=== PATIENT | male | born 1965 | race Caucasian/White ===

== ENCOUNTER 2019-07-02 11:06 | Day surgery (SDC) | payer MEDICAID ==
[~2019-07-02] VITALS: Ht 175.3 cm; Wt 83.8 kg
[2019-07-02 11:10] VITALS: BP 138/61
[2019-07-02] MEDS ORDERED: normal saline 1000ml 1,000 ML IV PRN (11:20)
[2019-07-02] MEDS ORDERED: cefazolin/dext.iso 2gm/100ml 100 ML IV ONE (11:20)
[2019-07-02] MEDS ORDERED: LIDOcaine 1% (10mg/ml) 2ml vial SQ ONE (11:45)
[2019-07-02] MEDS ORDERED: fentaNYL/PF 50MCG/1 ML 2ML syringe IV PRN (11:45)
[2019-07-02] MEDS ORDERED: LIDOcaine 1%/PF 5ML 10 MG/ML VIAL ONE (11:48)
[2019-07-02] MEDS ORDERED: fentaNYL/PF 50MCG/1 ML 2ML syringe ONE ×2 (11:48→12:15)
[2019-07-02] MEDS ORDERED: iohexol 300 MG/1 ML 50ml polymer ONE (11:55)
[2019-07-02] MEDS ORDERED: DUTA0.5C40 PO (11:58)
[2019-07-02] MEDS ORDERED: FLO0.4C PO (11:58)
[2019-07-02] MEDS ORDERED: INSU100V40 SQ (11:58)
[2019-07-02] MEDS ORDERED: INSU100I31 SQ (11:58)
[2019-07-02 12:03] LABS: BASOPHILS % (AUTO) 0.3 % (0-1); EOSINOPHILS # (AUTO) 0.2 X10'3 (0-0.9); EOSINOPHILS % (AUTO) 1.7 % (0-6); HEMATOCRIT 30.8 % (42.0-52.0); HEMOGLOBIN 10.1 g/dl (14.0-17.9); LYMPHOCYTES # (AUTO) 1.6 X10'3 (1.1-4.8); LYMPHOCYTES % (AUTO) 16.9 % (21-51); MEAN CORPUSCULAR HEMOGLOBIN 26.1 PG (27.0-31.0); MEAN CORPUSCULAR HGB CONC 32.6 g/dL (33.0-36.5); MEAN PLATELET VOLUME 7.8 FL (7.4-10.4); MONOCYTES # (AUTO) 0.9 X10'3 (0-0.9); MONOCYTES % (AUTO) 9.6 % (2-12); NEUTROPHILS # (AUTO) 6.7 X10'3 (1.8-7.7); NEUTROPHILS % (AUTO) 71.5 % (42-75); PLATELET COUNT 224 X10'3 (140-440); RED BLOOD COUNT 3.85 X10'6 (4.70-6.10); RED CELL DISTRIBUTION WIDTH 16.6 % (11.5-14.5); WHITE BLOOD COUNT 9.3 X10'3 (4.5-11.0)
[2019-07-02 12:13] LABS: ALBUMIN 2.8 G/DL (3.4-5.0); ANION GAP 14 (8-16); BLOOD UREA NITROGEN 62 MG/DL (7-18); BUN/CREATININE RATIO 12.7 (5.4-32.0); CALCIUM 8.9 MG/DL (8.5-10.1); CHLORIDE 100 MMOL/L (99-107); CREATININE 4.89 MG/DL (0.60-1.10); POTASSIUM 3.8 MMOL/L (3.5-5.1); SODIUM 130 MMOL/L (135-145); TOTAL CARBON DIOXIDE 16.4 MMOL/L (24-32); eGFR 13 ML/MIN
[2019-07-02 12:14] LABS: GLUCOSE 331 MG/DL (70-104)
[2019-07-02 12:30] VITALS: BP 124/73
[2019-07-02 12:45] VITALS: BP 107/62
[2019-07-02 13:00] VITALS: BP 98/63
[2019-07-02 13:15] VITALS: BP 120/77
[2019-07-02 13:30] VITALS: BP 118/81
== END 2019-07-02 14:00 | disposition home or self-care (01) ==
LOC: SSTAY O 11:06
PROVIDERS: ATTEND Radiology Diagnostic Radiology
DX: Z46.6 Encounter for fitting and adjustment of urinary device (principal); E11.9 Type 2 diabetes mellitus without complications; I10 Essential (primary) hypertension; Z85.038 Personal history of other malignant neoplasm of large intestine; Z90.49 Acquired absence of other specified parts of digestive tract; Z72.89 Other problems related to lifestyle; Z79.899 Other long term (current) drug therapy
CPT/HCPCS: 36415; 50435; 80048; 85025; C1729; C1769; J3010; J7030; Q9967

== ENCOUNTER 2019-08-24 16:51 | Emergency (ER) | payer MEDICAID ==
[~2019-08-24] VITALS: Ht 175.3 cm; Wt 85.3 kg
[~2019-08-24 16:51] MED LIST: DUTA0.5C40 PO; FLO0.4C PO; INSU100I31 SQ; INSU100V40 SQ
[2019-08-24 17:06] VITALS: BP 134/83
[2019-08-24] MEDS ORDERED: DOXY100C43 PO (17:46)
[2019-08-24] MEDS ORDERED: TETanus/Pertussis (Acell)/Diphther VAC/PF (Tdap-Adult) 0.5ml syringe IMVAC ONE (17:50)
== END 2019-08-24 18:33 | disposition home or self-care (01) ==
LOC: ER 16:52
DX: L02.212 Cutaneous abscess of back [any part, except buttock and flank] (principal); E11.9 Type 2 diabetes mellitus without complications; Z85.038 Personal history of other malignant neoplasm of large intestine; Z79.899 Other long term (current) drug therapy; Z79.4 Long term (current) use of insulin
CPT/HCPCS: 10160; 90471; 90715; 99284

== ENCOUNTER 2019-10-07 06:47 | Day surgery (SDC) | payer MEDICAID ==
[~2019-10-07] VITALS: Ht 175.3 cm; Wt 82.6 kg
--- NOTE | 2019-10-07 06:55 | NUR ---
Pt arrived on unit accompanied by family member. Pt ambulated independently & without difficulty to room. Pt oriented to room, including TV and call light use. Vital signs obtained, pt alert, oriented & in no acute distress.
[2019-10-07 07:09] VITALS: BP 95/67
[2019-10-07] MEDS ORDERED: normal saline 1000ml 1,000 ML IV PRN (07:10)
[2019-10-07] MEDS ORDERED: ceFAZolin inj. 2,000 MG in normal saline soln 50 ML IV ONE (07:10)
[2019-10-07] MEDS ORDERED: cefazolin/dext.iso 2gm/50ml 50 ML IV ONE (07:45)
[2019-10-07 07:47] LABS: ALBUMIN 2.5 G/DL (3.4-5.0); ANION GAP 11 (8-16); BASOPHILS % (AUTO) 0.3 % (0-1); BLOOD UREA NITROGEN 35 MG/DL (7-18); BUN/CREATININE RATIO 10.1 (5.4-32.0); CALCIUM 8.7 MG/DL (8.5-10.1); CHLORIDE 107 MMOL/L (99-107); CREATININE 3.48 MG/DL (0.60-1.10); EOSINOPHILS # (AUTO) 0.2 X10'3 (0-0.9); EOSINOPHILS % (AUTO) 2.1 % (0-6); GLUCOSE 159 MG/DL (70-104); HEMATOCRIT 28.7 % (42.0-52.0); HEMOGLOBIN 8.9 g/dl (14.0-17.9); LYMPHOCYTES # (AUTO) 1.7 X10'3 (1.1-4.8); LYMPHOCYTES % (AUTO) 15.2 % (21-51); MEAN CORPUSCULAR HEMOGLOBIN 23.6 PG (27.0-31.0); MEAN CORPUSCULAR HGB CONC 31.2 g/dL (33.0-36.5); MEAN CORPUSCULAR VOLUME 75.8 FL (78-98); MEAN PLATELET VOLUME 7.7 FL (7.4-10.4); MONOCYTES # (AUTO) 0.8 X10'3 (0-0.9); MONOCYTES % (AUTO) 7.1 % (2-12); NEUTROPHILS # (AUTO) 8.4 X10'3 (1.8-7.7); NEUTROPHILS % (AUTO) 75.3 % (42-75); PLATELET COUNT 304 X10'3 (140-440); POTASSIUM 3.9 MMOL/L (3.5-5.1); RED BLOOD COUNT 3.78 X10'6 (4.70-6.10); RED CELL DISTRIBUTION WIDTH 17.2 % (11.5-14.5); SODIUM 136 MMOL/L (135-145); TOTAL CARBON DIOXIDE 18.1 MMOL/L (24-32); WHITE BLOOD COUNT 11.2 X10'3 (4.5-11.0); eGFR 19 ML/MIN
[2019-10-07] MEDS ORDERED: LIDOcaine 1%/PF 5ML 10 MG/ML VIAL ONE (08:48)
[2019-10-07] MEDS ORDERED: fentaNYL/PF 50MCG/1 ML 2ML syringe ONE (08:48)
[2019-10-07] MEDS ORDERED: iohexol 300 MG/1 ML 50ml polymer ONE (08:48)
[2019-10-07] MEDS ORDERED: midazolam 2 mg/2 ml injection ONE (08:48)
--- NOTE | 2019-10-07 08:55 | NUR ---
Pt transported out of room via gurney for procedure; alert, oriented & in no acute distress.
[2019-10-07 09:30] VITALS: BP 95/67
--- NOTE | 2019-10-07 09:30 | NUR ---
Pt returned to room from angio suite via gurney. Pt awake, alert & in pleasant mood. Vital signs obtained, pt in no acute distress. Water and turkey sandwich provided per pt's request.
[2019-10-07 09:31] VITALS: BP 95/67
[2019-10-07 09:46] VITALS: BP 102/65
[2019-10-07 10:00] VITALS: BP 109/68
== END 2019-10-07 10:30 | disposition home or self-care (01) ==
LOC: SSTAY O 06:47
PROVIDERS: ATTEND Radiology Diagnostic Radiology
DX: R33.9 Retention of urine, unspecified (principal); N13.30 Unspecified hydronephrosis; Z93.6 Other artificial openings of urinary tract status
CPT/HCPCS: 36415; 50435; 80048; 82948; 85025; C1729; C1769; J2250; J3010; Q9967; 99152; 99153

== ENCOUNTER 2019-12-20 03:10 | Inpatient (IN) | payer MEDICAID ==
[~2019-12-20] VITALS: Ht 175.3 cm; Wt 81.8 kg
[2019-12-20] MEDS ORDERED: piperacillin/tazo 4.5gm/100ml 100 ML IV ONE (03:30)
--- NOTE | 2019-12-20 03:56 | NUR ---
Pt has obvious infection around nephrostomy tube on right side
[2019-12-20 04:08] LABS: PARTIAL THROMBOPLASTIN TIME 33 SECONDS (22-32)
[2019-12-20 04:09] LABS: CLARITY,URINE CLOUDY (Clear); COLOR,URINE YELLOW (Yellow); GLUCOSE, URINE 250 mg/dl (Neg); KETONES,URINE NEGATIVE (Neg); LEUKOCYTE ESTERASE ,URINE MODERATE (Neg); NITRITES, URINE NEGATIVE (Neg); OCCULT BLOOD,URINE MODERATE (Neg); PH,URINE 5.5 (4.8-8.0); PROTEIN,URINE 100 mg/dl (Neg); UROBILINOGEN,URINE 0.2 E.U/dL (0.2-1.0)
[2019-12-20 04:10] LABS: BASOPHILS % (AUTO) 0.2 % (0-1); EOSINOPHILS # (AUTO) 0.2 X10'3 (0-0.9); EOSINOPHILS % (AUTO) 1.4 % (0-6); HEMATOCRIT 31.4 % (42.0-52.0); HEMOGLOBIN 9.7 g/dl (14.0-17.9); LYMPHOCYTES # (AUTO) 1.8 X10'3 (1.1-4.8); LYMPHOCYTES % (AUTO) 11.1 % (21-51); MEAN CORPUSCULAR HEMOGLOBIN 23.5 PG (27.0-31.0); MONOCYTES # (AUTO) 0.9 X10'3 (0-0.9); MONOCYTES % (AUTO) 5.4 % (2-12); NEUTROPHILS # (AUTO) 13.3 X10'3 (1.8-7.7); NEUTROPHILS % (AUTO) 81.9 % (42-75); PLATELET COUNT 280 X10'3 (140-440); RED BLOOD COUNT 4.14 X10'6 (4.70-6.10); RED CELL DISTRIBUTION WIDTH 19.5 % (11.5-14.5); WHITE BLOOD COUNT 16.2 X10'3 (4.5-11.0)
[2019-12-20 04:12] LABS: ANION GAP 14 (8-16); BLOOD UREA NITROGEN 50 MG/DL (7-18); CHLORIDE 105 MMOL/L (99-107); CREATININE 3.86 MG/DL (0.60-1.10); GLUCOSE 103 MG/DL (70-104); POTASSIUM 3.9 MMOL/L (3.5-5.1); SODIUM 136 MMOL/L (135-145); TOTAL CARBON DIOXIDE 16.7 MMOL/L (24-32)
[2019-12-20 04:13] LABS: ALANINE AMINOTRANSFERASE 10 U/L (12-78); ALBUMIN 2.8 G/DL (3.4-5.0); ALBUMIN/GLOBULIN RATIO 0.5 (1.1-1.5); ALKALINE PHOSPHATASE 163 IU/L (46-116); ASPARTATE AMINO TRANSFERASE 8 U/L (10-37); BILIRUBIN,TOTAL 0.3 MG/DL (0.1-1.0); CALCIUM 9.2 MG/DL (8.5-10.1); eGFR 17 ML/MIN
[2019-12-20 04:35] LABS: UA COLLECTION TYPE FOLEY CATH
[2019-12-20] MEDS ORDERED: VANCOMYCIN 1,500MG inj. 1,500 MG in normal saline 500ml IV soln 500 ML IV ONE (04:40)
[2019-12-20 04:45] LABS: WBC,URINE TNTC /HPF (0-4)
[2019-12-20 04:46] LABS: BACTERIA,URINE 2+ /HPF (Neg); MUCUS STRANDS NONE SEEN /LPF (Neg); SQUAMOUS EPITHELIAL CELL,UR NONE SEEN /LPF (FEW); YEAST MODERATE /HPF (NEGATIVE)
[2019-12-20 04:47] LABS: WBC CLUMPS,URINE MODERATE /HPF (NEGATIVE)
[2019-12-20] MEDS ORDERED: morphine 4 MG/ML inj SYRINge IM ONE (04:55)
[2019-12-20] MEDS ORDERED: ondansetron/PF 4mg/2ml inj IM ONE (04:55)
[2019-12-20] MEDS ORDERED: morphine 2 MG/ML inj. syringe IV PRN (05:05)
[2019-12-20] MEDS ORDERED: acetaminophen 325mg tablet PO PRN ×2 (05:05)
[2019-12-20] MEDS ORDERED: HYDROcodone/acetaminophen 5mg/325mg tablet PO PRN (05:05)
[2019-12-20] MEDS ORDERED: potassium Cl 20 mEq SR tablet PO PRN ×2 (05:05)
[2019-12-20] MEDS ORDERED: ondansetron/PF 4mg/2ml inj IV PRN (05:05)
[2019-12-20] MEDS ORDERED: potassium CL 10mEq/100ml bag 100 ML IV PRN ×2 (05:05)
[2019-12-20] MEDS ORDERED: magnesium 2GM in 50ml NS 50 ML IV PRN (05:05)
[2019-12-20] MEDS ORDERED: magnesium 4gm in 100ml NS 100 ML IV PRN (05:05)
[2019-12-20] MEDS ORDERED: magnesium Cl slow-release 64mg tablet PO PRN (05:05)
[2019-12-20] MEDS: normal saline 1000ml 1,000 ML IV SCH ×3 (05:27→21:14)
--- NOTE | 2019-12-20 05:37 | NUR ---
Patient in room ED 9. I have received report from Cap,RN and had the opportunity to ask questions and assume patient care.
[2019-12-20] MEDS ORDERED: MESSAGE TO PHARMACY PO ONE (05:55)
[2019-12-20] MEDS ORDERED: dextrose 50%-water 50ml dispensing syringe IV PRN ×2 (05:55)
[2019-12-20] MEDS ORDERED: glucagon, human recombinant 1mg kit SUBCUT PRN (05:55)
[2019-12-20] MEDS ORDERED: dextrose ORAL solution 15 GM/59 ML bottle PO PRN ×2 (05:55)
--- NOTE | 2019-12-20 06:07 | NUR ---
Patient in room [facility]I 340. I have received report from Cady CAMILO and had the opportunity to ask questions and assume patient care.
--- NOTE | 2019-12-20 06:12 | NUR ---
Problems reprioritized. Patient report given, questions answered & plan of care reviewed with TON Pappas.
[2019-12-20 06:23] LABS: HEMOGLOBIN A1C 9.6 % (4.5-6.2)
[2019-12-20 06:35] LABS: PLATELET ESTIMATE NORMAL
[2019-12-20 06:46] LABS: ANISOCYTOSIS 2+; MICROCYTOSIS 1+; POLYCHROMASIA FEW
[2019-12-20 07:00] VITALS: BP 103/56
[2019-12-20] MEDS: heparin, porcine 5000 units/ml vial SQ SCH ×2 (07:25→19:46)
[2019-12-20] MEDS: docusate sod 100mg capsule PO SCH ×2 (07:25→20:00)
[2019-12-20] MEDS: HYDROcodone/acetaminophen 10/325mg tab PO PRN ×3 (07:34→19:47)
[2019-12-20] MEDS: K and/or MAG REPLACEMENT MC SCH ×2 (08:00→19:36)
[2019-12-20] MEDS ORDERED: LIDOcaine 1% W/epiNEPHrine 1:100,000 20ml vial ONE (08:00)
[2019-12-20] MEDS ORDERED: CefTRIAXone 2gm/D5W 50ml 50 ML IV SCH (08:00)
[2019-12-20] MEDS ORDERED: tamsulosin 0.4mg capsule PO SCH (11:30)
[2019-12-20] MEDS ORDERED: LIDOcaine 1% (10mg/ml) 2ml vial SQ ONE ×2 (15:20→15:40)
[2019-12-20] MEDS: morphine 2 MG/ML inj. syringe IV PRN ×2 (15:34→21:33)
--- NOTE | 2019-12-20 15:54 | NUR ---
DM Consult: A1C 9.6. Pt admit w/ R nephrostomy abscess hx bilateral nephrostomy tubes, meth abuse, colorectal CA, and colostomy w/ reversal at [facility] per . Pt fatigued at this time per EMR. Would benefit from DM ed once more appropriate prior to discharge. Addendum: 12/20/19 at [address] Amended: Links added.
[2019-12-20] MEDS: cefepime 1GM in D5W 50mL 50 ML IV SCH ×2 (16:02→23:37)
[2019-12-20] MEDS: clindamycin 600mg/D5W 50ml 50 ML IV SCH ×2 (17:17→21:21)
--- NOTE | 2019-12-20 17:35 | NUR ---
PATIENT SEEN BY dR MONTEIRO AND dr LIU. dR Liu PERFORMED I&D AT BEDSIDE. DRESSING ORDERS GIVEN. PATIENT MEDICATED WITH MORPHINE FOR PAIN AND NORCO.. WITH EFFECT. NEPHROSTOMY TUBES DRAINED 700MLS.WILL CONTINUE TO MONITOR. CULTURE TAKEN OF WOUND TO RIGHT FLANK
[2019-12-20 18:00] VITALS: BP 81/60
--- NOTE | 2019-12-20 18:30 | NUR ---
Patient in room [facility]I 340. I have received report from TON ARMSTRONG and had the opportunity to ask questions and assume patient care.
[2019-12-20] MEDS: insulin Lispro (HumaLOG) vial - multi-dose SQ SCH ×2 (18:48→20:49)
--- NOTE | 2019-12-20 18:49 | NUR ---
Problems reprioritized. Patient report given, questions answered & plan of care reviewed with MAXI CAMILO.
[2019-12-20] MEDS: lactobacillus rhamnosus 10,000 MMU CELLS/CAPSULE PO SCH (19:46)
[2019-12-20] MEDS: insulin glargine (Lantus) pen - multi-dose SQ SCH (20:48)
[2019-12-20] MEDS ORDERED: temazepam 15mg capsule PO PRN (21:00)
[2019-12-21] VITALS: BP 90/56
[2019-12-21] MEDS: clindamycin 600mg/D5W 50ml 50 ML IV SCH ×3 (02:36→14:20)
[2019-12-21] MEDS: VANCOmycin 1250MG/NS 250ml Bag 250 ML IV SCH (04:35)
[2019-12-21] MEDS: normal saline 1000ml 1,000 ML IV SCH (04:39)
[2019-12-21 05:00] LABS: BASOPHILS % (AUTO) 0.2 % (0-1); EOSINOPHILS # (AUTO) 0.2 X10'3 (0-0.9); EOSINOPHILS % (AUTO) 1.8 % (0-6); HEMATOCRIT 25.6 % (42.0-52.0); LYMPHOCYTES # (AUTO) 1.2 X10'3 (1.1-4.8); LYMPHOCYTES % (AUTO) 10.2 % (21-51); MEAN CORPUSCULAR HEMOGLOBIN 23.7 PG (27.0-31.0); MEAN CORPUSCULAR HGB CONC 31.2 g/dL (33.0-36.5); MEAN CORPUSCULAR VOLUME 75.9 FL (78-98); MONOCYTES # (AUTO) 0.8 X10'3 (0-0.9); MONOCYTES % (AUTO) 6.4 % (2-12); NEUTROPHILS # (AUTO) 9.7 X10'3 (1.8-7.7); NEUTROPHILS % (AUTO) 81.4 % (42-75); PLATELET COUNT 191 X10'3 (140-440); RED BLOOD COUNT 3.38 X10'6 (4.70-6.10); RED CELL DISTRIBUTION WIDTH 19.3 % (11.5-14.5); WHITE BLOOD COUNT 11.9 X10'3 (4.5-11.0)
[2019-12-21 05:11] LABS: ALANINE AMINOTRANSFERASE 10 U/L (12-78); ALBUMIN 2.1 G/DL (3.4-5.0); ALBUMIN/GLOBULIN RATIO 0.4 (1.1-1.5); ALKALINE PHOSPHATASE 135 IU/L (46-116); ANION GAP 14 (8-16); ASPARTATE AMINO TRANSFERASE 9 U/L (10-37); BILIRUBIN,TOTAL 0.2 MG/DL (0.1-1.0); BLOOD UREA NITROGEN 55 MG/DL (7-18); BUN/CREATININE RATIO 13.6 (5.4-32.0); CALCIUM 8.2 MG/DL (8.5-10.1); CHLORIDE 105 MMOL/L (99-107); CREATININE 4.05 MG/DL (0.60-1.10); GLUCOSE 140 MG/DL (70-104); MAGNESIUM 1.7 MG/DL (1.5-2.4); POTASSIUM 4.2 MMOL/L (3.5-5.1); SODIUM 133 MMOL/L (135-145); TOTAL PROTEIN 7.2 G/DL (6.4-8.2); eGFR 16 ML/MIN
--- NOTE | 2019-12-21 05:43 | NUR ---
MESSAGE: [id number] LEONID SOTO 52 HERE FOR INFECTED NEPHROSTOMY, PT HAS CRITICAL LAB OF CO2 14 THIS MORNIG. THANK YOU. #[id number] MAXI
--- NOTE | 2019-12-21 06:00 | NUR ---
Problems reprioritized. Patient report given, questions answered & plan of care reviewed with River Crowe.
[2019-12-21 06:10] LABS: ANISOCYTOSIS 2+; MICROCYTOSIS 1+; PLATELET ESTIMATE NORMAL
--- NOTE | 2019-12-21 06:50 | NUR ---
Problems reprioritized. Patient report given, questions answered & plan of care reviewed with TON GONZALEZ.
[2019-12-21 08:00] VITALS: BP 103/52
[2019-12-21] MEDS: K and/or MAG REPLACEMENT MC SCH ×2 (08:00→19:33)
[2019-12-21] MEDS: heparin, porcine 5000 units/ml vial SQ SCH ×2 (08:00→20:39)
[2019-12-21] MEDS: docusate sod 100mg capsule PO SCH ×2 (08:00→20:37)
[2019-12-21] MEDS: lactobacillus rhamnosus 10,000 MMU CELLS/CAPSULE PO SCH ×2 (08:17→20:37)
[2019-12-21] MEDS: morphine 2 MG/ML inj. syringe IV PRN (08:18)
[2019-12-21] MEDS: cefepime 1GM in D5W 50mL 50 ML IV SCH ×2 (09:27→15:27)
[2019-12-21] MEDS ORDERED: fentaNYL/PF 50MCG/1 ML 2ML syringe ONE ×2 (09:50→10:37)
[2019-12-21] MEDS ORDERED: iohexol 300 MG/1 ML 50ml polymer ONE (09:58)
[2019-12-21] MEDS ORDERED: LIDOcaine 1%/PF 5ML 10 MG/ML VIAL ONE (09:59)
[2019-12-21 11:11] VITALS: BP 102/59
[2019-12-21] MEDS: sodium bicarbonate (8.4%) inj. 100 MEQ in sodium chloride 0.45% 1,000 ML IV SCH (11:33)
[2019-12-21] MEDS: insulin Lispro (HumaLOG) vial - multi-dose SQ SCH (18:26)
--- NOTE | 2019-12-21 18:29 | NUR ---
Problems reprioritized. Patient report given, questions answered & plan of care reviewed with Amrita CAMILO.
--- NOTE | 2019-12-21 18:40 | NUR ---
Patient in room [facility]I 340. I have received report from rosario Sandoval and had the opportunity to ask questions and assume patient care.
[2019-12-21 20:00] VITALS: BP 121/68
[2019-12-21] MEDS: MEROPENEM 500MG/50ML-NS IVPB 50 ML IV SCH (20:36)
[2019-12-21] MEDS: tamsulosin 0.4mg capsule PO SCH (20:37)
[2019-12-21] MEDS: insulin glargine (Lantus) pen - multi-dose SQ SCH (20:46)
[2019-12-22] VITALS: BP 116/61
[2019-12-22] MEDS: sodium bicarbonate (8.4%) inj. 100 MEQ in sodium chloride 0.45% 1,000 ML IV SCH ×3 (00:31→15:18)
[2019-12-22] MEDS: VANCOmycin 1250MG/NS 250ml Bag 250 ML IV SCH (04:32)
[2019-12-22 05:04] LABS: BASOPHILS % (AUTO) 0.5 % (0-1); EOSINOPHILS # (AUTO) 0.2 X10'3 (0-0.9); EOSINOPHILS % (AUTO) 2.7 % (0-6); HEMOGLOBIN 8.3 g/dl (14.0-17.9); LYMPHOCYTES # (AUTO) 0.8 X10'3 (1.1-4.8); LYMPHOCYTES % (AUTO) 10.3 % (21-51); MEAN CORPUSCULAR HEMOGLOBIN 24.1 PG (27.0-31.0); MEAN CORPUSCULAR HGB CONC 31.8 g/dL (33.0-36.5); MEAN CORPUSCULAR VOLUME 75.8 FL (78-98); MEAN PLATELET VOLUME 8.1 FL (7.4-10.4); MONOCYTES # (AUTO) 0.4 X10'3 (0-0.9); MONOCYTES % (AUTO) 5.8 % (2-12); NEUTROPHILS # (AUTO) 6.1 X10'3 (1.8-7.7); NEUTROPHILS % (AUTO) 80.7 % (42-75); PLATELET COUNT 193 X10'3 (140-440); RED BLOOD COUNT 3.43 X10'6 (4.70-6.10); RED CELL DISTRIBUTION WIDTH 18.9 % (11.5-14.5); WHITE BLOOD COUNT 7.6 X10'3 (4.5-11.0)
[2019-12-22 05:20] LABS: ALANINE AMINOTRANSFERASE 7 U/L (12-78); ALBUMIN/GLOBULIN RATIO 0.4 (1.1-1.5); ALKALINE PHOSPHATASE 129 IU/L (46-116); ANION GAP 13 (8-16); ASPARTATE AMINO TRANSFERASE 11 U/L (10-37); BILIRUBIN,TOTAL 0.2 MG/DL (0.1-1.0); BLOOD UREA NITROGEN 55 MG/DL (7-18); BUN/CREATININE RATIO 12.9 (5.4-32.0); CHLORIDE 107 MMOL/L (99-107); CREATININE 4.26 MG/DL (0.60-1.10); GLUCOSE 141 MG/DL (70-104); MAGNESIUM 1.8 MG/DL (1.5-2.4); POTASSIUM 3.9 MMOL/L (3.5-5.1); SODIUM 137 MMOL/L (135-145); TOTAL CARBON DIOXIDE 16.8 MMOL/L (24-32); eGFR 15 ML/MIN
--- NOTE | 2019-12-22 06:00 | NUR ---
Patient in room [facility] 340. I have received report from TON Crowe and had the opportunity to ask questions and assume patient care.
--- NOTE | 2019-12-22 06:29 | NUR ---
Problems reprioritized. Patient report given, questions answered & plan of care reviewed with TON GONZALEZ.
[2019-12-22 07:26] LABS: ANISOCYTOSIS 2+; HYPOCHROMASIA 1+; MICROCYTOSIS 1+; PLATELET ESTIMATE NORMAL
[2019-12-22 07:30] VITALS: BP 96/54
[2019-12-22] MEDS: docusate sod 100mg capsule PO SCH ×2 (08:00→20:00)
[2019-12-22] MEDS: K and/or MAG REPLACEMENT MC SCH ×2 (08:00→20:00)
[2019-12-22] MEDS: tamsulosin 0.4mg capsule PO SCH ×2 (08:04→21:29)
[2019-12-22] MEDS: lactobacillus rhamnosus 10,000 MMU CELLS/CAPSULE PO SCH ×2 (08:04→21:29)
[2019-12-22] MEDS: MEROPENEM 500MG/50ML-NS IVPB 50 ML IV SCH ×2 (08:04→21:29)
[2019-12-22] MEDS: heparin, porcine 5000 units/ml vial SQ SCH ×2 (08:05→21:30)
[2019-12-22] MEDS: morphine 2 MG/ML inj. syringe IV PRN ×4 (08:06→21:46)
[2019-12-22] MEDS: insulin Lispro (HumaLOG) vial - multi-dose SQ SCH ×3 (09:13→18:35)
[2019-12-22 11:00] VITALS: BP 91/59
--- NOTE | 2019-12-22 14:52 | NUR ---
F/u for DM consult: Attempted visit with pt at bedside however pt sleeping and did not wake with verbal cues. Written DM education with referral to outpatient CDE course and RD contact information left at bedside. Will remain available. Addendum: 12/22/19 at [address] Amended: Links added.
--- NOTE | 2019-12-22 18:00 | NUR ---
Problems reprioritized. Patient report given, questions answered & plan of care reviewed with TON Robbins.
--- NOTE | 2019-12-22 18:45 | NUR ---
Patient in room [facility] 340. I have received report from Jaime CAMILO and had the opportunity to ask questions and assume patient care.
[2019-12-22 19:00] VITALS: BP 92/44
[2019-12-22] MEDS: insulin glargine (Lantus) pen - multi-dose SQ SCH (21:37)
[2019-12-23] VITALS: BP 114/63
[2019-12-23] MEDS: sodium bicarbonate (8.4%) inj. 100 MEQ in sodium chloride 0.45% 1,000 ML IV SCH ×3 (05:03→19:58)
[2019-12-23] MEDS: VANCOmycin 1250MG/NS 250ml Bag 250 ML IV SCH (05:05)
[2019-12-23 05:32] LABS: BASOPHILS % (AUTO) 0.3 % (0-1); EOSINOPHILS # (AUTO) 0.2 X10'3 (0-0.9); EOSINOPHILS % (AUTO) 2.3 % (0-6); HEMATOCRIT 25.5 % (42.0-52.0); HEMOGLOBIN 8.1 g/dl (14.0-17.9); LYMPHOCYTES # (AUTO) 0.8 X10'3 (1.1-4.8); LYMPHOCYTES % (AUTO) 11.1 % (21-51); MEAN CORPUSCULAR HEMOGLOBIN 23.9 PG (27.0-31.0); MEAN CORPUSCULAR HGB CONC 31.6 g/dL (33.0-36.5); MEAN CORPUSCULAR VOLUME 75.7 FL (78-98); MEAN PLATELET VOLUME 8.1 FL (7.4-10.4); MONOCYTES # (AUTO) 0.4 X10'3 (0-0.9); MONOCYTES % (AUTO) 6.1 % (2-12); NEUTROPHILS # (AUTO) 5.9 X10'3 (1.8-7.7); NEUTROPHILS % (AUTO) 80.2 % (42-75); PLATELET COUNT 196 X10'3 (140-440); RED BLOOD COUNT 3.37 X10'6 (4.70-6.10); RED CELL DISTRIBUTION WIDTH 18.7 % (11.5-14.5); WHITE BLOOD COUNT 7.4 X10'3 (4.5-11.0)
[2019-12-23 05:50] LABS: ALANINE AMINOTRANSFERASE 8 U/L (12-78); ALBUMIN 1.9 G/DL (3.4-5.0); ALBUMIN/GLOBULIN RATIO 0.4 (1.1-1.5); ALKALINE PHOSPHATASE 125 IU/L (46-116); ANION GAP 12 (8-16); ASPARTATE AMINO TRANSFERASE 10 U/L (10-37); BILIRUBIN,TOTAL 0.2 MG/DL (0.1-1.0); BLOOD UREA NITROGEN 51 MG/DL (7-18); CALCIUM 8.1 MG/DL (8.5-10.1); CHLORIDE 109 MMOL/L (99-107); CREATININE 3.65 MG/DL (0.60-1.10); GLUCOSE 130 MG/DL (70-104); MAGNESIUM 1.9 MG/DL (1.5-2.4); POTASSIUM 3.8 MMOL/L (3.5-5.1); SODIUM 140 MMOL/L (135-145); TOTAL PROTEIN 6.8 G/DL (6.4-8.2); eGFR 18 ML/MIN
--- NOTE | 2019-12-23 07:02 | NUR ---
Patient in room [facility]I 340. I have received report from Itzel Holman and had the opportunity to ask questions and assume patient care.
--- NOTE | 2019-12-23 07:06 | NUR ---
Problems reprioritized. Patient report given, questions answered & plan of care reviewed with Brandie CAMILO.
[2019-12-23 08:00] VITALS: BP 100/62
[2019-12-23] MEDS: K and/or MAG REPLACEMENT MC SCH ×2 (08:00→20:00)
[2019-12-23] MEDS: docusate sod 100mg capsule PO SCH ×2 (08:00→20:00)
[2019-12-23 08:04] LABS: ANISOCYTOSIS 2+; MICROCYTOSIS 1+; PLATELET ESTIMATE NORMAL
--- NOTE | 2019-12-23 08:10 | NUR ---
Pt w/ Positive MRSA swab from back wd, per lab. TON Diego, notified.
[2019-12-23] MEDS: MEROPENEM 500MG/50ML-NS IVPB 50 ML IV SCH ×2 (09:05→21:06)
[2019-12-23] MEDS: tamsulosin 0.4mg capsule PO SCH ×2 (09:05→21:05)
[2019-12-23] MEDS: lactobacillus rhamnosus 10,000 MMU CELLS/CAPSULE PO SCH ×2 (09:05→21:05)
[2019-12-23] MEDS: heparin, porcine 5000 units/ml vial SQ SCH ×2 (09:06→21:08)
[2019-12-23 11:00] VITALS: BP 83/47
[2019-12-23] MEDS: insulin Lispro (HumaLOG) vial - multi-dose SQ SCH ×2 (14:47→19:48)
[2019-12-23] MEDS: morphine 2 MG/ML inj. syringe IV PRN (16:13)
--- NOTE | 2019-12-23 18:48 | NUR ---
Problems reprioritized. Patient report given, questions answered & plan of care reviewed with pat RN.
[2019-12-23 19:00] VITALS: BP 109/60
--- NOTE | 2019-12-23 19:30 | NUR ---
right nephrostomy tube patent & draining light, cloudy pink urine with sediment to a bag; the left nephrostomy tube is patent & draining yellow urine to a bag Addendum: 12/23/19 at 4753 by Nisha Vega RN Amended: Links added.
[2019-12-23] MEDS: insulin glargine (Lantus) pen - multi-dose SQ SCH (20:59)
[2019-12-24] VITALS: BP 109/59
[2019-12-24] MEDS ORDERED: VANCOMYCIN LEVEL IV ONE (04:30)
[2019-12-24 05:02] LABS: BASOPHILS % (AUTO) 0.3 % (0-1); EOSINOPHILS # (AUTO) 0.1 X10'3 (0-0.9); EOSINOPHILS % (AUTO) 1.8 % (0-6); HEMATOCRIT 24.7 % (42.0-52.0); LYMPHOCYTES # (AUTO) 1.1 X10'3 (1.1-4.8); MEAN CORPUSCULAR HEMOGLOBIN 24.1 PG (27.0-31.0); MEAN CORPUSCULAR HGB CONC 32.2 g/dL (33.0-36.5); MEAN CORPUSCULAR VOLUME 74.6 FL (78-98); MEAN PLATELET VOLUME 7.8 FL (7.4-10.4); MONOCYTES # (AUTO) 0.5 X10'3 (0-0.9); MONOCYTES % (AUTO) 6.2 % (2-12); NEUTROPHILS # (AUTO) 6.3 X10'3 (1.8-7.7); NEUTROPHILS % (AUTO) 77.7 % (42-75); PLATELET COUNT 186 X10'3 (140-440); RED BLOOD COUNT 3.31 X10'6 (4.70-6.10); RED CELL DISTRIBUTION WIDTH 18.6 % (11.5-14.5); WHITE BLOOD COUNT 8.1 X10'3 (4.5-11.0)
[2019-12-24] MEDS: VANCOmycin 1250MG/NS 250ml Bag 250 ML IV SCH (05:09)
[2019-12-24 05:27] LABS: ALANINE AMINOTRANSFERASE 7 U/L (12-78); ALBUMIN 1.8 G/DL (3.4-5.0); ALBUMIN/GLOBULIN RATIO 0.4 (1.1-1.5); ALKALINE PHOSPHATASE 128 IU/L (46-116); ANION GAP 8 (8-16); ASPARTATE AMINO TRANSFERASE 15 U/L (10-37); BILIRUBIN,TOTAL 0.2 MG/DL (0.1-1.0); BLOOD UREA NITROGEN 40 MG/DL (7-18); BUN/CREATININE RATIO 12.9 (5.4-32.0); CALCIUM 8.2 MG/DL (8.5-10.1); CHLORIDE 107 MMOL/L (99-107); GLUCOSE 113 MG/DL (70-104); POTASSIUM 3.7 MMOL/L (3.5-5.1); SODIUM 140 MMOL/L (135-145); TOTAL CARBON DIOXIDE 25.2 MMOL/L (24-32); TOTAL PROTEIN 6.7 G/DL (6.4-8.2); eGFR 21 ML/MIN
[2019-12-24 05:28] LABS: MAGNESIUM 1.7 MG/DL (1.5-2.4)
[2019-12-24 05:29] LABS: VANCOMYCIN,TROUGH 33.8 UG/ML (6.0-14.0)
--- NOTE | 2019-12-24 06:30 | NUR ---
Patient in room [facility] 341. I have received report from Pat RN and had the opportunity to ask questions and assume patient care.
[2019-12-24 06:32] LABS: ANISOCYTOSIS 2+; MICROCYTOSIS 1+; PLATELET ESTIMATE NORMAL
[2019-12-24 06:33] LABS: HYPOCHROMASIA 1+
[2019-12-24] MEDS: docusate sod 100mg capsule PO SCH (07:52)
--- NOTE | 2019-12-24 07:54 | NUR ---
PICC line nurse came by to do the PICC line insertion
[2019-12-24 08:00] VITALS: BP 99/59
[2019-12-24] MEDS: K and/or MAG REPLACEMENT MC SCH (08:00)
--- NOTE | 2019-12-24 08:30 | NUR ---
PICC line nurse still in the patient's room doing the procedure
--- NOTE | 2019-12-24 09:05 | NUR ---
[facility] LINE INFORMATION: REF: [id number] LOT: [id number] EXP: 08/11/2020
[2019-12-24] MEDS: MEROPENEM 500MG/50ML-NS IVPB 50 ML IV SCH (09:18)
[2019-12-24] MEDS: tamsulosin 0.4mg capsule PO SCH (09:19)
[2019-12-24] MEDS: lactobacillus rhamnosus 10,000 MMU CELLS/CAPSULE PO SCH (09:19)
[2019-12-24] MEDS: heparin, porcine 5000 units/ml vial SQ SCH (09:20)
--- NOTE | 2019-12-24 09:57 | NUR ---
Patient refused insulin dose this am, preferred to skip it since his blood sugar this am was 125mg/dl
[2019-12-24 10:12] VITALS: BP 121/72
[2019-12-24] MEDS: morphine 2 MG/ML inj. syringe IV PRN (10:22)
--- NOTE | 2019-12-24 10:30 | NUR ---
Wound care nurse came to do the dressing change. Patient was medicated with pain medicine prior to dressing change.
[2019-12-24] MEDS: sodium bicarbonate (8.4%) inj. 100 MEQ in sodium chloride 0.45% 1,000 ML IV SCH (12:23)
--- NOTE | 2019-12-24 12:31 | NUR ---
Initial: Pt with bilateral nephrostomy tube admit with right nephrostomy site abscess. Pt s/p I&D of abscess. Nephrology has been consulted for acute on chronic kidney disease stage 4 per MD notes. Electrolytes currently WNL. Pt on heart healthy CHO controlled diet documented with slightly fluctuating PO intake, overall averaging 75-100% PO intake meeting nutrient needs. LBM 12/23. Pt with routine bowel care however not given at times d/t pt refusing or it not being needed. No nutrition intervention warranted at this time. Will continue to follow. Recommendations: 1) Continue heart healthy CHO controlled diet 2) Monitor electrolytes and need for the addition of renal diet 3) Routine bowel care 4) Wt per rx Addendum: 12/24/19 at [address] Amended: Links added.
[2019-12-24] MEDS: insulin Lispro (HumaLOG) vial - multi-dose SQ SCH (13:44)
--- NOTE | 2019-12-24 14:29 | NUR ---
Discharge instructions given to patient, patient verbalized understanding of all instructions made. Teaching materials regarding PICC line care, nephrostomy tube care, and A1C result as well as diabetes survival skills information given to patient. Right upper PICC line slushed with 10ml NS both ports, positive blood return noted, no resistance. Peripheral IV catheters were removed, tip intact. IV antibiotic prescriptions c/o [facility] infusion services. Home health nurse arranged c/o Cigarette Inspector Vivien
--- NOTE | 2019-12-24 14:43 | NUR ---
Patient discharged, refused to be wheelchair out to the lobby. Patient has steady gait. Charge nurse Roberto notified [facility] pharmacy that patient is about to leave. Roberto CAMILO told patient to go directly to [facility] pharmacy before heading home. Patient stated he has all his belongings with him.
[2019-12-25] MEDS ORDERED: VANCOMYCIN 750MG IV in NS 250 ML IV SCH (08:00)
[2019-12-28] MEDS ORDERED: VANCOMYCIN LEVEL IV ONE (07:30)
== END 2019-12-24 14:43 | disposition home or self-care (01) | DRG 466 ==
LOC: ER 03:11 → ED HOLD 05:04 → SUR 3N 05:50
PROVIDERS: ADMIT Internal Medicine; ATTEND Family Medicine
PROC: 0H97XZZ Drainage of Abdomen Skin, External Approach (ICD-10-PCS; 2019-12-20)
PROC: 0H97XZZ Drainage of Abdomen Skin, External Approach (ICD-10-PCS; 2019-12-20)
PROC: BT131ZZ Fluoroscopy of Bilateral Kidneys using Low Osmolar Contrast (ICD-10-PCS; principal; 2019-12-21)
PROC: 0T25X0Z Change Drainage Device in Kidney, External Approach (ICD-10-PCS; 2019-12-21)
PROC: 02HV33Z Insertion of Infusion Device into Superior Vena Cava, Percutaneous Approach (ICD-10-PCS; 2019-12-24)
PROC: B548ZZA Ultrasonography of Superior Vena Cava, Guidance (ICD-10-PCS; 2019-12-24)
DX: N99.521 Infection of incontinent external stoma of urinary tract (principal); E11.22 Type 2 diabetes mellitus with diabetic chronic kidney disease; E87.2 Acidosis; E11.69 Type 2 diabetes mellitus with other specified complication; E11.65 Type 2 diabetes mellitus with hyperglycemia; M86.8X8 Other osteomyelitis, other site; N13.6 Pyonephrosis; N18.4 Chronic kidney disease, stage 4 (severe); L02.211 Cutaneous abscess of abdominal wall; L03.311 Cellulitis of abdominal wall; L03.312 Cellulitis of back [any part except buttock and flank]; B95.2 Enterococcus as the cause of diseases classified elsewhere; Z16.12 Extended spectrum beta lactamase (ESBL) resistance; B95.62 Methicillin resistant Staphylococcus aureus infection as the cause of diseases classified elsewhere; B96.20 Unspecified Escherichia coli [E. coli] as the cause of diseases classified elsewhere; N32.0 Bladder-neck obstruction; Z85.048 Personal history of other malignant neoplasm of rectum, rectosigmoid junction, and anus; Z87.440 Personal history of urinary (tract) infections; Z92.21 Personal history of antineoplastic chemotherapy; Z92.3 Personal history of irradiation; Z79.899 Other long term (current) drug therapy; Z79.4 Long term (current) use of insulin
CPT/HCPCS: 36415; 36573; 50435; 74176; 76937; 80053; 80202; 81001; 82948; 83036; 83605; 83735; 84145; 85025; 85610; 85730; 87040; 87070; 87075; 87077; 87081; 87088; 87102; 87186; 97110; 97161; 97530; 99285; C1729; C1769; G0378; J0692; J0696; J1644; J1815; J2001; J2185; J2270; J2405; J2543; J3010; J3370; J3490; J7030; J7040; Q9967

== ENCOUNTER 2020-01-04 17:03 | Inpatient (IN) | payer MEDICAID ==
[~2020-01-04] VITALS: Ht 175.3 cm; Wt 90.0 kg
[~2020-01-04 17:03] MED LIST changes: -DUTA0.5C40 PO
[2020-01-04] MEDS ORDERED: normal saline 1000ML IV soln IV ONE (17:10)
[2020-01-04 17:34] LABS: BASOPHILS # (AUTO) 0.1 X10'3 (0-0.2); BASOPHILS % (AUTO) 0.6 % (0-1); EOSINOPHILS # (AUTO) 0.1 X10'3 (0-0.9); EOSINOPHILS % (AUTO) 0.4 % (0-6); HEMATOCRIT 32.5 % (42.0-52.0); LYMPHOCYTES # (AUTO) 1.6 X10'3 (1.1-4.8); LYMPHOCYTES % (AUTO) 8.2 % (21-51); MEAN CORPUSCULAR HEMOGLOBIN 24.2 PG (27.0-31.0); MEAN CORPUSCULAR HGB CONC 30.8 g/dL (33.0-36.5); MEAN CORPUSCULAR VOLUME 78.4 FL (78-98); MEAN PLATELET VOLUME 8.4 FL (7.4-10.4); MONOCYTES # (AUTO) 0.9 X10'3 (0-0.9); NEUTROPHILS # (AUTO) 16.4 X10'3 (1.8-7.7); NEUTROPHILS % (AUTO) 85.8 % (42-75); PLATELET COUNT 357 X10'3 (140-440); RED BLOOD COUNT 4.14 X10'6 (4.70-6.10); RED CELL DISTRIBUTION WIDTH 18.7 % (11.5-14.5); WHITE BLOOD COUNT 19.1 X10'3 (4.5-11.0)
[2020-01-04] MEDS ORDERED: tPA-cathflo 2 MG/2 ml IV flush IVF ONE (17:40)
[2020-01-04 17:50] LABS: ALANINE AMINOTRANSFERASE 8 U/L (12-78); ALBUMIN 2.7 G/DL (3.4-5.0); ALBUMIN/GLOBULIN RATIO 0.5 (1.1-1.5); ALKALINE PHOSPHATASE 115 IU/L (46-116); ANION GAP 13 (8-16); ASPARTATE AMINO TRANSFERASE 9 U/L (10-37); BILIRUBIN,TOTAL 0.4 MG/DL (0.1-1.0); BLOOD UREA NITROGEN 29 MG/DL (7-18); CALCIUM 8.6 MG/DL (8.5-10.1); CHLORIDE 105 MMOL/L (99-107); CREATININE 3.22 MG/DL (0.60-1.10); GLUCOSE 220 MG/DL (70-104); POTASSIUM 4.1 MMOL/L (3.5-5.1); SODIUM 137 MMOL/L (135-145); TOTAL CARBON DIOXIDE 19.2 MMOL/L (24-32); TOTAL PROTEIN 8.3 G/DL (6.4-8.2); eGFR 20 ML/MIN
[2020-01-04] MEDS ORDERED: fentaNYL/PF 50MCG/1 ML 2ML syringe IV ONE (17:50)
[2020-01-04 18:06] LABS: CLARITY,URINE SLIGHTLY CLOUDY (Clear); COLOR,URINE YELLOW (Yellow); GLUCOSE, URINE NEGATIVE (Neg); KETONES,URINE NEGATIVE (Neg); LEUKOCYTE ESTERASE ,URINE SMALL (Neg); NITRITES, URINE NEGATIVE (Neg); OCCULT BLOOD,URINE MODERATE (Neg); PROTEIN,URINE >=300 mg/dl (Neg); UROBILINOGEN,URINE 0.2 E.U/dL (0.2-1.0)
[2020-01-04 18:14] LABS: UA COLLECTION TYPE OTHER
[2020-01-04 18:17] LABS: RBC,URINE NONE SEEN /HPF (0-2); WBC,URINE 20-30 /HPF (0-4)
[2020-01-04 18:19] LABS: BACTERIA,URINE 2+ /HPF (Neg); SQUAMOUS EPITHELIAL CELL,UR FEW /LPF (FEW)
[2020-01-04 18:20] LABS: WBC CLUMPS,URINE FEW /HPF (NEGATIVE); YEAST MANY /HPF (NEGATIVE)
[2020-01-04 18:44] LABS: TOTAL CELLS COUNTED 100
[2020-01-04 18:45] LABS: ANISOCYTOSIS 2+; HYPOCHROMASIA 1+; MICROCYTOSIS 1+; PLATELET ESTIMATE NORMAL
[2020-01-04] MEDS: vancomycin 125mg/5ml ORAL solution 5ml UD bottle PO SCH ×2 (18:55→20:12)
[2020-01-04] MEDS ORDERED: ondansetron/PF 4mg/2ml inj IM ONE (20:20)
[2020-01-04] MEDS ORDERED: ondansetron/PF 4mg/2ml inj IV ONE (20:30)
[2020-01-04] MEDS: normal saline 1000ml 1,000 ML IV SCH (20:43)
[2020-01-04] MEDS ORDERED: magnesium 4gm in 100ml NS 100 ML IV PRN (20:45)
[2020-01-04] MEDS ORDERED: potassium CL 10mEq/100ml bag 100 ML IV PRN ×2 (20:45)
[2020-01-04] MEDS ORDERED: magnesium 2GM in 50ml NS 50 ML IV PRN (20:45)
[2020-01-04] MEDS ORDERED: acetaminophen 325mg tablet PO PRN (20:45)
[2020-01-04] MEDS ORDERED: potassium Cl 20 mEq SR tablet PO PRN ×2 (20:45)
[2020-01-04] MEDS ORDERED: LORazepam 2 mg/ml vial IV ONE (20:55)
[2020-01-04 23:00] VITALS: BP 105/67
--- NOTE | 2020-01-04 23:32 | NUR ---
PAGER ID: [phone] MESSAGE: [phone] Gustavo Whitman: Has NG ordered. multiple attempts in ER and multiple in PCU without success. try again? or OG tube? uzma ponce [phone]
--- NOTE | 2020-01-04 23:34 | NUR ---
Attempts at NG tube made in right and left nare. Both attempts met with significant resistance resulting in bleeding. Both tubes removed kinked/damaged. Pt states hx of using illicit drugs via nasal route
[2020-01-05] MEDS: vancomycin 125mg/5ml ORAL solution 5ml UD bottle PO SCH ×4 (01:26→20:01)
[2020-01-05] MEDS ORDERED: MEROPENEM 1GM/NS 50ML IVPB 50 ML IV SCH (02:00)
[2020-01-05 02:30] VITALS: BP 120/50
[2020-01-05] MEDS ORDERED: VANCOmycin 1250MG/NS 250ml Bag 250 ML IV SCH (03:00)
[2020-01-05] MEDS: normal saline 1000ml 1,000 ML IV SCH ×3 (04:08→18:35)
--- NOTE | 2020-01-05 04:25 | NUR ---
NG/OG Multiple attempts made to insert NG and OG into patient with no success, and now patient is refusing to try again. Patient has a gag reflex now to ice chips as well. MD Marcos aware of complications, will pass on to day shift.
--- NOTE | 2020-01-05 04:44 | NUR ---
promotional table spacer PAGER ID: [phone] MESSAGE: [phone] edna tamekakaylee: needs hyperglycemia protocol and accuchecks for every 6 hrs for npo. shall I order them? uzma ponce [phone]
[2020-01-05] MEDS ORDERED: dextrose ORAL solution 15 GM/59 ML bottle PO PRN ×2 (04:45)
[2020-01-05] MEDS ORDERED: glucagon, human recombinant 1mg kit SUBCUT PRN (04:45)
[2020-01-05] MEDS ORDERED: MESSAGE TO PHARMACY PO ONE (04:45)
[2020-01-05] MEDS ORDERED: dextrose 50%-water 50ml dispensing syringe IV PRN ×2 (04:45)
[2020-01-05 06:00] VITALS: BP 91/57
--- NOTE | 2020-01-05 06:11 | NUR ---
PAGER ID: [phone] MESSAGE: [phone] edna morenita: patient in severe abdominal pain, no pain medication ordered. what can I order? uzma ponce [phone]
[2020-01-05] MEDS ORDERED: HYDROmorphone 1 mg/ml syringe IV ONE (06:15)
--- NOTE | 2020-01-05 06:30 | NUR ---
Problems reprioritized. Patient report given, questions answered & plan of care reviewed with Ayla CAMILO.
--- NOTE | 2020-01-05 06:52 | NUR ---
Patient in room PCU 3009. I have received report from Quin CAMILO and had the opportunity to ask questions and assume patient care.
--- NOTE | 2020-01-05 06:54 | NUR ---
Patient in room PCU 3009. I have received report from Kenna and had the opportunity to ask questions and assume patient care.
[2020-01-05 07:13] LABS: ALBUMIN 2.4 G/DL (3.4-5.0); ANION GAP 10 (8-16); BLOOD UREA NITROGEN 39 MG/DL (7-18); BUN/CREATININE RATIO 10.9 (5.4-32.0); CALCIUM 8.5 MG/DL (8.5-10.1); CHLORIDE 108 MMOL/L (99-107); CREATININE 3.58 MG/DL (0.60-1.10); GLUCOSE 210 MG/DL (70-104); MAGNESIUM 1.6 MG/DL (1.5-2.4); POTASSIUM 4.5 MMOL/L (3.5-5.1); SODIUM 139 MMOL/L (135-145); eGFR 18 ML/MIN
[2020-01-05 07:17] LABS: BASOPHILS % (AUTO) 0.2 % (0-1); EOSINOPHILS % (AUTO) 0.2 % (0-6); HEMATOCRIT 29.1 % (42.0-52.0); LYMPHOCYTES # (AUTO) 0.9 X10'3 (1.1-4.8); LYMPHOCYTES % (AUTO) 7.2 % (21-51); MEAN CORPUSCULAR HGB CONC 30.9 g/dL (33.0-36.5); MEAN CORPUSCULAR VOLUME 77.6 FL (78-98); MEAN PLATELET VOLUME 8.6 FL (7.4-10.4); MONOCYTES # (AUTO) 0.8 X10'3 (0-0.9); MONOCYTES % (AUTO) 6.5 % (2-12); NEUTROPHILS # (AUTO) 11.2 X10'3 (1.8-7.7); NEUTROPHILS % (AUTO) 85.9 % (42-75); PLATELET COUNT 243 X10'3 (140-440); RED BLOOD COUNT 3.75 X10'6 (4.70-6.10); RED CELL DISTRIBUTION WIDTH 18.5 % (11.5-14.5); WHITE BLOOD COUNT 13.1 X10'3 (4.5-11.0)
[2020-01-05] MEDS: ondansetron/PF 4mg/2ml inj IV PRN (07:51)
[2020-01-05] MEDS: K and/or MAG REPLACEMENT MC SCH ×2 (08:00→20:00)
[2020-01-05] MEDS: tamsulosin 0.4mg capsule PO SCH (08:00)
--- NOTE | 2020-01-05 08:30 | NUR ---
PAGER ID: [phone] MESSAGE: [phone] Gustavo Whitman. Has order to place NG tube r/t SBO. NOC nurses unsuccessful. Attempted this AM, Pt. refusing r/t multiple nurses failing/painful. Ania RN [phone]
[2020-01-05 08:58] VITALS: BP 94/63
--- NOTE | 2020-01-05 09:42 | NUR ---
Patient seen by Dr. Javid MD stated to hold Vanco (Oral and IV until c-diff results come back.) MD aware of holding flomax this AM. stated it is okay to not insert NG/OG tube and the patient may have clear liquids if he tolerates it. MD made aware of soft blood pressures this AM but MAP greater than 60. Pt. does report feeling a little better at this time. Will continue to monitor.
[2020-01-05 11:00] VITALS: BP 107/69
--- NOTE | 2020-01-05 11:52 | NUR ---
PAGER ID: [phone] MESSAGE: [phone] Gustavo Whitman. Pt had large loose stool, got into nephrostomy tubes. Want a renal consult to change tubing/bag? Germaine CAMILO ext [phone]
--- NOTE | 2020-01-05 13:01 | NUR ---
Initial: Pt admit w/ severe abdominal pain, sepsis, DX colonic obstruction r/t distal sigmoid and rectal pathology as well as high grade SBO per CT/MD notes. Also pending c.diff results for persistent large volume liquid stools per MD; CLAUDIA d/w RN regarding if SBO given diarrhea continuing today. Hx bilateral nephrostomy tubes and prior ileostomy w/ reversal at [facility] r/t hx colon CA. -230ml nephrostomy output so far this admit. Recent prior admit for intra-abdominal abscess requiring surgical intervention and pt had PICC at home for antibiotics per EMR. Pt advanced to clear liquids today though RN reports pt does not want any PO at this time r/t GI symptoms. Per latest RN note large volume liquid stool entered nephrostomy and pending MD singh to see if replacements required. Will monitor for diet advancement, PO diet tolerance, additional protein needs given DX, and additional GI information this admit. Rec: 1. advance diet as medically indicated to heart healthy 2. monitor for additional protein needs as PO diet advances pending PO hx 3. monitor for ONS needs 4. bowel care per MD pending DX 5. scaled wts Addendum: 01/05/20 at [address] Amended: Links added.
[2020-01-05] MEDS: insulin Lispro (HumaLOG) vial - multi-dose SQ SCH (13:14)
[2020-01-05 13:57] LABS: C DIFF ANTIGEN POSITIVE (NEGATIVE); C DIFF SPECIMEN=DIARRHEA? ACCEPTABLE; C DIFFICILE TOXINS A&B POSITIVE (Neg)
--- NOTE | 2020-01-05 14:07 | NUR ---
PAGER ID: [phone] MESSAGE: [phone] Gustavo Whitman - pt. was positive for C-diff. Germaine CAMILO [phone]
--- NOTE | 2020-01-05 14:46 | NUR ---
PAGER ID: [phone] MESSAGE: [phone] Gustavo Whitman - pt. was positive for C-diff. Do you want to restart Vanco? Germaine CAMILO [phone]
[2020-01-05 15:00] VITALS: BP 111/79
--- NOTE | 2020-01-05 17:50 | NUR ---
Agree with orientees documentation.
[2020-01-05 18:00] VITALS: BP_SYST 119; BP_SYST 142; BP_DIAS 78; BP_DIAS 88
--- NOTE | 2020-01-05 18:00 | NUR ---
Patient in room PCU 3009. I have received report from Chhaya CAMILO and had the opportunity to ask questions and assume patient care.
--- NOTE | 2020-01-05 18:19 | NUR ---
Problems reprioritized. Patient report given, questions answered & plan of care reviewed with Quin CAMILO.
--- NOTE | 2020-01-05 21:29 | NUR ---
promotional table spacer PAGER ID: [phone] MESSAGE: [phone] Gustavo Whitman: Moderate abdominal pain from obstruction. no pain meds ordered. What can I order? Kenna CAMILO [phone]
[2020-01-05] MEDS: insulin glargine (Lantus) pen - multi-dose SQ SCH (21:43)
[2020-01-05] MEDS: HYDROmorphone inj. 0.5 MG/0.5 ML DISP.SYRIN IV PRN (22:04)
[2020-01-06] VITALS (7 sets, daily range): BP systolic 104–128; BP diastolic 68–73
[2020-01-06] MEDS: vancomycin 125mg/5ml ORAL solution 5ml UD bottle PO SCH ×4 (01:51→21:14)
[2020-01-06] MEDS ORDERED: VANCOmycin 1250MG/NS 250ml Bag 250 ML IV SCH ×2 (03:00→12:00)
[2020-01-06] MEDS: normal saline 1000ml 1,000 ML IV SCH ×3 (04:35→23:11)
[2020-01-06] MEDS: HYDROmorphone inj. 0.5 MG/0.5 ML DISP.SYRIN IV PRN ×5 (04:54→21:14)
--- NOTE | 2020-01-06 06:30 | NUR ---
Patient in room PCU 3009. I have received report from Kenna CAMILO and had the opportunity to ask questions and assume patient care.
--- NOTE | 2020-01-06 06:38 | NUR ---
Patient in room PCU 3009. I have received report from Tory CAMILO and had the opportunity to ask questions and assume patient care.
--- NOTE | 2020-01-06 06:48 | NUR ---
Problems reprioritized. Patient report given, questions answered & plan of care reviewed with Aidee CAMILO.
[2020-01-06 07:56] LABS: BASOPHILS % (AUTO) 0.4 % (0-1); EOSINOPHILS # (AUTO) 0.1 X10'3 (0-0.9); EOSINOPHILS % (AUTO) 2.2 % (0-6); HEMATOCRIT 26.1 % (42.0-52.0); HEMOGLOBIN 8.2 g/dl (14.0-17.9); LYMPHOCYTES % (AUTO) 16.5 % (21-51); MEAN CORPUSCULAR HEMOGLOBIN 24.4 PG (27.0-31.0); MEAN CORPUSCULAR HGB CONC 31.4 g/dL (33.0-36.5); MEAN CORPUSCULAR VOLUME 77.9 FL (78-98); MEAN PLATELET VOLUME 8.7 FL (7.4-10.4); MONOCYTES # (AUTO) 0.7 X10'3 (0-0.9); MONOCYTES % (AUTO) 11.2 % (2-12); NEUTROPHILS # (AUTO) 4.4 X10'3 (1.8-7.7); NEUTROPHILS % (AUTO) 69.7 % (42-75); PLATELET COUNT 206 X10'3 (140-440); RED BLOOD COUNT 3.35 X10'6 (4.70-6.10); RED CELL DISTRIBUTION WIDTH 18.1 % (11.5-14.5); WHITE BLOOD COUNT 6.3 X10'3 (4.5-11.0)
[2020-01-06] MEDS: K and/or MAG REPLACEMENT MC SCH ×2 (08:00→20:00)
[2020-01-06 08:01] LABS: ALBUMIN 2.1 G/DL (3.4-5.0); ANION GAP 6 (8-16); BLOOD UREA NITROGEN 41 MG/DL (7-18); CALCIUM 8.3 MG/DL (8.5-10.1); CHLORIDE 116 MMOL/L (99-107); CREATININE 3.16 MG/DL (0.60-1.10); GLUCOSE 120 MG/DL (70-104); MAGNESIUM 1.7 MG/DL (1.5-2.4); POTASSIUM 4.9 MMOL/L (3.5-5.1); SODIUM 138 MMOL/L (135-145); TOTAL CARBON DIOXIDE 16.5 MMOL/L (24-32); VANCOMYCIN,RANDOM 31.7 UG/ML; eGFR 21 ML/MIN
[2020-01-06] MEDS: tamsulosin 0.4mg capsule PO SCH (09:27)
[2020-01-06] MEDS: insulin Lispro (HumaLOG) vial - multi-dose SQ SCH ×2 (09:48→19:40)
--- NOTE | 2020-01-06 14:00 | NUR ---
Pt refused any coverage for carbs at lunch due to his BG of 84 he was worried he would get too low.
--- NOTE | 2020-01-06 18:00 | NUR ---
Patient in room PCU 3009. I have received report from Aidee and had the opportunity to ask questions and assume patient care.
--- NOTE | 2020-01-06 18:18 | NUR ---
Patient in room PCU 3009. I have received report from TON Hoskins and had the opportunity to ask questions and assume patient care.
--- NOTE | 2020-01-06 18:44 | NUR ---
Problems reprioritized. Patient report given, questions answered & plan of care reviewed with Nyla CAMILO.
[2020-01-06] MEDS: insulin glargine (Lantus) pen - multi-dose SQ SCH (21:13)
[2020-01-06] MEDS: ondansetron/PF 4mg/2ml inj IV PRN (21:34)
[2020-01-07] MEDS: vancomycin 125mg/5ml ORAL solution 5ml UD bottle PO SCH ×4 (02:32→20:22)
[2020-01-07 02:47] VITALS: BP 120/78
[2020-01-07 05:26] LABS: BASOPHILS % (AUTO) 0.4 % (0-1); EOSINOPHILS # (AUTO) 0.1 X10'3 (0-0.9); EOSINOPHILS % (AUTO) 3.2 % (0-6); HEMATOCRIT 22.4 % (42.0-52.0); HEMOGLOBIN 7.1 g/dl (14.0-17.9); LYMPHOCYTES # (AUTO) 0.9 X10'3 (1.1-4.8); LYMPHOCYTES % (AUTO) 18.8 % (21-51); MEAN CORPUSCULAR HEMOGLOBIN 24.6 PG (27.0-31.0); MEAN CORPUSCULAR HGB CONC 31.5 g/dL (33.0-36.5); MEAN CORPUSCULAR VOLUME 78.3 FL (78-98); MEAN PLATELET VOLUME 8.3 FL (7.4-10.4); MONOCYTES # (AUTO) 0.6 X10'3 (0-0.9); MONOCYTES % (AUTO) 12.7 % (2-12); NEUTROPHILS % (AUTO) 64.9 % (42-75); PLATELET COUNT 175 X10'3 (140-440); RED BLOOD COUNT 2.87 X10'6 (4.70-6.10); RED CELL DISTRIBUTION WIDTH 18.8 % (11.5-14.5); WHITE BLOOD COUNT 4.6 X10'3 (4.5-11.0)
[2020-01-07 05:32] LABS: ALBUMIN 1.7 G/DL (3.4-5.0); ANION GAP 11 (8-16); BLOOD UREA NITROGEN 27 MG/DL (7-18); BUN/CREATININE RATIO 12.2 (5.4-32.0); CALCIUM 6.7 MG/DL (8.5-10.1); CHLORIDE 113 MMOL/L (99-107); CREATININE 2.22 MG/DL (0.60-1.10); GLUCOSE 88 MG/DL (70-104); MAGNESIUM 1.3 MG/DL (1.5-2.4); POTASSIUM 3.5 MMOL/L (3.5-5.1); SODIUM 140 MMOL/L (135-145); TOTAL CARBON DIOXIDE 15.9 MMOL/L (24-32); eGFR 31 ML/MIN
--- NOTE | 2020-01-07 05:42 | NUR ---
orientee documentation: I have reviewed and agree with all interventions, assessments performed and documented by Kenya Rosen RN. orientee Medication Administration: For this medication-pass during the shift, all medication were reviewed, dispensed, administered and documented per hospital policy by Kenya Rosen RN.
[2020-01-07 06:00] VITALS: BP 121/72
--- NOTE | 2020-01-07 06:00 | NUR ---
Problems reprioritized. Patient report given, questions answered & plan of care reviewed with Eris[].
--- NOTE | 2020-01-07 06:24 | NUR ---
Problems reprioritized. Patient report given, questions answered & plan of care reviewed with Shmuel CAMILO, and Cheri CAMILO.
[2020-01-07 06:30] LABS: ANISOCYTOSIS 2+; MICROCYTOSIS 1+; PLATELET ESTIMATE NORMAL
--- NOTE | 2020-01-07 06:59 | NUR ---
Patient in room PCU 3009. I have received report from Majo CAMILO, and had the opportunity to ask questions and assume patient care.
[2020-01-07] MEDS: tamsulosin 0.4mg capsule PO SCH (07:47)
[2020-01-07] MEDS: magnesium Cl slow-release 64mg tablet PO PRN ×2 (07:47→20:21)
[2020-01-07] MEDS: K and/or MAG REPLACEMENT MC SCH ×2 (08:00→20:00)
[2020-01-07] MEDS: normal saline 1000ml 1,000 ML IV SCH ×2 (10:16→17:39)
[2020-01-07 11:00] VITALS: BP 134/82
[2020-01-07] MEDS: insulin Lispro (HumaLOG) vial - multi-dose SQ SCH (13:46)
[2020-01-07 15:00] VITALS: BP 125/84
--- NOTE | 2020-01-07 16:13 | NUR ---
received report from Cheri CAMILO on tele. Pt expected to room 4017 soon.
--- NOTE | 2020-01-07 17:00 | NUR ---
Patient transferred from [facility] 3009 to [facility] 4017. I gave report to Yuko CAMILO. and had the opportunity for questions to be asked and answered. Patent transferred via wheelchair, [facility] patient's belongings, medications, no new skin issues at time of transfer. Accompaned by PEDRO PABLO Newton via bed.
--- NOTE | 2020-01-07 17:00 | NUR ---
Orientee documentation: I have reviewed and agree with all interventions, assessments performed and documented by Cheri Masters.
[2020-01-07 17:30] VITALS: BP 131/78
--- NOTE | 2020-01-07 18:24 | NUR ---
Patient in room ORTHO 4017. I have received report from Yuko CAMILO and had the opportunity to ask questions and assume patient care.
--- NOTE | 2020-01-07 19:00 | NUR ---
Held Lantus per MD order, pt is level 2 with low BS, clear liquid diet
[2020-01-07] MEDS ORDERED: VANCOmycin 1250MG/NS 250ml Bag 250 ML IV SCH (20:00)
[2020-01-07] MEDS: HYDROmorphone inj. 0.5 MG/0.5 ML DISP.SYRIN IV PRN (20:22)
[2020-01-07] MEDS: insulin glargine (Lantus) pen - multi-dose SQ SCH (21:00)
[2020-01-07 23:00] VITALS: BP 100/80
[2020-01-08] MEDS ORDERED: VANCOMYCIN LEVEL IV ONE (02:30)
[2020-01-08] MEDS: vancomycin 125mg/5ml ORAL solution 5ml UD bottle PO SCH ×2 (02:37→07:57)
[2020-01-08] MEDS: normal saline 1000ml 1,000 ML IV SCH ×2 (02:39→10:16)
[2020-01-08 06:00] VITALS: BP 100/66
[2020-01-08 06:13] LABS: BASOPHILS % (AUTO) 0.4 % (0-1); EOSINOPHILS # (AUTO) 0.2 X10'3 (0-0.9); EOSINOPHILS % (AUTO) 4.6 % (0-6); HEMATOCRIT 25.4 % (42.0-52.0); LYMPHOCYTES # (AUTO) 0.9 X10'3 (1.1-4.8); LYMPHOCYTES % (AUTO) 26.9 % (21-51); MEAN CORPUSCULAR HEMOGLOBIN 24.3 PG (27.0-31.0); MEAN CORPUSCULAR HGB CONC 31.6 g/dL (33.0-36.5); MEAN CORPUSCULAR VOLUME 77.1 FL (78-98); MEAN PLATELET VOLUME 8.3 FL (7.4-10.4); MONOCYTES # (AUTO) 0.5 X10'3 (0-0.9); MONOCYTES % (AUTO) 14.5 % (2-12); NEUTROPHILS # (AUTO) 1.8 X10'3 (1.8-7.7); NEUTROPHILS % (AUTO) 53.6 % (42-75); PLATELET COUNT 200 X10'3 (140-440); RED BLOOD COUNT 3.29 X10'6 (4.70-6.10); RED CELL DISTRIBUTION WIDTH 18.2 % (11.5-14.5); WHITE BLOOD COUNT 3.4 X10'3 (4.5-11.0)
[2020-01-08 06:25] LABS: ALBUMIN 2.1 G/DL (3.4-5.0); ANION GAP 8 (8-16); BLOOD UREA NITROGEN 27 MG/DL (7-18); BUN/CREATININE RATIO 10.3 (5.4-32.0); CALCIUM 7.9 MG/DL (8.5-10.1); CHLORIDE 110 MMOL/L (99-107); CREATININE 2.62 MG/DL (0.60-1.10); GLUCOSE 93 MG/DL (70-104); MAGNESIUM 1.6 MG/DL (1.5-2.4); SODIUM 139 MMOL/L (135-145); TOTAL CARBON DIOXIDE 20.7 MMOL/L (24-32); eGFR 26 ML/MIN
[2020-01-08] MEDS: tamsulosin 0.4mg capsule PO SCH (07:57)
[2020-01-08] MEDS: K and/or MAG REPLACEMENT MC SCH (08:00)
[2020-01-08 10:00] VITALS: BP 124/74
[2020-01-08] MEDS ORDERED: VANC5VIA PO (10:26)
--- NOTE | 2020-01-08 12:31 | NUR ---
wound dressing was changed earlier today with the nephrostomy tube dressing change Addendum: 01/08/20 at 1232 by Alley Mercado RN Amended: Links added.
--- NOTE | 2020-01-08 16:43 | NUR ---
received call from [facility] stating that they need resumption orders for iv vanco. vanco doses at pt's home are and they cannot refill for him until resumption orders are received. I spoke to Thu in cm and she states she will call [facility]. Based on Myranda Maddox last note he is to resume iv vanco, continue PO vanco at home, and hold meripenem for now and follow with him on .
[2020-01-09] MEDS ORDERED: VANCOMYCIN LEVEL IV ONE ×2 (11:30→19:30)
== END 2020-01-08 13:22 | disposition home health service (06) | DRG 720 ==
LOC: ER 17:03 → ED HOLD 20:43 → PCU 3S 22:53 → ORTHO 4S 01-07 17:25
PROVIDERS: ADMIT Internal Medicine; ATTEND Internal Medicine
DX: A41.9 Sepsis, unspecified organism (principal); R65.21 Severe sepsis with septic shock; A04.72 Enterocolitis due to Clostridium difficile, not specified as recurrent; K56.609 Unspecified intestinal obstruction, unspecified as to partial versus complete obstruction; E11.22 Type 2 diabetes mellitus with diabetic chronic kidney disease; N18.4 Chronic kidney disease, stage 4 (severe); E11.65 Type 2 diabetes mellitus with hyperglycemia; B95.2 Enterococcus as the cause of diseases classified elsewhere; Z16.12 Extended spectrum beta lactamase (ESBL) resistance; B95.62 Methicillin resistant Staphylococcus aureus infection as the cause of diseases classified elsewhere; D64.9 Anemia, unspecified; L02.211 Cutaneous abscess of abdominal wall; N12 Tubulo-interstitial nephritis, not specified as acute or chronic; N40.0 Benign prostatic hyperplasia without lower urinary tract symptoms; Z79.4 Long term (current) use of insulin; Z85.048 Personal history of other malignant neoplasm of rectum, rectosigmoid junction, and anus; Z87.440 Personal history of urinary (tract) infections; Z79.899 Other long term (current) drug therapy; Z93.6 Other artificial openings of urinary tract status
CPT/HCPCS: 36415; 71045; 74176; 80048; 80053; 80202; 81001; 82948; 83605; 83735; 84145; 85025; 85610; 87040; 87081; 87088; 87324; 87449; 93005; 96374; 96375; 97161; 97530; 99291; G0378; J1170; J1815; J2060; J2185; J2405; J2997; J3010; J3370; J7030

== ENCOUNTER 2020-02-18 14:42 | Emergency (ER) | payer MEDICAID ==
[~2020-02-18] VITALS: Ht 175.3 cm; Wt 80.0 kg
[~2020-02-18 14:42] MED LIST changes: +VANC5VIA PO
[2020-02-18 14:49] VITALS: BP 150/87
[2020-02-18 15:29] LABS: BASOPHILS # (AUTO) 0.1 X10'3 (0-0.2); BASOPHILS % (AUTO) 0.8 % (0-1); EOSINOPHILS # (AUTO) 0.2 X10'3 (0-0.9); EOSINOPHILS % (AUTO) 2.7 % (0-6); HEMATOCRIT 25.4 % (42.0-52.0); LYMPHOCYTES # (AUTO) 1.2 X10'3 (1.1-4.8); LYMPHOCYTES % (AUTO) 14.5 % (21-51); MEAN CORPUSCULAR HEMOGLOBIN 24.1 PG (27.0-31.0); MEAN CORPUSCULAR HGB CONC 31.7 g/dL (33.0-36.5); MEAN CORPUSCULAR VOLUME 76.1 FL (78-98); MEAN PLATELET VOLUME 7.8 FL (7.4-10.4); MONOCYTES # (AUTO) 0.4 X10'3 (0-0.9); MONOCYTES % (AUTO) 4.7 % (2-12); NEUTROPHILS # (AUTO) 6.2 X10'3 (1.8-7.7); NEUTROPHILS % (AUTO) 77.3 % (42-75); PLATELET COUNT 176 X10'3 (140-440); RED BLOOD COUNT 3.34 X10'6 (4.70-6.10); RED CELL DISTRIBUTION WIDTH 18.8 % (11.5-14.5); WHITE BLOOD COUNT 8.1 X10'3 (4.5-11.0)
[2020-02-18 15:44] LABS: ALANINE AMINOTRANSFERASE 9 U/L (12-78); ALBUMIN 3.1 G/DL (3.4-5.0); ALBUMIN/GLOBULIN RATIO 0.6 (1.1-1.5); ALKALINE PHOSPHATASE 105 IU/L (46-116); ANION GAP 14 (8-16); ASPARTATE AMINO TRANSFERASE 5 U/L (10-37); BILIRUBIN,TOTAL 0.1 MG/DL (0.1-1.0); BLOOD UREA NITROGEN 33 MG/DL (7-18); BUN/CREATININE RATIO 8.8 (5.4-32.0); CALCIUM 8.5 MG/DL (8.5-10.1); CHLORIDE 106 MMOL/L (99-107); CREATININE 3.77 MG/DL (0.60-1.10); GLUCOSE 305 MG/DL (70-104); POTASSIUM 4.3 MMOL/L (3.5-5.1); SODIUM 135 MMOL/L (135-145); TOTAL CARBON DIOXIDE 15.4 MMOL/L (24-32); TOTAL PROTEIN 8.5 G/DL (6.4-8.2); eGFR 17 ML/MIN
[2020-02-18 16:03] LABS: ANISOCYTOSIS 2+; MICROCYTOSIS 1+; PLATELET ESTIMATE NORMAL
== END 2020-02-18 16:30 | disposition home or self-care (01) ==
LOC: ER 14:42
DX: D64.9 Anemia, unspecified (principal); N18.9 Chronic kidney disease, unspecified; E11.22 Type 2 diabetes mellitus with diabetic chronic kidney disease; Z85.038 Personal history of other malignant neoplasm of large intestine; Z98.890 Other specified postprocedural states; Z79.4 Long term (current) use of insulin; Z79.2 Long term (current) use of antibiotics; Z79.899 Other long term (current) drug therapy
CPT/HCPCS: 36415; 80053; 85025; 86885; 86900; 86901; 99283

== ENCOUNTER 2020-02-22 06:27 | Day surgery (SDC) | payer MEDICAID ==
[2020-02-22] VITALS (8 sets, daily range): BP systolic 90–124; BP diastolic 40–80
[~2020-02-22] VITALS: Ht 175.3 cm; Wt 82.6 kg
[2020-02-22] MEDS ORDERED: normal saline 1000ml 1,000 ML IV PRN (06:50)
[2020-02-22] MEDS ORDERED: CefTRIAXone inj 2,000 MG in normal saline 100ml IV soln 100 ML IV ONE (07:00)
[2020-02-22] MEDS ORDERED: VANC125C5 PO (07:13)
[2020-02-22] MEDS ORDERED: midazolam 2 mg/2 ml injection ONE (08:46)
[2020-02-22] MEDS ORDERED: fentaNYL/PF 50MCG/1 ML 2ML syringe ONE (08:46)
[2020-02-22] MEDS ORDERED: iohexol 300 MG/1 ML 50ml polymer ONE (09:05)
[2020-02-22] MEDS ORDERED: LIDOcaine 1%/PF 5ML 10 MG/ML VIAL ONE (09:05)
[2020-02-22] MEDS ORDERED: ERTA1VIA4 IV (18:23)
== END 2020-02-22 11:45 | disposition home or self-care (01) ==
LOC: SSTAY O 06:27
PROVIDERS: ATTEND Radiology Diagnostic Radiology
DX: Z43.6 Encounter for attention to other artificial openings of urinary tract (principal); N13.5 Crossing vessel and stricture of ureter without hydronephrosis; R33.9 Retention of urine, unspecified; Z83.3 Family history of diabetes mellitus; Z79.899 Other long term (current) drug therapy; E13.22 Other specified diabetes mellitus with diabetic chronic kidney disease; I12.9 Hypertensive chronic kidney disease with stage 1 through stage 4 chronic kidney disease, or unspecified chronic kidney disease; N18.9 Chronic kidney disease, unspecified
CPT/HCPCS: 50435; C1729; C1769; J2250; J3010; Q9967; 99152; 99153

== ENCOUNTER 2020-02-22 14:41 | Emergency (ER) | payer MEDICAID ==
[~2020-02-22] VITALS: Ht 160 cm; Wt 81.8 kg
[~2020-02-22 14:41] MED LIST changes: +VANC125C5 PO
[2020-02-22 15:31] LABS: BASOPHILS % (AUTO) 0.3 % (0-1); EOSINOPHILS # (AUTO) 0.1 X10'3 (0-0.9); EOSINOPHILS % (AUTO) 0.6 % (0-6); HEMATOCRIT 24.5 % (42.0-52.0); HEMOGLOBIN 7.6 g/dl (14.0-17.9); LYMPHOCYTES # (AUTO) 0.8 X10'3 (1.1-4.8); LYMPHOCYTES % (AUTO) 6.2 % (21-51); MEAN CORPUSCULAR HEMOGLOBIN 23.8 PG (27.0-31.0); MEAN CORPUSCULAR HGB CONC 31.2 g/dL (33.0-36.5); MEAN CORPUSCULAR VOLUME 76.4 FL (78-98); MEAN PLATELET VOLUME 8.3 FL (7.4-10.4); MONOCYTES # (AUTO) 0.5 X10'3 (0-0.9); MONOCYTES % (AUTO) 3.9 % (2-12); NEUTROPHILS # (AUTO) 11.5 X10'3 (1.8-7.7); PLATELET COUNT 203 X10'3 (140-440); RED BLOOD COUNT 3.21 X10'6 (4.70-6.10); RED CELL DISTRIBUTION WIDTH 18.8 % (11.5-14.5); WHITE BLOOD COUNT 12.9 X10'3 (4.5-11.0)
[2020-02-22 15:41] LABS: ALANINE AMINOTRANSFERASE 9 U/L (12-78); ALBUMIN 2.9 G/DL (3.4-5.0); ALBUMIN/GLOBULIN RATIO 0.5 (1.1-1.5); ALKALINE PHOSPHATASE 106 IU/L (46-116); ANION GAP 13 (8-16); ASPARTATE AMINO TRANSFERASE 7 U/L (10-37); BILIRUBIN,TOTAL 0.1 MG/DL (0.1-1.0); BLOOD UREA NITROGEN 40 MG/DL (7-18); BUN/CREATININE RATIO 9.4 (5.4-32.0); CALCIUM 8.2 MG/DL (8.5-10.1); CHLORIDE 105 MMOL/L (99-107); CREATININE 4.27 MG/DL (0.60-1.10); GLUCOSE 427 MG/DL (70-104); LIPASE 191 U/L (73-393); POTASSIUM 4.7 MMOL/L (3.5-5.1); SODIUM 134 MMOL/L (135-145); TOTAL CARBON DIOXIDE 15.6 MMOL/L (24-32); TOTAL PROTEIN 8.3 G/DL (6.4-8.2); eGFR 15 ML/MIN
[2020-02-22] MEDS ORDERED: morphine 4 MG/ML inj SYRINge IV ONE (16:25)
[2020-02-22 18:20] LABS: CLARITY,URINE CLOUDY (Clear); COLOR,URINE STRAW (Yellow); GLUCOSE, URINE >=1000 mg/dl (Neg); KETONES,URINE NEGATIVE (Neg); LEUKOCYTE ESTERASE ,URINE MODERATE (Neg); NITRITES, URINE NEGATIVE (Neg); OCCULT BLOOD,URINE LARGE (Neg); PROTEIN,URINE 100 mg/dl (Neg); UROBILINOGEN,URINE 0.2 E.U/dL (0.2-1.0)
[2020-02-22] MEDS ORDERED: ERTA1VIA4 IV (18:23)
[2020-02-22 18:26] LABS: UA COLLECTION TYPE OTHER
[2020-02-22 18:27] LABS: RBC,URINE TNTC /HPF (0-2); WBC,URINE TNTC /HPF (0-4)
[2020-02-22 18:31] VITALS: BP 128/81
[2020-02-22 18:33] LABS: AMORPHOUS URATES 2+; BACTERIA,URINE FEW /HPF (Neg); MUCUS STRANDS NONE SEEN /LPF (Neg); SQUAMOUS EPITHELIAL CELL,UR NONE SEEN /LPF (FEW); YEAST FEW /HPF (NEGATIVE)
== END 2020-02-22 19:11 | disposition home or self-care (01) ==
LOC: ER 14:42
DX: G89.18 Other acute postprocedural pain (principal); E11.22 Type 2 diabetes mellitus with diabetic chronic kidney disease; N18.9 Chronic kidney disease, unspecified; G89.29 Other chronic pain; Z86.2 Personal history of diseases of the blood and blood-forming organs and certain disorders involving the immune mechanism; Z98.890 Other specified postprocedural states; Z79.4 Long term (current) use of insulin; Z79.899 Other long term (current) drug therapy
CPT/HCPCS: 36415; 80053; 81001; 82948; 83690; 85025; 87088; 96374; 99285; J2270

== ENCOUNTER 2020-03-10 17:10 | Emergency (ER) | payer MEDICAID ==
[~2020-03-10] VITALS: Ht 175.3 cm; Wt 81.0 kg
[~2020-03-10 17:10] MED LIST changes: +ERTA1VIA4 IV; -VANC5VIA PO
[2020-03-10 17:59] LABS: BASOPHILS % (AUTO) 0.3 % (0-1); EOSINOPHILS # (AUTO) 0.1 X10'3 (0-0.9); EOSINOPHILS % (AUTO) 1.6 % (0-6); LYMPHOCYTES # (AUTO) 0.9 X10'3 (1.1-4.8); MEAN CORPUSCULAR HEMOGLOBIN 23.8 PG (27.0-31.0); MEAN CORPUSCULAR HGB CONC 32.2 g/dL (33.0-36.5); MEAN CORPUSCULAR VOLUME 73.8 FL (78-98); MEAN PLATELET VOLUME 8.2 FL (7.4-10.4); MONOCYTES # (AUTO) 0.4 X10'3 (0-0.9); MONOCYTES % (AUTO) 4.6 % (2-12); NEUTROPHILS % (AUTO) 84.5 % (42-75); PLATELET COUNT 279 X10'3 (140-440); RED BLOOD COUNT 2.81 X10'6 (4.70-6.10); RED CELL DISTRIBUTION WIDTH 17.9 % (11.5-14.5); WHITE BLOOD COUNT 9.4 X10'3 (4.5-11.0)
[2020-03-10 18:03] LABS: HEMATOCRIT 20.7 % (42.0-52.0); HEMOGLOBIN 6.7 g/dl (14.0-17.9)
[2020-03-10 18:12] LABS: ALANINE AMINOTRANSFERASE 7 U/L (12-78); ALBUMIN 2.5 G/DL (3.4-5.0); ALBUMIN/GLOBULIN RATIO 0.4 (1.1-1.5); ALKALINE PHOSPHATASE 109 IU/L (46-116); ANION GAP 16 (8-16); ASPARTATE AMINO TRANSFERASE 3 U/L (10-37); BILIRUBIN,TOTAL 0.2 MG/DL (0.1-1.0); BLOOD UREA NITROGEN 49 MG/DL (7-18); BUN/CREATININE RATIO 12.9 (5.4-32.0); CALCIUM 8.5 MG/DL (8.5-10.1); CHLORIDE 97 MMOL/L (99-107); CREATININE 3.81 MG/DL (0.60-1.10); POTASSIUM 3.6 MMOL/L (3.5-5.1); SODIUM 128 MMOL/L (135-145); TOTAL CARBON DIOXIDE 15.4 MMOL/L (24-32); TOTAL PROTEIN 8.8 G/DL (6.4-8.2); eGFR 17 ML/MIN
[2020-03-10 18:33] LABS: GLUCOSE 518 MG/DL (70-104)
[2020-03-10] MEDS ORDERED: MERO500P IV (19:00)
[2020-03-10 19:45] VITALS: BP 117/75
[2020-03-10 19:55] VITALS: BP 125/86
[2020-03-10 20:16] LABS: ABG HCO3 10.3 mmol/L (22.0-26.0); ABG OXYGEN SATURATION 98.4 % (94-97); ABG PCO2 (T) 16.6 mmHg (35.0-48.0); ABG PO2 (T) 124.4 mmHg (75.0-100.0); ALLEN'S TEST POSITIVE; FCOHb 0.4 % (0.0-3.9); FMetHb 0.3 % (0.0-1.5); FO2Hb 97.7 % (94-97); PATIENT TEMPERATURE 36.7
[2020-03-10 20:20] VITALS: BP 130/83
[2020-03-10] MEDS ORDERED: insulin Lispro (HumaLOG) vial - multi-dose SQ ONE (20:25)
[2020-03-10 22:01] VITALS: BP 136/87
[2020-03-10 22:24] VITALS: BP 136/87
== END 2020-03-10 22:25 | disposition home or self-care (01) ==
LOC: ER 17:11
DX: D64.9 Anemia, unspecified (principal); E11.65 Type 2 diabetes mellitus with hyperglycemia; R06.02 Shortness of breath; Z86.2 Personal history of diseases of the blood and blood-forming organs and certain disorders involving the immune mechanism; Z85.038 Personal history of other malignant neoplasm of large intestine; Z98.890 Other specified postprocedural states; Z79.4 Long term (current) use of insulin; Z79.2 Long term (current) use of antibiotics; Z79.899 Other long term (current) drug therapy
CPT/HCPCS: 36415; 36430; 36600; 71045; 80053; 82009; 82803; 82948; 85018; 85025; 86885; 86900; 86901; 86920; 96372; 99285; J1815; P9016

== ENCOUNTER 2020-04-22 13:16 | Inpatient (IN) | payer MEDICAID ==
[~2020-04-22] VITALS: Ht 172.7 cm; Wt 75.0 kg
[~2020-04-22 13:16] MED LIST changes: -ERTA1VIA4 IV; +MERO500P IV
[2020-04-22 14:38] LABS: BASOPHILS % (AUTO) 0.2 % (0-1); EOSINOPHILS # (AUTO) 0.1 X10'3 (0-0.9); EOSINOPHILS % (AUTO) 0.7 % (0-6); HEMATOCRIT 26.3 % (42.0-52.0); HEMOGLOBIN 8.2 g/dl (14.0-17.9); LYMPHOCYTES # (AUTO) 1.2 X10'3 (1.1-4.8); LYMPHOCYTES % (AUTO) 8.8 % (21-51); MEAN CORPUSCULAR HEMOGLOBIN 23.1 PG (27.0-31.0); MEAN CORPUSCULAR HGB CONC 31.2 g/dL (33.0-36.5); MEAN PLATELET VOLUME 7.6 FL (7.4-10.4); MONOCYTES # (AUTO) 0.9 X10'3 (0-0.9); MONOCYTES % (AUTO) 6.3 % (2-12); NEUTROPHILS # (AUTO) 11.5 X10'3 (1.8-7.7); PLATELET COUNT 451 X10'3 (140-440); RED BLOOD COUNT 3.55 X10'6 (4.70-6.10); RED CELL DISTRIBUTION WIDTH 20.4 % (11.5-14.5); WHITE BLOOD COUNT 13.7 X10'3 (4.5-11.0)
[2020-04-22] MEDS ORDERED: normal saline 1000ML IV soln IVB ONE (14:40)
[2020-04-22 14:50] LABS: ALBUMIN 2.6 G/DL (3.4-5.0); ALBUMIN/GLOBULIN RATIO 0.3 (1.1-1.5); ALKALINE PHOSPHATASE 141 IU/L (46-116); ANION GAP 15 (8-16); ASPARTATE AMINO TRANSFERASE 11 U/L (10-37); BILIRUBIN,TOTAL 0.2 MG/DL (0.1-1.0); BLOOD UREA NITROGEN 95 MG/DL (7-18); BUN/CREATININE RATIO 14.7 (5.4-32.0); CALCIUM 9.4 MG/DL (8.5-10.1); CHLORIDE 95 MMOL/L (99-107); CREATININE 6.46 MG/DL (0.60-1.10); POTASSIUM 4.1 MMOL/L (3.5-5.1); SODIUM 126 MMOL/L (135-145); TOTAL PROTEIN 10.2 G/DL (6.4-8.2); eGFR 9 ML/MIN
[2020-04-22 14:53] LABS: CLARITY,URINE TURBID (Clear); COLOR,URINE YELLOW (Yellow); GLUCOSE, URINE NEGATIVE (Neg); KETONES,URINE TRACE mg/dl (Neg); LEUKOCYTE ESTERASE ,URINE MODERATE (Neg); NITRITES, URINE NEGATIVE (Neg); OCCULT BLOOD,URINE LARGE (Neg); PH,URINE 5.5 (4.8-8.0); PROTEIN,URINE >=300 mg/dl (Neg); UROBILINOGEN,URINE 0.2 E.U/dL (0.2-1.0)
[2020-04-22 14:55] LABS: UA COLLECTION TYPE NON-SPECIFIED
[2020-04-22 14:55] LABS: GLUCOSE 254 MG/DL (70-104)
[2020-04-22 14:58] LABS: NUCLEATED RED BLOOD CELLS 1 /100WBC (0-0); PLATELET ESTIMATE INCREASED; TOTAL CELLS COUNTED 100
[2020-04-22 14:59] LABS: ANISOCYTOSIS 3+; HYPOCHROMASIA 1+; MICROCYTOSIS 1+; POLYCHROMASIA 1+
[2020-04-22 15:00] LABS: ROULEAUX 1+; TOXIC GRANULATION 1+
[2020-04-22 15:02] LABS: WBC,URINE TNTC /HPF (0-4)
[2020-04-22 15:03] LABS: BACTERIA,URINE 4+ /HPF (Neg); MUCUS STRANDS NONE SEEN /LPF (Neg); SQUAMOUS EPITHELIAL CELL,UR NONE SEEN /LPF (FEW); WBC CLUMPS,URINE MANY /HPF (NEGATIVE); YEAST FEW /HPF (NEGATIVE)
[2020-04-22 15:08] LABS: ALANINE AMINOTRANSFERASE < 6 U/L (12-78)
[2020-04-22] MEDS ORDERED: doxycycline inj 100 MG in normal saline 100ml IV soln 100 ML IV STA (15:13)
[2020-04-22] MEDS ORDERED: normal saline 1000ML IV soln IV ONE (15:15)
--- NOTE | 2020-04-22 15:41 | NUR ---
Phoning lab to verify if the antibiotic dose is ready to be picked up, estimated time for it to be ready is 20 minutes.
[2020-04-22] MEDS ORDERED: magnesium 4gm in 100ml NS 100 ML IV PRN (16:15)
[2020-04-22] MEDS ORDERED: potassium Cl 20 mEq SR tablet PO PRN (16:15)
[2020-04-22] MEDS ORDERED: magnesium 2GM in 50ml NS 50 ML IV PRN (16:15)
[2020-04-22] MEDS ORDERED: acetaminophen 325mg tablet PO PRN (16:15)
[2020-04-22] MEDS ORDERED: magnesium Cl slow-release 64mg tablet PO PRN (16:15)
[2020-04-22] MEDS ORDERED: potassium CL 10mEq/100ml bag 100 ML IV PRN ×2 (16:15)
[2020-04-22] MEDS ORDERED: iohexol 300 MG/1 ML 50ml polymer ONE (17:14)
[2020-04-22] MEDS ORDERED: LIDOcaine 1%/PF 5ML 10 MG/ML VIAL ONE (17:14)
[2020-04-22] MEDS ORDERED: fentaNYL/PF 50MCG/1 ML 2ML syringe ONE (17:22)
[2020-04-22] MEDS ORDERED: midazolam 2 mg/2 ml injection ONE (17:22)
--- NOTE | 2020-04-22 17:38 | NUR ---
Patient in room ED 2. I have received report from TON Chaney and had the opportunity to ask questions and assume patient care.
[2020-04-22] MEDS ORDERED: glucagon, human recombinant 1mg kit SUBCUT PRN (17:55)
[2020-04-22] MEDS ORDERED: dextrose ORAL solution 15 GM/59 ML bottle PO PRN (17:55)
[2020-04-22] MEDS ORDERED: dextrose 50%-water 50ml dispensing syringe IV PRN ×2 (17:55)
[2020-04-22] MEDS ORDERED: MESSAGE TO PHARMACY PO ONE (17:55)
--- NOTE | 2020-04-22 18:09 | NUR ---
Pt will be sent up to unit from angio
[2020-04-22 18:17] VITALS: BP 95/58
--- NOTE | 2020-04-22 18:26 | NUR ---
Problems reprioritized. Patient report given, questions answered & plan of care reviewed with TON Butler.
[2020-04-22 18:30] VITALS: BP 95/58
[2020-04-22 18:47] VITALS: BP 92/61
[2020-04-22 19:17] VITALS: BP 116/82
[2020-04-22] MEDS: K and/or MAG REPLACEMENT MC SCH (20:00)
[2020-04-22] MEDS: normal saline 1000ml 1,000 ML IV SCH (20:09)
[2020-04-22] MEDS: insulin glargine (Lantus) pen - multi-dose SQ SCH (21:00)
[2020-04-22] MEDS: HYDROcodone/acetaminophen 5mg/325mg tablet PO PRN (21:56)
[2020-04-22 22:00] VITALS: BP 95/50
[2020-04-23] VITALS (14 sets, daily range): BP systolic 92–105; BP diastolic 51–61
--- NOTE | 2020-04-23 06:09 | NUR ---
Problems reprioritized. Patient report given, questions answered & plan of care reviewed with TON Berger.
--- NOTE | 2020-04-23 06:36 | NUR ---
Patient in room PCU 3011. I have received report from TON Major and had the opportunity to ask questions and assume patient care. Patient asleep in bed and in no acute distress.
--- NOTE | 2020-04-23 06:37 | NUR ---
Patient in room PCU 3011. I have received report from TON Major and had the opportunity to ask questions and assume patient care.
[2020-04-23 06:51] LABS: ALBUMIN 1.8 G/DL (3.4-5.0); ANION GAP 13 (8-16); BLOOD UREA NITROGEN 82 MG/DL (7-18); BUN/CREATININE RATIO 15.6 (5.4-32.0); CALCIUM 7.9 MG/DL (8.5-10.1); CHLORIDE 102 MMOL/L (99-107); CREATININE 5.26 MG/DL (0.60-1.10); GLUCOSE 430 MG/DL (70-104); MAGNESIUM 1.9 MG/DL (1.5-2.4); POTASSIUM 4.2 MMOL/L (3.5-5.1); SODIUM 129 MMOL/L (135-145); eGFR 12 ML/MIN
[2020-04-23 06:57] LABS: TOTAL CARBON DIOXIDE 13.6 MMOL/L (24-32)
--- NOTE | 2020-04-23 07:03 | NUR ---
Paged Dr. Marcos regarding critical CO2 result of 13.6 PAGER ID: [phone] MESSAGE: [phone]. Gustavo Whitman. Critical results of CO2 13.6. Thank you. Celine CAMILO x [phone]
[2020-04-23] MEDS: tamsulosin 0.4mg capsule PO SCH (07:37)
[2020-04-23] MEDS: CefTRIAXone/D5W-Rocephin 1gm 50 ML IV SCH (07:37)
[2020-04-23] MEDS: insulin Lispro (HumaLOG) vial - multi-dose SQ SCH ×4 (07:50→21:22)
[2020-04-23] MEDS: K and/or MAG REPLACEMENT MC SCH ×2 (08:00→19:20)
[2020-04-23 08:05] LABS: BASOPHILS % (AUTO) 0.3 % (0-1); EOSINOPHILS # (AUTO) 0.1 X10'3 (0-0.9); EOSINOPHILS % (AUTO) 0.9 % (0-6); LYMPHOCYTES # (AUTO) 0.8 X10'3 (1.1-4.8); LYMPHOCYTES % (AUTO) 8.9 % (21-51); MEAN CORPUSCULAR HEMOGLOBIN 23.5 PG (27.0-31.0); MEAN CORPUSCULAR HGB CONC 31.2 g/dL (33.0-36.5); MEAN CORPUSCULAR VOLUME 75.2 FL (78-98); MEAN PLATELET VOLUME 7.9 FL (7.4-10.4); MONOCYTES # (AUTO) 0.7 X10'3 (0-0.9); MONOCYTES % (AUTO) 6.9 % (2-12); NEUTROPHILS # (AUTO) 7.9 X10'3 (1.8-7.7); PLATELET COUNT 265 X10'3 (140-440); RED BLOOD COUNT 2.67 X10'6 (4.70-6.10); WHITE BLOOD COUNT 9.5 X10'3 (4.5-11.0)
[2020-04-23 08:14] LABS: HEMOGLOBIN 6.3 g/dl (14.0-17.9)
[2020-04-23 08:15] LABS: HEMATOCRIT 20.1 % (42.0-52.0)
--- NOTE | 2020-04-23 08:21 | NUR ---
Paged Dr. Marcos regarding critical Hgb 6.3 and Hct 20.1. PAGER ID: [phone] MESSAGE: [phone]. Gustavo Whitman. Critical results of Hgb 6.3 Hct 20.1. Thank you. Celine CAMILO x [phone] Addendum: 04/23/20 at 0825 by Celine Martins RN Dr. Marcos called back and she stated that he needs a transfusion and that when she comes by that she will put in the order.
[2020-04-23 08:49] LABS: TOTAL CELLS COUNTED 100
[2020-04-23 08:50] LABS: ANISOCYTOSIS 2+; HYPOCHROMASIA 1+; MICROCYTOSIS 1+; PLATELET ESTIMATE NORMAL; POIKILOCYTOSIS FEW
[2020-04-23] MEDS: normal saline 1000ml 1,000 ML IV SCH ×3 (09:29→21:24)
--- NOTE | 2020-04-23 11:14 | NUR ---
SPOKE WITH DR. Bryce KHAN (ID) - HE STATED IF PATIENT NOT HAVING DIARRHEA, OK TO REMOVE FROM CDIFF ISOLATION
--- NOTE | 2020-04-23 11:20 | NUR ---
Orders for iron studies, type and screen, 2 units of blood ordered per Dr. Marcos.
[2020-04-23] MEDS: sodium bicarbonate (8.4%) inj. 100 MEQ in dextrose 5%-water 1,000 ML IV SCH (11:39)
--- NOTE | 2020-04-23 12:30 | NUR ---
Paged Dr. Marcos regarding patient's POC blood glucose being 438. PAGER ID: [phone] MESSAGE: [phone]. Gustavo Whitman. POC blood glucose 438. Patient on hyper/hypoglycemia protocol. Thank you. Celine CAMILO x [phone]
[2020-04-23 12:55] LABS: % IRON SATURATION 24 % (11-46); IRON 18 UG/DL (53-167); TOTAL IRON BINDING CAPACITY 75 UG/DL (259-388)
[2020-04-23 13:12] LABS: CLARITY,URINE SLIGHTLY CLOUDY (Clear); COLOR,URINE STRAW (Yellow); GLUCOSE, URINE 500 mg/dl (Neg); KETONES,URINE NEGATIVE (Neg); LEUKOCYTE ESTERASE ,URINE SMALL (Neg); NITRITES, URINE POSITIVE (Neg); OCCULT BLOOD,URINE LARGE (Neg); PROTEIN,URINE 30 mg/dl (Neg); UROBILINOGEN,URINE 0.2 E.U/dL (0.2-1.0)
[2020-04-23 13:13] LABS: UA COLLECTION TYPE OTHER
[2020-04-23 13:24] LABS: BACTERIA,URINE FEW /HPF (Neg); MUCUS STRANDS FEW /LPF (Neg); SQUAMOUS EPITHELIAL CELL,UR NONE SEEN /LPF (FEW); YEAST MODERATE /HPF (NEGATIVE)
--- NOTE | 2020-04-23 14:32 | NUR ---
DM consult: Pt with T1DM, current A1c is 11.8% which is up from 9.6% in December of this year per records. Pt seen at bedside for written and verbal DM education. Pt believes increase in A1c may be r/t recent infection, stating he was on abx tx for about six weeks. Pt reports no issues with taking insulin per rx and denies questions about DM management at this time stating he has a lot of material at home and has attended diabetes education courses since 2010. Pt reports he hasn't seen his MD for DM management in about a year d/t f/u up with other physicians, though states he is planning on making an appointment on discharge. Malnutrition consult: Pt reports UBW 175 lbs with 10 lb wt loss in 1.5 weeks secondary to decreased appetite/PO intake d/t his brother not being available to care for him during that time. Pt currently documented as 70" though ht hx is 69". Pt confirms true height is 69" resulting in appropriate BMI of 24.4 and pt is 103% IBW. Pt currently endorsing a good appetite and reports low PO intake secondary to getting interrupted during meal times. Lunch tray visible during RD visit noted to be roughly 50% consumed and pt reports he is hoping to consume more of it. Pt with no documented significant decrease in muscle strength or edema. No visible fat or muscle wasting. Pt currently lacks a minimum of two criteria for malnutrition. Pt admit with UTI, urosepsis, CKD, and hyponatremia. Pt denies food allergies or difficulty chewing/swallowing. LBM 04/23. Will continue to follow closely and monitor need for nutrition intervention. Recommendations: 1) Continue CHO controlled diet 2) Monitor need for ONS 3) Scaled weights per rx Addendum: 04/23/20 at [address] Amended: Links added.
--- NOTE | 2020-04-23 14:54 | NUR ---
CRITICAL RESULTS - DR. PAYNE PAGED: PAGER ID: [phone] MESSAGE: [phone]: PULCINI - FYI + BLOOD CULTURES 04/22 gram + cocci, pt on abx already. ty
--- NOTE | 2020-04-23 17:04 | NUR ---
Paged Dr. Marcos regarding 24hr telemetry order. PAGER ID: [phone] MESSAGE: [phone]. Gustavo Whitman. Patient has a 24hr tele order. Would you like for them to be on telemetry continuously? Thank you. Celine CAMILO x [phone] Addendum: 04/23/20 at 1717 by Celine Martins RN Dr. Marcos called back and said to keep the patient on continuous telemetry monitoring.
--- NOTE | 2020-04-23 17:19 | NUR ---
Orders to keep the patient on telemetry monitoring put in per Dr. Marcos.
--- NOTE | 2020-04-23 17:54 | NUR ---
Student documentation: I have reviewed and agree with all interventions, assessments performed and documented by Shaun student nurse.
--- NOTE | 2020-04-23 17:54 | NUR ---
Student Medication Administration: For this medication-pass time frame, all medication were reviewed, dispensed, administered and documented per hospital policy by clay Dunn nurse.
--- NOTE | 2020-04-23 18:42 | NUR ---
Problems reprioritized. Patient report given, questions answered & plan of care reviewed with TON Kasper. Patient stable at transfer of care.
[2020-04-23] MEDS: lactobacillus rhamnosus 10,000 MMU CELLS/CAPSULE PO SCH (19:17)
[2020-04-23] MEDS: insulin glargine (Lantus) pen - multi-dose SQ SCH (21:24)
[2020-04-23] MEDS: HYDROcodone/acetaminophen 5mg/325mg tablet PO PRN (23:18)
[2020-04-24] VITALS (7 sets, daily range): BP systolic 86–115; BP diastolic 53–72
[2020-04-24 00:52] LABS: HEMATOCRIT 25.5 % (42.0-52.0); HEMOGLOBIN 8.4 g/dl (14.0-17.9); MEAN CORPUSCULAR HEMOGLOBIN 25.9 PG (27.0-31.0); MEAN CORPUSCULAR HGB CONC 32.8 g/dL (33.0-36.5); MEAN CORPUSCULAR VOLUME 78.9 FL (78-98); MEAN PLATELET VOLUME 7.9 FL (7.4-10.4); PLATELET COUNT 247 X10'3 (140-440); RED BLOOD COUNT 3.24 X10'6 (4.70-6.10); RED CELL DISTRIBUTION WIDTH 20.8 % (11.5-14.5); WHITE BLOOD COUNT 11.3 X10'3 (4.5-11.0)
[2020-04-24] MEDS: HYDROcodone/acetaminophen 5mg/325mg tablet PO PRN (05:11)
[2020-04-24 06:08] LABS: BASOPHILS # (AUTO) 0.1 X10'3 (0-0.2); BASOPHILS % (AUTO) 0.4 % (0-1); EOSINOPHILS # (AUTO) 0.1 X10'3 (0-0.9); EOSINOPHILS % (AUTO) 1.1 % (0-6); HEMATOCRIT 27.7 % (42.0-52.0); HEMOGLOBIN 8.8 g/dl (14.0-17.9); LYMPHOCYTES # (AUTO) 1.4 X10'3 (1.1-4.8); LYMPHOCYTES % (AUTO) 11.4 % (21-51); MEAN CORPUSCULAR HEMOGLOBIN 25.2 PG (27.0-31.0); MEAN CORPUSCULAR HGB CONC 31.8 g/dL (33.0-36.5); MEAN CORPUSCULAR VOLUME 79.3 FL (78-98); MEAN PLATELET VOLUME 7.7 FL (7.4-10.4); MONOCYTES # (AUTO) 0.9 X10'3 (0-0.9); MONOCYTES % (AUTO) 7.5 % (2-12); NEUTROPHILS # (AUTO) 9.6 X10'3 (1.8-7.7); NEUTROPHILS % (AUTO) 79.6 % (42-75); PLATELET COUNT 229 X10'3 (140-440); RED BLOOD COUNT 3.49 X10'6 (4.70-6.10); RED CELL DISTRIBUTION WIDTH 20.5 % (11.5-14.5); WHITE BLOOD COUNT 12.1 X10'3 (4.5-11.0)
[2020-04-24 06:16] LABS: ALBUMIN 1.6 G/DL (3.4-5.0); ANION GAP 14 (8-16); BLOOD UREA NITROGEN 60 MG/DL (7-18); CALCIUM 8.2 MG/DL (8.5-10.1); CHLORIDE 103 MMOL/L (99-107); CREATININE 3.99 MG/DL (0.60-1.10); GLUCOSE 283 MG/DL (70-104); MAGNESIUM 1.5 MG/DL (1.5-2.4); SODIUM 129 MMOL/L (135-145); eGFR 16 ML/MIN
[2020-04-24 06:20] LABS: TOTAL CARBON DIOXIDE 12.2 MMOL/L (24-32)
--- NOTE | 2020-04-24 06:34 | NUR ---
Problems reprioritized. Patient report given, questions answered & plan of care reviewed with TON Mancera.
--- NOTE | 2020-04-24 06:35 | NUR ---
Patient in room PCU 3011. I have received report from Sarah CAMILO and had the opportunity to ask questions and assume patient care.
[2020-04-24 07:00] LABS: ANISOCYTOSIS 3+; PLATELET ESTIMATE NORMAL; TOTAL CELLS COUNTED 100
[2020-04-24 07:01] LABS: HYPOCHROMASIA 1+; MICROCYTOSIS 1+; POIKILOCYTOSIS 1+; ROULEAUX 1+; TOXIC GRANULATION 2+
[2020-04-24] MEDS: K and/or MAG REPLACEMENT MC SCH ×2 (08:00→20:00)
[2020-04-24] MEDS: lactobacillus rhamnosus 10,000 MMU CELLS/CAPSULE PO SCH ×2 (08:40→19:47)
[2020-04-24] MEDS: sodium bicarbonate (8.4%) inj. 100 MEQ in dextrose 5%-water 1,000 ML IV SCH (08:40)
[2020-04-24] MEDS: tamsulosin 0.4mg capsule PO SCH (08:40)
[2020-04-24] MEDS: normal saline 1000ml 1,000 ML IV SCH (08:40)
[2020-04-24] MEDS: CefTRIAXone/D5W-Rocephin 1gm 50 ML IV SCH (08:40)
[2020-04-24] MEDS: insulin Lispro (HumaLOG) vial - multi-dose SQ SCH ×3 (08:59→19:47)
[2020-04-24] MEDS ORDERED: levoFLOXACIN-Levaquin 500mg/D5 100 ML IV ONE (10:40)
[2020-04-24 12:15] LABS: CLARITY,URINE TURBID (Clear); COLOR,URINE YELLOW (Yellow); GLUCOSE, URINE 500 mg/dl (Neg); KETONES,URINE NEGATIVE (Neg); LEUKOCYTE ESTERASE ,URINE MODERATE (Neg); NITRITES, URINE NEGATIVE (Neg); OCCULT BLOOD,URINE LARGE (Neg); PROTEIN,URINE 100 mg/dl (Neg); UROBILINOGEN,URINE 0.2 E.U/dL (0.2-1.0)
[2020-04-24 12:23] LABS: UA COLLECTION TYPE CLN CATCH MIDSTREAM
[2020-04-24 12:27] LABS: WBC,URINE TNTC /HPF (0-4); YEAST MANY /HPF (NEGATIVE)
[2020-04-24 12:29] LABS: SQUAMOUS EPITHELIAL CELL,UR FEW /LPF (FEW)
[2020-04-24 12:30] LABS: BACTERIA,URINE 1+ /HPF (Neg)
[2020-04-24] MEDS: sodium bicarbonate (8.4%) inj. 150 MEQ in dextrose 5%-water 1,000 ML IV SCH (13:20)
--- NOTE | 2020-04-24 13:59 | NUR ---
Stool sample sent to lab this am, was rejected. Will attempt again. Patient was incontinent of stool so it has been challenging to get a good stool sample.
--- NOTE | 2020-04-24 16:51 | NUR ---
Paged Dr. Marcos PAGER ID: [phone] MESSAGE: RITA Benz RN ext [phone]. RE: Gustavo Whitman. Oral temp this afternoon 100.7F, BP is wnl. Nasal swab (+) MRSA. Blood culture (+) Klebisella and gram + cocci. Levaquin started today
--- NOTE | 2020-04-24 18:14 | NUR ---
Problems reprioritized. Patient report given, questions answered & plan of care reviewed with Meaghan CAMILO.
--- NOTE | 2020-04-24 18:30 | NUR ---
Patient in room PCU 3011. I have received report from Alina CAMILO and had the opportunity to ask questions and assume patient care.
[2020-04-24] MEDS: insulin glargine (Lantus) pen - multi-dose SQ SCH (22:03)
[2020-04-25] VITALS (7 sets, daily range): BP systolic 90–127; BP diastolic 55–76
[2020-04-25] MEDS: normal saline 1000ml 1,000 ML IV SCH ×2 (01:00→15:23)
[2020-04-25] MEDS: sodium bicarbonate (8.4%) inj. 150 MEQ in dextrose 5%-water 1,000 ML IV SCH ×2 (01:10→11:34)
[2020-04-25 05:06] LABS: BASOPHILS % (AUTO) 0.2 % (0-1); EOSINOPHILS # (AUTO) 0.1 X10'3 (0-0.9); EOSINOPHILS % (AUTO) 1.2 % (0-6); HEMATOCRIT 25.1 % (42.0-52.0); HEMOGLOBIN 8.2 g/dl (14.0-17.9); LYMPHOCYTES # (AUTO) 1.1 X10'3 (1.1-4.8); LYMPHOCYTES % (AUTO) 11.8 % (21-51); MEAN CORPUSCULAR HEMOGLOBIN 25.5 PG (27.0-31.0); MEAN CORPUSCULAR HGB CONC 32.8 g/dL (33.0-36.5); MEAN CORPUSCULAR VOLUME 77.6 FL (78-98); MEAN PLATELET VOLUME 7.7 FL (7.4-10.4); MONOCYTES # (AUTO) 0.8 X10'3 (0-0.9); MONOCYTES % (AUTO) 7.9 % (2-12); NEUTROPHILS # (AUTO) 7.5 X10'3 (1.8-7.7); NEUTROPHILS % (AUTO) 78.9 % (42-75); PLATELET COUNT 224 X10'3 (140-440); RED BLOOD COUNT 3.24 X10'6 (4.70-6.10); RED CELL DISTRIBUTION WIDTH 20.8 % (11.5-14.5); WHITE BLOOD COUNT 9.5 X10'3 (4.5-11.0)
[2020-04-25 05:23] LABS: ALBUMIN 1.5 G/DL (3.4-5.0); ANION GAP 7 (8-16); BLOOD UREA NITROGEN 44 MG/DL (7-18); BUN/CREATININE RATIO 13.3 (5.4-32.0); CALCIUM 7.6 MG/DL (8.5-10.1); CHLORIDE 102 MMOL/L (99-107); CREATININE 3.32 MG/DL (0.60-1.10); GLUCOSE 253 MG/DL (70-104); MAGNESIUM 1.2 MG/DL (1.5-2.4); POTASSIUM 3.2 MMOL/L (3.5-5.1); SODIUM 133 MMOL/L (135-145); TOTAL CARBON DIOXIDE 23.8 MMOL/L (24-32); eGFR 20 ML/MIN
--- NOTE | 2020-04-25 06:00 | NUR ---
Patient in room PCU 3011. I have received report from Meaghan CAMILO and had the opportunity to ask questions and assume patient care.
--- NOTE | 2020-04-25 06:30 | NUR ---
Problems reprioritized. Patient report given, questions answered & plan of care reviewed with Yris CAMILO.
[2020-04-25 07:14] LABS: ANISOCYTOSIS 3+; HYPOCHROMASIA 1+; MICROCYTOSIS 1+; PLATELET ESTIMATE NORMAL; TOTAL CELLS COUNTED 100; TOXIC GRANULATION 2+
[2020-04-25] MEDS: K and/or MAG REPLACEMENT MC SCH ×2 (08:00→19:58)
[2020-04-25] MEDS: tamsulosin 0.4mg capsule PO SCH (09:13)
[2020-04-25] MEDS: lactobacillus rhamnosus 10,000 MMU CELLS/CAPSULE PO SCH ×2 (09:13→19:59)
[2020-04-25] MEDS: potassium Cl 20 mEq SR tablet PO PRN ×2 (09:13→15:23)
[2020-04-25] MEDS: insulin Lispro (HumaLOG) vial - multi-dose SQ SCH ×3 (09:19→22:29)
[2020-04-25] MEDS ORDERED: levoFLOXACIN 250mg tablet PO SCH (11:00)
[2020-04-25 12:40] LABS: OCCULT BLOOD STOOL NEGATIVE (Neg)
--- NOTE | 2020-04-25 14:05 | NUR ---
Page Sent promotional table spacer PAGER ID: [phone] MESSAGE: [phone] Antonette. Pt has abscess on left buttock that needs evaluated. I didn't see a plan for it in your note. Kenya [phone]
[2020-04-25] MEDS ORDERED: epoetin 20,000 units/ml inj SQ ONE (14:55)
[2020-04-25] MEDS: piperacillin/tazo 3.375gm/50ml 50 ML IV SCH (16:32)
[2020-04-25 17:08] LABS: FERRITIN 421 NG/ML (26-388)
[2020-04-25 17:20] LABS: % IRON SATURATION 18 % (11-46); IRON 14 UG/DL (53-167); TOTAL IRON BINDING CAPACITY 78 UG/DL (259-388)
--- NOTE | 2020-04-25 17:24 | NUR ---
Dr. Marcos examined patient's buttock with abscess. She gave me a verbal order for a CT of his pelvis.
--- NOTE | 2020-04-25 18:00 | NUR ---
Problems reprioritized. Patient report given, questions answered & plan of care reviewed with PAt RN.
--- NOTE | 2020-04-25 19:00 | NUR ---
pt had incont of urine & stool; kyaw care given Addendum: 04/26/20 at 0200 by Nisha Vega RN Amended: Links added.
[2020-04-25] MEDS: vancomycin/NS 1 GM ADD-VANTAGE 250 ML IV SCH (19:57)
--- NOTE | 2020-04-25 20:30 | NUR ---
pt just finished dinner after having CT scan Addendum: 04/26/20 at 0200 by Nisha Vega RN Amended: Links added.
[2020-04-25] MEDS: insulin glargine (Lantus) pen - multi-dose SQ SCH (22:31)
[2020-04-25] MEDS ORDERED: potassium CL 10mEq/100ml bag 100 ML IV PRN (23:15)
[2020-04-25] MEDS ORDERED: magnesium 4gm in 100ml NS 100 ML IV PRN (23:15)
[2020-04-25] MEDS ORDERED: potassium Cl 20 mEq SR tablet PO PRN ×2 (23:15)
[2020-04-26] VITALS (22 sets, daily range): BP systolic 86–124; BP diastolic 47–74
[2020-04-26] MEDS ORDERED: piperacillin/tazo 3.375gm/50ml 50 ML IV SCH
[2020-04-26] MEDS: magnesium Cl slow-release 64mg tablet PO PRN ×2 (00:28→09:14)
[2020-04-26] MEDS: piperacillin/tazo 3.375gm/50ml 50 ML IV SCH ×3 (00:29→17:10)
[2020-04-26] MEDS: normal saline 1000ml 1,000 ML IV SCH ×6 (01:00→22:02)
[2020-04-26 04:55] LABS: ALBUMIN 1.4 G/DL (3.4-5.0); ANION GAP 11 (8-16); BLOOD UREA NITROGEN 34 MG/DL (7-18); BUN/CREATININE RATIO 10.2 (5.4-32.0); CALCIUM 7.2 MG/DL (8.5-10.1); CHLORIDE 103 MMOL/L (99-107); CREATININE 3.32 MG/DL (0.60-1.10); GLUCOSE 236 MG/DL (70-104); MAGNESIUM 1.3 MG/DL (1.5-2.4); POTASSIUM 3.9 MMOL/L (3.5-5.1); SODIUM 136 MMOL/L (135-145); TOTAL CARBON DIOXIDE 22.4 MMOL/L (24-32); eGFR 20 ML/MIN
[2020-04-26 05:00] LABS: BASOPHILS % (AUTO) 0.3 % (0-1); EOSINOPHILS # (AUTO) 0.1 X10'3 (0-0.9); HEMATOCRIT 24.7 % (42.0-52.0); HEMOGLOBIN 8.1 g/dl (14.0-17.9); LYMPHOCYTES # (AUTO) 1.4 X10'3 (1.1-4.8); LYMPHOCYTES % (AUTO) 13.6 % (21-51); MEAN CORPUSCULAR HEMOGLOBIN 25.8 PG (27.0-31.0); MEAN CORPUSCULAR HGB CONC 32.9 g/dL (33.0-36.5); MEAN CORPUSCULAR VOLUME 78.4 FL (78-98); MEAN PLATELET VOLUME 7.7 FL (7.4-10.4); MONOCYTES # (AUTO) 0.7 X10'3 (0-0.9); MONOCYTES % (AUTO) 6.6 % (2-12); NEUTROPHILS % (AUTO) 78.5 % (42-75); PLATELET COUNT 203 X10'3 (140-440); RED BLOOD COUNT 3.15 X10'6 (4.70-6.10); RED CELL DISTRIBUTION WIDTH 20.7 % (11.5-14.5); WHITE BLOOD COUNT 10.2 X10'3 (4.5-11.0)
--- NOTE | 2020-04-26 06:12 | NUR ---
Patient in room PCU 3011. I have received report from Linda RN and had the opportunity to ask questions and assume patient care.
[2020-04-26 08:46] LABS: PLATELET ESTIMATE NORMAL; TOTAL CELLS COUNTED 100
[2020-04-26 08:47] LABS: ANISOCYTOSIS 3+; HYPOCHROMASIA 1+; MICROCYTOSIS 1+; POLYCHROMASIA FEW; TOXIC GRANULATION 2+
[2020-04-26 08:49] LABS: SMUDGE CELLS FEW
[2020-04-26] MEDS: insulin Lispro (HumaLOG) vial - multi-dose SQ SCH ×2 (09:10→19:49)
[2020-04-26] MEDS: tamsulosin 0.4mg capsule PO SCH (09:14)
[2020-04-26] MEDS: lactobacillus rhamnosus 10,000 MMU CELLS/CAPSULE PO SCH ×2 (09:15→22:00)
[2020-04-26] MEDS ORDERED: famotidine/PF 10 mg/ml inj IV ONE (10:20)
[2020-04-26 11:46] LABS: ALBUMIN 1.5 G/DL (3.4-5.0); ALBUMIN/GLOBULIN RATIO 0.3 (1.1-1.5); ALKALINE PHOSPHATASE 93 IU/L (46-116); ANION GAP 9 (8-16); ASPARTATE AMINO TRANSFERASE 15 U/L (10-37); BILIRUBIN,TOTAL 0.2 MG/DL (0.1-1.0); BLOOD UREA NITROGEN 33 MG/DL (7-18); BUN/CREATININE RATIO 9.9 (5.4-32.0); CALCIUM 7.5 MG/DL (8.5-10.1); CHLORIDE 104 MMOL/L (99-107); CREATININE 3.35 MG/DL (0.60-1.10); GLUCOSE 205 MG/DL (70-104); POTASSIUM 3.8 MMOL/L (3.5-5.1); SODIUM 136 MMOL/L (135-145); TOTAL CARBON DIOXIDE 23.4 MMOL/L (24-32); TOTAL PROTEIN 6.7 G/DL (6.4-8.2); eGFR 19 ML/MIN
[2020-04-26 12:14] LABS: ALANINE AMINOTRANSFERASE 14 U/L (12-78)
[2020-04-26] MEDS ORDERED: midazolam 2 mg/2 ml injection ONE ×2 (13:55→14:18)
[2020-04-26] MEDS ORDERED: fentaNYL/PF 50MCG/1 ML 2ML syringe ONE ×2 (13:56→14:53)
[2020-04-26] MEDS: morphine 2 MG/ML inj. syringe IV PRN (17:11)
--- NOTE | 2020-04-26 18:00 | NUR ---
Problems reprioritized. Patient report given, questions answered & plan of care reviewed with Nydia CAMILO.
--- NOTE | 2020-04-26 18:30 | NUR ---
Patient in room PCU 3011. I have received report from CELESTE CAMILO and had the opportunity to ask questions and assume patient care.
[2020-04-26] MEDS: K and/or MAG REPLACEMENT MC SCH ×2 (20:00)
[2020-04-26] MEDS: insulin glargine (Lantus) pen - multi-dose SQ SCH (22:19)
[2020-04-27] MEDS: vancomycin 125mg/5ml ORAL solution 5ml UD bottle PO SCH ×4 (02:59→20:13)
[2020-04-27 03:00] VITALS: BP 109/65
[2020-04-27 05:22] LABS: BASOPHILS % (AUTO) 0.3 % (0-1); EOSINOPHILS # (AUTO) 0.2 X10'3 (0-0.9); EOSINOPHILS % (AUTO) 1.9 % (0-6); HEMATOCRIT 24.3 % (42.0-52.0); HEMOGLOBIN 7.8 g/dl (14.0-17.9); LYMPHOCYTES # (AUTO) 1.1 X10'3 (1.1-4.8); LYMPHOCYTES % (AUTO) 11.9 % (21-51); MEAN CORPUSCULAR HEMOGLOBIN 25.8 PG (27.0-31.0); MEAN CORPUSCULAR HGB CONC 32.1 g/dL (33.0-36.5); MEAN CORPUSCULAR VOLUME 80.4 FL (78-98); MEAN PLATELET VOLUME 7.8 FL (7.4-10.4); MONOCYTES # (AUTO) 0.5 X10'3 (0-0.9); MONOCYTES % (AUTO) 5.4 % (2-12); NEUTROPHILS # (AUTO) 7.6 X10'3 (1.8-7.7); NEUTROPHILS % (AUTO) 80.5 % (42-75); PLATELET COUNT 206 X10'3 (140-440); RED BLOOD COUNT 3.03 X10'6 (4.70-6.10); RED CELL DISTRIBUTION WIDTH 20.5 % (11.5-14.5); WHITE BLOOD COUNT 9.5 X10'3 (4.5-11.0)
[2020-04-27 05:25] LABS: ALBUMIN 1.4 G/DL (3.4-5.0); ANION GAP 9 (8-16); BLOOD UREA NITROGEN 32 MG/DL (7-18); BUN/CREATININE RATIO 10.3 (5.4-32.0); C-REACTIVE PROTEIN 14.01 MG/DL (0.0-0.5); CALCIUM 7.7 MG/DL (8.5-10.1); CHLORIDE 104 MMOL/L (99-107); GLUCOSE 183 MG/DL (70-104); MAGNESIUM 2.6 MG/DL (1.5-2.4); POTASSIUM 4.2 MMOL/L (3.5-5.1); SODIUM 135 MMOL/L (135-145); eGFR 21 ML/MIN
[2020-04-27] MEDS: normal saline 1000ml 1,000 ML IV SCH ×3 (05:52→22:30)
--- NOTE | 2020-04-27 06:11 | NUR ---
Problems reprioritized. Patient report given, questions answered & plan of care reviewed with PATTI CAMILO.
--- NOTE | 2020-04-27 06:12 | NUR ---
Patient in room PCU 3011. I have received report from yNdia CAMILO and had the opportunity to ask questions and assume patient care.
[2020-04-27 07:00] VITALS: BP 94/60
[2020-04-27 07:29] LABS: TOTAL CELLS COUNTED 100
[2020-04-27 07:30] LABS: ANISOCYTOSIS 3+; HYPOCHROMASIA 1+
[2020-04-27 07:31] LABS: POLYCHROMASIA FEW; TOXIC GRANULATION 1+
[2020-04-27 07:32] LABS: MICROCYTOSIS FEW
[2020-04-27 07:34] LABS: PLATELET ESTIMATE NORMAL; POIKILOCYTOSIS FEW
[2020-04-27] MEDS: morphine 2 MG/ML inj. syringe IV PRN ×2 (07:38→13:42)
[2020-04-27] MEDS: meropenem inj 500 MG in normal saline 100ml IV soln 100 ML IV SCH ×2 (07:41→20:12)
[2020-04-27] MEDS: tamsulosin 0.4mg capsule PO SCH (07:49)
[2020-04-27] MEDS: lactobacillus rhamnosus 10,000 MMU CELLS/CAPSULE PO SCH ×2 (07:49→20:11)
[2020-04-27] MEDS: K and/or MAG REPLACEMENT MC SCH ×4 (08:00→20:00)
[2020-04-27] MEDS: insulin Lispro (HumaLOG) vial - multi-dose SQ SCH (09:26)
[2020-04-27] MEDS ORDERED: diatr meglu/diatrizoate 30ml oral sol.-(3 dose) bottle ONE (10:16)
[2020-04-27 11:00] VITALS: BP 94/59
[2020-04-27 12:36] LABS: HIV ANTIBODY 1&2 RAPID NON-REACTIVE (Neg)
[2020-04-27 15:00] VITALS: BP 109/58
--- NOTE | 2020-04-27 16:32 | NUR ---
Reassessment: Patient eating well, about 75-100% PO intake carb controlled diet. Moderate BM 04/25, small BM 04/27, receiving pain meds, no prn bowel care current; monitor need for bowel care in view of receiving morphine. Recommendations: 1) Continue CHO controlled diet 2) Monitor need for ONS 3) Scaled weights per rx 4) Monitor need for prn bowel care Addendum: 04/27/20 at [address] Amended: Links added.
[2020-04-27 18:00] VITALS: BP 108/65
--- NOTE | 2020-04-27 18:00 | NUR ---
Patient in room PCU 3011. I have received report from Elyse CAMILO and had the opportunity to ask questions and assume patient care.
[2020-04-27] MEDS: vancomycin/NS 1 GM ADD-VANTAGE 250 ML IV SCH (18:29)
--- NOTE | 2020-04-27 18:37 | NUR ---
pleasant patient, bilat nephrostomy drains draining clear yellow drainage. Bilat BRYAN drains draining seropurrulent drainage. MARYLU Montgomery aware. patient went for CT see report. . tolerating CC diet. Incontinent of stool x1. Talked with Tashi from ID . patient is no longer in isolation since stool sample was too formed. will continue to practise standard precautions.Patient continues on PO vanco, All cares given. Medicated for pain x2 with effect report given to Basilia CAMILO
[2020-04-27] MEDS: HYDROcodone/acetaminophen 5mg/325mg tablet PO PRN (20:12)
[2020-04-27] MEDS: insulin glargine (Lantus) pen - multi-dose SQ SCH (21:37)
[2020-04-27 22:00] VITALS: BP 95/64
[2020-04-28 02:00] VITALS: BP 94/59
[2020-04-28] MEDS: vancomycin 125mg/5ml ORAL solution 5ml UD bottle PO SCH ×4 (02:00→20:55)
[2020-04-28 05:00] LABS: MAGNESIUM 2.1 MG/DL (1.5-2.4); POTASSIUM 3.9 MMOL/L (3.5-5.1)
[2020-04-28] MEDS: normal saline 1000ml 1,000 ML IV SCH ×4 (05:38→22:04)
--- NOTE | 2020-04-28 05:41 | NUR ---
[facility]
--- NOTE | 2020-04-28 06:41 | NUR ---
Problems reprioritized. Patient report given, questions answered & plan of care reviewed with Melodie CAMILO.
--- NOTE | 2020-04-28 06:42 | NUR ---
Patient in room PCU 3011. I have received report from TON Cui and had the opportunity to ask questions and assume patient care.
[2020-04-28 07:05] VITALS: BP 102/66
[2020-04-28] MEDS: tamsulosin 0.4mg capsule PO SCH (07:16)
[2020-04-28] MEDS: lactobacillus rhamnosus 10,000 MMU CELLS/CAPSULE PO SCH ×2 (07:17→20:29)
[2020-04-28] MEDS: meropenem inj 500 MG in normal saline 100ml IV soln 100 ML IV SCH ×2 (07:19→20:55)
[2020-04-28] MEDS: HYDROcodone/acetaminophen 5mg/325mg tablet PO PRN (07:34)
[2020-04-28] MEDS: K and/or MAG REPLACEMENT MC SCH ×4 (08:00→20:05)
[2020-04-28] MEDS: insulin Lispro (HumaLOG) vial - multi-dose SQ SCH ×3 (09:05→18:44)
[2020-04-28 11:00] VITALS: BP 97/62
[2020-04-28] MEDS: dextrose ORAL solution 15 GM/59 ML bottle PO PRN (12:16)
[2020-04-28] MEDS ORDERED: VANC5VIA PO (13:57)
[2020-04-28] MEDS ORDERED: MERO500V24 IV (13:58)
[2020-04-28 15:00] VITALS: BP 112/58
[2020-04-28 18:00] VITALS: BP 98/65
--- NOTE | 2020-04-28 18:12 | NUR ---
Problems reprioritized. Patient report given, questions answered & plan of care reviewed with TON Jones.
--- NOTE | 2020-04-28 18:15 | NUR ---
Received report from primary care nurse Suzanne CAMILO. Assumed patient care. Patient is awake and alert on room air. In no apparent distress. Noted patient to look saddened and is withdrawn. Speaking very quietly making very little eye contact. PIV is noted to have infiltrated. RFA is edematous. Will further assess and reinsert. Call light and items of frequent use within reach. Will continue to monitor for changes.
--- NOTE | 2020-04-28 18:45 | NUR ---
Call received from transfer center saying the patient was denied by [facility] and that the patient meets [facility] criteria.
[2020-04-28] MEDS: insulin glargine (Lantus) pen - multi-dose SQ SCH (21:06)
[2020-04-28 22:00] VITALS: BP 111/56
[2020-04-29 02:02] VITALS: BP 135/74
[2020-04-29] MEDS: vancomycin 125mg/5ml ORAL solution 5ml UD bottle PO SCH ×4 (02:16→20:33)
[2020-04-29] MEDS: normal saline 1000ml 1,000 ML IV SCH ×3 (05:27→17:38)
[2020-04-29 06:01] LABS: MAGNESIUM 1.7 MG/DL (1.5-2.4); POTASSIUM 4.3 MMOL/L (3.5-5.1)
[2020-04-29 06:30] VITALS: BP 110/64
--- NOTE | 2020-04-29 06:30 | NUR ---
Patient in room PCU 3011. I have received report from TON Jones and had the opportunity to ask questions and assume patient care.
--- NOTE | 2020-04-29 06:45 | NUR ---
Reported off to Deja RN. Patient is resting with relaxed and unlabored respirations on room air. Call light and items of frequent use within reach.
[2020-04-29] MEDS: K and/or MAG REPLACEMENT MC SCH ×2 (07:15→20:00)
[2020-04-29 08:18] LABS: BASOPHILS % (AUTO) 0.3 % (0-1); EOSINOPHILS # (AUTO) 0.1 X10'3 (0-0.9); EOSINOPHILS % (AUTO) 1.8 % (0-6); HEMATOCRIT 24.2 % (42.0-52.0); HEMOGLOBIN 7.8 g/dl (14.0-17.9); LYMPHOCYTES # (AUTO) 0.9 X10'3 (1.1-4.8); LYMPHOCYTES % (AUTO) 13.9 % (21-51); MEAN CORPUSCULAR HEMOGLOBIN 25.9 PG (27.0-31.0); MEAN CORPUSCULAR HGB CONC 32.3 g/dL (33.0-36.5); MEAN CORPUSCULAR VOLUME 80.2 FL (78-98); MEAN PLATELET VOLUME 7.5 FL (7.4-10.4); MONOCYTES # (AUTO) 0.5 X10'3 (0-0.9); MONOCYTES % (AUTO) 7.5 % (2-12); NEUTROPHILS # (AUTO) 5.1 X10'3 (1.8-7.7); NEUTROPHILS % (AUTO) 76.5 % (42-75); PLATELET COUNT 204 X10'3 (140-440); RED BLOOD COUNT 3.02 X10'6 (4.70-6.10); RED CELL DISTRIBUTION WIDTH 20.6 % (11.5-14.5); WHITE BLOOD COUNT 6.7 X10'3 (4.5-11.0)
[2020-04-29 08:20] LABS: ALANINE AMINOTRANSFERASE 21 U/L (12-78); ALBUMIN 1.5 G/DL (3.4-5.0); ALBUMIN/GLOBULIN RATIO 0.3 (1.1-1.5); ALKALINE PHOSPHATASE 81 IU/L (46-116); ANION GAP 9 (8-16); ASPARTATE AMINO TRANSFERASE 22 U/L (10-37); BILIRUBIN,TOTAL 0.2 MG/DL (0.1-1.0); BLOOD UREA NITROGEN 23 MG/DL (7-18); BUN/CREATININE RATIO 8.2 (5.4-32.0); CALCIUM 7.6 MG/DL (8.5-10.1); CHLORIDE 108 MMOL/L (99-107); CREATININE 2.82 MG/DL (0.60-1.10); GLUCOSE 162 MG/DL (70-104); POTASSIUM 4.2 MMOL/L (3.5-5.1); SODIUM 137 MMOL/L (135-145); TOTAL CARBON DIOXIDE 20.5 MMOL/L (24-32); TOTAL PROTEIN 6.6 G/DL (6.4-8.2); eGFR 24 ML/MIN
[2020-04-29] MEDS: lactobacillus rhamnosus 10,000 MMU CELLS/CAPSULE PO SCH ×2 (09:03→20:33)
[2020-04-29] MEDS: tamsulosin 0.4mg capsule PO SCH (09:03)
[2020-04-29] MEDS: meropenem inj 500 MG in normal saline 100ml IV soln 100 ML IV SCH ×2 (09:03→20:33)
[2020-04-29] MEDS: insulin Lispro (HumaLOG) vial - multi-dose SQ SCH (09:10)
[2020-04-29 10:15] LABS: ANISOCYTOSIS 3+; MICROCYTOSIS 1+; PLATELET ESTIMATE NORMAL
[2020-04-29 11:00] VITALS: BP 101/68
[2020-04-29] MEDS: HYDROcodone/acetaminophen 5mg/325mg tablet PO PRN ×3 (12:02→20:57)
[2020-04-29] MEDS: ESCITALOPRAM OXALATE 5 MG TABLET PO SCH (12:50)
[2020-04-29] MEDS: morphine 2 MG/ML inj. syringe IV PRN ×2 (12:51→17:38)
[2020-04-29 15:00] VITALS: BP 114/67
[2020-04-29] MEDS: vancomycin/NS 1 GM ADD-VANTAGE 250 ML IV SCH (17:37)
[2020-04-29 18:00] VITALS: BP 101/63
--- NOTE | 2020-04-29 18:15 | NUR ---
Problems reprioritized. Patient report given, questions answered & plan of care reviewed with TON Alonzo.
--- NOTE | 2020-04-29 18:23 | NUR ---
Patient in room PCU 3011. I have received report from Deja CAMILO and had the opportunity to ask questions and assume patient care.
--- NOTE | 2020-04-29 20:30 | NUR ---
transport center called. they could not find any beds within a 300 mile radius. they were inquiring whether he is willing to go further or if they should recheck the beds in the morning. asked pt and he doesn't know at this time and wants to think about it. transport center said they will recheck bed tomorrow morning and check to see if the pt is willing to expand the search radius. will continue to monitor
[2020-04-29] MEDS: insulin glargine (Lantus) pen - multi-dose SQ SCH (21:03)
[2020-04-29 22:30] VITALS: BP 115/64
[2020-04-30] MEDS: vancomycin 125mg/5ml ORAL solution 5ml UD bottle PO SCH ×4 (01:53→19:49)
[2020-04-30] MEDS: normal saline 1000ml 1,000 ML IV SCH ×4 (01:53→20:15)
[2020-04-30] MEDS: HYDROcodone/acetaminophen 5mg/325mg tablet PO PRN ×3 (01:55→17:30)
[2020-04-30 02:00] VITALS: BP 111/63
--- NOTE | 2020-04-30 06:20 | NUR ---
Patient in room PCU 3011. I have received report from TON Alonzo and had the opportunity to ask questions and assume patient care. Pt resting comfortably at change of shift, no signs of distress.
--- NOTE | 2020-04-30 06:24 | NUR ---
Problems reprioritized. Patient report given, questions answered & plan of care reviewed with Josephine Ruffin RN.
[2020-04-30 06:34] LABS: BASOPHILS % (AUTO) 0.3 % (0-1); EOSINOPHILS # (AUTO) 0.1 X10'3 (0-0.9); HEMATOCRIT 23.2 % (42.0-52.0); HEMOGLOBIN 7.4 g/dl (14.0-17.9); LYMPHOCYTES % (AUTO) 16.7 % (21-51); MEAN CORPUSCULAR HEMOGLOBIN 25.9 PG (27.0-31.0); MEAN CORPUSCULAR HGB CONC 31.8 g/dL (33.0-36.5); MEAN CORPUSCULAR VOLUME 81.2 FL (78-98); MEAN PLATELET VOLUME 7.6 FL (7.4-10.4); MONOCYTES # (AUTO) 0.5 X10'3 (0-0.9); NEUTROPHILS # (AUTO) 4.4 X10'3 (1.8-7.7); PLATELET COUNT 213 X10'3 (140-440); RED BLOOD COUNT 2.85 X10'6 (4.70-6.10); RED CELL DISTRIBUTION WIDTH 20.2 % (11.5-14.5)
[2020-04-30 06:56] LABS: ALANINE AMINOTRANSFERASE 18 U/L (12-78); ALBUMIN 1.3 G/DL (3.4-5.0); ALBUMIN/GLOBULIN RATIO 0.3 (1.1-1.5); ALKALINE PHOSPHATASE 77 IU/L (46-116); ANION GAP 8 (8-16); ASPARTATE AMINO TRANSFERASE 25 U/L (10-37); BILIRUBIN,TOTAL 0.3 MG/DL (0.1-1.0); BLOOD UREA NITROGEN 22 MG/DL (7-18); BUN/CREATININE RATIO 7.8 (5.4-32.0); CALCIUM 7.6 MG/DL (8.5-10.1); CHLORIDE 108 MMOL/L (99-107); CREATININE 2.82 MG/DL (0.60-1.10); GLUCOSE 159 MG/DL (70-104); POTASSIUM 4.4 MMOL/L (3.5-5.1); SODIUM 137 MMOL/L (135-145); TOTAL CARBON DIOXIDE 21.2 MMOL/L (24-32); TOTAL PROTEIN 6.1 G/DL (6.4-8.2); eGFR 24 ML/MIN
[2020-04-30 07:00] VITALS: BP 103/57
[2020-04-30 07:15] LABS: ANISOCYTOSIS 3+; HYPOCHROMASIA 1+; MICROCYTOSIS 1+; PLATELET ESTIMATE NORMAL; POLYCHROMASIA FEW; TOTAL CELLS COUNTED 100
[2020-04-30] MEDS: ESCITALOPRAM OXALATE 5 MG TABLET PO SCH (07:26)
[2020-04-30] MEDS: tamsulosin 0.4mg capsule PO SCH (07:26)
[2020-04-30] MEDS: lactobacillus rhamnosus 10,000 MMU CELLS/CAPSULE PO SCH ×2 (07:26→19:49)
[2020-04-30] MEDS: meropenem inj 500 MG in normal saline 100ml IV soln 100 ML IV SCH ×2 (07:27→19:49)
[2020-04-30] MEDS: K and/or MAG REPLACEMENT MC SCH ×2 (08:00→20:00)
[2020-04-30] MEDS: insulin Lispro (HumaLOG) vial - multi-dose SQ SCH ×2 (08:18→19:48)
[2020-04-30 11:35] VITALS: BP 97/51
[2020-04-30 17:00] VITALS: BP 112/65
--- NOTE | 2020-04-30 18:48 | NUR ---
Problems reprioritized. Patient report given, questions answered & plan of care reviewed with TON Dodd. Pt watching tv comfortably at change of shift.
[2020-04-30 19:00] VITALS: BP 105/55
[2020-04-30] MEDS: insulin glargine (Lantus) pen - multi-dose SQ SCH (21:00)
[2020-05-01] MEDS: vancomycin 125mg/5ml ORAL solution 5ml UD bottle PO SCH ×4 (02:32→21:12)
[2020-05-01] MEDS: normal saline 1000ml 1,000 ML IV SCH ×2 (02:55→09:35)
[2020-05-01 03:00] VITALS: BP 88/62
[2020-05-01 05:22] LABS: BASOPHILS % (AUTO) 0.4 % (0-1); EOSINOPHILS # (AUTO) 0.1 X10'3 (0-0.9); HEMATOCRIT 25.4 % (42.0-52.0); HEMOGLOBIN 8.3 g/dl (14.0-17.9); LYMPHOCYTES % (AUTO) 13.2 % (21-51); MEAN CORPUSCULAR HEMOGLOBIN 26.3 PG (27.0-31.0); MEAN CORPUSCULAR HGB CONC 32.6 g/dL (33.0-36.5); MEAN CORPUSCULAR VOLUME 80.7 FL (78-98); MEAN PLATELET VOLUME 7.2 FL (7.4-10.4); MONOCYTES # (AUTO) 0.4 X10'3 (0-0.9); MONOCYTES % (AUTO) 5.2 % (2-12); NEUTROPHILS # (AUTO) 5.8 X10'3 (1.8-7.7); NEUTROPHILS % (AUTO) 80.2 % (42-75); PLATELET COUNT 255 X10'3 (140-440); RED BLOOD COUNT 3.15 X10'6 (4.70-6.10); RED CELL DISTRIBUTION WIDTH 20.1 % (11.5-14.5); WHITE BLOOD COUNT 7.3 X10'3 (4.5-11.0)
[2020-05-01 05:54] LABS: ALANINE AMINOTRANSFERASE 27 U/L (12-78); ALBUMIN 1.5 G/DL (3.4-5.0); ALBUMIN/GLOBULIN RATIO 0.3 (1.1-1.5); ALKALINE PHOSPHATASE 121 IU/L (46-116); ANION GAP 10 (8-16); ASPARTATE AMINO TRANSFERASE 40 U/L (10-37); BILIRUBIN,TOTAL 0.3 MG/DL (0.1-1.0); BLOOD UREA NITROGEN 24 MG/DL (7-18); BUN/CREATININE RATIO 8.8 (5.4-32.0); CALCIUM 7.9 MG/DL (8.5-10.1); CHLORIDE 107 MMOL/L (99-107); CREATININE 2.73 MG/DL (0.60-1.10); GLUCOSE 95 MG/DL (70-104); POTASSIUM 4.3 MMOL/L (3.5-5.1); SODIUM 135 MMOL/L (135-145); TOTAL CARBON DIOXIDE 18.5 MMOL/L (24-32); TOTAL PROTEIN 7.1 G/DL (6.4-8.2); eGFR 25 ML/MIN
[2020-05-01 06:11] LABS: ANISOCYTOSIS 3+; ELLIPTOCYTES FEW; HYPOCHROMASIA 1+; MICROCYTOSIS 1+; PLATELET ESTIMATE NORMAL; POLYCHROMASIA FEW
--- NOTE | 2020-05-01 06:26 | NUR ---
Patient in room PCU 3011. I have received report from Ju CAMILO and had the opportunity to ask questions and assume patient care.
[2020-05-01 06:30] VITALS: BP 94/61
[2020-05-01] MEDS: meropenem inj 500 MG in normal saline 100ml IV soln 100 ML IV SCH ×2 (07:23→21:11)
[2020-05-01] MEDS: tamsulosin 0.4mg capsule PO SCH (07:24)
[2020-05-01] MEDS: lactobacillus rhamnosus 10,000 MMU CELLS/CAPSULE PO SCH ×2 (07:24→21:11)
[2020-05-01] MEDS: ESCITALOPRAM OXALATE 5 MG TABLET PO SCH (07:24)
[2020-05-01] MEDS: K and/or MAG REPLACEMENT MC SCH ×2 (07:28→19:47)
[2020-05-01] MEDS: HYDROcodone/acetaminophen 5mg/325mg tablet PO PRN ×3 (10:13→21:12)
[2020-05-01 11:00] VITALS: BP 102/62
[2020-05-01] MEDS: sodium bicarbonate (8.4%) inj. 100 MEQ in dextrose 5%-water 1,000 ML IV SCH ×2 (11:44→21:12)
--- NOTE | 2020-05-01 16:27 | NUR ---
Problems reprioritized. Patient report given, questions answered & plan of care reviewed with Kenya CAMILO.
[2020-05-01] MEDS ORDERED: VANCOMYCIN LEVEL IV ONE (17:30)
[2020-05-01 18:00] VITALS: BP 115/65
--- NOTE | 2020-05-01 18:00 | NUR ---
Problems reprioritized. Patient report given, questions answered & plan of care reviewed with Nova CAMILO.
--- NOTE | 2020-05-01 18:45 | NUR ---
Patient in room PCU 3011. I have received report from Lu CAMILO and had the opportunity to ask questions and assume patient care.
[2020-05-01] MEDS: insulin Lispro (HumaLOG) vial - multi-dose SQ SCH (19:22)
[2020-05-01] MEDS: vancomycin/NS 1 GM ADD-VANTAGE 250 ML IV SCH (19:26)
[2020-05-01] MEDS: insulin glargine (Lantus) pen - multi-dose SQ SCH (21:30)
[2020-05-01 22:00] VITALS: BP 96/54
[2020-05-02 02:00] VITALS: BP 93/57
[2020-05-02] MEDS: vancomycin 125mg/5ml ORAL solution 5ml UD bottle PO SCH ×4 (02:54→21:51)
[2020-05-02 06:11] LABS: BASOPHILS % (AUTO) 0.5 % (0-1); EOSINOPHILS # (AUTO) 0.1 X10'3 (0-0.9); EOSINOPHILS % (AUTO) 2.2 % (0-6); HEMATOCRIT 23.4 % (42.0-52.0); HEMOGLOBIN 7.7 g/dl (14.0-17.9); LYMPHOCYTES # (AUTO) 1.1 X10'3 (1.1-4.8); LYMPHOCYTES % (AUTO) 20.6 % (21-51); MEAN CORPUSCULAR HEMOGLOBIN 26.7 PG (27.0-31.0); MEAN CORPUSCULAR HGB CONC 32.9 g/dL (33.0-36.5); MEAN PLATELET VOLUME 7.2 FL (7.4-10.4); MONOCYTES # (AUTO) 0.3 X10'3 (0-0.9); MONOCYTES % (AUTO) 6.1 % (2-12); NEUTROPHILS # (AUTO) 3.9 X10'3 (1.8-7.7); NEUTROPHILS % (AUTO) 70.6 % (42-75); PLATELET COUNT 220 X10'3 (140-440); RED BLOOD COUNT 2.88 X10'6 (4.70-6.10); RED CELL DISTRIBUTION WIDTH 20.1 % (11.5-14.5); WHITE BLOOD COUNT 5.5 X10'3 (4.5-11.0)
--- NOTE | 2020-05-02 06:20 | NUR ---
Problems reprioritized. Patient report given, questions answered & plan of care reviewed with Cheri CAMILO.
[2020-05-02 06:30] VITALS: BP 98/59
--- NOTE | 2020-05-02 06:31 | NUR ---
Patient in room PCU 3011. I have received report from Nova CAMILO and had the opportunity to ask questions and assume patient care.
[2020-05-02 06:43] LABS: ALANINE AMINOTRANSFERASE 19 U/L (12-78); ALBUMIN 1.4 G/DL (3.4-5.0); ALBUMIN/GLOBULIN RATIO 0.3 (1.1-1.5); ALKALINE PHOSPHATASE 99 IU/L (46-116); ANION GAP 9 (8-16); ASPARTATE AMINO TRANSFERASE 22 U/L (10-37); BILIRUBIN,TOTAL 0.3 MG/DL (0.1-1.0); BLOOD UREA NITROGEN 25 MG/DL (7-18); BUN/CREATININE RATIO 9.7 (5.4-32.0); CALCIUM 7.2 MG/DL (8.5-10.1); CHLORIDE 105 MMOL/L (99-107); CREATININE 2.59 MG/DL (0.60-1.10); GLUCOSE 158 MG/DL (70-104); POTASSIUM 4.5 MMOL/L (3.5-5.1); SODIUM 136 MMOL/L (135-145); TOTAL CARBON DIOXIDE 21.7 MMOL/L (24-32); TOTAL PROTEIN 6.6 G/DL (6.4-8.2); eGFR 26 ML/MIN
[2020-05-02 07:05] LABS: ANISOCYTOSIS 3+; PLATELET ESTIMATE NORMAL
[2020-05-02] MEDS: meropenem inj 500 MG in normal saline 100ml IV soln 100 ML IV SCH ×2 (07:32→22:03)
[2020-05-02] MEDS: lactobacillus rhamnosus 10,000 MMU CELLS/CAPSULE PO SCH ×2 (07:33→21:50)
[2020-05-02] MEDS: tamsulosin 0.4mg capsule PO SCH (07:33)
[2020-05-02] MEDS: ESCITALOPRAM OXALATE 5 MG TABLET PO SCH (07:33)
[2020-05-02] MEDS: K and/or MAG REPLACEMENT MC SCH ×2 (08:00→20:00)
[2020-05-02] MEDS: insulin Lispro (HumaLOG) vial - multi-dose SQ SCH (08:15)
[2020-05-02] MEDS: sodium bicarbonate (8.4%) inj. 100 MEQ in dextrose 5%-water 1,000 ML IV SCH ×2 (08:15→13:10)
--- NOTE | 2020-05-02 09:46 | NUR ---
Paged Dr Yo PAGER ID: [phone] MESSAGE: Cheri chapman 1396.Brittany Azul [phone]. Pt is experiencing increasing anxiety r/t health situation and is requesting Ativan. Can I place an order? Thank you!
--- NOTE | 2020-05-02 11:40 | NUR ---
Patient in room PCU 3011. I have received report from Cheri CAMILO and had the opportunity to ask questions and assume patient care.
--- NOTE | 2020-05-02 11:40 | NUR ---
Problems reprioritized. Patient report given, questions answered & plan of care reviewed with Brandie CAMILO. Addendum: 05/02/20 at 1522 by Brandie Latham RN I have reviewed and agree with all interventions, assessments performed and documented by Cheri CAMILO.
--- NOTE | 2020-05-02 12:05 | NUR ---
PAGER ID: [phone] MESSAGE: Gustavo Whitman#[phone] - Pt feeling anxious would like to have Ativan please. Thank you. Brandie Ruffin :)
[2020-05-02] MEDS: LORazepam 0.5 MG tablet PO PRN ×2 (13:10→21:50)
--- NOTE | 2020-05-02 13:33 | NUR ---
Pt on level 5 for his glucose correctional program. Pt's noon glucose was 126 = 0 insulin for correctional. Pt ate small bites of food, consuming less than 7 grams of carbs. Discussed with charge nurse about holding glucose coverage and charge agreed. Will check glucose again at 1700 and proceed coverage per protocol.
[2020-05-02] MEDS ORDERED: iohexol 300 MG/1 ML 50ml polymer ONE (15:05)
[2020-05-02] MEDS ORDERED: LIDOcaine 1%/PF 5ML 10 MG/ML VIAL ONE (15:05)
--- NOTE | 2020-05-02 15:07 | NUR ---
PT GOING TO IR TO HAVE NEPHRON DRAINING TUBE (LEFT) REPLACED.
[2020-05-02] MEDS ORDERED: fentaNYL/PF 50MCG/1 ML 2ML syringe ONE (15:23)
--- NOTE | 2020-05-02 16:35 | NUR ---
PT BACK FROM [facility] CHARGE NURSE TOOK REPORT WHILE I WAS RECEIVING A NEW PATIENT THAT HAD A UNIT OF BLOOD RUNNING HE GETTING DROPPED OFF.
--- NOTE | 2020-05-02 16:38 | NUR ---
Reassessment: Patient was eating well, about 75-100% PO intake carb controlled diet however in past two days have decreased PO Intake, attempted bedside visit to speak with patient re: appetite however patient not in room at time of visit. Will attempt again. Recommendations: 1) Continue CHO controlled diet 2) Monitor need for ONS 3) Scaled weights per rx 4) Monitor need for prn bowel care Addendum: 05/02/20 at [address] Amended: Links added.
[2020-05-02] MEDS: NORMAL SALINE IV SCH (17:28)
[2020-05-02] MEDS: VANCOMYCIN IV SCH (17:28)
[2020-05-02] MEDS: HYDROcodone/acetaminophen 5mg/325mg tablet PO PRN ×2 (17:28→21:51)
[2020-05-02 18:00] VITALS: BP 149/67
--- NOTE | 2020-05-02 18:32 | NUR ---
Patient in room PCU 3011. I have received report from ARLENE CAMILO and had the opportunity to ask questions and assume patient care. Addendum: 05/02/20 at 1832 by Aylin Mejia RN Amended: Links added.
--- NOTE | 2020-05-02 18:55 | NUR ---
Problems reprioritized. Patient report given, questions answered & plan of care reviewed with vladislav CAMILO.
[2020-05-02 18:59] VITALS: BP 130/78
[2020-05-02 22:00] VITALS: BP 91/61
[2020-05-02] MEDS: insulin glargine (Lantus) pen - multi-dose SQ SCH (22:10)
[2020-05-03] VITALS (7 sets, daily range): BP systolic 97–121; BP diastolic 60–76
[2020-05-03] MEDS: sodium bicarbonate (8.4%) inj. 100 MEQ in dextrose 5%-water 1,000 ML IV SCH ×2 (01:02→14:34)
[2020-05-03] MEDS: vancomycin 125mg/5ml ORAL solution 5ml UD bottle PO SCH ×4 (02:23→19:34)
--- NOTE | 2020-05-03 02:24 | NUR ---
awoke briefly for po abx and vitals tolerated well.
--- NOTE | 2020-05-03 05:50 | NUR ---
awoke drains emptied teaching done regarding his care. pt very pleasant.
[2020-05-03 06:21] LABS: BASOPHILS % (AUTO) 0.5 % (0-1); EOSINOPHILS # (AUTO) 0.1 X10'3 (0-0.9); EOSINOPHILS % (AUTO) 1.5 % (0-6); HEMATOCRIT 23.4 % (42.0-52.0); HEMOGLOBIN 7.5 g/dl (14.0-17.9); LYMPHOCYTES # (AUTO) 1.5 X10'3 (1.1-4.8); LYMPHOCYTES % (AUTO) 30.8 % (21-51); MEAN CORPUSCULAR HGB CONC 32.2 g/dL (33.0-36.5); MEAN CORPUSCULAR VOLUME 80.6 FL (78-98); MEAN PLATELET VOLUME 7.1 FL (7.4-10.4); MONOCYTES # (AUTO) 0.3 X10'3 (0-0.9); MONOCYTES % (AUTO) 7.2 % (2-12); NEUTROPHILS # (AUTO) 2.9 X10'3 (1.8-7.7); PLATELET COUNT 211 X10'3 (140-440); RED CELL DISTRIBUTION WIDTH 19.8 % (11.5-14.5); WHITE BLOOD COUNT 4.8 X10'3 (4.5-11.0)
[2020-05-03 06:40] LABS: ALANINE AMINOTRANSFERASE 43 U/L (12-78); ALBUMIN 1.5 G/DL (3.4-5.0); ALBUMIN/GLOBULIN RATIO 0.3 (1.1-1.5); ALKALINE PHOSPHATASE 176 IU/L (46-116); ANION GAP 6 (8-16); ASPARTATE AMINO TRANSFERASE 74 U/L (10-37); BILIRUBIN,TOTAL 0.3 MG/DL (0.1-1.0); BLOOD UREA NITROGEN 24 MG/DL (7-18); BUN/CREATININE RATIO 8.7 (5.4-32.0); CALCIUM 7.3 MG/DL (8.5-10.1); CHLORIDE 104 MMOL/L (99-107); CREATININE 2.75 MG/DL (0.60-1.10); GLUCOSE 108 MG/DL (70-104); POTASSIUM 4.5 MMOL/L (3.5-5.1); SODIUM 137 MMOL/L (135-145); TOTAL CARBON DIOXIDE 26.9 MMOL/L (24-32); TOTAL PROTEIN 6.7 G/DL (6.4-8.2); eGFR 24 ML/MIN
--- NOTE | 2020-05-03 07:40 | NUR ---
Patient in room PCU 3011. I have received report from Bernadette CAMILO and had the opportunity to ask questions and assume patient care.
[2020-05-03] MEDS: K and/or MAG REPLACEMENT MC SCH ×2 (08:00→20:00)
[2020-05-03] MEDS: meropenem inj 500 MG in normal saline 100ml IV soln 100 ML IV SCH ×2 (08:36→19:34)
[2020-05-03] MEDS: tamsulosin 0.4mg capsule PO SCH (08:37)
[2020-05-03] MEDS: ESCITALOPRAM OXALATE 5 MG TABLET PO SCH (08:37)
[2020-05-03] MEDS: lactobacillus rhamnosus 10,000 MMU CELLS/CAPSULE PO SCH ×2 (08:37→19:34)
[2020-05-03] MEDS: insulin Lispro (HumaLOG) vial - multi-dose SQ SCH ×3 (08:40→19:32)
[2020-05-03] MEDS ORDERED: epoetin 20,000 units/ml inj SQ ONE (14:20)
[2020-05-03] MEDS: sodium ferric gluc complex inj 125 MG in normal saline 100ml IV soln 90 ML IV SCH ×2 (15:30→17:41)
--- NOTE | 2020-05-03 15:47 | NUR ---
Reassessment: Patient was eating well, about 75-100% PO intake carb controlled diet however in past two days have decreased PO Intake appears to be r/t nephrostomy tube exchange, PO intake this morning returning back to his usual appetite 75% PO intake of breakfast. 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 Having routine bowel movements currently. Will continue to follow. Recommendations: 1) Continue CHO controlled diet 2) Monitor need for ONS 3) Scaled weights per rx 4) Monitor need for prn bowel care Addendum: 05/03/20 at [address] Amended: Links added.
[2020-05-03] MEDS: LORazepam 0.5 MG tablet PO PRN (16:40)
[2020-05-03] MEDS: VANCOMYCIN IV SCH (17:12)
[2020-05-03] MEDS: NORMAL SALINE IV SCH (17:12)
--- NOTE | 2020-05-03 18:30 | NUR ---
Patient in room PCU 3011. I have received report from Karissa CAMILO and had the opportunity to ask questions and assume patient care.
--- NOTE | 2020-05-03 18:35 | NUR ---
Problems reprioritized. Patient report given, questions answered & plan of care reviewed with Meaghan CAMILO.
[2020-05-03] MEDS: insulin glargine (Lantus) pen - multi-dose SQ SCH (21:35)
[2020-05-04] MEDS: vancomycin 125mg/5ml ORAL solution 5ml UD bottle PO SCH ×4 (01:07→19:28)
[2020-05-04 02:00] VITALS: BP 123/73
[2020-05-04] MEDS: sodium bicarbonate (8.4%) inj. 100 MEQ in dextrose 5%-water 1,000 ML IV SCH ×2 (05:12→16:34)
[2020-05-04] MEDS: ondansetron/PF 4mg/2ml inj IV PRN (05:13)
[2020-05-04 06:09] LABS: BASOPHILS % (AUTO) 0.6 % (0-1); EOSINOPHILS # (AUTO) 0.1 X10'3 (0-0.9); EOSINOPHILS % (AUTO) 1.5 % (0-6); HEMATOCRIT 22.9 % (42.0-52.0); HEMOGLOBIN 7.4 g/dl (14.0-17.9); LYMPHOCYTES # (AUTO) 1.4 X10'3 (1.1-4.8); LYMPHOCYTES % (AUTO) 27.4 % (21-51); MEAN CORPUSCULAR HEMOGLOBIN 26.2 PG (27.0-31.0); MEAN CORPUSCULAR HGB CONC 32.5 g/dL (33.0-36.5); MEAN CORPUSCULAR VOLUME 80.4 FL (78-98); MEAN PLATELET VOLUME 7.4 FL (7.4-10.4); MONOCYTES # (AUTO) 0.3 X10'3 (0-0.9); MONOCYTES % (AUTO) 5.3 % (2-12); NEUTROPHILS # (AUTO) 3.3 X10'3 (1.8-7.7); NEUTROPHILS % (AUTO) 65.2 % (42-75); PLATELET COUNT 205 X10'3 (140-440); RED BLOOD COUNT 2.85 X10'6 (4.70-6.10); RED CELL DISTRIBUTION WIDTH 19.8 % (11.5-14.5)
--- NOTE | 2020-05-04 06:17 | NUR ---
Problems reprioritized. Patient report given, questions answered & plan of care reviewed with Sheeba CAMILO.
[2020-05-04 06:27] LABS: ALANINE AMINOTRANSFERASE 27 U/L (12-78); ALBUMIN 1.6 G/DL (3.4-5.0); ALBUMIN/GLOBULIN RATIO 0.3 (1.1-1.5); ALKALINE PHOSPHATASE 152 IU/L (46-116); ANION GAP 8 (8-16); ASPARTATE AMINO TRANSFERASE 38 U/L (10-37); BILIRUBIN,TOTAL 0.3 MG/DL (0.1-1.0); BLOOD UREA NITROGEN 25 MG/DL (7-18); BUN/CREATININE RATIO 9.2 (5.4-32.0); CALCIUM 7.4 MG/DL (8.5-10.1); CHLORIDE 101 MMOL/L (99-107); CREATININE 2.72 MG/DL (0.60-1.10); GLUCOSE 155 MG/DL (70-104); POTASSIUM 4.5 MMOL/L (3.5-5.1); SODIUM 134 MMOL/L (135-145); TOTAL CARBON DIOXIDE 24.9 MMOL/L (24-32); TOTAL PROTEIN 7.2 G/DL (6.4-8.2); eGFR 25 ML/MIN
--- NOTE | 2020-05-04 06:28 | NUR ---
Patient in room PCU 3011. I have received report from TON Harding and had the opportunity to ask questions and assume patient care.
[2020-05-04 07:00] VITALS: BP 123/73
[2020-05-04] MEDS: ESCITALOPRAM OXALATE 5 MG TABLET PO SCH (07:12)
[2020-05-04] MEDS: tamsulosin 0.4mg capsule PO SCH (07:12)
[2020-05-04] MEDS: lactobacillus rhamnosus 10,000 MMU CELLS/CAPSULE PO SCH ×2 (07:12→19:28)
[2020-05-04] MEDS: meropenem inj 500 MG in normal saline 100ml IV soln 100 ML IV SCH ×2 (07:13→19:29)
[2020-05-04] MEDS: HYDROcodone/acetaminophen 5mg/325mg tablet PO PRN (07:17)
[2020-05-04] MEDS: K and/or MAG REPLACEMENT MC SCH ×2 (08:00→20:00)
[2020-05-04 08:26] LABS: ANISOCYTOSIS 2+; PLATELET ESTIMATE NORMAL
[2020-05-04 08:30] LABS: HYPOCHROMASIA 1+
[2020-05-04] MEDS: insulin Lispro (HumaLOG) vial - multi-dose SQ SCH ×3 (08:43→19:42)
[2020-05-04] MEDS: morphine 2 MG/ML inj. syringe IV PRN ×3 (08:48→17:29)
[2020-05-04] MEDS: sodium ferric gluc complex inj 125 MG in normal saline 100ml IV soln 90 ML IV SCH (09:01)
[2020-05-04 11:00] VITALS: BP 94/61
--- NOTE | 2020-05-04 12:43 | NUR ---
NEPTALI CAR LOADER, PEÑA in with patient.
[2020-05-04 15:00] VITALS: BP 90/63
[2020-05-04] MEDS ORDERED: epoetin 20,000 units/ml inj SQ ONE (16:00)
[2020-05-04] MEDS: vancomycin inj. 750 MG in normal saline 250ml IV soln 250 ML IV SCH (16:33)
--- NOTE | 2020-05-04 18:45 | NUR ---
Problems reprioritized. Patient report given, questions answered & plan of care reviewed with TON Claudio.
--- NOTE | 2020-05-04 18:59 | NUR ---
Patient in room PCU 3011. I have received report from TON Aly and had the opportunity to ask questions and assume patient care.
[2020-05-04] MEDS: insulin glargine (Lantus) pen - multi-dose SQ SCH (21:56)
[2020-05-04 22:00] VITALS: BP 96/70
--- NOTE | 2020-05-04 22:00 | NUR ---
Received a call from LAb stating the COVID test that I had done in hopes to transfer patient to [facility], was Positive. Nursing hydro generation supervisor, and hospitalist where made aware of the result. I informed the patient as well. The plan is to move him upstairs to a negative pressure room.
--- NOTE | 2020-05-04 23:19 | NUR ---
AT THE REQUEST OF DR PAYNE I NOTIFIED DR LAUREL KHAN THAT THE PATIENT HAD A POSITIVE COVID RESULT.
[2020-05-05] MEDS: sodium bicarbonate (8.4%) inj. 100 MEQ in dextrose 5%-water 1,000 ML IV SCH ×2 (02:15→05:31)
[2020-05-05] MEDS: vancomycin 125mg/5ml ORAL solution 5ml UD bottle PO SCH ×4 (02:25→19:35)
[2020-05-05] MEDS: morphine 2 MG/ML inj. syringe IV PRN ×3 (02:41→22:04)
[2020-05-05] MEDS: LORazepam 0.5 MG tablet PO PRN ×2 (03:21→08:29)
[2020-05-05] MEDS: ondansetron/PF 4mg/2ml inj IV PRN (03:22)
[2020-05-05 04:06] VITALS: BP 112/66
[2020-05-05 04:18] LABS: BASOPHILS % (AUTO) 0.6 % (0-1); EOSINOPHILS # (AUTO) 0.1 X10'3 (0-0.9); EOSINOPHILS % (AUTO) 1.4 % (0-6); HEMOGLOBIN 7.6 g/dl (14.0-17.9); LYMPHOCYTES # (AUTO) 1.1 X10'3 (1.1-4.8); LYMPHOCYTES % (AUTO) 23.2 % (21-51); MEAN CORPUSCULAR HEMOGLOBIN 25.8 PG (27.0-31.0); MEAN CORPUSCULAR HGB CONC 31.7 g/dL (33.0-36.5); MEAN CORPUSCULAR VOLUME 81.3 FL (78-98); MEAN PLATELET VOLUME 7.4 FL (7.4-10.4); MONOCYTES # (AUTO) 0.2 X10'3 (0-0.9); MONOCYTES % (AUTO) 5.1 % (2-12); NEUTROPHILS # (AUTO) 3.3 X10'3 (1.8-7.7); NEUTROPHILS % (AUTO) 69.7 % (42-75); PLATELET COUNT 194 X10'3 (140-440); RED BLOOD COUNT 2.95 X10'6 (4.70-6.10); RED CELL DISTRIBUTION WIDTH 19.4 % (11.5-14.5); WHITE BLOOD COUNT 4.8 X10'3 (4.5-11.0)
[2020-05-05 04:36] LABS: ALANINE AMINOTRANSFERASE 27 U/L (12-78); ALBUMIN 1.6 G/DL (3.4-5.0); ALBUMIN/GLOBULIN RATIO 0.3 (1.1-1.5); ANION GAP 4 (8-16); ASPARTATE AMINO TRANSFERASE 32 U/L (10-37); BILIRUBIN,TOTAL 0.2 MG/DL (0.1-1.0); BLOOD UREA NITROGEN 27 MG/DL (7-18); BUN/CREATININE RATIO 9.5 (5.4-32.0); CALCIUM 7.6 MG/DL (8.5-10.1); CHLORIDE 100 MMOL/L (99-107); CREATININE 2.84 MG/DL (0.60-1.10); GLUCOSE 142 MG/DL (70-104); POTASSIUM 5.2 MMOL/L (3.5-5.1); SODIUM 134 MMOL/L (135-145); TOTAL CARBON DIOXIDE 29.7 MMOL/L (24-32); TOTAL PROTEIN 7.1 G/DL (6.4-8.2); eGFR 24 ML/MIN
[2020-05-05 04:37] LABS: ALKALINE PHOSPHATASE 124 IU/L (46-116)
[2020-05-05 05:09] LABS: PLATELET ESTIMATE NORMAL
[2020-05-05 05:11] LABS: ANISOCYTOSIS 2+; LARGE PLATELETS FEW
[2020-05-05 05:13] LABS: HYPOCHROMASIA 1+
[2020-05-05 05:14] LABS: SPHEROCYTES FEW
[2020-05-05 06:00] VITALS: BP 120/80
--- NOTE | 2020-05-05 06:30 | NUR ---
Problems reprioritized. Patient report given, questions answered & plan of care reviewed with TON Meyers.
--- NOTE | 2020-05-05 06:48 | NUR ---
Patient in room ORTHO 4006. I have received report from NICHOLAS and had the opportunity to ask questions and assume patient care. Addendum: 05/05/20 at 0651 by Luigi Patel RN WRONG REPORT. Patient in room ORTHO 4006. I have received report from DAE and had the opportunity to ask questions and assume patient care.
[2020-05-05] MEDS: K and/or MAG REPLACEMENT MC SCH ×2 (08:00→20:00)
[2020-05-05] MEDS: sodium ferric gluc complex inj 125 MG in normal saline 100ml IV soln 90 ML IV SCH ×2 (08:00→11:49)
[2020-05-05] MEDS: HYDROcodone/acetaminophen 5mg/325mg tablet PO PRN (08:20)
[2020-05-05] MEDS: lactobacillus rhamnosus 10,000 MMU CELLS/CAPSULE PO SCH ×2 (08:20→19:35)
[2020-05-05] MEDS: tamsulosin 0.4mg capsule PO SCH (08:20)
[2020-05-05] MEDS: ESCITALOPRAM OXALATE 5 MG TABLET PO SCH (08:20)
[2020-05-05] MEDS: meropenem inj 500 MG in normal saline 100ml IV soln 100 ML IV SCH ×2 (08:20→19:36)
[2020-05-05 10:00] VITALS: BP 118/65
[2020-05-05] MEDS: insulin Lispro (HumaLOG) vial - multi-dose SQ SCH ×2 (13:54→20:10)
[2020-05-05] MEDS ORDERED: VANCOMYCIN LEVEL IV ONE (15:30)
--- NOTE | 2020-05-05 15:53 | NUR ---
F/u (05/05): Pt PO continues to fluctuate 0-25% avg meals past two days seems to cycle 2 days 50-75% meals up to 100% at times w/ two days 0-25% PO partially meeting needs. Pending transfer to [facility] for colostomy surgery given pelvic abscess r/t fistula and hx radiation therapy per EMR but pt has tested positive for COVID-19 now on isolation. Fistula in addition to COVID-19 likely to impact PO. LBM 05/04. RD attempted TC w/ pt today though no response. -1500 and 1590ml output from bilateral nephrostomy drains per EMR. Would benefit from Glucerna BIDLD for additional protein needs at this time; notified. Will continue to monitor. Recommendations: 1) Continue CHO controlled diet 2) Glucerna TIDWM 3) Scaled weights per rx 4) Monitor need for prn bowel care Addendum: 05/05/20 at [address] Amended: Links added. Addendum: 05/05/20 at [address] Recommendations: 1) Continue CHO controlled diet 2) Glucerna BIDLD 3) Scaled weights per rx 4) Monitor need for prn bowel care
[2020-05-05] MEDS: vancomycin inj. 750 MG in normal saline 250ml IV soln 250 ML IV SCH (16:07)
[2020-05-05] MEDS: NUT.TX.GLUC.INTOLER,LAC-FR,SOY (GLUCERNA) 237 ML PO SCH (17:30)
[2020-05-05 18:00] VITALS: BP 108/63
--- NOTE | 2020-05-05 18:30 | NUR ---
Patient in room ORTHO 4006. I have received report from Luigi CAMILO and had the opportunity to ask questions and assume patient care.
--- NOTE | 2020-05-05 18:32 | NUR ---
Problems reprioritized. Patient report given, questions answered & plan of care reviewed with
--- NOTE | 2020-05-05 20:32 | NUR ---
CODE WORD "WINE" for family supply person Alex Osborne (Nephew) who is point person for all information. Have family call Alex for update on patient condition. Siva requested all calls at this time go to Alex. Addendum: 05/06/20 at 0646 by John Robert RN [phone] Alex Osborne
--- NOTE | 2020-05-05 20:33 | NUR ---
Alex requests Dr. Nagel to contact him regarding emergency of this surgery vs. waiting for covid to be negative and then transferring pt to [facility] for surgery. will pass to day RN. Alex states patient is not best at asking questions and making good choices especially with his emotional state at this time. note left on door to room as well for Dr. Nagel.
[2020-05-05 22:00] VITALS: BP 104/61
[2020-05-05] MEDS: insulin glargine (Lantus) pen - multi-dose SQ SCH (22:17)
[2020-05-06] VITALS (8 sets, daily range): BP systolic 96–121; BP diastolic 57–71
[2020-05-06] MEDS: sodium bicarbonate (8.4%) inj. 100 MEQ in dextrose 5%-water 1,000 ML IV SCH ×3 (00:50→23:54)
[2020-05-06] MEDS: vancomycin 125mg/5ml ORAL solution 5ml UD bottle PO SCH ×4 (02:25→20:49)
[2020-05-06] MEDS: morphine 2 MG/ML inj. syringe IV PRN ×2 (04:09→12:04)
[2020-05-06 05:33] LABS: BASOPHILS % (AUTO) 0.2 % (0-1); EOSINOPHILS % (AUTO) 0.9 % (0-6); LYMPHOCYTES # (AUTO) 1.6 X10'3 (1.1-4.8); LYMPHOCYTES % (AUTO) 31.3 % (21-51); MEAN CORPUSCULAR HEMOGLOBIN 26.4 PG (27.0-31.0); MEAN CORPUSCULAR HGB CONC 32.3 g/dL (33.0-36.5); MEAN CORPUSCULAR VOLUME 81.8 FL (78-98); MEAN PLATELET VOLUME 7.7 FL (7.4-10.4); MONOCYTES # (AUTO) 0.3 X10'3 (0-0.9); MONOCYTES % (AUTO) 5.4 % (2-12); NEUTROPHILS # (AUTO) 3.1 X10'3 (1.8-7.7); NEUTROPHILS % (AUTO) 62.2 % (42-75); PLATELET COUNT 174 X10'3 (140-440); RED BLOOD COUNT 2.66 X10'6 (4.70-6.10); RED CELL DISTRIBUTION WIDTH 19.4 % (11.5-14.5)
[2020-05-06 05:59] LABS: ALANINE AMINOTRANSFERASE 28 U/L (12-78); ALBUMIN 1.5 G/DL (3.4-5.0); ALBUMIN/GLOBULIN RATIO 0.3 (1.1-1.5); ALKALINE PHOSPHATASE 130 IU/L (46-116); ANION GAP 5 (8-16); ASPARTATE AMINO TRANSFERASE 40 U/L (10-37); BILIRUBIN,TOTAL 0.4 MG/DL (0.1-1.0); BLOOD UREA NITROGEN 28 MG/DL (7-18); BUN/CREATININE RATIO 8.8 (5.4-32.0); CALCIUM 7.9 MG/DL (8.5-10.1); CHLORIDE 100 MMOL/L (99-107); CREATININE 3.17 MG/DL (0.60-1.10); GLUCOSE 110 MG/DL (70-104); SODIUM 134 MMOL/L (135-145); TOTAL CARBON DIOXIDE 29.5 MMOL/L (24-32); eGFR 21 ML/MIN
[2020-05-06 06:25] LABS: HEMATOCRIT 21.8 % (42.0-52.0)
--- NOTE | 2020-05-06 06:25 | NUR ---
Patient in room ORTHO 4006. I have received report from Basilia and had the opportunity to ask questions and assume patient care.
--- NOTE | 2020-05-06 06:34 | NUR ---
Problems reprioritized. Patient report given, questions answered & plan of care reviewed with Luigi CAMILO.
--- NOTE | 2020-05-06 06:34 | NUR ---
PAGER ID: [phone] MESSAGE: Basilia [phone] Gustavo Whitman [phone] Critical Value of H/H 7.0 and 21.8.
[2020-05-06] MEDS: K and/or MAG REPLACEMENT MC SCH ×2 (06:36→20:00)
--- NOTE | 2020-05-06 06:47 | NUR ---
notified Alex that Dr. harmon' note states to wait for covid to clear before doing surgery. Alex relieved and still wishes for patient to be transferred with covid is cleared to [facility]
[2020-05-06] MEDS: lactobacillus rhamnosus 10,000 MMU CELLS/CAPSULE PO SCH ×2 (07:18→20:49)
[2020-05-06] MEDS: tamsulosin 0.4mg capsule PO SCH (07:18)
[2020-05-06] MEDS: ESCITALOPRAM OXALATE 5 MG TABLET PO SCH (07:18)
[2020-05-06] MEDS: meropenem inj 500 MG in normal saline 100ml IV soln 100 ML IV SCH ×2 (07:18→20:50)
[2020-05-06] MEDS: sodium ferric gluc complex inj 125 MG in normal saline 100ml IV soln 90 ML IV SCH (08:37)
[2020-05-06 08:39] LABS: ANISOCYTOSIS 2+; HYPOCHROMASIA 1+
[2020-05-06 08:40] LABS: TEAR DROP CELLS 1+
[2020-05-06 08:41] LABS: LARGE PLATELETS FEW; PLATELET ESTIMATE NORMAL
[2020-05-06] MEDS: NUT.TX.GLUC.INTOLER,LAC-FR,SOY (GLUCERNA) 237 ML PO SCH ×2 (12:30→18:57)
[2020-05-06] MEDS: insulin Lispro (HumaLOG) vial - multi-dose SQ SCH ×2 (14:30→20:51)
[2020-05-06] MEDS ORDERED: [UNRECOGNIZED DRUG - REMARK] IV SCH (15:30)
[2020-05-06] MEDS ORDERED: VANCOMYCIN LEVEL IV ONE (15:30)
[2020-05-06] MEDS: heparin, porcine 5000 units/ml vial SQ SCH ×2 (15:32→23:54)
[2020-05-06] MEDS: vancomycin inj. 750 MG in normal saline 250ml IV soln 250 ML IV SCH (15:32)
[2020-05-06] MEDS: dextrose ORAL solution 15 GM/59 ML bottle PO PRN (17:14)
--- NOTE | 2020-05-06 18:05 | NUR ---
Problems reprioritized. Patient report given, questions answered & plan of care reviewed with
--- NOTE | 2020-05-06 18:24 | NUR ---
Patient in room ORTHO 4006. I have received report from Luigi CAMILO and had the opportunity to ask questions and assume patient care.
[2020-05-06] MEDS ORDERED: furosemide 20 MG/2 ML vial IV ONE (19:40)
--- NOTE | 2020-05-06 20:27 | NUR ---
I called Dr. Deal regarding orders that popped up around 1940 this evening for a blood transfusion and Lasix order. The patient had already received 1 unit of blood today but no hemoglobin to recheck it; She said to not give the unit of blood that she ordered for tonight but to give the Lasix iv due to her hearing fluid in the left lung. She said to not recheck his hemoglobin tonight but to check it in the am.
[2020-05-06] MEDS: HYDROcodone/acetaminophen 10/325mg tab PO PRN (20:49)
[2020-05-06] MEDS: insulin glargine (Lantus) pen - multi-dose SQ SCH (21:37)
[2020-05-07] MEDS: vancomycin 125mg/5ml ORAL solution 5ml UD bottle PO SCH ×4 (01:54→20:54)
[2020-05-07] MEDS: morphine 2 MG/ML inj. syringe IV PRN (01:55)
[2020-05-07 05:57] LABS: D-DIMER 6.08 MG/L FEU (0-0.50)
[2020-05-07 06:00] VITALS: BP 106/68
[2020-05-07 06:08] LABS: BASOPHILS % (AUTO) 0.3 % (0-1); EOSINOPHILS # (AUTO) 0.1 X10'3 (0-0.9); EOSINOPHILS % (AUTO) 2.2 % (0-6); HEMATOCRIT 23.7 % (42.0-52.0); HEMOGLOBIN 7.8 g/dl (14.0-17.9); LYMPHOCYTES # (AUTO) 1.3 X10'3 (1.1-4.8); LYMPHOCYTES % (AUTO) 30.4 % (21-51); MEAN CORPUSCULAR HEMOGLOBIN 27.3 PG (27.0-31.0); MEAN CORPUSCULAR HGB CONC 32.8 g/dL (33.0-36.5); MEAN CORPUSCULAR VOLUME 83.4 FL (78-98); MEAN PLATELET VOLUME 8.1 FL (7.4-10.4); MONOCYTES # (AUTO) 0.3 X10'3 (0-0.9); MONOCYTES % (AUTO) 6.1 % (2-12); NEUTROPHILS # (AUTO) 2.7 X10'3 (1.8-7.7); PLATELET COUNT 167 X10'3 (140-440); RED BLOOD COUNT 2.85 X10'6 (4.70-6.10); RED CELL DISTRIBUTION WIDTH 19.4 % (11.5-14.5); WHITE BLOOD COUNT 4.4 X10'3 (4.5-11.0)
--- NOTE | 2020-05-07 06:10 | NUR ---
Patient in room ORTHO 4006. I have received report from Basilia and had the opportunity to ask questions and assume patient care.
[2020-05-07 06:15] LABS: CHLORIDE 99 MMOL/L (99-107); SODIUM 135 MMOL/L (135-145)
--- NOTE | 2020-05-07 06:26 | NUR ---
Problems reprioritized. Patient report given, questions answered & plan of care reviewed with Sri CAMILO.
[2020-05-07 06:56] LABS: ALANINE AMINOTRANSFERASE 63 U/L (12-78); ALBUMIN 1.5 G/DL (3.4-5.0); ALBUMIN/GLOBULIN RATIO 0.3 (1.1-1.5); ALKALINE PHOSPHATASE 221 IU/L (46-116); ANION GAP 8 (8-16); ASPARTATE AMINO TRANSFERASE 104 U/L (10-37); BILIRUBIN,TOTAL 0.5 MG/DL (0.1-1.0); BLOOD UREA NITROGEN 30 MG/DL (7-18); BUN/CREATININE RATIO 9.2 (5.4-32.0); CALCIUM 7.7 MG/DL (8.5-10.1); CREATININE 3.27 MG/DL (0.60-1.10); GLUCOSE 130 MG/DL (70-104); LACTATE DEHYDROGENASE 195 U/L (85-227); TOTAL PROTEIN 6.9 G/DL (6.4-8.2); eGFR 20 ML/MIN
[2020-05-07] MEDS: K and/or MAG REPLACEMENT MC SCH ×2 (08:00→20:00)
[2020-05-07] MEDS: meropenem inj 500 MG in normal saline 100ml IV soln 100 ML IV SCH ×2 (08:14→20:54)
[2020-05-07] MEDS: tamsulosin 0.4mg capsule PO SCH (08:15)
[2020-05-07] MEDS: lactobacillus rhamnosus 10,000 MMU CELLS/CAPSULE PO SCH ×2 (08:15→20:54)
[2020-05-07] MEDS: ESCITALOPRAM OXALATE 5 MG TABLET PO SCH (08:15)
[2020-05-07] MEDS: heparin, porcine 5000 units/ml vial SQ SCH ×2 (08:16→16:07)
[2020-05-07 09:31] LABS: PLATELET ESTIMATE NORMAL
[2020-05-07 09:33] LABS: ANISOCYTOSIS 2+; ELLIPTOCYTES 1+; HYPOCHROMASIA 1+
[2020-05-07] MEDS: insulin Lispro (HumaLOG) vial - multi-dose SQ SCH ×2 (10:17→14:07)
[2020-05-07] MEDS: sodium ferric gluc complex inj 125 MG in normal saline 100ml IV soln 90 ML IV SCH (10:22)
[2020-05-07] MEDS: NUT.TX.GLUC.INTOLER,LAC-FR,SOY (GLUCERNA) 237 ML PO SCH ×3 (12:30→20:54)
[2020-05-07] MEDS: sodium bicarbonate (8.4%) inj. 100 MEQ in dextrose 5%-water 1,000 ML IV SCH (13:58)
[2020-05-07 14:00] VITALS: BP 111/62
[2020-05-07] MEDS ORDERED: furosemide 20 MG/2 ML vial IV ONE (14:35)
[2020-05-07] MEDS: vancomycin inj 500 MG in normal saline 100ml IV soln 100 ML IV SCH (15:54)
[2020-05-07] MEDS: normal saline 1000ml 1,000 ML IV SCH (15:54)
--- NOTE | 2020-05-07 18:13 | NUR ---
Problems reprioritized. Patient report given, questions answered & plan of care reviewed with
--- NOTE | 2020-05-07 18:54 | NUR ---
Patient in room ORTHO 4006. I have received report from Sri CAMILO and had the opportunity to ask questions and assume patient care.
[2020-05-07 22:00] VITALS: BP 105/60
[2020-05-07] MEDS: insulin glargine (Lantus) pen - multi-dose SQ SCH (22:12)
[2020-05-07] MEDS: LORazepam 0.5 MG tablet PO PRN (22:13)
[2020-05-08] MEDS: normal saline 1000ml 1,000 ML IV SCH ×3 (00:21→23:30)
[2020-05-08] MEDS: heparin, porcine 5000 units/ml vial SQ SCH ×3 (00:22→17:55)
[2020-05-08] MEDS: vancomycin 125mg/5ml ORAL solution 5ml UD bottle PO SCH ×4 (02:02→20:45)
[2020-05-08 05:54] LABS: BASOPHILS % (AUTO) 0.3 % (0-1); EOSINOPHILS # (AUTO) 0.1 X10'3 (0-0.9); EOSINOPHILS % (AUTO) 2.2 % (0-6); HEMATOCRIT 25.5 % (42.0-52.0); HEMOGLOBIN 8.2 g/dl (14.0-17.9); LYMPHOCYTES # (AUTO) 1.5 X10'3 (1.1-4.8); LYMPHOCYTES % (AUTO) 34.1 % (21-51); MEAN CORPUSCULAR HEMOGLOBIN 26.9 PG (27.0-31.0); MEAN CORPUSCULAR VOLUME 83.9 FL (78-98); MEAN PLATELET VOLUME 8.1 FL (7.4-10.4); MONOCYTES # (AUTO) 0.4 X10'3 (0-0.9); MONOCYTES % (AUTO) 8.1 % (2-12); NEUTROPHILS # (AUTO) 2.5 X10'3 (1.8-7.7); NEUTROPHILS % (AUTO) 55.3 % (42-75); PLATELET COUNT 174 X10'3 (140-440); RED BLOOD COUNT 3.04 X10'6 (4.70-6.10); RED CELL DISTRIBUTION WIDTH 19.4 % (11.5-14.5); WHITE BLOOD COUNT 4.5 X10'3 (4.5-11.0)
[2020-05-08 06:00] VITALS: BP 125/69
[2020-05-08 06:36] LABS: ALANINE AMINOTRANSFERASE 45 U/L (12-78); ALBUMIN 1.5 G/DL (3.4-5.0); ALBUMIN/GLOBULIN RATIO 0.3 (1.1-1.5); ALKALINE PHOSPHATASE 217 IU/L (46-116); ANION GAP 8 (8-16); ASPARTATE AMINO TRANSFERASE 49 U/L (10-37); BILIRUBIN,TOTAL 0.5 MG/DL (0.1-1.0); BLOOD UREA NITROGEN 26 MG/DL (7-18); BUN/CREATININE RATIO 8.7 (5.4-32.0); CALCIUM 8.1 MG/DL (8.5-10.1); CHLORIDE 103 MMOL/L (99-107); CREATININE 2.99 MG/DL (0.60-1.10); GLUCOSE 93 MG/DL (70-104); POTASSIUM 4.9 MMOL/L (3.5-5.1); SODIUM 137 MMOL/L (135-145); TOTAL CARBON DIOXIDE 25.7 MMOL/L (24-32); TOTAL PROTEIN 7.3 G/DL (6.4-8.2); eGFR 22 ML/MIN
--- NOTE | 2020-05-08 06:44 | NUR ---
Problems reprioritized. Patient report given, questions answered & plan of care reviewed with Joy CAMILO.
--- NOTE | 2020-05-08 06:55 | NUR ---
Patient in room ORTHO 4006. I have received report from TON Cui and had the opportunity to ask questions and assume patient care.
[2020-05-08] MEDS: K and/or MAG REPLACEMENT MC SCH ×2 (07:02→20:00)
[2020-05-08] MEDS: meropenem inj 500 MG in normal saline 100ml IV soln 100 ML IV SCH ×2 (08:16→19:10)
[2020-05-08] MEDS: lactobacillus rhamnosus 10,000 MMU CELLS/CAPSULE PO SCH ×2 (08:20→20:58)
[2020-05-08] MEDS: tamsulosin 0.4mg capsule PO SCH (08:21)
[2020-05-08] MEDS: ESCITALOPRAM OXALATE 5 MG TABLET PO SCH (08:21)
[2020-05-08] MEDS: vancomycin inj 500 MG in normal saline 100ml IV soln 100 ML IV SCH (17:47)
[2020-05-08 18:00] VITALS: BP 116/70
[2020-05-08] MEDS: NUT.TX.GLUC.INTOLER,LAC-FR,SOY (GLUCERNA) 237 ML PO SCH (18:20)
--- NOTE | 2020-05-08 18:23 | NUR ---
Problems reprioritized. Patient report given, questions answered & plan of care reviewed with TON Crowe.
[2020-05-08] MEDS: LORazepam 0.5 MG tablet PO PRN (20:45)
[2020-05-08] MEDS: insulin glargine (Lantus) pen - multi-dose SQ SCH (20:45)
[2020-05-08 22:00] VITALS: BP 118/71
[2020-05-09] MEDS: heparin, porcine 5000 units/ml vial SQ SCH ×3 (00:50→18:12)
[2020-05-09] MEDS: vancomycin 125mg/5ml ORAL solution 5ml UD bottle PO SCH ×4 (01:02→20:53)
[2020-05-09 06:00] VITALS: BP 109/62
--- NOTE | 2020-05-09 06:49 | NUR ---
Patient in room ORTHO 4006. I have received report from TON GERMAN and had the opportunity to ask questions and assume patient care.
[2020-05-09] MEDS: morphine 2 MG/ML inj. syringe IV PRN (06:58)
[2020-05-09] MEDS: normal saline 1000ml 1,000 ML IV SCH (07:10)
[2020-05-09] MEDS: K and/or MAG REPLACEMENT MC SCH ×2 (08:00→20:00)
[2020-05-09 08:07] LABS: ALANINE AMINOTRANSFERASE 39 U/L (12-78); ALBUMIN 1.5 G/DL (3.4-5.0); ALBUMIN/GLOBULIN RATIO 0.3 (1.1-1.5); ALKALINE PHOSPHATASE 269 IU/L (46-116); ASPARTATE AMINO TRANSFERASE 50 U/L (10-37); BILIRUBIN,TOTAL 0.5 MG/DL (0.1-1.0); BLOOD UREA NITROGEN 27 MG/DL (7-18); BUN/CREATININE RATIO 10.2 (5.4-32.0); CALCIUM 7.8 MG/DL (8.5-10.1); CREATININE 2.64 MG/DL (0.60-1.10); GLUCOSE 82 MG/DL (70-104); TOTAL PROTEIN 7.2 G/DL (6.4-8.2); eGFR 26 ML/MIN
[2020-05-09 08:24] LABS: ANION GAP 8 (8-16); CHLORIDE 107 MMOL/L (99-107); POTASSIUM 5.3 MMOL/L (3.5-5.1); SODIUM 136 MMOL/L (135-145)
[2020-05-09] MEDS: ESCITALOPRAM OXALATE 5 MG TABLET PO SCH (08:51)
[2020-05-09] MEDS: lactobacillus rhamnosus 10,000 MMU CELLS/CAPSULE PO SCH ×2 (08:51→20:40)
[2020-05-09] MEDS: tamsulosin 0.4mg capsule PO SCH (08:51)
[2020-05-09] MEDS: meropenem inj 500 MG in normal saline 100ml IV soln 100 ML IV SCH ×2 (08:56→20:42)
[2020-05-09] MEDS: NUT.TX.GLUC.INTOLER,LAC-FR,SOY (GLUCERNA) 237 ML PO SCH ×2 (12:30→17:30)
--- NOTE | 2020-05-09 14:15 | NUR ---
Page Sent PAGER ID: [phone] MESSAGE: TRACI 5199-RE: LEONID SOTO [phone], PT GROIN IS RED AND ITCHY, CAN I GET AN ORDER FOR NYSTATIN POWDER
--- NOTE | 2020-05-09 14:29 | NUR ---
F/u 05/09: Pt PO overall remains low 75-100% breakfast this AM though 0-25% avg meals past 5 days partially meeting needs. 0% past 3 Glucernas though 75-100% first three ONS. LBM 05/09. Pt needs bowel diversion surgery once off covid isolation given pelvic abscess secondary to fistulization of bowel s/p radiation therapy per MD note. DX in addition to pelvic abscess and GI symptoms likely to impact PO. Will continue to monitor for ONS/PO acceptance and additional protein needs. Recommendations: 1) Continue CHO controlled diet 2) Glucerna BIDLD 3) Scaled weights per rx 4) Monitor need for prn bowel care Addendum: 05/09/20 at [address] Amended: Links added.
[2020-05-09] MEDS: HYDROcodone/acetaminophen 10/325mg tab PO PRN ×2 (15:45→21:57)
[2020-05-09] MEDS: vancomycin inj 500 MG in normal saline 100ml IV soln 100 ML IV SCH (18:07)
--- NOTE | 2020-05-09 18:48 | NUR ---
Problems reprioritized. Patient report given, questions answered & plan of care reviewed with TON GERMAN.
[2020-05-09] MEDS: insulin glargine (Lantus) pen - multi-dose SQ SCH (21:07)
[2020-05-09 22:00] VITALS: BP 118/63
[2020-05-10] MEDS: heparin, porcine 5000 units/ml vial SQ SCH ×3 (00:57→17:50)
[2020-05-10] MEDS: vancomycin 125mg/5ml ORAL solution 5ml UD bottle PO SCH ×4 (01:04→20:34)
[2020-05-10] MEDS: HYDROcodone/acetaminophen 10/325mg tab PO PRN ×2 (05:11→20:41)
[2020-05-10] MEDS ORDERED: VANCOMYCIN LEVEL IV ONE ×2 (05:30→15:30)
[2020-05-10 05:43] VITALS: BP 109/77
[2020-05-10] MEDS: K and/or MAG REPLACEMENT MC SCH ×2 (08:00→20:00)
[2020-05-10] MEDS: lactobacillus rhamnosus 10,000 MMU CELLS/CAPSULE PO SCH ×2 (09:43→20:40)
[2020-05-10] MEDS: tamsulosin 0.4mg capsule PO SCH (09:43)
[2020-05-10] MEDS: ESCITALOPRAM OXALATE 5 MG TABLET PO SCH (09:43)
[2020-05-10 10:05] LABS: BASOPHILS % (AUTO) 0.4 % (0-1); EOSINOPHILS # (AUTO) 0.1 X10'3 (0-0.9); EOSINOPHILS % (AUTO) 3.1 % (0-6); HEMATOCRIT 29.5 % (42.0-52.0); HEMOGLOBIN 9.3 g/dl (14.0-17.9); LYMPHOCYTES # (AUTO) 1.3 X10'3 (1.1-4.8); LYMPHOCYTES % (AUTO) 32.6 % (21-51); MEAN CORPUSCULAR HEMOGLOBIN 26.9 PG (27.0-31.0); MEAN CORPUSCULAR HGB CONC 31.5 g/dL (33.0-36.5); MEAN CORPUSCULAR VOLUME 85.5 FL (78-98); MEAN PLATELET VOLUME 7.7 FL (7.4-10.4); MONOCYTES # (AUTO) 0.3 X10'3 (0-0.9); MONOCYTES % (AUTO) 8.4 % (2-12); NEUTROPHILS # (AUTO) 2.2 X10'3 (1.8-7.7); NEUTROPHILS % (AUTO) 55.5 % (42-75); PLATELET COUNT 207 X10'3 (140-440); RED BLOOD COUNT 3.45 X10'6 (4.70-6.10); RED CELL DISTRIBUTION WIDTH 18.7 % (11.5-14.5); WHITE BLOOD COUNT 3.9 X10'3 (4.5-11.0)
[2020-05-10 10:28] LABS: ANISOCYTOSIS 2+; MICROCYTOSIS 1+; PLATELET ESTIMATE NORMAL
[2020-05-10 10:29] LABS: HYPOCHROMASIA 1+
[2020-05-10] MEDS: meropenem inj 500 MG in normal saline 100ml IV soln 100 ML IV SCH ×2 (11:25→20:00)
[2020-05-10 11:39] VITALS: BP 120/71
[2020-05-10] MEDS: NUT.TX.GLUC.INTOLER,LAC-FR,SOY (GLUCERNA) 237 ML PO SCH ×2 (12:58→18:20)
[2020-05-10] MEDS: vancomycin inj 500 MG in normal saline 100ml IV soln 100 ML IV SCH (16:00)
--- NOTE | 2020-05-10 16:36 | NUR ---
Page Sent PAGER ID: [phone] MESSAGE: TRACI 5199-RE: LEONID SOTO [phone]...COULD NOT DRAW VANCO TROUGH, AND IV OCCLUDED. PAGED PICC RN FOR EXTENDED IV. PHARMACY NOTIFIED. HOLDING IV VANCO UNTIL LABS CAN BE DRAWN PER PHARMACY.
[2020-05-10 18:00] VITALS: BP 134/70
--- NOTE | 2020-05-10 18:33 | NUR ---
Problems reprioritized. Patient report given, questions answered & plan of care reviewed with TON Crowe.
[2020-05-10] MEDS: insulin Lispro (HumaLOG) vial - multi-dose SQ SCH (19:18)
[2020-05-10] MEDS: insulin glargine (Lantus) pen - multi-dose SQ SCH (20:51)
--- NOTE | 2020-05-10 22:06 | NUR ---
pt doesn't have iv access now. day nurse tried multiple times and i tried as well but not successful. picc nurse was contacted but no response. pt has to miss chino today.
[2020-05-11] VITALS: BP 123/52
[2020-05-11] MEDS: heparin, porcine 5000 units/ml vial SQ SCH ×4 (00:52→23:16)
[2020-05-11] MEDS: vancomycin 125mg/5ml ORAL solution 5ml UD bottle PO SCH ×4 (00:54→19:26)
[2020-05-11] MEDS: HYDROcodone/acetaminophen 10/325mg tab PO PRN (05:23)
[2020-05-11 05:46] VITALS: BP 124/68
--- NOTE | 2020-05-11 06:15 | NUR ---
Patient in room ORTHO 4006. I have received report from Amrita and had the opportunity to ask questions and assume patient care.
--- NOTE | 2020-05-11 06:23 | NUR ---
Problems reprioritized. Patient report given, questions answered & plan of care reviewed with TON ENAMORADO.
--- NOTE | 2020-05-11 07:05 | NUR ---
Spoke with PICC nurse, she will come up an place an IV as soon as she is available
[2020-05-11] MEDS: meropenem inj 500 MG in normal saline 100ml IV soln 100 ML IV SCH ×2 (08:00→19:25)
[2020-05-11] MEDS: K and/or MAG REPLACEMENT MC SCH ×2 (08:00→19:26)
[2020-05-11] MEDS: insulin Lispro (HumaLOG) vial - multi-dose SQ SCH ×3 (09:54→21:41)
[2020-05-11] MEDS: tamsulosin 0.4mg capsule PO SCH (10:21)
[2020-05-11] MEDS: lactobacillus rhamnosus 10,000 MMU CELLS/CAPSULE PO SCH ×2 (10:21→19:26)
[2020-05-11] MEDS: ESCITALOPRAM OXALATE 5 MG TABLET PO SCH (10:21)
--- NOTE | 2020-05-11 13:00 | NUR ---
SPOKE WITH DR KHAN REGARDING PT STATUS, PER DR KHAN, PLACE PICC LINE IN PATIENT. Jak SIMEON PICC RN
[2020-05-11] MEDS: NUT.TX.GLUC.INTOLER,LAC-FR,SOY (GLUCERNA) 237 ML PO SCH ×3 (13:21→19:25)
--- NOTE | 2020-05-11 15:00 | NUR ---
[facility] LINE INFORMATION: REF: [id number] LOT: [id number] EXP: 12/09/2020
[2020-05-11] MEDS: vancomycin inj 500 MG in normal saline 100ml IV soln 100 ML IV SCH (16:04)
[2020-05-11 18:00] VITALS: BP 102/66
--- NOTE | 2020-05-11 18:20 | NUR ---
Problems reprioritized. Patient report given, questions answered & plan of care reviewed with
--- NOTE | 2020-05-11 18:38 | NUR ---
Patient in room ORTHO 4006. I have received report from Sri CAMILO and had the opportunity to ask questions and assume patient care.
[2020-05-11 22:00] VITALS: BP 107/67
[2020-05-11] MEDS: insulin glargine (Lantus) pen - multi-dose SQ SCH (23:08)
[2020-05-12] MEDS: vancomycin 125mg/5ml ORAL solution 5ml UD bottle PO SCH ×4 (02:05→20:11)
[2020-05-12 06:00] VITALS: BP 100/66
--- NOTE | 2020-05-12 06:15 | NUR ---
Patient in room ORTHO 4006. I have received report from Basilia and had the opportunity to ask questions and assume patient care.
--- NOTE | 2020-05-12 06:26 | NUR ---
Problems reprioritized. Patient report given, questions answered & plan of care reviewed with Sri CAMILO.
[2020-05-12 06:38] LABS: BASOPHILS % (AUTO) 0.2 % (0-1); EOSINOPHILS # (AUTO) 0.2 X10'3 (0-0.9); EOSINOPHILS % (AUTO) 3.6 % (0-6); HEMATOCRIT 27.1 % (42.0-52.0); HEMOGLOBIN 8.6 g/dl (14.0-17.9); LYMPHOCYTES # (AUTO) 1.7 X10'3 (1.1-4.8); LYMPHOCYTES % (AUTO) 26.5 % (21-51); MEAN CORPUSCULAR HEMOGLOBIN 27.1 PG (27.0-31.0); MEAN CORPUSCULAR HGB CONC 31.9 g/dL (33.0-36.5); MEAN CORPUSCULAR VOLUME 85.1 FL (78-98); MEAN PLATELET VOLUME 7.8 FL (7.4-10.4); MONOCYTES # (AUTO) 0.4 X10'3 (0-0.9); MONOCYTES % (AUTO) 6.8 % (2-12); NEUTROPHILS # (AUTO) 4.1 X10'3 (1.8-7.7); NEUTROPHILS % (AUTO) 62.9 % (42-75); PLATELET COUNT 264 X10'3 (140-440); RED BLOOD COUNT 3.18 X10'6 (4.70-6.10); RED CELL DISTRIBUTION WIDTH 19.1 % (11.5-14.5); WHITE BLOOD COUNT 6.6 X10'3 (4.5-11.0)
[2020-05-12 07:02] LABS: ALANINE AMINOTRANSFERASE 50 U/L (12-78); ALBUMIN 1.8 G/DL (3.4-5.0); ALBUMIN/GLOBULIN RATIO 0.3 (1.1-1.5); ALKALINE PHOSPHATASE 279 IU/L (46-116); ANION GAP 11 (8-16); ASPARTATE AMINO TRANSFERASE 35 U/L (10-37); BILIRUBIN,TOTAL 0.3 MG/DL (0.1-1.0); BLOOD UREA NITROGEN 34 MG/DL (7-18); BUN/CREATININE RATIO 12.6 (5.4-32.0); CALCIUM 8.3 MG/DL (8.5-10.1); CHLORIDE 107 MMOL/L (99-107); GLUCOSE 115 MG/DL (70-104); POTASSIUM 5.6 MMOL/L (3.5-5.1); SODIUM 138 MMOL/L (135-145); TOTAL CARBON DIOXIDE 20.4 MMOL/L (24-32); TOTAL PROTEIN 7.8 G/DL (6.4-8.2); eGFR 25 ML/MIN
[2020-05-12 07:06] LABS: VANCOMYCIN,TROUGH 22.7 UG/ML (6.0-14.0)
[2020-05-12] MEDS: K and/or MAG REPLACEMENT MC SCH ×2 (08:00→20:00)
[2020-05-12] MEDS: meropenem inj 500 MG in normal saline 100ml IV soln 100 ML IV SCH ×2 (08:11→20:11)
[2020-05-12] MEDS: ESCITALOPRAM OXALATE 5 MG TABLET PO SCH (08:11)
[2020-05-12] MEDS: lactobacillus rhamnosus 10,000 MMU CELLS/CAPSULE PO SCH ×2 (08:11→20:11)
[2020-05-12] MEDS: tamsulosin 0.4mg capsule PO SCH (08:11)
[2020-05-12] MEDS: heparin, porcine 5000 units/ml vial SQ SCH ×2 (08:12→17:19)
[2020-05-12 09:31] LABS: ANISOCYTOSIS 2+
[2020-05-12 09:33] LABS: HYPOCHROMASIA 1+; TEAR DROP CELLS FEW
[2020-05-12 09:34] LABS: MICROCYTOSIS FEW; PLATELET ESTIMATE NORMAL
[2020-05-12 09:35] LABS: ELLIPTOCYTES FEW
[2020-05-12] MEDS: insulin Lispro (HumaLOG) vial - multi-dose SQ SCH ×2 (09:53→14:16)
[2020-05-12 12:00] VITALS: BP 98/65
--- NOTE | 2020-05-12 14:11 | NUR ---
F/u 05/12: Pt PO fluctuating 50-75% avg carb controlled meals 0% almost all ONS. CLAUDIA d/w RN regarding cancelling ONS if MD agreeable given not accepting. Large BM 05/11 first significant since 05/02 likely impacting PO as well. Will continue to monitor. Recommendations: 1) Continue CHO controlled diet; encourage PO 2) Scaled weights per rx 3) Monitor need for additional bowel care Addendum: 05/12/20 at [address] Amended: Links added.
[2020-05-12] MEDS ORDERED: sodium polystyrene sulfonate 15gm/60ml oral suspension PO ONE (16:05)
[2020-05-12] MEDS: vancomycin inj 500 MG in normal saline 100ml IV soln 100 ML IV SCH (17:19)
[2020-05-12] MEDS: HYDROcodone/acetaminophen 10/325mg tab PO PRN (17:20)
[2020-05-12] MEDS: NUT.TX.GLUC.INTOLER,LAC-FR,SOY (GLUCERNA) 237 ML PO SCH (17:39)
[2020-05-12 17:44] VITALS: BP 125/77
--- NOTE | 2020-05-12 18:11 | NUR ---
Problems reprioritized. Patient report given, questions answered & plan of care reviewed with
--- NOTE | 2020-05-12 18:22 | NUR ---
Patient in room ORTHO 4006. I have received report from Sri CAMILO and had the opportunity to ask questions and assume patient care.
[2020-05-12] MEDS: insulin glargine (Lantus) pen - multi-dose SQ SCH (22:22)
[2020-05-12 22:34] VITALS: BP 112/71
[2020-05-13] MEDS: heparin, porcine 5000 units/ml vial SQ SCH ×3 (00:44→17:11)
[2020-05-13] MEDS: vancomycin 125mg/5ml ORAL solution 5ml UD bottle PO SCH ×4 (02:38→20:09)
[2020-05-13] MEDS: HYDROcodone/acetaminophen 10/325mg tab PO PRN ×3 (02:38→20:10)
[2020-05-13 06:00] VITALS: BP 103/60
--- NOTE | 2020-05-13 06:10 | NUR ---
Patient in room ORTHO 4006. I have received report from Basilia and had the opportunity to ask questions and assume patient care.
--- NOTE | 2020-05-13 06:21 | NUR ---
Problems reprioritized. Patient report given, questions answered & plan of care reviewed with Sri CAMILO.
[2020-05-13] MEDS: K and/or MAG REPLACEMENT MC SCH ×2 (08:00→18:43)
[2020-05-13] MEDS: meropenem inj 500 MG in normal saline 100ml IV soln 100 ML IV SCH ×2 (08:05→20:09)
[2020-05-13] MEDS: ESCITALOPRAM OXALATE 5 MG TABLET PO SCH (08:05)
[2020-05-13] MEDS: lactobacillus rhamnosus 10,000 MMU CELLS/CAPSULE PO SCH ×2 (08:05→20:09)
[2020-05-13] MEDS: tamsulosin 0.4mg capsule PO SCH (08:05)
[2020-05-13] MEDS: insulin Lispro (HumaLOG) vial - multi-dose SQ SCH ×3 (09:46→19:05)
[2020-05-13 09:51] LABS: BASOPHILS # (AUTO) 0.1 X10'3 (0-0.2); BASOPHILS % (AUTO) 1.1 % (0-1); EOSINOPHILS # (AUTO) 0.3 X10'3 (0-0.9); EOSINOPHILS % (AUTO) 4.7 % (0-6); HEMATOCRIT 26.6 % (42.0-52.0); HEMOGLOBIN 8.4 g/dl (14.0-17.9); LYMPHOCYTES # (AUTO) 1.6 X10'3 (1.1-4.8); LYMPHOCYTES % (AUTO) 28.8 % (21-51); MEAN CORPUSCULAR HEMOGLOBIN 26.7 PG (27.0-31.0); MEAN CORPUSCULAR HGB CONC 31.6 g/dL (33.0-36.5); MEAN CORPUSCULAR VOLUME 84.4 FL (78-98); MEAN PLATELET VOLUME 7.8 FL (7.4-10.4); MONOCYTES # (AUTO) 0.4 X10'3 (0-0.9); MONOCYTES % (AUTO) 7.6 % (2-12); NEUTROPHILS # (AUTO) 3.2 X10'3 (1.8-7.7); NEUTROPHILS % (AUTO) 57.8 % (42-75); PLATELET COUNT 215 X10'3 (140-440); RED BLOOD COUNT 3.16 X10'6 (4.70-6.10); RED CELL DISTRIBUTION WIDTH 19.3 % (11.5-14.5); WHITE BLOOD COUNT 5.5 X10'3 (4.5-11.0)
[2020-05-13 10:00] VITALS: BP 107/60
[2020-05-13 10:04] LABS: ALBUMIN 1.9 G/DL (3.4-5.0); ANION GAP 9 (8-16); BLOOD UREA NITROGEN 36 MG/DL (7-18); BUN/CREATININE RATIO 13.4 (5.4-32.0); CALCIUM 8.8 MG/DL (8.5-10.1); CHLORIDE 106 MMOL/L (99-107); CREATININE 2.68 MG/DL (0.60-1.10); GLUCOSE 206 MG/DL (70-104); POTASSIUM 5.1 MMOL/L (3.5-5.1); SODIUM 136 MMOL/L (135-145); TOTAL CARBON DIOXIDE 20.9 MMOL/L (24-32); eGFR 25 ML/MIN
[2020-05-13] MEDS: NUT.TX.GLUC.INTOLER,LAC-FR,SOY (GLUCERNA) 237 ML PO SCH ×2 (12:50→17:43)
[2020-05-13] MEDS: vancomycin inj 500 MG in normal saline 100ml IV soln 100 ML IV SCH (17:10)
[2020-05-13 17:43] VITALS: BP 122/70
--- NOTE | 2020-05-13 18:37 | NUR ---
Problems reprioritized. Patient report given, questions answered & plan of care reviewed with Tory Voss
[2020-05-13] MEDS: insulin glargine (Lantus) pen - multi-dose SQ SCH (21:04)
[2020-05-13] MEDS: dextrose ORAL solution 15 GM/59 ML bottle PO PRN (21:06)
[2020-05-13 22:00] VITALS: BP 95/59
[2020-05-14] MEDS: vancomycin 125mg/5ml ORAL solution 5ml UD bottle PO SCH ×4 (00:59→19:53)
[2020-05-14] MEDS: heparin, porcine 5000 units/ml vial SQ SCH ×3 (01:00→16:00)
[2020-05-14 05:30] VITALS: BP 110/64
--- NOTE | 2020-05-14 06:27 | NUR ---
Problems reprioritized. Patient report given, questions answered & plan of care reviewed with TON Huntley.
[2020-05-14] MEDS: K and/or MAG REPLACEMENT MC SCH ×2 (08:00→19:53)
[2020-05-14] MEDS: meropenem inj 500 MG in normal saline 100ml IV soln 100 ML IV SCH ×2 (08:21→19:53)
[2020-05-14] MEDS: ESCITALOPRAM OXALATE 5 MG TABLET PO SCH (08:21)
[2020-05-14] MEDS: lactobacillus rhamnosus 10,000 MMU CELLS/CAPSULE PO SCH ×2 (08:21→19:53)
[2020-05-14] MEDS: tamsulosin 0.4mg capsule PO SCH (08:21)
[2020-05-14] MEDS: insulin Lispro (HumaLOG) vial - multi-dose SQ SCH ×2 (10:43→14:30)
[2020-05-14] MEDS: NUT.TX.GLUC.INTOLER,LAC-FR,SOY (GLUCERNA) 237 ML PO SCH ×3 (13:22→18:30)
--- NOTE | 2020-05-14 14:07 | NUR ---
pt states that the glucerna shakes make him feel nauseated so he is not drinking them
[2020-05-14] MEDS ORDERED: VANCOMYCIN LEVEL IV ONE (15:30)
[2020-05-14] MEDS: vancomycin inj 500 MG in normal saline 100ml IV soln 100 ML IV SCH (15:58)
[2020-05-14 17:11] LABS: BASOPHILS % (AUTO) 0.4 % (0-1); EOSINOPHILS # (AUTO) 0.3 X10'3 (0-0.9); EOSINOPHILS % (AUTO) 4.4 % (0-6); HEMATOCRIT 27.5 % (42.0-52.0); HEMOGLOBIN 8.7 g/dl (14.0-17.9); LYMPHOCYTES # (AUTO) 1.7 X10'3 (1.1-4.8); LYMPHOCYTES % (AUTO) 26.8 % (21-51); MEAN CORPUSCULAR HEMOGLOBIN 26.9 PG (27.0-31.0); MEAN CORPUSCULAR HGB CONC 31.7 g/dL (33.0-36.5); MEAN CORPUSCULAR VOLUME 84.7 FL (78-98); MONOCYTES # (AUTO) 0.5 X10'3 (0-0.9); MONOCYTES % (AUTO) 7.8 % (2-12); NEUTROPHILS # (AUTO) 3.9 X10'3 (1.8-7.7); NEUTROPHILS % (AUTO) 60.6 % (42-75); PLATELET COUNT 278 X10'3 (140-440); RED BLOOD COUNT 3.25 X10'6 (4.70-6.10); RED CELL DISTRIBUTION WIDTH 18.6 % (11.5-14.5); WHITE BLOOD COUNT 6.4 X10'3 (4.5-11.0)
[2020-05-14 17:27] LABS: ALANINE AMINOTRANSFERASE 42 U/L (12-78); ALBUMIN 1.9 G/DL (3.4-5.0); ALBUMIN/GLOBULIN RATIO 0.3 (1.1-1.5); ALKALINE PHOSPHATASE 214 IU/L (46-116); ANION GAP 9 (8-16); ASPARTATE AMINO TRANSFERASE 30 U/L (10-37); BILIRUBIN,TOTAL 0.2 MG/DL (0.1-1.0); BLOOD UREA NITROGEN 45 MG/DL (7-18); BUN/CREATININE RATIO 17.4 (5.4-32.0); CALCIUM 8.1 MG/DL (8.5-10.1); CHLORIDE 104 MMOL/L (99-107); CREATININE 2.58 MG/DL (0.60-1.10); GLUCOSE 105 MG/DL (70-104); POTASSIUM 5.5 MMOL/L (3.5-5.1); SODIUM 135 MMOL/L (135-145); TOTAL CARBON DIOXIDE 22.3 MMOL/L (24-32); TOTAL PROTEIN 7.7 G/DL (6.4-8.2); eGFR 26 ML/MIN
--- NOTE | 2020-05-14 18:21 | NUR ---
Patient in room ORTHO 4006. I have received report from Yuko CAMILO and had the opportunity to ask questions and assume patient care.
[2020-05-14 20:45] VITALS: BP 114/65
[2020-05-14] MEDS: HYDROcodone/acetaminophen 10/325mg tab PO PRN (20:55)
[2020-05-14] MEDS: insulin glargine (Lantus) pen - multi-dose SQ SCH (20:55)
[2020-05-15] MEDS: vancomycin 125mg/5ml ORAL solution 5ml UD bottle PO SCH ×4 (01:34→20:48)
[2020-05-15] MEDS: heparin, porcine 5000 units/ml vial SQ SCH ×3 (01:34→17:36)
[2020-05-15 05:00] LABS: BASOPHILS % (AUTO) 0.4 % (0-1); EOSINOPHILS # (AUTO) 0.3 X10'3 (0-0.9); EOSINOPHILS % (AUTO) 4.2 % (0-6); HEMATOCRIT 27.1 % (42.0-52.0); HEMOGLOBIN 8.5 g/dl (14.0-17.9); LYMPHOCYTES # (AUTO) 1.8 X10'3 (1.1-4.8); LYMPHOCYTES % (AUTO) 27.5 % (21-51); MEAN CORPUSCULAR HEMOGLOBIN 26.7 PG (27.0-31.0); MEAN CORPUSCULAR HGB CONC 31.3 g/dL (33.0-36.5); MEAN CORPUSCULAR VOLUME 85.1 FL (78-98); MEAN PLATELET VOLUME 7.9 FL (7.4-10.4); MONOCYTES # (AUTO) 0.5 X10'3 (0-0.9); MONOCYTES % (AUTO) 7.5 % (2-12); NEUTROPHILS # (AUTO) 4.1 X10'3 (1.8-7.7); NEUTROPHILS % (AUTO) 60.4 % (42-75); PLATELET COUNT 249 X10'3 (140-440); RED BLOOD COUNT 3.19 X10'6 (4.70-6.10); RED CELL DISTRIBUTION WIDTH 19.1 % (11.5-14.5); WHITE BLOOD COUNT 6.7 X10'3 (4.5-11.0)
[2020-05-15 05:07] LABS: ALANINE AMINOTRANSFERASE 41 U/L (12-78); ALBUMIN/GLOBULIN RATIO 0.3 (1.1-1.5); ALKALINE PHOSPHATASE 206 IU/L (46-116); ANION GAP 9 (8-16); ASPARTATE AMINO TRANSFERASE 23 U/L (10-37); BILIRUBIN,TOTAL 0.3 MG/DL (0.1-1.0); BLOOD UREA NITROGEN 47 MG/DL (7-18); BUN/CREATININE RATIO 18.2 (5.4-32.0); CALCIUM 8.2 MG/DL (8.5-10.1); CHLORIDE 105 MMOL/L (99-107); CREATININE 2.58 MG/DL (0.60-1.10); POTASSIUM 5.7 MMOL/L (3.5-5.1); SODIUM 134 MMOL/L (135-145); TOTAL CARBON DIOXIDE 20.4 MMOL/L (24-32); TOTAL PROTEIN 7.8 G/DL (6.4-8.2); eGFR 26 ML/MIN
[2020-05-15 05:08] LABS: GLUCOSE 152 MG/DL (70-104)
[2020-05-15 06:00] VITALS: BP 92/57
[2020-05-15 06:53] LABS: ANISOCYTOSIS 2+; PLATELET ESTIMATE NORMAL
[2020-05-15 06:54] LABS: MICROCYTOSIS 1+; POIKILOCYTOSIS FEW; POLYCHROMASIA 1+
--- NOTE | 2020-05-15 07:06 | NUR ---
Problems reprioritized. Patient report given, questions answered & plan of care reviewed with Nikki CAMILO.
[2020-05-15] MEDS: lactobacillus rhamnosus 10,000 MMU CELLS/CAPSULE PO SCH ×2 (08:00→20:48)
[2020-05-15] MEDS: meropenem inj 500 MG in normal saline 100ml IV soln 100 ML IV SCH ×2 (08:00→20:48)
[2020-05-15] MEDS: tamsulosin 0.4mg capsule PO SCH (08:00)
[2020-05-15] MEDS: ESCITALOPRAM OXALATE 5 MG TABLET PO SCH (08:00)
[2020-05-15] MEDS: K and/or MAG REPLACEMENT MC SCH ×2 (08:00→20:00)
[2020-05-15] MEDS ORDERED: insulin regular, human 10 units/0.1 ml syringe IV ONE (09:05)
[2020-05-15] MEDS ORDERED: albuterol 2.5 MG/3 ML nebule NEB ONE (09:05)
[2020-05-15] MEDS ORDERED: sodium polystyrene sulfonate 15gm/60ml oral suspension PO ONE (09:05)
[2020-05-15] MEDS ORDERED: CALCIUM GLUC 1gm/50ml NACL,iso 100 ML IV ONE (09:10)
--- NOTE | 2020-05-15 10:16 | NUR ---
PAGER ID: [phone] MESSAGE: [phone] Siva Whitman Would you like me to page Bryce Maddox/Catherine to take off Airborne precautions? Nikki [phone]
--- NOTE | 2020-05-15 11:48 | NUR ---
Paged regarding patient 5.7 potassium
--- NOTE | 2020-05-15 11:51 | NUR ---
PAGER ID: [phone] MESSAGE: [phone] Gustavo Whitman What do you want to do for his 5.7 potassium Nikki [phone]
--- NOTE | 2020-05-15 12:58 | NUR ---
F/u 05/15: Pt PO continues to fluctuate ~50-75% meals and 100% past 2 Glucernas improving. ONS not cancelled and since drinking will recommend to continue. LBM 05/14 w/ pelvic abscess. Will continue to monitor for PO acceptance and additional protein needs. Recommendations: 1) Continue CHO controlled diet; encourage PO 2) Continue Glucerna BIDLD since drinking 3) Scaled weights per rx 4) bowel care per rx Addendum: 05/15/20 at [address] Amended: Links added.
[2020-05-15] MEDS: insulin Lispro (HumaLOG) vial - multi-dose SQ SCH (14:38)
[2020-05-15] MEDS: vancomycin inj 500 MG in normal saline 100ml IV soln 100 ML IV SCH (17:35)
[2020-05-15] MEDS: NUT.TX.GLUC.INTOLER,LAC-FR,SOY (GLUCERNA) 237 ML PO SCH ×2 (17:36→21:10)
[2020-05-15] MEDS: HYDROcodone/acetaminophen 10/325mg tab PO PRN (18:00)
[2020-05-15 18:03] VITALS: BP 86/64
--- NOTE | 2020-05-15 18:15 | NUR ---
Patient in room ORTHO 4006. I have received report from Nikki CAMILO and had the opportunity to ask questions and assume patient care.
--- NOTE | 2020-05-15 18:31 | NUR ---
Problems reprioritized. Patient report given, questions answered & plan of care reviewed with Sana CAMILO.
[2020-05-15] MEDS: insulin glargine (Lantus) pen - multi-dose SQ SCH (21:39)
[2020-05-15 22:00] VITALS: BP 96/60
[2020-05-16] MEDS: HYDROcodone/acetaminophen 10/325mg tab PO PRN ×3 (00:17→20:15)
[2020-05-16] MEDS: heparin, porcine 5000 units/ml vial SQ SCH ×3 (00:19→15:49)
[2020-05-16] MEDS: vancomycin 125mg/5ml ORAL solution 5ml UD bottle PO SCH ×4 (02:20→20:03)
[2020-05-16 06:00] VITALS: BP 96/64
[2020-05-16 06:15] LABS: BASOPHILS % (AUTO) 0.5 % (0-1); EOSINOPHILS # (AUTO) 0.3 X10'3 (0-0.9); EOSINOPHILS % (AUTO) 2.8 % (0-6); HEMATOCRIT 27.2 % (42.0-52.0); HEMOGLOBIN 8.6 g/dl (14.0-17.9); LYMPHOCYTES # (AUTO) 1.8 X10'3 (1.1-4.8); MEAN CORPUSCULAR HEMOGLOBIN 26.8 PG (27.0-31.0); MEAN CORPUSCULAR HGB CONC 31.7 g/dL (33.0-36.5); MEAN CORPUSCULAR VOLUME 84.7 FL (78-98); MEAN PLATELET VOLUME 7.6 FL (7.4-10.4); MONOCYTES # (AUTO) 0.6 X10'3 (0-0.9); MONOCYTES % (AUTO) 6.8 % (2-12); NEUTROPHILS # (AUTO) 6.3 X10'3 (1.8-7.7); NEUTROPHILS % (AUTO) 69.9 % (42-75); PLATELET COUNT 267 X10'3 (140-440); RED BLOOD COUNT 3.21 X10'6 (4.70-6.10); RED CELL DISTRIBUTION WIDTH 19.1 % (11.5-14.5)
--- NOTE | 2020-05-16 06:39 | NUR ---
Problems reprioritized. Patient report given, questions answered & plan of care reviewed with Nikki CAMILO.
[2020-05-16 06:49] LABS: ALANINE AMINOTRANSFERASE 36 U/L (12-78); ALBUMIN 2.1 G/DL (3.4-5.0); ALBUMIN/GLOBULIN RATIO 0.4 (1.1-1.5); ALKALINE PHOSPHATASE 183 IU/L (46-116); ANION GAP 11 (8-16); ASPARTATE AMINO TRANSFERASE 20 U/L (10-37); BILIRUBIN,TOTAL 0.3 MG/DL (0.1-1.0); BLOOD UREA NITROGEN 44 MG/DL (7-18); BUN/CREATININE RATIO 16.9 (5.4-32.0); CALCIUM 8.2 MG/DL (8.5-10.1); CHLORIDE 104 MMOL/L (99-107); CREATININE 2.61 MG/DL (0.60-1.10); GLUCOSE 136 MG/DL (70-104); POTASSIUM 5.2 MMOL/L (3.5-5.1); SODIUM 135 MMOL/L (135-145); TOTAL CARBON DIOXIDE 19.7 MMOL/L (24-32); TOTAL PROTEIN 7.9 G/DL (6.4-8.2); eGFR 26 ML/MIN
[2020-05-16] MEDS: K and/or MAG REPLACEMENT MC SCH ×2 (07:00→20:00)
[2020-05-16 07:25] LABS: ANISOCYTOSIS 2+; MICROCYTOSIS 1+; PLATELET ESTIMATE NORMAL
[2020-05-16 07:26] LABS: TEAR DROP CELLS FEW
[2020-05-16] MEDS: ESCITALOPRAM OXALATE 5 MG TABLET PO SCH (08:13)
[2020-05-16] MEDS: meropenem inj 500 MG in normal saline 100ml IV soln 100 ML IV SCH ×2 (08:13→20:03)
[2020-05-16] MEDS: lactobacillus rhamnosus 10,000 MMU CELLS/CAPSULE PO SCH ×2 (08:13→20:03)
[2020-05-16] MEDS: tamsulosin 0.4mg capsule PO SCH (08:14)
[2020-05-16] MEDS: insulin Lispro (HumaLOG) vial - multi-dose SQ SCH (09:06)
--- NOTE | 2020-05-16 11:32 | NUR ---
Dr. Maddox in to see patient early this am, and discontinued the Airborne precautions. Addendum: 05/16/20 at 1134 by Nikki Avila RN Amended: Links added.
--- NOTE | 2020-05-16 11:49 | NUR ---
Patient report to Domingo CAMILO
--- NOTE | 2020-05-16 11:51 | NUR ---
Received report from TON Jordan. Awaiting patient arrival to room 353.
--- NOTE | 2020-05-16 11:54 | NUR ---
PAGER ID: [phone] MESSAGE: [phone] Gustavo Whitman what do you want to do about his 5.5 potassium Nikki [phone]
--- NOTE | 2020-05-16 12:27 | NUR ---
Received patient to room 353 via bed. Patient able to ambulate independently to bed. Patient oriented to room and call light. Call light within reach. Bed is low and locked.
[2020-05-16 12:48] VITALS: BP 105/68
--- NOTE | 2020-05-16 13:41 | NUR ---
Spoke to Dr. Marcos regarding an order from Humulin R and Calcium gluconate that was ordered 05/15/[address] Dr. Marcos ok to not administer and to salma.
[2020-05-16] MEDS ORDERED: iohexol 300 MG/1 ML 50ml polymer ONE (13:45)
--- NOTE | 2020-05-16 15:03 | NUR ---
Patient down to IR
[2020-05-16] MEDS ORDERED: LIDOcaine 1%/PF 5ML 10 MG/ML VIAL ONE (15:16)
--- NOTE | 2020-05-16 15:40 | NUR ---
Patient returned back from IR after right nephrostomy tube placement with no complaints. Dressing CDI. Per IR RN patient only received lidocaine.
[2020-05-16] MEDS: vancomycin inj 500 MG in normal saline 100ml IV soln 100 ML IV SCH (17:00)
[2020-05-16] MEDS: NUT.TX.GLUC.INTOLER,LAC-FR,SOY (GLUCERNA) 237 ML PO SCH (18:01)
--- NOTE | 2020-05-16 18:22 | NUR ---
Problems reprioritized. Patient report given, questions answered & plan of care reviewed with TON Robbins.
[2020-05-16 18:30] VITALS: BP 104/71
--- NOTE | 2020-05-16 18:48 | NUR ---
Patient in room FRANKI 353. I have received report from Sheeba CAMILO and had the opportunity to ask questions and assume patient care.
[2020-05-16] MEDS: insulin glargine (Lantus) pen - multi-dose SQ SCH (21:43)
[2020-05-17] VITALS: BP 97/63
[2020-05-17] MEDS: heparin, porcine 5000 units/ml vial SQ SCH ×4 (00:08→23:41)
[2020-05-17] MEDS: vancomycin 125mg/5ml ORAL solution 5ml UD bottle PO SCH ×4 (02:15→21:07)
[2020-05-17 05:51] LABS: BASOPHILS % (AUTO) 0.4 % (0-1); EOSINOPHILS # (AUTO) 0.3 X10'3 (0-0.9); HEMATOCRIT 23.3 % (42.0-52.0); HEMOGLOBIN 7.5 g/dl (14.0-17.9); LYMPHOCYTES # (AUTO) 1.8 X10'3 (1.1-4.8); LYMPHOCYTES % (AUTO) 28.5 % (21-51); MEAN CORPUSCULAR HEMOGLOBIN 27.4 PG (27.0-31.0); MEAN CORPUSCULAR HGB CONC 32.2 g/dL (33.0-36.5); MEAN CORPUSCULAR VOLUME 85.1 FL (78-98); MEAN PLATELET VOLUME 7.9 FL (7.4-10.4); MONOCYTES # (AUTO) 0.5 X10'3 (0-0.9); MONOCYTES % (AUTO) 8.7 % (2-12); NEUTROPHILS # (AUTO) 3.6 X10'3 (1.8-7.7); NEUTROPHILS % (AUTO) 57.4 % (42-75); PLATELET COUNT 208 X10'3 (140-440); RED BLOOD COUNT 2.73 X10'6 (4.70-6.10); RED CELL DISTRIBUTION WIDTH 18.6 % (11.5-14.5); WHITE BLOOD COUNT 6.2 X10'3 (4.5-11.0)
[2020-05-17 06:10] LABS: ALANINE AMINOTRANSFERASE 25 U/L (12-78); ALBUMIN 1.8 G/DL (3.4-5.0); ALBUMIN/GLOBULIN RATIO 0.4 (1.1-1.5); ALKALINE PHOSPHATASE 141 IU/L (46-116); ANION GAP 11 (8-16); ASPARTATE AMINO TRANSFERASE 12 U/L (10-37); BILIRUBIN,TOTAL 0.3 MG/DL (0.1-1.0); BLOOD UREA NITROGEN 45 MG/DL (7-18); BUN/CREATININE RATIO 17.2 (5.4-32.0); CALCIUM 7.5 MG/DL (8.5-10.1); CHLORIDE 107 MMOL/L (99-107); CREATININE 2.61 MG/DL (0.60-1.10); GLUCOSE 144 MG/DL (70-104); POTASSIUM 4.8 MMOL/L (3.5-5.1); SODIUM 137 MMOL/L (135-145); TOTAL CARBON DIOXIDE 18.9 MMOL/L (24-32); TOTAL PROTEIN 6.9 G/DL (6.4-8.2); eGFR 26 ML/MIN
--- NOTE | 2020-05-17 06:30 | NUR ---
Problems reprioritized. Patient report given, questions answered & plan of care reviewed with Kat RN.
[2020-05-17 06:51] LABS: ANISOCYTOSIS 2+; HYPOCHROMASIA 1+; PLATELET ESTIMATE NORMAL
[2020-05-17 06:52] LABS: MICROCYTOSIS 1+
[2020-05-17 08:00] VITALS: BP 102/59
[2020-05-17] MEDS: K and/or MAG REPLACEMENT MC SCH ×2 (08:00→20:00)
[2020-05-17] MEDS: lactobacillus rhamnosus 10,000 MMU CELLS/CAPSULE PO SCH ×2 (08:53→21:07)
[2020-05-17] MEDS: ESCITALOPRAM OXALATE 5 MG TABLET PO SCH (08:54)
[2020-05-17] MEDS: meropenem inj 500 MG in normal saline 100ml IV soln 100 ML IV SCH ×2 (08:54→21:08)
[2020-05-17] MEDS: tamsulosin 0.4mg capsule PO SCH (08:54)
[2020-05-17] MEDS: HYDROcodone/acetaminophen 10/325mg tab PO PRN ×3 (08:58→22:42)
[2020-05-17 11:53] VITALS: BP 94/58
[2020-05-17] MEDS: NUT.TX.GLUC.INTOLER,LAC-FR,SOY (GLUCERNA) 237 ML PO SCH ×2 (12:30→18:27)
[2020-05-17] MEDS: insulin Lispro (HumaLOG) vial - multi-dose SQ SCH (13:52)
[2020-05-17] MEDS ORDERED: sevoflurane 250ml liquid IH ONE (14:20)
[2020-05-17] MEDS: vancomycin inj 500 MG in normal saline 100ml IV soln 100 ML IV SCH (16:31)
[2020-05-17] MEDS: dextrose ORAL solution 15 GM/59 ML bottle PO PRN (16:41)
--- NOTE | 2020-05-17 18:42 | NUR ---
Problems reprioritized. Patient report given, questions answered & plan of care reviewed with TON Griffin.
[2020-05-17 19:30] VITALS: BP 103/58
[2020-05-17] MEDS: insulin glargine (Lantus) pen - multi-dose SQ SCH (21:00)
[2020-05-17] MEDS: mineral oil/petrolatum, white cream 113gm jar TP SCH (21:07)
[2020-05-18] VITALS (22 sets, daily range): BP systolic 85–114; BP diastolic 47–68
[2020-05-18] MEDS ORDERED: LORazepam 2 mg/ml vial IV ONE ×2 (01:35→12:55)
[2020-05-18] MEDS: vancomycin 125mg/5ml ORAL solution 5ml UD bottle PO SCH ×4 (02:00→20:00)
[2020-05-18 05:21] LABS: BASOPHILS % (AUTO) 0.4 % (0-1); EOSINOPHILS # (AUTO) 0.2 X10'3 (0-0.9); EOSINOPHILS % (AUTO) 2.6 % (0-6); HEMATOCRIT 25.1 % (42.0-52.0); HEMOGLOBIN 7.9 g/dl (14.0-17.9); LYMPHOCYTES # (AUTO) 1.9 X10'3 (1.1-4.8); LYMPHOCYTES % (AUTO) 27.2 % (21-51); MEAN CORPUSCULAR HGB CONC 31.7 g/dL (33.0-36.5); MEAN CORPUSCULAR VOLUME 85.3 FL (78-98); MEAN PLATELET VOLUME 8.2 FL (7.4-10.4); MONOCYTES # (AUTO) 0.5 X10'3 (0-0.9); MONOCYTES % (AUTO) 7.4 % (2-12); NEUTROPHILS # (AUTO) 4.3 X10'3 (1.8-7.7); NEUTROPHILS % (AUTO) 62.4 % (42-75); PLATELET COUNT 204 X10'3 (140-440); RED BLOOD COUNT 2.94 X10'6 (4.70-6.10); RED CELL DISTRIBUTION WIDTH 18.9 % (11.5-14.5); WHITE BLOOD COUNT 6.9 X10'3 (4.5-11.0)
[2020-05-18 05:50] LABS: ALANINE AMINOTRANSFERASE 24 U/L (12-78); ALBUMIN/GLOBULIN RATIO 0.4 (1.1-1.5); ALKALINE PHOSPHATASE 141 IU/L (46-116); ANION GAP 11 (8-16); ASPARTATE AMINO TRANSFERASE 11 U/L (10-37); BILIRUBIN,TOTAL 0.3 MG/DL (0.1-1.0); BLOOD UREA NITROGEN 55 MG/DL (7-18); BUN/CREATININE RATIO 19.9 (5.4-32.0); CALCIUM 8.4 MG/DL (8.5-10.1); CHLORIDE 105 MMOL/L (99-107); CREATININE 2.76 MG/DL (0.60-1.10); GLUCOSE 159 MG/DL (70-104); POTASSIUM 5.4 MMOL/L (3.5-5.1); SODIUM 135 MMOL/L (135-145); TOTAL CARBON DIOXIDE 19.5 MMOL/L (24-32); TOTAL PROTEIN 7.6 G/DL (6.4-8.2); eGFR 24 ML/MIN
--- NOTE | 2020-05-18 06:17 | NUR ---
Problems reprioritized. Patient report given, questions answered & plan of care reviewed with Kaleigh CAMILO.
[2020-05-18 06:30] LABS: PARTIAL THROMBOPLASTIN TIME 30 SECONDS (22-32)
--- NOTE | 2020-05-18 06:53 | NUR ---
Patient in room FRANKI 353. I have received report from TON Hager and had the opportunity to ask questions and assume patient care.
[2020-05-18] MEDS: mineral oil/petrolatum, white cream 113gm jar TP SCH ×2 (08:00→20:00)
[2020-05-18] MEDS: K and/or MAG REPLACEMENT MC SCH ×2 (08:00→20:00)
[2020-05-18] MEDS: ESCITALOPRAM OXALATE 5 MG TABLET PO SCH (08:24)
[2020-05-18] MEDS: lactobacillus rhamnosus 10,000 MMU CELLS/CAPSULE PO SCH ×2 (08:24→20:00)
[2020-05-18] MEDS: meropenem inj 500 MG in normal saline 100ml IV soln 100 ML IV SCH ×2 (08:24→21:51)
[2020-05-18] MEDS: tamsulosin 0.4mg capsule PO SCH (08:24)
[2020-05-18] MEDS: heparin, porcine 5000 units/ml vial SQ SCH ×2 (08:31→16:00)
[2020-05-18 10:07] LABS: ANISOCYTOSIS 2+; HYPOCHROMASIA 1+; MICROCYTOSIS 1+; PLATELET ESTIMATE NORMAL; SCHISTOCYTES FEW; TEAR DROP CELLS FEW
[2020-05-18] MEDS: NUT.TX.GLUC.INTOLER,LAC-FR,SOY (GLUCERNA) 237 ML PO SCH ×2 (12:16→17:30)
[2020-05-18] MEDS ORDERED: proCHLORperazine 10 MG/2 ml inj IV PRN ×2 (12:20→14:00)
[2020-05-18] MEDS ORDERED: HYDROmorphone inj. 0.5 MG/0.5 ML DISP.SYRIN IV PRN ×3 (12:20→14:00)
[2020-05-18] MEDS ORDERED: morphine 2 MG/ML inj. syringe IV PRN ×2 (12:20→14:00)
[2020-05-18] MEDS ORDERED: ondansetron/PF 4mg/2ml inj IV PRN ×2 (12:20→14:00)
[2020-05-18] MEDS ORDERED: ringers solution, lacted 1,000 ML IV SCH ×2 (12:20→14:00)
[2020-05-18] MEDS ORDERED: acetaminophen 1,000mg/100ml IV 100 ML IV PRN ×2 (12:20→14:00)
[2020-05-18] MEDS ORDERED: meperidine/PF 25mg/ml syringe IV PRN (14:00)
[2020-05-18] MEDS ORDERED: hydrALAZINE 20mg/ml inj. IV PRN (14:00)
[2020-05-18] MEDS ORDERED: labetalol 20mg/4ml (5mg/ml) syringe IV PRN (14:00)
[2020-05-18] MEDS ORDERED: morphine 4 MG/ML inj SYRINge IV PRN (14:00)
[2020-05-18] MEDS ORDERED: midazolam 2 mg/2 ml injection ONE (14:32)
[2020-05-18] MEDS ORDERED: fentaNYL /PF 50mcg/ml 5ml ampule ONE (14:34)
[2020-05-18] MEDS ORDERED: ceFOXitin 1000 MG inj ONE ×2 (14:54)
[2020-05-18] MEDS ORDERED: ePHEDrine 50MG/ML INJ. ONE (14:54)
[2020-05-18] MEDS ORDERED: 0.9 % SODIUM CHLORIDE 10 ML VIAL ONE ×3 (14:54→16:18)
[2020-05-18] MEDS ORDERED: rocuronium 10mg/ml inj IV ONE ×2 (14:54→15:41)
[2020-05-18] MEDS ORDERED: ondansetron/PF 4mg/2ml inj ONE (14:54)
[2020-05-18] MEDS ORDERED: dexamethasone sod phosphate 4mg/ml inj. ONE (14:54)
[2020-05-18] MEDS ORDERED: phenylephrine 10mg/ml inj. ONE (14:54)
[2020-05-18] MEDS ORDERED: propofol inj 20 ML IV ONE (14:54)
[2020-05-18] MEDS ORDERED: LIDOcaine 2% (20mg/ml) 5ml vial ONE (14:55)
[2020-05-18] MEDS ORDERED: BUPIVAcaine/PF 2.5 mg/ml (0.25%) 30ml vial ONE (16:12)
[2020-05-18] MEDS ORDERED: morphine 10mg/ml inj. ONE ×2 (16:32→17:01)
[2020-05-18] MEDS ORDERED: glycopyrrolate 0.2mg/ml inj ONE (16:44)
[2020-05-18] MEDS ORDERED: neostigmine methylsulfate 1 MG/ML 10ml vial ONE (16:44)
--- NOTE | 2020-05-18 17:06 | NUR ---
Received from OR via SURGICAL BED, accompanied by Anesthesiologist DR. FLORES and report given by Anesthesiolgist. PT WITH PICC LINE WITH LR RUNNING AT 100, 2 DRAINS FROM KIDNEYS PRESENT WITH CLOUDY DRAINAGE PRESENT. ANTERIOR ABD DRESSING CDI, COLOSTOMY TO LEFT LOWER ABD, STOMA PINK, NO LEAKS PRESENT, SCD DONNED BILATERALLY, MEDICATED FOR PAIN UPON ARRIVAL, 10L MASK WITH 100 PERCENT SATURATION. Addendum: 05/18/20 at 1729 by Dimitrios Birmingham RN, RN Amended: Links added.
[2020-05-18] MEDS ORDERED: albumin (Human) 5% 250ml 250 ML IV ONE (18:05)
--- NOTE | 2020-05-18 18:25 | NUR ---
Patient in room FRANKI 353. I have received report from TON Farris and had the opportunity to ask questions and assume patient care.
--- NOTE | 2020-05-18 18:46 | NUR ---
ALL CRITERIA FOR TRANSFER TO THE FLOOR HAS BEEN ACHIEVED AT THIS TIME. CONFERRED WITH MD FLORES THAT PATIENT VS HAVE BEEN IN 90-95 SBP/50-60S DBP. MD AWARE OF CURRENT VS AND AGREES THAT HE HAS MET CRITERIA TO TRANSFER TO THE FLOOR. PATIENT PAIN 7/10 PRIOR TO LEAVING PACU AND WAS ELEVATED TO AN 8 UPON ARRIVAL TO HIS ROOM. SET UP VS MACHINE, BED LOWERED, 3 RAILS UP, TON VALENCIA PRESENT TO ASSESS SURGICAL SITE WITH THIS RN. NO DRAINAGE AND STOMA SITE IS CDI WITH NO DRAINAGE TO OSTOMY BAG. BRYAN DRAINS WITHOUT MORE THAN 5 CC AND UROSTOMY DRAIN BAGS STILL CLOUDY AND WITH APPROXIMATELY 80CC PER SIDE. ANTERIOR ABDOMINAL DRESSING IS CDI AT THIS TIME. BED LOWERED AND CALL LIGHT PRESENT. CARE TURNED OVER TO TON Calderón Addendum: 05/18/20 at 1907 by Dimitrios Park - TON CAMILO Amended: Links added.
--- NOTE | 2020-05-18 18:51 | NUR ---
Problems reprioritized. Patient report given, questions answered & plan of care reviewed with TON Lazar.
[2020-05-18] MEDS: insulin glargine (Lantus) pen - multi-dose SQ SCH (21:51)
[2020-05-18] MEDS: vancomycin inj 500 MG in normal saline 100ml IV soln 100 ML IV SCH (23:23)
[2020-05-19] VITALS (7 sets, daily range): BP systolic 94–108; BP diastolic 51–65
[2020-05-19] MEDS: HYDROcodone/acetaminophen 10/325mg tab PO PRN (01:13)
[2020-05-19] MEDS: heparin, porcine 5000 units/ml vial SQ SCH ×4 (01:52→23:22)
[2020-05-19] MEDS: vancomycin 125mg/5ml ORAL solution 5ml UD bottle PO SCH ×4 (02:00→19:45)
[2020-05-19 06:20] LABS: BASOPHILS % (AUTO) 0 % (0-1); EOSINOPHILS % (AUTO) 0 % (0-6); HEMATOCRIT 23.3 % (42.0-52.0); HEMOGLOBIN 7.3 g/dl (14.0-17.9); LYMPHOCYTES # (AUTO) 0.9 X10'3 (1.1-4.8); LYMPHOCYTES % (AUTO) 6.3 % (21-51); MEAN CORPUSCULAR HEMOGLOBIN 27.1 PG (27.0-31.0); MEAN CORPUSCULAR HGB CONC 31.4 g/dL (33.0-36.5); MEAN CORPUSCULAR VOLUME 86.5 FL (78-98); MEAN PLATELET VOLUME 8.4 FL (7.4-10.4); MONOCYTES # (AUTO) 0.6 X10'3 (0-0.9); MONOCYTES % (AUTO) 4.6 % (2-12); NEUTROPHILS # (AUTO) 12.2 X10'3 (1.8-7.7); NEUTROPHILS % (AUTO) 89.1 % (42-75); PLATELET COUNT 185 X10'3 (140-440); RED BLOOD COUNT 2.69 X10'6 (4.70-6.10); RED CELL DISTRIBUTION WIDTH 18.9 % (11.5-14.5); WHITE BLOOD COUNT 13.7 X10'3 (4.5-11.0)
[2020-05-19 06:28] LABS: ALANINE AMINOTRANSFERASE 21 U/L (12-78); ALBUMIN 2.2 G/DL (3.4-5.0); ALBUMIN/GLOBULIN RATIO 0.4 (1.1-1.5); ALKALINE PHOSPHATASE 115 IU/L (46-116); ANION GAP 12 (8-16); ASPARTATE AMINO TRANSFERASE 17 U/L (10-37); BILIRUBIN,TOTAL 0.3 MG/DL (0.1-1.0); BLOOD UREA NITROGEN 58 MG/DL (7-18); BUN/CREATININE RATIO 17.5 (5.4-32.0); CALCIUM 8.1 MG/DL (8.5-10.1); CHLORIDE 105 MMOL/L (99-107); CREATININE 3.32 MG/DL (0.60-1.10); GLUCOSE 280 MG/DL (70-104); SODIUM 133 MMOL/L (135-145); TOTAL CARBON DIOXIDE 16.3 MMOL/L (24-32); TOTAL PROTEIN 7.5 G/DL (6.4-8.2); eGFR 20 ML/MIN
[2020-05-19 06:35] LABS: POTASSIUM 6.5 MMOL/L (3.5-5.1)
--- NOTE | 2020-05-19 06:40 | NUR ---
Paged Dr. Marcos regarding critical potassium, awaiting orders PAGER ID: [phone] MESSAGE: TON Mcgill [phone] Whitman Critical K of 6.5 Thank you
[2020-05-19] MEDS ORDERED: CALCIUM GLUC 1gm/50ml NACL,iso 100 ML IV ONE (06:50)
[2020-05-19] MEDS ORDERED: dextrose 50%-water 50ml dispensing syringe IV ONE (06:50)
[2020-05-19] MEDS ORDERED: sodium polystyrene sulfonate 15gm/60ml oral suspension PO ONE (06:50)
[2020-05-19] MEDS ORDERED: insulin regular, human 10 units/0.1 ml syringe SQ ONE (07:10)
[2020-05-19] MEDS ORDERED: insulin regular, human 10 units/0.1 ml syringe IV ONE (07:20)
[2020-05-19] MEDS: K and/or MAG REPLACEMENT MC SCH ×2 (08:00→19:58)
[2020-05-19] MEDS: meropenem inj 500 MG in normal saline 100ml IV soln 100 ML IV SCH ×2 (08:55→19:45)
[2020-05-19] MEDS: mineral oil/petrolatum, white cream 113gm jar TP SCH ×2 (08:57→19:56)
[2020-05-19] MEDS ORDERED: HYDROcodone/acetaminophen 10/325mg tab PO PRN (09:20)
[2020-05-19] MEDS: ESCITALOPRAM OXALATE 5 MG TABLET PO SCH (09:26)
[2020-05-19] MEDS: lactobacillus rhamnosus 10,000 MMU CELLS/CAPSULE PO SCH ×2 (09:26→19:45)
[2020-05-19] MEDS: tamsulosin 0.4mg capsule PO SCH (09:26)
[2020-05-19] MEDS: NUT.TX.GLUC.INTOLER,LAC-FR,SOY (GLUCERNA) 237 ML PO SCH (12:30)
--- NOTE | 2020-05-19 14:03 | NUR ---
Wound care at bedside to see pt. Pt gave verbal consent to be seen. Ostomy could not be visualized through top of bag r/t clots. The bag was removed with the wafer left in place to help visualize. The clots were carefully wiped off and the stoma was visualized. It is very small in diameter, appears to be about the size of a nickel. The color is dark reddish. The drainage is serosanguinous. The stoma will likely need convex bags in the future as it only protrudes a small amount. Replaced the bag and left bed in lowest position. Light touching in and around the stomal area was quite painful to the patient. Will continue to monitor. Addendum: 05/19/20 at 1405 by Jaquelin Floyd RN Amended: Links added.
[2020-05-19] MEDS ORDERED: naloxone 0.4 mg/ml inj IV PRN (14:05)
[2020-05-19] MEDS ORDERED: CADD PCA waste documentation MC PRN (14:05)
[2020-05-19] MEDS: normal saline 1000ml 1,000 ML IV SCH ×2 (14:18→23:14)
--- NOTE | 2020-05-19 14:38 | NUR ---
Reassessment: Pt currently NPO s/p colostomy and lysis of adhesions 05/18. Written colostomy nutrition therapy education with a list of fiber content in foods and RD contact information placed in patient's chart. Pt previously with average 75-100% PO intake of meals on CHO controlled diet and 100% PO intake of Glucerna BIDLD meeting estimated nutrient needs. Recommend diet advancement to low fiber/CHO controlled as medically indicated. LBM 05/19, on contact precautions for C.diff. No documentation of total stool output in I&O. Will continue to follow and monitor need for further nutrition intervention. Recommendations: 1) Advance to low fiber CHO controlled diet as medically indicated 2) Resume Glucerna BIDLD with PO diet advancement 3) Scaled weights per rx 4) bowel care per rx Addendum: 05/19/20 at [address] Amended: Links added.
[2020-05-19] MEDS: HYDROmorphone/NS 1 mg/ml CADD 50 ML IV SCH ×5 (14:46→23:00)
[2020-05-19 15:06] LABS: POTASSIUM 5.2 MMOL/L (3.5-5.1)
[2020-05-19 15:15] LABS: VANCOMYCIN,TROUGH 24.4 UG/ML (6.0-14.0)
--- NOTE | 2020-05-19 15:17 | NUR ---
Vanco trough 24.4 per lab. Margo, Pharmacist, stated to hold next dose of Vancomycin.
[2020-05-19] MEDS ORDERED: VANCOMYCIN LEVEL IV ONE (15:30)
[2020-05-19] MEDS ORDERED: vancomycin/NS 1 GM ADD-VANTAGE 250 ML IV PRN (16:00)
--- NOTE | 2020-05-19 18:05 | NUR ---
Patient in room [facility]. I have received report from TON Mcgill and had the opportunity to ask questions and assume patient care.
--- NOTE | 2020-05-19 18:12 | NUR ---
Problems reprioritized. Patient report given, questions answered & plan of care reviewed with TON Lazar.
[2020-05-19] MEDS: docusate sod 100mg capsule PO SCH (19:45)
--- NOTE | 2020-05-19 20:20 | NUR ---
Spoke to brother in law fernando. UPdated SBAR. Pt would like updates before significant events such as surgery, DC, change in condition. Pt gave consent.
[2020-05-19] MEDS: insulin glargine (Lantus) pen - multi-dose SQ SCH (21:00)
[2020-05-20] VITALS (13 sets, daily range): BP systolic 91–116; BP diastolic 57–72
[2020-05-20] MEDS: HYDROmorphone/NS 1 mg/ml CADD 50 ML IV SCH ×12 (01:00→23:00)
[2020-05-20] MEDS: vancomycin 125mg/5ml ORAL solution 5ml UD bottle PO SCH ×4 (01:18→20:51)
[2020-05-20] MEDS: VANCOMYCIN LEVEL IV SCH (01:19)
[2020-05-20 04:01] LABS: BASOPHILS % (AUTO) 0.2 % (0-1); EOSINOPHILS % (AUTO) 0.2 % (0-6); LYMPHOCYTES # (AUTO) 1.2 X10'3 (1.1-4.8); LYMPHOCYTES % (AUTO) 11.2 % (21-51); MEAN CORPUSCULAR HEMOGLOBIN 27.1 PG (27.0-31.0); MEAN CORPUSCULAR HGB CONC 31.4 g/dL (33.0-36.5); MEAN CORPUSCULAR VOLUME 86.5 FL (78-98); MEAN PLATELET VOLUME 8.6 FL (7.4-10.4); MONOCYTES # (AUTO) 0.7 X10'3 (0-0.9); MONOCYTES % (AUTO) 6.4 % (2-12); NEUTROPHILS # (AUTO) 8.5 X10'3 (1.8-7.7); PLATELET COUNT 157 X10'3 (140-440); RED BLOOD COUNT 2.51 X10'6 (4.70-6.10); RED CELL DISTRIBUTION WIDTH 19.3 % (11.5-14.5); WHITE BLOOD COUNT 10.3 X10'3 (4.5-11.0)
[2020-05-20 04:05] LABS: HEMOGLOBIN 6.8 g/dl (14.0-17.9)
[2020-05-20 04:06] LABS: HEMATOCRIT 21.7 % (42.0-52.0)
[2020-05-20 04:18] LABS: ALANINE AMINOTRANSFERASE 19 U/L (12-78); ALBUMIN 2.1 G/DL (3.4-5.0); ALBUMIN/GLOBULIN RATIO 0.4 (1.1-1.5); ALKALINE PHOSPHATASE 105 IU/L (46-116); ANION GAP 8 (8-16); ASPARTATE AMINO TRANSFERASE 17 U/L (10-37); BILIRUBIN,TOTAL 0.3 MG/DL (0.1-1.0); BLOOD UREA NITROGEN 58 MG/DL (7-18); CALCIUM 8.4 MG/DL (8.5-10.1); CHLORIDE 111 MMOL/L (99-107); CREATININE 3.06 MG/DL (0.60-1.10); GLUCOSE 137 MG/DL (70-104); POTASSIUM 5.5 MMOL/L (3.5-5.1); SODIUM 138 MMOL/L (135-145); TOTAL CARBON DIOXIDE 18.7 MMOL/L (24-32); TOTAL PROTEIN 7.1 G/DL (6.4-8.2); VANCOMYCIN,RANDOM 21.2 UG/ML; eGFR 22 ML/MIN
--- NOTE | 2020-05-20 04:28 | NUR ---
PAGER ID: [phone] MESSAGE: [phone] dewayne Whitman DX: Sepsis, BOB, CKD. H/H 6.8/21.7, down from 7.3/23.7. TON Lazarcommercial parts professional [phone]
--- NOTE | 2020-05-20 04:40 | NUR ---
[address] Marcos
--- NOTE | 2020-05-20 05:50 | NUR ---
Received call from lab; blood is coming from [facility] and will not be in until around 0900.
--- NOTE | 2020-05-20 06:55 | NUR ---
Problems reprioritized. Patient report given, questions answered & plan of care reviewed with TON Pappas.
--- NOTE | 2020-05-20 07:01 | NUR ---
Patient in room [facility]. I have received report from pieter CAMILO and had the opportunity to ask questions and assume patient care.
[2020-05-20] MEDS: mineral oil/petrolatum, white cream 113gm jar TP SCH ×2 (08:00→20:40)
[2020-05-20] MEDS: K and/or MAG REPLACEMENT MC SCH ×2 (08:00→20:00)
[2020-05-20] MEDS: tamsulosin 0.4mg capsule PO SCH (08:51)
[2020-05-20] MEDS: docusate sod 100mg capsule PO SCH ×2 (08:51→20:39)
[2020-05-20] MEDS: lactobacillus rhamnosus 10,000 MMU CELLS/CAPSULE PO SCH ×2 (08:51→20:38)
[2020-05-20] MEDS: meropenem inj 500 MG in normal saline 100ml IV soln 100 ML IV SCH ×2 (08:51→20:38)
[2020-05-20] MEDS: ESCITALOPRAM OXALATE 5 MG TABLET PO SCH (08:51)
[2020-05-20] MEDS: heparin, porcine 5000 units/ml vial SQ SCH ×2 (08:52→15:21)
[2020-05-20] MEDS: ondansetron/PF 4mg/2ml inj IV PRN (10:45)
[2020-05-20] MEDS: normal saline 1000ml 1,000 ML IV SCH ×2 (10:45→19:54)
--- NOTE | 2020-05-20 14:14 | NUR ---
Stoma bag appears as if it may have a problem when drainage picks up. Hasn't been changed since surgery, the placed bag is not flush with the skin and will easily allow flow to other dressings if it is not remedied. Pt is experiencing a large amount of pain associated with his surgery and abdomen at this time, therefore primary RN, Elyse, was advised to change the bag soon, when a pain medication is available. The stoma is still putting out a small amount of bloody drainage. Addendum: 05/20/20 at 1416 by Jaquelin Floyd RN Amended: Links added.
--- NOTE | 2020-05-20 19:06 | NUR ---
patients H&H 6.8 and 21.7 given two units of blood which he tolerated. colostomy putting out small amount of sang drainage. does not appear to be leaking. Dressing changed to midline. nephrostomy tubes draining cloudy yellow urine. BRYAN drains x2 draining peña colored drainage. Patient continues with CADD pump which is controlling his pain. Seen by DR Gusman , increased to clear liquid diet which patient is barely tolerating patient cautioned to go slow. Passing gas into colostomy. Report given to Prudence RN
--- NOTE | 2020-05-20 19:15 | NUR ---
Patient in room [facility]. I have received report from PATTI CAMILO and had the opportunity to ask questions and assume patient care.
[2020-05-20 20:26] LABS: HEMATOCRIT 28.1 % (42.0-52.0); HEMOGLOBIN 9.2 g/dl (14.0-17.9); MEAN CORPUSCULAR HEMOGLOBIN 28.8 PG (27.0-31.0); MEAN CORPUSCULAR HGB CONC 32.7 g/dL (33.0-36.5); MEAN CORPUSCULAR VOLUME 88.2 FL (78-98); MEAN PLATELET VOLUME 8.2 FL (7.4-10.4); PLATELET COUNT 149 X10'3 (140-440); RED BLOOD COUNT 3.18 X10'6 (4.70-6.10); RED CELL DISTRIBUTION WIDTH 17.1 % (11.5-14.5); WHITE BLOOD COUNT 9.9 X10'3 (4.5-11.0)
[2020-05-20] MEDS: insulin glargine (Lantus) pen - multi-dose SQ SCH (21:00)
[2020-05-21] VITALS: BP 97/72
[2020-05-21] MEDS: HYDROmorphone/NS 1 mg/ml CADD 50 ML IV SCH ×12 (01:00→22:50)
[2020-05-21] MEDS: heparin, porcine 5000 units/ml vial SQ SCH ×4 (01:16→22:55)
[2020-05-21] MEDS: vancomycin 125mg/5ml ORAL solution 5ml UD bottle PO SCH ×4 (02:28→22:16)
[2020-05-21] MEDS: normal saline 1000ml 1,000 ML IV SCH ×2 (02:29→14:34)
[2020-05-21] MEDS: VANCOMYCIN LEVEL IV SCH (03:00)
[2020-05-21] MEDS: K and/or MAG REPLACEMENT MC SCH ×2 (08:00→20:00)
[2020-05-21] MEDS: mineral oil/petrolatum, white cream 113gm jar TP SCH ×2 (08:26→20:00)
[2020-05-21] MEDS: docusate sod 100mg capsule PO SCH ×2 (08:27→20:00)
[2020-05-21] MEDS: lactobacillus rhamnosus 10,000 MMU CELLS/CAPSULE PO SCH ×2 (08:27→22:16)
[2020-05-21] MEDS: tamsulosin 0.4mg capsule PO SCH (08:27)
[2020-05-21] MEDS: meropenem inj 500 MG in normal saline 100ml IV soln 100 ML IV SCH ×2 (08:29→22:18)
[2020-05-21] MEDS: ESCITALOPRAM OXALATE 5 MG TABLET PO SCH (08:30)
[2020-05-21 09:24] VITALS: BP 112/67
[2020-05-21 10:14] LABS: BASOPHILS % (AUTO) 0.5 % (0-1); EOSINOPHILS # (AUTO) 0.1 X10'3 (0-0.9); EOSINOPHILS % (AUTO) 1.7 % (0-6); HEMATOCRIT 26.4 % (42.0-52.0); HEMOGLOBIN 8.4 g/dl (14.0-17.9); LYMPHOCYTES # (AUTO) 1.1 X10'3 (1.1-4.8); LYMPHOCYTES % (AUTO) 14.1 % (21-51); MEAN CORPUSCULAR HGB CONC 31.8 g/dL (33.0-36.5); MEAN CORPUSCULAR VOLUME 87.9 FL (78-98); MEAN PLATELET VOLUME 8.7 FL (7.4-10.4); MONOCYTES # (AUTO) 0.5 X10'3 (0-0.9); MONOCYTES % (AUTO) 6.1 % (2-12); NEUTROPHILS # (AUTO) 6.1 X10'3 (1.8-7.7); NEUTROPHILS % (AUTO) 77.6 % (42-75); PLATELET COUNT 133 X10'3 (140-440); RED CELL DISTRIBUTION WIDTH 17.4 % (11.5-14.5); WHITE BLOOD COUNT 7.9 X10'3 (4.5-11.0)
[2020-05-21 10:30] LABS: ALANINE AMINOTRANSFERASE 16 U/L (12-78); ALBUMIN 1.9 G/DL (3.4-5.0); ALBUMIN/GLOBULIN RATIO 0.4 (1.1-1.5); ALKALINE PHOSPHATASE 102 IU/L (46-116); ANION GAP 8 (8-16); ASPARTATE AMINO TRANSFERASE 14 U/L (10-37); BILIRUBIN,TOTAL 0.5 MG/DL (0.1-1.0); BLOOD UREA NITROGEN 49 MG/DL (7-18); BUN/CREATININE RATIO 17.8 (5.4-32.0); CHLORIDE 111 MMOL/L (99-107); CREATININE 2.75 MG/DL (0.60-1.10); GLUCOSE 111 MG/DL (70-104); POTASSIUM 4.9 MMOL/L (3.5-5.1); SODIUM 138 MMOL/L (135-145); TOTAL CARBON DIOXIDE 19.4 MMOL/L (24-32); TOTAL PROTEIN 6.9 G/DL (6.4-8.2); VANCOMYCIN,RANDOM 15.8 UG/ML; eGFR 24 ML/MIN
[2020-05-21] MEDS ORDERED: magnesium hydroxide 30ml (MOM) UD suspension PO ONE (11:10)
[2020-05-21 11:23] VITALS: BP 103/58
--- NOTE | 2020-05-21 18:15 | NUR ---
Patient in room [facility]. I have received report from Kellie Holman and had the opportunity to ask questions and assume patient care.
[2020-05-21 18:30] VITALS: BP 97/64
--- NOTE | 2020-05-21 18:32 | NUR ---
Student Medication Administration: For this medication-pass time frame, all medication were reviewed, dispensed, administered and documented per hospital policy by SN Ladarius.
--- NOTE | 2020-05-21 18:34 | NUR ---
Problems reprioritized. Patient report given, questions answered & plan of care reviewed with TON HAMLIN.
--- NOTE | 2020-05-21 19:00 | NUR ---
sitting up in chair no complaints at this time.
[2020-05-21] MEDS: insulin glargine (Lantus) pen - multi-dose SQ SCH (21:00)
--- NOTE | 2020-05-21 21:40 | NUR ---
a/o pleasant back to bed eariler no s&s of distress. taking po's well using diladid cadd with gd results. drains emptied bilat. noted pus like drainage in right and left opal's and urine in bilat nephrotomy bags clear yellow. drains emptied. see output sheet.
[2020-05-22] VITALS: BP 126/76
--- NOTE | 2020-05-22 00:15 | NUR ---
PT COLOSTOMY LEAKED AND PT NEEDS NEW DRESSING AND COLOSTOMY BAG.
[2020-05-22] MEDS: HYDROmorphone/NS 1 mg/ml CADD 50 ML IV SCH ×12 (01:00→23:00)
--- NOTE | 2020-05-22 01:00 | NUR ---
abd wounds irrigated with ns and redressed after colostomy care done paste applied at indentation area by charge lpn and new appliance applied. pt tolerated well.
[2020-05-22] MEDS: vancomycin 125mg/5ml ORAL solution 5ml UD bottle PO SCH ×4 (02:11→19:24)
[2020-05-22] MEDS: VANCOMYCIN LEVEL IV SCH (03:00)
[2020-05-22 05:18] LABS: BASOPHILS % (AUTO) 0.4 % (0-1); EOSINOPHILS # (AUTO) 0.2 X10'3 (0-0.9); EOSINOPHILS % (AUTO) 2.7 % (0-6); HEMATOCRIT 26.1 % (42.0-52.0); HEMOGLOBIN 8.5 g/dl (14.0-17.9); LYMPHOCYTES # (AUTO) 1.1 X10'3 (1.1-4.8); LYMPHOCYTES % (AUTO) 17.7 % (21-51); MEAN CORPUSCULAR HEMOGLOBIN 28.6 PG (27.0-31.0); MEAN CORPUSCULAR HGB CONC 32.6 g/dL (33.0-36.5); MEAN CORPUSCULAR VOLUME 87.7 FL (78-98); MEAN PLATELET VOLUME 8.6 FL (7.4-10.4); MONOCYTES # (AUTO) 0.5 X10'3 (0-0.9); MONOCYTES % (AUTO) 7.4 % (2-12); NEUTROPHILS # (AUTO) 4.6 X10'3 (1.8-7.7); NEUTROPHILS % (AUTO) 71.8 % (42-75); PLATELET COUNT 130 X10'3 (140-440); RED BLOOD COUNT 2.98 X10'6 (4.70-6.10); RED CELL DISTRIBUTION WIDTH 16.8 % (11.5-14.5); WHITE BLOOD COUNT 6.3 X10'3 (4.5-11.0)
[2020-05-22 05:46] LABS: ALANINE AMINOTRANSFERASE 14 U/L (12-78); ALBUMIN 1.8 G/DL (3.4-5.0); ALBUMIN/GLOBULIN RATIO 0.4 (1.1-1.5); ALKALINE PHOSPHATASE 109 IU/L (46-116); ANION GAP 12 (8-16); ASPARTATE AMINO TRANSFERASE 14 U/L (10-37); BILIRUBIN,TOTAL 0.5 MG/DL (0.1-1.0); BLOOD UREA NITROGEN 47 MG/DL (7-18); BUN/CREATININE RATIO 18.1 (5.4-32.0); CALCIUM 8.3 MG/DL (8.5-10.1); CHLORIDE 109 MMOL/L (99-107); CREATININE 2.59 MG/DL (0.60-1.10); GLUCOSE 127 MG/DL (70-104); POTASSIUM 4.7 MMOL/L (3.5-5.1); SODIUM 140 MMOL/L (135-145); TOTAL CARBON DIOXIDE 19.3 MMOL/L (24-32); TOTAL PROTEIN 6.9 G/DL (6.4-8.2); eGFR 26 ML/MIN
--- NOTE | 2020-05-22 06:36 | NUR ---
Problems reprioritized. Patient report given, questions answered & plan of care reviewed with Ynui CAMILO. Addendum: 05/22/20 at 0636 by Aylin Mejia RN Amended: Links added.
[2020-05-22 07:33] VITALS: BP 119/64
[2020-05-22] MEDS: K and/or MAG REPLACEMENT MC SCH ×2 (08:00→20:00)
[2020-05-22] MEDS ORDERED: vancomycin/NS 1 GM ADD-VANTAGE 250 ML IV ONE ×2 (08:25→10:00)
[2020-05-22] MEDS: ESCITALOPRAM OXALATE 5 MG TABLET PO SCH (08:55)
[2020-05-22] MEDS: tamsulosin 0.4mg capsule PO SCH (08:56)
[2020-05-22] MEDS: lactobacillus rhamnosus 10,000 MMU CELLS/CAPSULE PO SCH ×2 (08:57→19:24)
[2020-05-22] MEDS: docusate sod 100mg capsule PO SCH ×2 (08:57→19:35)
[2020-05-22] MEDS: mineral oil/petrolatum, white cream 113gm jar TP SCH ×2 (09:00→12:06)
[2020-05-22] MEDS: heparin, porcine 5000 units/ml vial SQ SCH ×2 (09:00→16:06)
[2020-05-22] MEDS: meropenem inj 500 MG in normal saline 100ml IV soln 100 ML IV SCH ×2 (09:01→19:25)
[2020-05-22 11:50] VITALS: BP 107/70
[2020-05-22] MEDS ORDERED: magnesium hydroxide 30ml (MOM) UD suspension PO ONE (11:50)
--- NOTE | 2020-05-22 12:54 | NUR ---
Spoke to regarding low CO2 labs. Acknowledged but no new orders at this time.
[2020-05-22] MEDS: NUT.TX.GLUC.INTOLER,LAC-FR,SOY (GLUCERNA) 237 ML PO SCH ×3 (13:42→18:00)
--- NOTE | 2020-05-22 16:56 | NUR ---
F/u: Pt PO continues to fluctuate similar pattern prior to OR as well w/ refusing vs 75-100% meals advanced to carb controlled diet post-op. Glucerna TIDWM added today per RN as pt requesting PO 50% first at lunch today. Colostomy 225ml output thus far. Will continue to monitor for PO/ONS acceptance and tolerance post-op. Recommendations: 1) continue carb controlled diet; consider low fiber diet as well s/p new colostomy 2) Glucerna TIDWM 3) Scaled weights per rx 4) bowel care per rx Addendum: 05/22/20 at [address] Amended: Links added.
[2020-05-22 18:00] VITALS: BP 112/68
--- NOTE | 2020-05-22 18:15 | NUR ---
Patient in room [facility]. I have received report from Bonny CAMILO and had the opportunity to ask questions and assume patient care.
--- NOTE | 2020-05-22 18:45 | NUR ---
Gave report to Basilia CAMILO.
[2020-05-22] MEDS: insulin glargine (Lantus) pen - multi-dose SQ SCH (21:00)
[2020-05-23] VITALS: BP 130/66
[2020-05-23] MEDS: heparin, porcine 5000 units/ml vial SQ SCH ×3 (00:15→16:40)
[2020-05-23] MEDS: HYDROmorphone/NS 1 mg/ml CADD 50 ML IV SCH ×8 (01:00→15:00)
[2020-05-23] MEDS: vancomycin 125mg/5ml ORAL solution 5ml UD bottle PO SCH ×4 (02:08→19:15)
[2020-05-23] MEDS: VANCOMYCIN LEVEL IV SCH (03:00)
[2020-05-23 04:59] LABS: BASOPHILS % (AUTO) 0.2 % (0-1); EOSINOPHILS # (AUTO) 0.2 X10'3 (0-0.9); HEMATOCRIT 24.6 % (42.0-52.0); HEMOGLOBIN 8.1 g/dl (14.0-17.9); LYMPHOCYTES # (AUTO) 1.4 X10'3 (1.1-4.8); LYMPHOCYTES % (AUTO) 24.4 % (21-51); MEAN CORPUSCULAR HEMOGLOBIN 28.4 PG (27.0-31.0); MEAN CORPUSCULAR HGB CONC 32.7 g/dL (33.0-36.5); MEAN CORPUSCULAR VOLUME 86.6 FL (78-98); MEAN PLATELET VOLUME 8.9 FL (7.4-10.4); MONOCYTES # (AUTO) 0.5 X10'3 (0-0.9); MONOCYTES % (AUTO) 8.5 % (2-12); NEUTROPHILS # (AUTO) 3.7 X10'3 (1.8-7.7); NEUTROPHILS % (AUTO) 63.9 % (42-75); PLATELET COUNT 130 X10'3 (140-440); RED BLOOD COUNT 2.84 X10'6 (4.70-6.10); RED CELL DISTRIBUTION WIDTH 16.8 % (11.5-14.5); WHITE BLOOD COUNT 5.8 X10'3 (4.5-11.0)
[2020-05-23 05:29] LABS: ALANINE AMINOTRANSFERASE 13 U/L (12-78); ALBUMIN 1.8 G/DL (3.4-5.0); ALBUMIN/GLOBULIN RATIO 0.4 (1.1-1.5); ALKALINE PHOSPHATASE 103 IU/L (46-116); ANION GAP 8 (8-16); ASPARTATE AMINO TRANSFERASE 13 U/L (10-37); BILIRUBIN,TOTAL 0.3 MG/DL (0.1-1.0); BLOOD UREA NITROGEN 42 MG/DL (7-18); BUN/CREATININE RATIO 17.6 (5.4-32.0); CALCIUM 8.1 MG/DL (8.5-10.1); CHLORIDE 109 MMOL/L (99-107); CREATININE 2.38 MG/DL (0.60-1.10); GLUCOSE 135 MG/DL (70-104); POTASSIUM 4.6 MMOL/L (3.5-5.1); SODIUM 139 MMOL/L (135-145); TOTAL CARBON DIOXIDE 21.9 MMOL/L (24-32); TOTAL PROTEIN 6.8 G/DL (6.4-8.2); VANCOMYCIN,RANDOM 20.2 UG/ML; eGFR 29 ML/MIN
[2020-05-23 06:00] VITALS: BP 114/64
--- NOTE | 2020-05-23 06:24 | NUR ---
Problems reprioritized. Patient report given, questions answered & plan of care reviewed with Elyse CAMILO.
--- NOTE | 2020-05-23 06:33 | NUR ---
Patient in room [facility]. I have received report from gerson CAMILO and had the opportunity to ask questions and assume patient care.
[2020-05-23] MEDS: K and/or MAG REPLACEMENT MC SCH ×2 (08:00→20:00)
[2020-05-23] MEDS: NUT.TX.GLUC.INTOLER,LAC-FR,SOY (GLUCERNA) 237 ML PO SCH ×6 (08:00→18:30)
[2020-05-23] MEDS: tamsulosin 0.4mg capsule PO SCH (08:11)
[2020-05-23] MEDS: docusate sod 100mg capsule PO SCH ×2 (08:11→19:15)
[2020-05-23] MEDS: meropenem inj 500 MG in normal saline 100ml IV soln 100 ML IV SCH ×2 (08:11→19:15)
[2020-05-23] MEDS: lactobacillus rhamnosus 10,000 MMU CELLS/CAPSULE PO SCH ×2 (08:11→19:15)
[2020-05-23] MEDS: ESCITALOPRAM OXALATE 5 MG TABLET PO SCH (08:15)
[2020-05-23] MEDS: mineral oil/petrolatum, white cream 113gm jar TP SCH ×2 (08:18→19:22)
[2020-05-23 11:00] VITALS: BP 127/67
[2020-05-23] MEDS: normal saline 1000ml 1,000 ML IV SCH (15:54)
[2020-05-23] MEDS: HYDROcodone/acetaminophen 10/325mg tab PO PRN ×2 (16:38→21:15)
--- NOTE | 2020-05-23 17:39 | NUR ---
patient seen by Dr Javid watson [place]. patient commenced on [place] for pain with dilaudid for breakthrough. Nephrosotomy tubes bilat draining good amount of urine, still cloudy 1050 in right and 1150 in left. Bilat BRYAN drains flushed with 5 mls of NS per Dr Silverman. colostomy drained 100mls of brown drainage. Will continue to monitor.
--- NOTE | 2020-05-23 18:15 | NUR ---
Patient in room [facility]. I have received report from Elyse CAMILO and had the opportunity to ask questions and assume patient care.
--- NOTE | 2020-05-23 18:30 | NUR ---
Problems reprioritized. Patient report given, questions answered & plan of care reviewed with xavier CAMILO.
[2020-05-23 20:00] VITALS: BP 142/67
[2020-05-23] MEDS: insulin glargine (Lantus) pen - multi-dose SQ SCH (21:00)
[2020-05-23] MEDS: diatr meglu/diatrizoate 30ml oral sol.-(3 dose) bottle PO SCH (21:03)
--- NOTE | 2020-05-23 21:41 | NUR ---
gave patient 2 [place]co 10. I chose single [place] x2 by accident
--- NOTE | 2020-05-23 23:15 | NUR ---
Patients colostomy bag became compromised due to a huge amt of stool emptying into drainage bag. Nursing have been checking bag frequently and up to this event colostomy was producing minimum amt. Patient was cleaned up and surgical sight was cleansed and irrigated with normal saline. Patient received dillauded for break through pain and new colostomy bag and wafer applied, pt tolerated procedure well and was educated with regard to checking his bag
[2020-05-23] MEDS: HYDROmorphone inj. 0.5 MG/0.5 ML DISP.SYRIN IV PRN (23:40)
--- NOTE | 2020-05-23 23:46 | NUR ---
Patient colostomy bag blew out. Patietn was given IV dilaudid for breakthru pain while cleaning up.
[2020-05-24] VITALS: BP 135/74
[2020-05-24] MEDS: heparin, porcine 5000 units/ml vial SQ SCH ×4 (00:47→23:43)
[2020-05-24] MEDS: vancomycin 125mg/5ml ORAL solution 5ml UD bottle PO SCH ×4 (02:09→19:47)
[2020-05-24] MEDS: VANCOMYCIN LEVEL IV SCH (03:00)
[2020-05-24 04:09] LABS: BASOPHILS % (AUTO) 0.6 % (0-1); EOSINOPHILS # (AUTO) 0.2 X10'3 (0-0.9); HEMATOCRIT 25.7 % (42.0-52.0); HEMOGLOBIN 8.3 g/dl (14.0-17.9); LYMPHOCYTES # (AUTO) 1.6 X10'3 (1.1-4.8); MEAN CORPUSCULAR HGB CONC 32.4 g/dL (33.0-36.5); MEAN CORPUSCULAR VOLUME 86.4 FL (78-98); MEAN PLATELET VOLUME 8.9 FL (7.4-10.4); MONOCYTES # (AUTO) 0.5 X10'3 (0-0.9); MONOCYTES % (AUTO) 7.3 % (2-12); NEUTROPHILS # (AUTO) 4.1 X10'3 (1.8-7.7); NEUTROPHILS % (AUTO) 64.1 % (42-75); PLATELET COUNT 113 X10'3 (140-440); RED BLOOD COUNT 2.98 X10'6 (4.70-6.10); RED CELL DISTRIBUTION WIDTH 16.6 % (11.5-14.5); WHITE BLOOD COUNT 6.5 X10'3 (4.5-11.0)
[2020-05-24 04:11] LABS: ALANINE AMINOTRANSFERASE 14 U/L (12-78); ALBUMIN 1.8 G/DL (3.4-5.0); ALBUMIN/GLOBULIN RATIO 0.4 (1.1-1.5); ALKALINE PHOSPHATASE 103 IU/L (46-116); ANION GAP 8 (8-16); ASPARTATE AMINO TRANSFERASE 10 U/L (10-37); BILIRUBIN,TOTAL 0.3 MG/DL (0.1-1.0); BLOOD UREA NITROGEN 39 MG/DL (7-18); BUN/CREATININE RATIO 16.6 (5.4-32.0); CALCIUM 8.2 MG/DL (8.5-10.1); CHLORIDE 108 MMOL/L (99-107); CREATININE 2.35 MG/DL (0.60-1.10); GLUCOSE 140 MG/DL (70-104); POTASSIUM 5.1 MMOL/L (3.5-5.1); SODIUM 139 MMOL/L (135-145); TOTAL CARBON DIOXIDE 23.4 MMOL/L (24-32); TOTAL PROTEIN 6.7 G/DL (6.4-8.2); VANCOMYCIN,RANDOM 15.5 UG/ML; eGFR 29 ML/MIN
--- NOTE | 2020-05-24 06:24 | NUR ---
Patient in room [facility]. I have received report from ELIO CAMILO and had the opportunity to ask questions and assume patient care.
--- NOTE | 2020-05-24 06:24 | NUR ---
Problems reprioritized. Patient report given, questions answered & plan of care reviewed with Elyse CAMILO.
--- NOTE | 2020-05-24 06:30 | NUR ---
Patient in room [facility]. I have received report from Elyse CAMILO and had the opportunity to ask questions and assume patient care.
[2020-05-24 07:00] VITALS: BP 114/77
[2020-05-24] MEDS: diatr meglu/diatrizoate 30ml oral sol.-(3 dose) bottle PO SCH ×2 (07:23→11:34)
[2020-05-24] MEDS: tamsulosin 0.4mg capsule PO SCH (07:24)
[2020-05-24] MEDS: docusate sod 100mg capsule PO SCH ×2 (07:24→19:47)
[2020-05-24] MEDS: lactobacillus rhamnosus 10,000 MMU CELLS/CAPSULE PO SCH ×2 (07:24→19:47)
[2020-05-24] MEDS: ESCITALOPRAM OXALATE 5 MG TABLET PO SCH (07:25)
[2020-05-24] MEDS: NUT.TX.GLUC.INTOLER,LAC-FR,SOY (GLUCERNA) 237 ML PO SCH ×6 (07:26→18:58)
[2020-05-24] MEDS: K and/or MAG REPLACEMENT MC SCH ×2 (07:27→20:00)
[2020-05-24] MEDS: meropenem inj 500 MG in normal saline 100ml IV soln 100 ML IV SCH ×2 (07:32→19:47)
[2020-05-24] MEDS: mineral oil/petrolatum, white cream 113gm jar TP SCH ×2 (08:00→20:00)
--- NOTE | 2020-05-24 09:04 | NUR ---
Student Medication Administration: For this medication-pass time frame, all medication were reviewed, dispensed, administered and documented per hospital policy by emily Banks.
--- NOTE | 2020-05-24 09:04 | NUR ---
Student documentation: I have reviewed and agree with all interventions, assessments performed and documented by Jocelyn, nursing agency manager.
[2020-05-24 11:00] VITALS: BP 127/76
--- NOTE | 2020-05-24 12:03 | NUR ---
Problems reprioritized. Patient report given, questions answered & plan of care reviewed with Elyse CAMILO.
[2020-05-24] MEDS: HYDROcodone/acetaminophen 10/325mg tab PO PRN ×2 (13:01→19:46)
--- NOTE | 2020-05-24 13:05 | NUR ---
patient states he is tired today did not sleep very well. seen by Dr Hua . no new orders. went for CT of abdomen and pelvis results pending.
--- NOTE | 2020-05-24 14:27 | NUR ---
Wound care at bedside to see pt. Pt gave verbal consent to be seen. From the start, pt seemed quite tearful and anxious about anything to do with the ostomy. The bag was removed and area cleansed. The stoma is noted to be quite retracted, most of it flush with the skin. Sutures appear intact. The ostomy is oval shaped and very small, brick red. When bringing in a mirror for him to watch, he was only able to glance briefly at the stoma. Educated on removal of bag, cleansing, skin barrier products, Teofilo ring use, and convex bag application and how to drain. He was relatively attentive, but was crying throughout and would not watch the whole procedure. He was given a packet of ostomy information and what to expect. Will attempt to educate more at later time. Addendum: 05/24/20 at 1431 by Jaquelin Floyd RN Amended: Links added.
[2020-05-24] MEDS: HYDROmorphone inj. 0.5 MG/0.5 ML DISP.SYRIN IV PRN (17:13)
--- NOTE | 2020-05-24 18:46 | NUR ---
Patient in room [facility]. I have received report from Elyse CAMILO and had the opportunity to ask questions and assume patient care.
--- NOTE | 2020-05-24 18:56 | NUR ---
patient appeared tired today. stated he didnt sleep well. Prepped for CT of abdomen and pelvis. Assisted in emptying colostomy bag. patient stated that he is still very nervous about it all, but will learn. went for CT see report. . Appeared more rested at time of report. report given to Basilia CAMILO
[2020-05-24 20:00] VITALS: BP 123/78
[2020-05-24] MEDS: insulin glargine (Lantus) pen - multi-dose SQ SCH (21:00)
[2020-05-25] VITALS: BP 134/89
--- NOTE | 2020-05-25 00:11 | NUR ---
patients colostomy bag was leaking out of left side, patient stated he would like me to try to mend the wafer instead of replacing the whole thing. I around the left side of wafer and then put adaptive paste around the leaking part and will continue to monitor it
--- NOTE | 2020-05-25 01:30 | NUR ---
checked patients ostomy bag and it started to leak out the right side. Told the patient it needed to be completely changed , gave patient pain meds then took the ostomy bag off and applied a new one, will continue to monitor
[2020-05-25] MEDS: vancomycin 125mg/5ml ORAL solution 5ml UD bottle PO SCH ×4 (01:34→19:56)
[2020-05-25] MEDS: HYDROcodone/acetaminophen 10/325mg tab PO PRN ×4 (01:49→20:56)
[2020-05-25] MEDS: VANCOMYCIN LEVEL IV SCH (03:00)
--- NOTE | 2020-05-25 06:19 | NUR ---
Problems reprioritized. Patient report given, questions answered & plan of care reviewed with Sheeba CAMILO.
[2020-05-25 07:00] VITALS: BP 107/67
[2020-05-25] MEDS: tamsulosin 0.4mg capsule PO SCH (07:18)
[2020-05-25] MEDS: docusate sod 100mg capsule PO SCH ×2 (07:19→19:56)
[2020-05-25] MEDS: ESCITALOPRAM OXALATE 5 MG TABLET PO SCH (07:19)
[2020-05-25] MEDS: lactobacillus rhamnosus 10,000 MMU CELLS/CAPSULE PO SCH ×2 (07:19→19:56)
[2020-05-25] MEDS: meropenem inj 500 MG in normal saline 100ml IV soln 100 ML IV SCH ×2 (07:20→19:56)
[2020-05-25] MEDS: HYDROmorphone inj. 0.5 MG/0.5 ML DISP.SYRIN IV PRN ×2 (07:26→11:54)
[2020-05-25] MEDS: K and/or MAG REPLACEMENT MC SCH ×2 (08:00→20:00)
[2020-05-25] MEDS: mineral oil/petrolatum, white cream 113gm jar TP SCH ×2 (08:00→20:00)
[2020-05-25] MEDS: NUT.TX.GLUC.INTOLER,LAC-FR,SOY (GLUCERNA) 237 ML PO SCH ×6 (08:45→18:31)
[2020-05-25] MEDS: heparin, porcine 5000 units/ml vial SQ SCH ×2 (08:46→17:00)
[2020-05-25] MEDS ORDERED: vancomycin/NS 1 GM ADD-VANTAGE 250 ML IV ONE (09:00)
[2020-05-25] MEDS ORDERED: HYDR-4353 PO (10:06)
[2020-05-25] MEDS ORDERED: DOCU100C40 PO (10:06)
--- NOTE | 2020-05-25 11:37 | NUR ---
Called in to patient's room for patient's "bag popped." Found patient to have loose soft brown stool from colostomy leaked into patient's abd border gauze dressings and around to patient's back. Nephrostomy tubes and BRYAN tubes had stool. Cleaned stool from patient, surgical wounds, nephrostomy tubes, and BRYAN tubes with soapy wash cloth, rinsed with normal saline, patted dry with gauze. Redressed surgical wounds with haydee with border gauze. Wound care in to reapply colostomy bag and educated patient ostomy care. Elyse from IR notified of colostomy contents leaking stool to nephrostomy and BRYAN drains. Elyse from IR states they will change tubing and dressing.
[2020-05-25 12:36] VITALS: BP 114/74
--- NOTE | 2020-05-25 14:30 | NUR ---
mechanical project engineerBrandi in at bedside for ostomy care teaching.
--- NOTE | 2020-05-25 15:00 | NUR ---
Patient able to return demonstrate emptying and cleaning of his colostomy drainage bag. Patient stated he did not have any questions about colostomy care at this time.
--- NOTE | 2020-05-25 15:51 | NUR ---
IR Dr. Silverman in at bedside. Addendum: 05/25/20 at 1607 by Sheeba Velasco RN Dr Silverman and RN at bedside with patient to dc BRYAN drains and to change bilateral nephrostomy tubing.
[2020-05-25] MEDS: normal saline 1000ml 1,000 ML IV SCH (15:54)
--- NOTE | 2020-05-25 15:57 | NUR ---
Wound care POC. Arrived at bedside for assessment of stoma and education. Provided pt with material regarding samples ordered from [employer] with his permission. Used visual aids to educate him on the care of his stoma. Provided supplies for use until his supplies arrive. Answered all questions bedside. Addendum: 05/25/20 at 1600 by David Ledesma RN Amended: Links added.
--- NOTE | 2020-05-25 15:59 | NUR ---
OSTOMY FACTS: Almost everyone has know of, or met, businessmen, entertainers, athletes, and people from all walks of life who have an ostomy. Ostomates (a person that has an ostomy) can ski, ride horses, bowl, and get healthy exercise in countless ways. Your usual activities of daily living can be resumed as soon as you are able. Gradually you will be able to wear the clothes worn before surgery. With modern pouches, nothing is noticeable under your clothing. It may be difficult at first to believe that an intimate relationship can be possible when one's body has been disfigured by surgery. This is not true. Love, fortunately, is not easily destroyed when it is based on genuine appreciation of a person as a thinking, feeling, reacting human being. AN OSTOMY IS NOT AN IMPAIRMENT!! DEFINITIONS: 1.OSTOMY: An opening that is created by a surgical procedure. The opening is called a "stoma". 2.STOMA: A surgical opening in the abdomen (belly) where intestine is brought through the abdominal wall and connected at the skin level. A stoma is shiny, wet and at first is dark purple but eventually turns pink, similar to the inside lining of your mouth. 3.COLON: A portion of the large bowel. 4.COLOSTOMY: A fecal diversion with an opening, (stoma) created anywhere along the colon. Making a connection between the colon and the abdominal wall. 5.ILLEOSTOMY: A fecal diversion with an opening, (stoma) created in the small intestine. Making a connection between the small intestine and the abdominal wall. 6.UROSTOMY: A urinary diversion with the ureters connected to a segment of the small bowel and one end is brought out and connected to the abdominal wall, creating a stoma. SHAPES and SIZES: "The stoma is usually round or oval. "It is anywhere from a dime to half dollar in size. "A stoma reaches its permanent size 6-8 weeks after surgery. PRODUCTS: 1.POUCH or APPLIANCE: An external device to contain stool or urine output and protect the skin around the stoma. It can be a one piece pouch or two pieces (a pouch and a wafer). 2.BARRIER: Substance that is used to protect the skin around the stoma from drainage and adhesive. 3.SKIN PREP or SEALANT: Product applied to the skin to reduce injury from moisture, drainage, or repeated pouch removal. Available in spray or wipes. 4.CLOSURE or CLAMP: A device used to close the bottom of a drainable pouch. 5.BRIDGE or MERCY: A piece of plastic placed under a loop of bowel on the skins surface, to secure the bowel in place while the skin heals. POUCH CHANGE PROCEEDURE: 1.Assemble all the supplies "1 or 2 piece appliance "Ostomy paste (if needed) "Ostomy powder (if needed) "Skin prep wipes ( not recommended with coloplast products) "Moist wash cloth or cotton balls 2.Remove plastic center and paper backing from pouch. If pouch or wafer is not precut, use the sizing guide, or plastic backing from pouch to make a pattern. Do this by placing the paper over the stoma and trace it, or draw a pattern. Cut the wafer to fit and set it aside. 3.Remove old pouch by lifting up on tape while pressing skin down away from the tape. If there is a clip on your pouch, remove it and save it. 4.Clean skin or stoma with moistened wash cloth or cotton balls. Place a clean cotton ball over stoma hole to catch any drainage. Let skin dry. 5.For grooves or uneven areas in the skin- apply ostomy paste and sprinkle with ostomy powder, then gently shape the past so the area around the stoma is smooth and as flat as possible. Wipe off or blow away excess. Blot powder with skin prep wipe (DO NOT wipe powder). Let dry until no longer sticky. 6.For irritated or reddened skin- sprinkle ostomy powder on red or irritated area. Wipe off or blow away excess. Blot powder with skin prep wipe (DO NOT wipe powder). Let dry until no longer sticky. 7.Apply skin prep wipe to skin to which the pouch and tape will adhere. Let dry until no longer sticky. 8.If you have a one piece appliance- apply pouch so it is centered around the stoma. No skin should be exposed to stool. All skin should be covered by paste or pouch. 9.If you have a two piece appliance- Apply the wafer as described above, then snap or stick pouch onto wafer. Check to make sure wafer and pouch are securely connected. 10.Place clip on bottom of pouch. 11.Empty pouch when 1/3 full. OSTOMY SKIN CARE: "Good health care and nutrition are essential for healthy skin. "Usually a correct pouch size will prevent skin breakdown. "Use warm water and soap for skin cleansing. "Do not use creams or oil based products on skin around the stoma. This will prevent the appliance from sticking. "Use skin prep around the stoma. IT CAN TAKE 24 HOURS TO SEVERAL DAYS FOR SKIN TO HEAL. IF IT IS NOT RESOLVING, OR GETTING WORSE, CALL YOUR PRIMARY CARE DOCTOR. Addendum: 05/25/20 at 1600 by David Ledesma RN Amended: Links added.
--- NOTE | 2020-05-25 17:18 | NUR ---
[facility] accounting representative dropped of meds to patient.
--- NOTE | 2020-05-25 17:35 | NUR ---
Student documentation: I have reviewed and agree with all interventions, assessments performed and documented by [SN Karissa].
--- NOTE | 2020-05-25 17:36 | NUR ---
Student Medication Administration: For this medication-pass time frame, all medication were reviewed, dispensed, administered and documented per hospital policy by SN Karissa.
--- NOTE | 2020-05-25 17:52 | NUR ---
Patient's medications delivered from [facility] taken down to pharmacy.
--- NOTE | 2020-05-25 18:15 | NUR ---
Patient in room [facility]. I have received report from Karissa williamson, and TON Aly and had the opportunity to ask questions and assume patient care.
--- NOTE | 2020-05-25 18:28 | NUR ---
Problems reprioritized. Patient report given, questions answered & plan of care reviewed with Sheryl CAMILO.
--- NOTE | 2020-05-25 18:31 | NUR ---
Problems reprioritized. Patient report given, questions answered & plan of care reviewed with River Saucedo.
[2020-05-25 19:00] VITALS: BP 112/70
[2020-05-25] MEDS: insulin glargine (Lantus) pen - multi-dose SQ SCH (21:00)
[2020-05-25 23:00] VITALS: BP 128/82
[2020-05-26] MEDS: vancomycin 125mg/5ml ORAL solution 5ml UD bottle PO SCH ×4 (00:59→22:12)
[2020-05-26] MEDS: heparin, porcine 5000 units/ml vial SQ SCH ×3 (01:00→16:00)
[2020-05-26] MEDS: VANCOMYCIN LEVEL IV SCH (02:39)
[2020-05-26 06:25] LABS: ALANINE AMINOTRANSFERASE 19 U/L (12-78); ALBUMIN/GLOBULIN RATIO 0.4 (1.1-1.5); ALKALINE PHOSPHATASE 103 IU/L (46-116); ANION GAP 8 (8-16); ASPARTATE AMINO TRANSFERASE 12 U/L (10-37); BILIRUBIN,TOTAL 0.3 MG/DL (0.1-1.0); BLOOD UREA NITROGEN 39 MG/DL (7-18); BUN/CREATININE RATIO 16.7 (5.4-32.0); CHLORIDE 108 MMOL/L (99-107); CREATININE 2.33 MG/DL (0.60-1.10); GLUCOSE 135 MG/DL (70-104); POTASSIUM 5.2 MMOL/L (3.5-5.1); SODIUM 137 MMOL/L (135-145); TOTAL CARBON DIOXIDE 21.3 MMOL/L (24-32); VANCOMYCIN,RANDOM 20.9 UG/ML; eGFR 30 ML/MIN
--- NOTE | 2020-05-26 06:29 | NUR ---
Problems reprioritized. Patient report given, questions answered & plan of care reviewed with TON Draper.
[2020-05-26 08:00] VITALS: BP 112/69
[2020-05-26] MEDS: mineral oil/petrolatum, white cream 113gm jar TP SCH ×2 (08:00→22:34)
[2020-05-26] MEDS: K and/or MAG REPLACEMENT MC SCH ×2 (08:00→22:35)
[2020-05-26] MEDS: NUT.TX.GLUC.INTOLER,LAC-FR,SOY (GLUCERNA) 237 ML PO SCH ×5 (08:00→18:55)
--- NOTE | 2020-05-26 09:15 | NUR ---
Called MD Hua to discuss pt. discharge. still ok to discharge. aware and ok with pt being discharge with midline IV. Pt. needs to be re-educated on colostomy care. states he has a pain medication prescription. made aware that K is 5.2 today. No new orders at this time.
[2020-05-26] MEDS: docusate sod 100mg capsule PO SCH ×2 (09:25→22:11)
[2020-05-26] MEDS: meropenem inj 500 MG in normal saline 100ml IV soln 100 ML IV SCH ×2 (09:25→22:10)
[2020-05-26] MEDS: tamsulosin 0.4mg capsule PO SCH (09:26)
[2020-05-26] MEDS: ESCITALOPRAM OXALATE 5 MG TABLET PO SCH (09:26)
[2020-05-26] MEDS: lactobacillus rhamnosus 10,000 MMU CELLS/CAPSULE PO SCH ×2 (09:26→22:11)
[2020-05-26] MEDS: HYDROcodone/acetaminophen 10/325mg tab PO PRN ×2 (09:27→14:19)
[2020-05-26] MEDS: vancomycin inj. 750 MG in normal saline 250ml IV soln 250 ML IV SCH (10:48)
--- NOTE | 2020-05-26 10:48 | NUR ---
Pt.'s colostomy bag burst with stool all over pt and surgical abdominal incisions. Redness to incisions, no other s/sx infection. Pt. Painful and seem to resent the colostomy- not wanting to look at colostomy or touch stool. Was educated by RN how to clean and remove old colostomy pouch. Pt. provided with bordered gauze bandages for midline incisions, chucks, wipes and gloves for care. Wound care notified. Must be a very specific ostomy change r/t pt. ostomy sunk in to ABD (MD Phyllis oswald) and two incisions with haydee in close proximity of colostomy. Wound care in to provide colostomy and wound care and well as educate pt. Good feedback although machine helper states "he is not as educated as I would like him to be." Shortly after wound care/ ostomy care provided colostomy leaked again. Wound care back in room with pt. at this time. Spoke with MD. This primary RN feels that pt. is not comfortable enough for discharge, and we have not monitored independence and acceptance of device and pt. before discharge regardless of resources at home. CM does state HH ordered for twice a week and the brother can assist at times, but if the hospital cant figure out the ostomy site then the pt with minimal resources will not be able to figure it out at home either.
[2020-05-26 12:00] VITALS: BP 112/71
--- NOTE | 2020-05-26 13:51 | NUR ---
Pt.'s colostomy bag leaking again. Stoma red, beefy, inverted, looks dehisced on L side toward midline incision and possible purulent exudate coming from somewhere other that inside stoma. Naseem notified by telephone by both wound care and primary RN. Wound care with pt. at this moment attempting to create a seal that will be effective. Pt. somewhat frustrated.
--- NOTE | 2020-05-26 15:04 | NUR ---
Wound care present at bedside to see pt. Pt gave verbal consent to be seen. Ostomy bag was changed x3 times today so far, wound care working out the flaws in bags and application to allow for a more reliable seal. The ostomy may be draining from recessed area below skin level, where there is mucocutaneous separation. This area was previously covered with alginate and Teofilo but the bags have not been reliable, therefore 3rd bag application, the ostomy bag was cut wider to incorporate the area of separation as well. Pt was involved in teaching and handling of materials, he is becoming more comfortable, was able to cleanse stoma site, empty bag, touch and manipulate the area. Will continue with teaching and reinforcement. Addendum: 05/26/20 at 1510 by Jaquelin Floyd RN Amended: Links added.
--- NOTE | 2020-05-26 17:43 | NUR ---
Pt. denies any pain at this time and the current ostomy bag is working well for pt. Will pass on to oncoming RN to continue to monitor and note effectiveness of ostomy dressing.
[2020-05-26 18:30] VITALS: BP 111/62
--- NOTE | 2020-05-26 18:45 | NUR ---
Gave report to Cady Thomason RN.
--- NOTE | 2020-05-26 18:54 | NUR ---
Patient in room [facility]. I have received report from TON Jolley and had the opportunity to ask questions and assume patient care. Addendum: 05/26/20 at 1854 by Elizabeth Olvera RN Amended: Links added.
[2020-05-26] MEDS: insulin glargine (Lantus) pen - multi-dose SQ SCH (21:00)
[2020-05-27] VITALS: BP 106/66
[2020-05-27] MEDS: vancomycin 125mg/5ml ORAL solution 5ml UD bottle PO SCH ×4 (01:40→20:37)
[2020-05-27] MEDS: HYDROcodone/acetaminophen 10/325mg tab PO PRN (03:07)
[2020-05-27] MEDS: HYDROmorphone inj. 0.5 MG/0.5 ML DISP.SYRIN IV PRN ×4 (05:49→20:36)
[2020-05-27 06:20] LABS: ALANINE AMINOTRANSFERASE 15 U/L (12-78); ALBUMIN 2.1 G/DL (3.4-5.0); ALBUMIN/GLOBULIN RATIO 0.4 (1.1-1.5); ALKALINE PHOSPHATASE 103 IU/L (46-116); ANION GAP 10 (8-16); ASPARTATE AMINO TRANSFERASE 10 U/L (10-37); BILIRUBIN,TOTAL 0.3 MG/DL (0.1-1.0); BLOOD UREA NITROGEN 43 MG/DL (7-18); BUN/CREATININE RATIO 17.2 (5.4-32.0); CALCIUM 8.2 MG/DL (8.5-10.1); CHLORIDE 107 MMOL/L (99-107); GLUCOSE 169 MG/DL (70-104); POTASSIUM 5.4 MMOL/L (3.5-5.1); SODIUM 136 MMOL/L (135-145); TOTAL CARBON DIOXIDE 19.4 MMOL/L (24-32); TOTAL PROTEIN 7.5 G/DL (6.4-8.2); eGFR 27 ML/MIN
--- NOTE | 2020-05-27 06:47 | NUR ---
Problems reprioritized. Patient report given, questions answered & plan of care reviewed with TON GÓMEZ.
--- NOTE | 2020-05-27 06:49 | NUR ---
Patient in room [facility]. I have received report from Cady Mack RN and had the opportunity to ask questions and assume patient care.
[2020-05-27 08:00] VITALS: BP 107/64
[2020-05-27] MEDS: NUT.TX.GLUC.INTOLER,LAC-FR,SOY (GLUCERNA) 237 ML PO SCH ×3 (08:00→18:01)
[2020-05-27] MEDS: heparin, porcine 5000 units/ml vial SQ SCH ×3 (08:00→16:29)
[2020-05-27] MEDS: K and/or MAG REPLACEMENT MC SCH ×2 (08:00→20:00)
[2020-05-27] MEDS: docusate sod 100mg capsule PO SCH ×2 (09:17→20:37)
[2020-05-27] MEDS: lactobacillus rhamnosus 10,000 MMU CELLS/CAPSULE PO SCH ×2 (09:17→20:36)
[2020-05-27] MEDS: tamsulosin 0.4mg capsule PO SCH (09:18)
[2020-05-27] MEDS: ESCITALOPRAM OXALATE 5 MG TABLET PO SCH (09:18)
[2020-05-27] MEDS: meropenem inj 500 MG in normal saline 100ml IV soln 100 ML IV SCH ×2 (09:19→20:43)
[2020-05-27 11:00] VITALS: BP 105/70
[2020-05-27] MEDS: vancomycin inj. 750 MG in normal saline 250ml IV soln 250 ML IV SCH (11:20)
[2020-05-27] MEDS: mineral oil/petrolatum, white cream 113gm jar TP SCH ×2 (13:34→20:57)
--- NOTE | 2020-05-27 14:43 | NUR ---
Wound care POC. Arrived at bedside for assessment and education of ostomy. Pt has been educated well on the function and care of his colostomy. Unfortunately due to the location being in a fold and the stoma on the wall of the muscle as well as mucocutaneous separation on the medial aspect. Used paste, sandra and convex bag. Appliance adhered well. Pt being monitored for success of ostomy appliance so further education for home care can be done. Addendum: 05/27/20 at 1447 by David Ledesma RN Amended: Links added.
[2020-05-27] MEDS: normal saline 1000ml 1,000 ML IV SCH (15:54)
--- NOTE | 2020-05-27 17:58 | NUR ---
PICC line dressing changed. No s/sx of infection noted. Will continue to monitor.
--- NOTE | 2020-05-27 18:25 | NUR ---
Problems reprioritized. Patient report given, questions answered & plan of care reviewed with Cady Mack RN.
[2020-05-27 18:30] VITALS: BP 123/67
--- NOTE | 2020-05-27 18:33 | NUR ---
Patient in room [facility]. I have received report from TON Akers and had the opportunity to ask questions and assume patient care. Addendum: 05/27/20 at 1834 by Elizabeth Olvera RN Amended: Links added.
[2020-05-27] MEDS: insulin glargine (Lantus) pen - multi-dose SQ SCH (21:00)
[2020-05-28] VITALS: BP 136/73
[2020-05-28] MEDS: vancomycin 125mg/5ml ORAL solution 5ml UD bottle PO SCH ×3 (01:10→13:30)
--- NOTE | 2020-05-28 06:00 | NUR ---
Patient in room [facility]. I have received report from Cady CAMILO and had the opportunity to ask questions and assume patient care.
--- NOTE | 2020-05-28 06:06 | NUR ---
no noted leakage from the colostomy since last changed yesterday by ISRAN
--- NOTE | 2020-05-28 06:32 | NUR ---
Problems reprioritized. Patient report given, questions answered & plan of care reviewed with TON Apple.
[2020-05-28 06:33] LABS: ALANINE AMINOTRANSFERASE 16 U/L (12-78); ALBUMIN 2.1 G/DL (3.4-5.0); ALBUMIN/GLOBULIN RATIO 0.4 (1.1-1.5); ALKALINE PHOSPHATASE 97 IU/L (46-116); ANION GAP 11 (8-16); ASPARTATE AMINO TRANSFERASE 12 U/L (10-37); BILIRUBIN,TOTAL 0.3 MG/DL (0.1-1.0); BLOOD UREA NITROGEN 45 MG/DL (7-18); BUN/CREATININE RATIO 17.9 (5.4-32.0); CALCIUM 8.7 MG/DL (8.5-10.1); CHLORIDE 106 MMOL/L (99-107); CREATININE 2.52 MG/DL (0.60-1.10); GLUCOSE 150 MG/DL (70-104); POTASSIUM 5.4 MMOL/L (3.5-5.1); SODIUM 136 MMOL/L (135-145); TOTAL CARBON DIOXIDE 19.3 MMOL/L (24-32); TOTAL PROTEIN 7.4 G/DL (6.4-8.2); eGFR 27 ML/MIN
[2020-05-28] MEDS: meropenem inj 500 MG in normal saline 100ml IV soln 100 ML IV SCH (07:22)
[2020-05-28] MEDS: docusate sod 100mg capsule PO SCH (07:23)
[2020-05-28] MEDS: tamsulosin 0.4mg capsule PO SCH (07:23)
[2020-05-28] MEDS: HYDROcodone/acetaminophen 10/325mg tab PO PRN ×2 (07:23→12:48)
[2020-05-28] MEDS: ESCITALOPRAM OXALATE 5 MG TABLET PO SCH (07:23)
[2020-05-28] MEDS: lactobacillus rhamnosus 10,000 MMU CELLS/CAPSULE PO SCH (07:23)
[2020-05-28] MEDS: heparin, porcine 5000 units/ml vial SQ SCH ×2 (07:24)
[2020-05-28] MEDS: mineral oil/petrolatum, white cream 113gm jar TP SCH (07:24)
[2020-05-28] MEDS: K and/or MAG REPLACEMENT MC SCH (07:25)
[2020-05-28 07:59] VITALS: BP 105/61
[2020-05-28] MEDS: NUT.TX.GLUC.INTOLER,LAC-FR,SOY (GLUCERNA) 237 ML PO SCH ×2 (08:00→13:00)
[2020-05-28] MEDS: vancomycin inj. 750 MG in normal saline 250ml IV soln 250 ML IV SCH (11:00)
[2020-05-28 11:54] VITALS: BP 102/70
--- NOTE | 2020-05-28 12:00 | NUR ---
Informed Dr. Hua of K of 5.4. No new orders at this time.
--- NOTE | 2020-05-28 13:05 | NUR ---
Pt refusing to have wound pics taken before discharge.
--- NOTE | 2020-05-28 13:47 | NUR ---
Patient discharged with all belongings. Patient discharge paperwork gone over with pt. Patient had the opportunity to ask questions. Colostomy supplies, home IV supplies from [facility], and Rx antibiotics that were already filled were given to the patient. Colostomy care and nephrostomy tube education given to patient with the opportunity to ask questions. W/C to front lobby. Family to take pt home.
[2020-05-30] MEDS ORDERED: VANCOMYCIN LEVEL IV ONE (10:30)
== END 2020-05-28 13:47 | disposition home health service (06) | DRG 710 ==
LOC: ER 13:16 → ED HOLD 16:13 → PCU 3S 18:13 → ORTHO 4S 05-05 00:20 → SUR 3N 05-16 12:23
PROVIDERS: ADMIT Internal Medicine; ATTEND Internal Medicine
PROC: 0T25X0Z Change Drainage Device in Kidney, External Approach (ICD-10-PCS; 2020-04-22)
PROC: 30233N1 Transfusion of Nonautologous Red Blood Cells into Peripheral Vein, Percutaneous Approach (ICD-10-PCS; 2020-04-23)
PROC: 0W9J3ZZ Drainage of Pelvic Cavity, Percutaneous Approach (ICD-10-PCS; 2020-04-26)
PROC: 0T25X0Z Change Drainage Device in Kidney, External Approach (ICD-10-PCS; 2020-05-02)
PROC: BT121ZZ Fluoroscopy of Left Kidney using Low Osmolar Contrast (ICD-10-PCS; 2020-05-02)
PROC: 05HY33Z Insertion of Infusion Device into Upper Vein, Percutaneous Approach (ICD-10-PCS; 2020-05-11)
PROC: 0T9330Z Drainage of Right Kidney Pelvis with Drainage Device, Percutaneous Approach (ICD-10-PCS; 2020-05-16)
PROC: 0TP5X0Z Removal of Drainage Device from Kidney, External Approach (ICD-10-PCS; 2020-05-16)
PROC: 0DNE0ZZ Release Large Intestine, Open Approach (ICD-10-PCS; 2020-05-18)
PROC: 0D1N0Z4 Bypass Sigmoid Colon to Cutaneous, Open Approach (ICD-10-PCS; principal; 2020-05-18 14:20)
DX: A41.89 Other specified sepsis (principal); E87.1 Hypo-osmolality and hyponatremia; E11.65 Type 2 diabetes mellitus with hyperglycemia; U07.1 COVID-19; N17.9 Acute kidney failure, unspecified; N18.4 Chronic kidney disease, stage 4 (severe); E11.22 Type 2 diabetes mellitus with diabetic chronic kidney disease; D63.8 Anemia in other chronic diseases classified elsewhere; K65.1 Peritoneal abscess; F32.9 Major depressive disorder, single episode, unspecified; E87.5 Hyperkalemia; E43 Unspecified severe protein-calorie malnutrition; M46.28 Osteomyelitis of vertebra, sacral and sacrococcygeal region; E11.69 Type 2 diabetes mellitus with other specified complication; B96.1 Klebsiella pneumoniae [K. pneumoniae] as the cause of diseases classified elsewhere; K66.0 Peritoneal adhesions (postprocedural) (postinfection); L03.317 Cellulitis of buttock; N13.6 Pyonephrosis; Z79.899 Other long term (current) drug therapy; Z79.4 Long term (current) use of insulin; Z93.6 Other artificial openings of urinary tract status; Z85.038 Personal history of other malignant neoplasm of large intestine; Z83.3 Family history of diabetes mellitus; Z92.3 Personal history of irradiation
CPT/HCPCS: 36415; 36430; 36573; 49406; 50387; 71045; 72192; 74018; 74176; 80048; 80053; 80202; 81001; 82272; 82728; 82948; 83036; 83540; 83550; 83605; 83615; 83735; 84132; 84145; 85007; 85008; 85025; 85027; 85379; 85610; 85651; 85730; 86140; 86703; 86885; 86900; 86901; 86920; 86945; 87040; 87070; 87077; 87081; 87088; 87186; 87635; 93005; 93971; 97110; 97112; 97116; 97161; 97530; 97535; 99152; 99153; 99285; A4421; A4618; A7000; C1729; C1769; G0378; J0131; J0694; J0696; J1100; J1170; J1644; J1815; J1940; J1956; J2001; J2060; J2175; J2185; J2250; J2270; J2370; J2405; J2543; J2704; J2710; J2916; J3010; J3370; J3475; J3490; J7030; J7050; J7120; P9016; P9045; Q4081; Q9963; Q9967

== ENCOUNTER 2020-08-28 17:31 | Inpatient (IN) | payer MEDICAID ==
[~2020-08-28] VITALS: Ht 175.3 cm; Wt 79.6 kg
[~2020-08-28 17:31] MED LIST changes: -MERO500P IV; -VANC125C5 PO
[2020-08-28] MEDS ORDERED: normal saline 1000ML IV soln IV ONE (18:15)
[2020-08-28 18:33] LABS: BASOPHILS % (AUTO) 0.3 % (0-1); EOSINOPHILS % (AUTO) 0.3 % (0-6); HEMATOCRIT 35.7 % (42.0-52.0); HEMOGLOBIN 11.6 g/dl (14.0-17.9); LYMPHOCYTES # (AUTO) 1.1 X10'3 (1.1-4.8); LYMPHOCYTES % (AUTO) 9.2 % (21-51); MEAN CORPUSCULAR HEMOGLOBIN 26.9 PG (27.0-31.0); MEAN CORPUSCULAR HGB CONC 32.5 g/dL (33.0-36.5); MEAN CORPUSCULAR VOLUME 82.8 FL (78-98); MEAN PLATELET VOLUME 8.7 FL (7.4-10.4); MONOCYTES # (AUTO) 0.9 X10'3 (0-0.9); MONOCYTES % (AUTO) 7.6 % (2-12); NEUTROPHILS # (AUTO) 10.1 X10'3 (1.8-7.7); NEUTROPHILS % (AUTO) 82.6 % (42-75); PLATELET COUNT 312 X10'3 (140-440); RED BLOOD COUNT 4.31 X10'6 (4.70-6.10); RED CELL DISTRIBUTION WIDTH 12.5 % (11.5-14.5); WHITE BLOOD COUNT 12.2 X10'3 (4.5-11.0)
[2020-08-28] MEDS ORDERED: fentaNYL/PF 50MCG/1 ML 2ML syringe IV ONE (18:40)
[2020-08-28] MEDS ORDERED: ondansetron/PF 4mg/2ml inj IV ONE (18:40)
[2020-08-28 18:42] LABS: ALANINE AMINOTRANSFERASE 10 U/L (12-78); ALBUMIN 2.3 G/DL (3.4-5.0); ALBUMIN/GLOBULIN RATIO 0.4 (1.1-1.5); ALKALINE PHOSPHATASE 169 IU/L (46-116); ANION GAP 20 (8-16); ASPARTATE AMINO TRANSFERASE 6 U/L (10-37); BILIRUBIN,TOTAL 0.3 MG/DL (0.1-1.0); CALCIUM 8.2 MG/DL (8.5-10.1); CHLORIDE 86 MMOL/L (99-107); MAGNESIUM 2.8 MG/DL (1.5-2.4); POTASSIUM 4.5 MMOL/L (3.5-5.1); TOTAL PROTEIN 8.6 G/DL (6.4-8.2); eGFR 7 ML/MIN
[2020-08-28 18:51] LABS: GLUCOSE 496 MG/DL (70-104); SODIUM 119 MMOL/L (135-145)
[2020-08-28 18:52] LABS: TOTAL CARBON DIOXIDE 12.8 MMOL/L (24-32)
[2020-08-28 19:04] LABS: BLOOD UREA NITROGEN 158 MG/DL (7-18); BUN/CREATININE RATIO 19.3 (5.4-32.0)
[2020-08-28 19:09] LABS: CLARITY,URINE TURBID (Clear); COLOR,URINE YELLOW (Yellow); GLUCOSE, URINE NEGATIVE (Neg); KETONES,URINE NEGATIVE (Neg); LEUKOCYTE ESTERASE ,URINE MODERATE (Neg); NITRITES, URINE NEGATIVE (Neg); OCCULT BLOOD,URINE LARGE (Neg); PH,URINE 6.5 (4.8-8.0); PROTEIN,URINE >=300 mg/dl (Neg); UROBILINOGEN,URINE 0.2 E.U/dL (0.2-1.0)
[2020-08-28 19:15] LABS: UA COLLECTION TYPE OTHER
[2020-08-28 19:16] LABS: BACTERIA,URINE FEW /HPF (Neg); RBC,URINE 20-50 /HPF (0-2); SQUAMOUS EPITHELIAL CELL,UR FEW /LPF (FEW); WBC CLUMPS,URINE MODERATE /HPF (NEGATIVE); WBC,URINE TNTC /HPF (0-4)
--- NOTE | 2020-08-28 19:21 | NUR ---
Pt has colostomy on left abdomen. Colostomy back will not stick and stool leaking out. Bag changed 3 times.
[2020-08-28 19:40] LABS: ABG BASE EXCESS -16.1 mmol/L (-2.0-2.0); ABG HCO3 9.9 mmol/L (22.0-26.0); ABG OXYGEN SATURATION 97.7 % (94-97); ABG PCO2 (T) 24.1 mmHg (35.0-48.0); ABG PO2 (T) 113.4 mmHg (75.0-100.0); ALLEN'S TEST POSITIVE; FCOHb 0.3 % (0.0-3.9); FMetHb 0.1 % (0.0-1.5); FO2Hb 97.3 % (94-97); PATIENT TEMPERATURE 36.4; TOTAL HEMOGLOBIN 10.8 G/dl (14.0-18.0)
[2020-08-28] MEDS ORDERED: piperacillin/tazo 3.375gm/50ml 50 ML IV ONE (20:00)
[2020-08-28] MEDS ORDERED: vancomycin/NS 1 GM ADD-VANTAGE 250 ML IV ONE (20:00)
[2020-08-28] MEDS ORDERED: ondansetron/PF 4mg/2ml inj IV PRN (20:20)
[2020-08-28] MEDS ORDERED: potassium Cl 40MEQ/1/2NS 520ml 520 ML IV PRN ×2 (20:20)
[2020-08-28] MEDS ORDERED: acetaminophen 325mg tablet PO PRN (20:20)
[2020-08-28] MEDS ORDERED: potassium Cl 20 mEq SR tablet PO PRN (20:20)
[2020-08-28] MEDS ORDERED: dextrose 50%-water 50ml dispensing syringe IV PRN ×2 (20:35→23:00)
[2020-08-28] MEDS ORDERED: Insulin Reg/NS 100units/100mL 100 ML IV SCH (20:35)
[2020-08-28] MEDS: sodium bicarbonate (8.4%) inj. 100 MEQ in sodium chloride 0.45% 1,000 ML IV SCH (22:01)
--- NOTE | 2020-08-28 22:30 | NUR ---
Patient in room PCU 3021. I have received report from GILBERTO Poole RN and had the opportunity to ask questions and assume patient care.
[2020-08-28 23:00] VITALS: BP 103/72
[2020-08-28] MEDS ORDERED: insulin Lispro (HumaLOG) vial - multi-dose SQ PRN (23:00)
[2020-08-28] MEDS ORDERED: insulin glargine (Lantus) pen - multi-dose SQ ONE (23:00)
[2020-08-28 23:02] LABS: ALBUMIN 1.8 G/DL (3.4-5.0); ANION GAP 18 (8-16); BLOOD UREA NITROGEN 133 MG/DL (7-18); BUN/CREATININE RATIO 21.3 (5.4-32.0); CALCIUM 7.2 MG/DL (8.5-10.1); CHLORIDE 101 MMOL/L (99-107); CREATININE 6.25 MG/DL (0.60-1.10); GLUCOSE 295 MG/DL (70-104); POTASSIUM 3.9 MMOL/L (3.5-5.1); SODIUM 131 MMOL/L (135-145); eGFR 9 ML/MIN
[2020-08-28 23:13] LABS: TOTAL CARBON DIOXIDE 12.4 MMOL/L (24-32)
[2020-08-28] MEDS ORDERED: potassium CL 20mEq in D5-1/2NS 1,000 ML IV PRN (23:35)
[2020-08-28] MEDS ORDERED: normal saline 1000ml 1,000 ML IV SCH (23:35)
[2020-08-28] MEDS ORDERED: insulin regular, human U-100 3ml vial - multi-dose IV PRN (23:35)
[2020-08-29] VITALS (12 sets, daily range): BP systolic 89–153; BP diastolic 45–104
--- NOTE | 2020-08-29 00:10 | NUR ---
Per LUCRETIA Mcfarlane, and based on most recent labs, patient to be treated with standard insulin infusion protocol. Insulin gtt initiated per protocol. Other orders initiated as appropriate.
[2020-08-29] MEDS ORDERED: insulin Lispro (HumaLOG) vial - multi-dose SQ PRN (00:35)
[2020-08-29] MEDS: piperacillin/tazo 3.375gm/50ml 50 ML IV SCH ×3 (02:16→19:24)
[2020-08-29] MEDS: acetaminophen 325mg tablet PO PRN (02:47)
--- NOTE | 2020-08-29 04:56 | NUR ---
Lab specimens drawn at 0300 sent to lab with incorrect patient label, resulting in specimen being discarded. Labs will be drawn by phlebotomy in A.M.
[2020-08-29] MEDS: sodium bicarbonate (8.4%) inj. 100 MEQ in sodium chloride 0.45% 1,000 ML IV SCH ×3 (05:23→17:54)
[2020-08-29] MEDS ORDERED: MESSAGE TO PHARMACY PO ONE (05:25)
[2020-08-29] MEDS ORDERED: glucagon, human recombinant 1mg kit SUBCUT PRN (05:25)
[2020-08-29] MEDS ORDERED: dextrose 50%-water 50ml dispensing syringe IV PRN ×2 (05:25)
[2020-08-29] MEDS ORDERED: dextrose ORAL solution 15 GM/59 ML bottle PO PRN ×2 (05:25)
--- NOTE | 2020-08-29 05:43 | NUR ---
Orientee documentation: I have reviewed and agree with all interventions, assessments performed and documented, medication administered by Priscilla CAMILO.
--- NOTE | 2020-08-29 06:26 | NUR ---
Problems reprioritized. Patient report given, questions answered & plan of care reviewed with Mary CAMILO.
[2020-08-29 06:28] LABS: BASOPHILS % (AUTO) 0.2 % (0-1); EOSINOPHILS # (AUTO) 0.1 X10'3 (0-0.9); EOSINOPHILS % (AUTO) 1.2 % (0-6); HEMATOCRIT 33.6 % (42.0-52.0); LYMPHOCYTES # (AUTO) 2.5 X10'3 (1.1-4.8); LYMPHOCYTES % (AUTO) 21.9 % (21-51); MEAN CORPUSCULAR HEMOGLOBIN 26.6 PG (27.0-31.0); MEAN CORPUSCULAR HGB CONC 32.7 g/dL (33.0-36.5); MEAN CORPUSCULAR VOLUME 81.4 FL (78-98); MEAN PLATELET VOLUME 8.1 FL (7.4-10.4); MONOCYTES # (AUTO) 1.3 X10'3 (0-0.9); MONOCYTES % (AUTO) 11.8 % (2-12); NEUTROPHILS # (AUTO) 7.4 X10'3 (1.8-7.7); NEUTROPHILS % (AUTO) 64.9 % (42-75); PLATELET COUNT 289 X10'3 (140-440); RED BLOOD COUNT 4.13 X10'6 (4.70-6.10); RED CELL DISTRIBUTION WIDTH 12.5 % (11.5-14.5); WHITE BLOOD COUNT 11.4 X10'3 (4.5-11.0)
--- NOTE | 2020-08-29 06:32 | NUR ---
Patient in room PCU 3021. I have received report from Quin CAMILO and had the opportunity to ask questions and assume patient care. Patient in bed resting. In no acute distress. All immediate needs met at this time.
--- NOTE | 2020-08-29 06:35 | NUR ---
Patient in room PCU 3021. I have received report from Rhett Wells RN and had the opportunity to ask questions and assume patient care.
[2020-08-29 06:51] LABS: HEMOGLOBIN A1C 12.9 % (4.5-6.2)
[2020-08-29 07:06] LABS: ALANINE AMINOTRANSFERASE 7 U/L (12-78); ALBUMIN/GLOBULIN RATIO 0.4 (1.1-1.5); ALKALINE PHOSPHATASE 137 IU/L (46-116); ANION GAP 19 (8-16); ASPARTATE AMINO TRANSFERASE 6 U/L (10-37); BILIRUBIN,TOTAL 0.3 MG/DL (0.1-1.0); BLOOD UREA NITROGEN 140 MG/DL (7-18); BUN/CREATININE RATIO 20.7 (5.4-32.0); CALCIUM 8.3 MG/DL (8.5-10.1); CHLORIDE 100 MMOL/L (99-107); CREATININE 6.75 MG/DL (0.60-1.10); GLUCOSE 91 MG/DL (70-104); MAGNESIUM 2.5 MG/DL (1.5-2.4); PHOSPHORUS 5.7 MG/DL (2.3-4.5); POTASSIUM 3.5 MMOL/L (3.5-5.1); SODIUM 132 MMOL/L (135-145); TOTAL PROTEIN 7.5 G/DL (6.4-8.2); eGFR 9 ML/MIN
[2020-08-29 07:11] LABS: TOTAL CARBON DIOXIDE 12.8 MMOL/L (24-32)
[2020-08-29] MEDS: tamsulosin 0.4mg capsule PO SCH (07:34)
[2020-08-29] MEDS: K and/or MAG REPLACEMENT MC SCH ×2 (08:00→20:00)
[2020-08-29] MEDS ORDERED: iohexol 300 MG/1 ML 50ml polymer ONE (10:22)
[2020-08-29] MEDS ORDERED: midazolam 2 mg/2 ml injection ONE (10:44)
[2020-08-29] MEDS ORDERED: fentaNYL/PF 50MCG/1 ML 2ML syringe ONE (10:44)
[2020-08-29] MEDS: insulin Lispro (HumaLOG) vial - multi-dose SQ SCH ×3 (13:16→21:04)
--- NOTE | 2020-08-29 14:49 | NUR ---
DM Consult: A1C 12.9 hx T1DM up from 9.6 December of last year. Per EMR; pt takes Lantus 25 units HS and insulin at meal times. Pt admit DX hyponatremia Na 119 now up to 132, acute on chronic renal failure w/ hx bilateral nephrostomy tubes, and metabolic acidosis r/t obstructive uropathy and ostomy losses per MD notes. Glu 211 down from 496 on admit. Pt would benefit from DM ed this admit prior to discharge. Addendum: 08/29/20 at [address] Amended: Links added.
--- NOTE | 2020-08-29 18:13 | NUR ---
Problems reprioritized. Patient report given, questions answered & plan of care reviewed with Quin CAMILO. Patient stable at transfer of care.
--- NOTE | 2020-08-29 18:13 | NUR ---
Problems reprioritized. Patient report given, questions answered & plan of care reviewed with Nicole CAMILO.
--- NOTE | 2020-08-29 18:19 | NUR ---
Orientee documentation: I have reviewed and agree with all interventions, assessments performed and documentd by Yue CAMILO. Orientee Medication Administration: For this medication-pass time frame, all medication were reviewed, dispensed, administered and documented per hospital policy by TON Turner.
--- NOTE | 2020-08-29 18:45 | NUR ---
Patient in room PCU 3021. I have received report from Mary CAMILO and had the opportunity to ask questions and assume patient care.
[2020-08-29] MEDS: lactobacillus rhamnosus 10,000 MMU CELLS/CAPSULE PO SCH (19:25)
[2020-08-29] MEDS: insulin glargine (Lantus) pen - multi-dose SQ SCH (21:03)
[2020-08-30 01:49] VITALS: BP 84/49
[2020-08-30] MEDS: sodium bicarbonate (8.4%) inj. 100 MEQ in sodium chloride 0.45% 1,000 ML IV SCH ×2 (04:00→16:35)
--- NOTE | 2020-08-30 06:29 | NUR ---
Problems reprioritized. Patient report given, questions answered & plan of care reviewed with Mary CAMILO.
--- NOTE | 2020-08-30 06:29 | NUR ---
Patient in room PCU 3021. I have received report from TON Pierson and had the opportunity to ask questions and assume patient care.
[2020-08-30 06:37] LABS: BASOPHILS % (AUTO) 0.5 % (0-1); EOSINOPHILS # (AUTO) 0.1 X10'3 (0-0.9); EOSINOPHILS % (AUTO) 2.4 % (0-6); HEMATOCRIT 27.6 % (42.0-52.0); HEMOGLOBIN 9.3 g/dl (14.0-17.9); LYMPHOCYTES # (AUTO) 1.1 X10'3 (1.1-4.8); LYMPHOCYTES % (AUTO) 21.4 % (21-51); MEAN CORPUSCULAR HEMOGLOBIN 27.4 PG (27.0-31.0); MEAN CORPUSCULAR HGB CONC 33.9 g/dL (33.0-36.5); MONOCYTES # (AUTO) 0.6 X10'3 (0-0.9); MONOCYTES % (AUTO) 10.9 % (2-12); NEUTROPHILS # (AUTO) 3.3 X10'3 (1.8-7.7); NEUTROPHILS % (AUTO) 64.8 % (42-75); PLATELET COUNT 163 X10'3 (140-440); RED BLOOD COUNT 3.41 X10'6 (4.70-6.10); RED CELL DISTRIBUTION WIDTH 12.4 % (11.5-14.5); WHITE BLOOD COUNT 5.1 X10'3 (4.5-11.0)
[2020-08-30 07:09] LABS: ALANINE AMINOTRANSFERASE 8 U/L (12-78); ALBUMIN 1.7 G/DL (3.4-5.0); ALBUMIN/GLOBULIN RATIO 0.3 (1.1-1.5); ALKALINE PHOSPHATASE 97 IU/L (46-116); ANION GAP 12 (8-16); ASPARTATE AMINO TRANSFERASE 7 U/L (10-37); BILIRUBIN,TOTAL 0.3 MG/DL (0.1-1.0); BLOOD UREA NITROGEN 111 MG/DL (7-18); BUN/CREATININE RATIO 18.9 (5.4-32.0); CALCIUM 7.7 MG/DL (8.5-10.1); CHLORIDE 101 MMOL/L (99-107); CREATININE 5.86 MG/DL (0.60-1.10); GLUCOSE 214 MG/DL (70-104); MAGNESIUM 1.9 MG/DL (1.5-2.4); PHOSPHORUS 5.6 MG/DL (2.3-4.5); POTASSIUM 3.4 MMOL/L (3.5-5.1); SODIUM 135 MMOL/L (135-145); TOTAL CARBON DIOXIDE 22.2 MMOL/L (24-32); TOTAL PROTEIN 6.6 G/DL (6.4-8.2); eGFR 10 ML/MIN
[2020-08-30] MEDS: K and/or MAG REPLACEMENT MC SCH ×2 (08:00→20:00)
[2020-08-30] MEDS: lactobacillus rhamnosus 10,000 MMU CELLS/CAPSULE PO SCH ×2 (09:00→19:26)
[2020-08-30] MEDS: acetaminophen 325mg tablet PO PRN (09:00)
[2020-08-30] MEDS: tamsulosin 0.4mg capsule PO SCH (09:00)
[2020-08-30] MEDS: potassium Cl 20 mEq SR tablet PO PRN ×2 (09:00→13:47)
[2020-08-30] MEDS: piperacillin/tazo 3.375gm/50ml 50 ML IV SCH ×2 (09:01→20:54)
[2020-08-30 11:00] VITALS: BP 96/59
[2020-08-30] MEDS ORDERED: iohexol 350MG/ML 100ml bottle IV ONE (14:46)
[2020-08-30 17:17] VITALS: BP 84/50
--- NOTE | 2020-08-30 18:44 | NUR ---
Problems reprioritized. Patient report given, questions answered & plan of care reviewed with Diane CAMILO.
--- NOTE | 2020-08-30 18:49 | NUR ---
Patient in room PCU 3021. I have received report from TON Jordan and had the opportunity to ask questions and assume patient care.
[2020-08-30] MEDS: insulin Lispro (HumaLOG) vial - multi-dose SQ SCH ×2 (19:26→21:53)
[2020-08-30] MEDS: insulin glargine (Lantus) pen - multi-dose SQ SCH (21:54)
[2020-08-30 22:47] VITALS: BP 100/61
[2020-08-31] MEDS: sodium bicarbonate (8.4%) inj. 100 MEQ in sodium chloride 0.45% 1,000 ML IV SCH ×3 (01:35→22:00)
[2020-08-31 02:00] VITALS: BP 97/62
[2020-08-31 06:00] VITALS: BP 109/76
--- NOTE | 2020-08-31 06:04 | NUR ---
Orientee documentation: I have reviewed and agree with interventions, assessments performed and documented by TON Chadwick. Orientee Medication Administration: For this medication-pass time frame, medications were reviewed, dispensed, administered and documented per hospital policy by TON Chadwick.
[2020-08-31] MEDS: K and/or MAG REPLACEMENT MC SCH ×2 (08:00→20:00)
[2020-08-31] MEDS: lactobacillus rhamnosus 10,000 MMU CELLS/CAPSULE PO SCH ×2 (08:19→19:43)
[2020-08-31] MEDS: piperacillin/tazo 3.375gm/50ml 50 ML IV SCH ×2 (08:19→19:43)
[2020-08-31] MEDS: tamsulosin 0.4mg capsule PO SCH (08:19)
[2020-08-31] MEDS: insulin Lispro (HumaLOG) vial - multi-dose SQ SCH ×3 (09:46→19:39)
[2020-08-31 11:00] VITALS: BP 102/59
[2020-08-31 12:05] LABS: BASOPHILS % (AUTO) 0.6 % (0-1); EOSINOPHILS # (AUTO) 0.1 X10'3 (0-0.9); EOSINOPHILS % (AUTO) 2.1 % (0-6); HEMATOCRIT 25.9 % (42.0-52.0); HEMOGLOBIN 8.7 g/dl (14.0-17.9); LYMPHOCYTES # (AUTO) 1.4 X10'3 (1.1-4.8); LYMPHOCYTES % (AUTO) 20.9 % (21-51); MEAN CORPUSCULAR HEMOGLOBIN 27.1 PG (27.0-31.0); MEAN CORPUSCULAR HGB CONC 33.5 g/dL (33.0-36.5); MEAN CORPUSCULAR VOLUME 80.8 FL (78-98); MEAN PLATELET VOLUME 7.7 FL (7.4-10.4); MONOCYTES # (AUTO) 0.5 X10'3 (0-0.9); NEUTROPHILS # (AUTO) 4.7 X10'3 (1.8-7.7); NEUTROPHILS % (AUTO) 68.4 % (42-75); PLATELET COUNT 157 X10'3 (140-440); RED BLOOD COUNT 3.21 X10'6 (4.70-6.10); RED CELL DISTRIBUTION WIDTH 12.1 % (11.5-14.5); WHITE BLOOD COUNT 6.8 X10'3 (4.5-11.0)
[2020-08-31 12:26] LABS: ALANINE AMINOTRANSFERASE 7 U/L (12-78); ALBUMIN 1.6 G/DL (3.4-5.0); ALBUMIN/GLOBULIN RATIO 0.4 (1.1-1.5); ALKALINE PHOSPHATASE 76 IU/L (46-116); ANION GAP 0 (8-16); ASPARTATE AMINO TRANSFERASE 8 U/L (10-37); BILIRUBIN,TOTAL 0.1 MG/DL (0.1-1.0); BLOOD UREA NITROGEN 73 MG/DL (7-18); BUN/CREATININE RATIO 16.4 (5.4-32.0); CALCIUM 7.6 MG/DL (8.5-10.1); CHLORIDE 105 MMOL/L (99-107); CREATININE 4.46 MG/DL (0.60-1.10); GLUCOSE 210 MG/DL (70-104); MAGNESIUM 1.5 MG/DL (1.5-2.4); PHOSPHORUS 4.3 MG/DL (2.3-4.5); POTASSIUM 3.1 MMOL/L (3.5-5.1); SODIUM 134 MMOL/L (135-145); TOTAL CARBON DIOXIDE 28.6 MMOL/L (24-32); TOTAL PROTEIN 6.1 G/DL (6.4-8.2); eGFR 14 ML/MIN
[2020-08-31] MEDS: potassium chloride 10mEq ER tablet PO SCH ×3 (14:00→19:44)
[2020-08-31] MEDS: potassium Cl 20 mEq SR tablet PO PRN (14:43)
[2020-08-31 15:00] VITALS: BP 115/74
--- NOTE | 2020-08-31 16:13 | NUR ---
DM Education: Visited pt at bed side, pt is awake and gives permission to talk about DM. CLAUDIA d/w pt about uncontrolled blood glucose with HbA1c level of 9.6% from December 2019 to current A1c level of 12.9%. Pt reports financial struggle but has no issue obtaining insulin; pt also reports skipping insulin at times, and skipping meals when feeling sick. Pt also reports having other conditions that preoccupies pt from managing DM properly. RD encouraged pt to take insulin as prescribed by physician. RD also discussed benefits of managing meals with insulin. Pt reports drinking glucerna at home in times of sickness. RD offered Ensure ONS coupons. Written DM education was also provided to pt, briefly discussed importance of portion control and validated concerns. Pt expressed understanding and willingness to read through written DM education. Addendum: 08/31/20 at [address] CLAUDIA agree with internet designer note Addendum: 08/31/20 at 1615 by Abraham [address]ETIC INTERN RD Amended: Links added.
[2020-08-31 18:00] VITALS: BP 122/71
--- NOTE | 2020-08-31 18:25 | NUR ---
Orientee documentation: I have reviewed and agree with all interventions, assessments performed and documented by TON Turner. Orientee Medication Administration: For this medication-pass time frame, all medication were reviewed, dispensed, administered and documented per hospital policy by TON Turner.
--- NOTE | 2020-08-31 18:26 | NUR ---
Problems reprioritized. Patient report given, questions answered & plan of care reviewed with Antonia CAMILO. Patient stable at transfer of care.
[2020-08-31] MEDS: insulin glargine (Lantus) pen - multi-dose SQ SCH (21:00)
[2020-08-31 22:00] VITALS: BP 112/73
[2020-08-31] MEDS: HYDROcodone/acetaminophen 10/325mg tab PO PRN (22:23)
[2020-09-01 02:00] VITALS: BP 101/51
[2020-09-01] MEDS: sodium bicarbonate (8.4%) inj. 100 MEQ in sodium chloride 0.45% 1,000 ML IV SCH (03:47)
[2020-09-01 06:25] LABS: BASOPHILS % (AUTO) 0.3 % (0-1); EOSINOPHILS # (AUTO) 0.1 X10'3 (0-0.9); EOSINOPHILS % (AUTO) 2.5 % (0-6); HEMATOCRIT 25.9 % (42.0-52.0); HEMOGLOBIN 8.6 g/dl (14.0-17.9); LYMPHOCYTES # (AUTO) 1.4 X10'3 (1.1-4.8); LYMPHOCYTES % (AUTO) 23.7 % (21-51); MEAN CORPUSCULAR HEMOGLOBIN 27.3 PG (27.0-31.0); MEAN CORPUSCULAR HGB CONC 33.2 g/dL (33.0-36.5); MEAN CORPUSCULAR VOLUME 82.2 FL (78-98); MONOCYTES # (AUTO) 0.5 X10'3 (0-0.9); MONOCYTES % (AUTO) 8.4 % (2-12); NEUTROPHILS # (AUTO) 3.7 X10'3 (1.8-7.7); NEUTROPHILS % (AUTO) 65.1 % (42-75); PLATELET COUNT 162 X10'3 (140-440); RED BLOOD COUNT 3.15 X10'6 (4.70-6.10); RED CELL DISTRIBUTION WIDTH 12.5 % (11.5-14.5); WHITE BLOOD COUNT 5.7 X10'3 (4.5-11.0)
--- NOTE | 2020-09-01 06:41 | NUR ---
Patient in room PCU 3021. I have received report from Antonia CAMILO and had the opportunity to ask questions and assume patient care.
[2020-09-01 06:47] LABS: ALANINE AMINOTRANSFERASE 8 U/L (12-78); ALBUMIN 1.7 G/DL (3.4-5.0); ALBUMIN/GLOBULIN RATIO 0.4 (1.1-1.5); ALKALINE PHOSPHATASE 78 IU/L (46-116); ANION GAP 6 (8-16); ASPARTATE AMINO TRANSFERASE 7 U/L (10-37); BILIRUBIN,TOTAL 0.2 MG/DL (0.1-1.0); BLOOD UREA NITROGEN 56 MG/DL (7-18); BUN/CREATININE RATIO 13.6 (5.4-32.0); CALCIUM 7.2 MG/DL (8.5-10.1); CHLORIDE 101 MMOL/L (99-107); CREATININE 4.11 MG/DL (0.60-1.10); GLUCOSE 377 MG/DL (70-104); MAGNESIUM 1.4 MG/DL (1.5-2.4); PHOSPHORUS 4.9 MG/DL (2.3-4.5); POTASSIUM 3.7 MMOL/L (3.5-5.1); SODIUM 138 MMOL/L (135-145); TOTAL CARBON DIOXIDE 30.8 MMOL/L (24-32); TOTAL PROTEIN 6.5 G/DL (6.4-8.2); eGFR 15 ML/MIN
[2020-09-01 06:55] VITALS: BP 98/50
[2020-09-01] MEDS: tamsulosin 0.4mg capsule PO SCH (07:42)
[2020-09-01] MEDS: lactobacillus rhamnosus 10,000 MMU CELLS/CAPSULE PO SCH ×2 (07:42→20:23)
[2020-09-01] MEDS: piperacillin/tazo 3.375gm/50ml 50 ML IV SCH ×2 (07:42→20:23)
[2020-09-01] MEDS: K and/or MAG REPLACEMENT MC SCH ×2 (08:00→20:24)
[2020-09-01] MEDS: sodium chloride 0.45% 1,000 ML IV SCH ×2 (08:42→17:50)
[2020-09-01] MEDS: insulin Lispro (HumaLOG) vial - multi-dose SQ SCH ×4 (09:33→22:51)
[2020-09-01 09:34] LABS: NUCLEATED RED BLOOD CELLS 1 /100WBC (0-0); TOTAL CELLS COUNTED 100
[2020-09-01 09:36] LABS: PLATELET ESTIMATE NORMAL
[2020-09-01 11:00] VITALS: BP_SYST 93; BP_DIAS 54; BP_DIAS 63
[2020-09-01] MEDS ORDERED: magnesium 4gm in 100ml NS 100 ML IV PRN (13:55)
[2020-09-01] MEDS ORDERED: potassium Cl 20 mEq SR tablet PO PRN ×2 (13:55)
[2020-09-01] MEDS ORDERED: magnesium 2GM in 50ml NS 50 ML IV PRN (13:55)
[2020-09-01] MEDS ORDERED: potassium Cl 40MEQ/1/2NS 520ml 520 ML IV PRN (13:55)
[2020-09-01] MEDS: magnesium Cl slow-release 64mg tablet PO PRN ×2 (14:04→20:23)
--- NOTE | 2020-09-01 14:21 | NUR ---
Dr allred notified that patient mg was 1.4. Non-critical protocol ordered. patient Given mag replacement PO. Nephrostomy bags draining pale yellow urine. patient tolerating small amounts of breakfast and lunch. Resting in bed, will continue to monitor.
--- NOTE | 2020-09-01 16:00 | NUR ---
Resource Nurse Nikki RN alerted this staff nurse that patients BS 64 as patient reported to her feeling shakey while this RN was at [facility]. medicated as per EMAR. BS rechecked 84. Dr allred present in room aware of this 1600hrs. will continue to monitor. patient sitting up in chair states he feels alittle better.
--- NOTE | 2020-09-01 16:33 | NUR ---
patient assisted back to bed in stable condition.
--- NOTE | 2020-09-01 17:30 | NUR ---
patient called staff to say bed was wet. patient constantly lying on nephrostomy tubes. patient counselled to ensure safe placement before he lies down in bed. Both nephrostomy bag ends tightened no leakage observed.
[2020-09-01 18:00] VITALS: BP 121/72
--- NOTE | 2020-09-01 18:27 | NUR ---
Problems reprioritized. Patient report given, questions answered & plan of care reviewed with seven CAMILO.
[2020-09-01 22:00] VITALS: BP 104/62
[2020-09-01] MEDS: HYDROcodone/acetaminophen 10/325mg tab PO PRN (22:06)
[2020-09-01] MEDS: insulin glargine (Lantus) pen - multi-dose SQ SCH (22:49)
[2020-09-02 02:00] VITALS: BP 110/70
[2020-09-02] MEDS: sodium chloride 0.45% 1,000 ML IV SCH ×2 (04:00→05:31)
--- NOTE | 2020-09-02 06:30 | NUR ---
Patient in room PCU 3021. I have received report from Antonia CAMILO and had the opportunity to ask questions and assume patient care.
[2020-09-02 07:25] VITALS: BP 104/54
[2020-09-02 07:43] LABS: BASOPHILS % (AUTO) 0.4 % (0-1); EOSINOPHILS # (AUTO) 0.2 X10'3 (0-0.9); EOSINOPHILS % (AUTO) 2.6 % (0-6); HEMATOCRIT 24.4 % (42.0-52.0); HEMOGLOBIN 8.1 g/dl (14.0-17.9); LYMPHOCYTES # (AUTO) 1.9 X10'3 (1.1-4.8); LYMPHOCYTES % (AUTO) 25.5 % (21-51); MEAN CORPUSCULAR HEMOGLOBIN 27.5 PG (27.0-31.0); MEAN CORPUSCULAR VOLUME 83.2 FL (78-98); MEAN PLATELET VOLUME 8.1 FL (7.4-10.4); MONOCYTES # (AUTO) 0.5 X10'3 (0-0.9); MONOCYTES % (AUTO) 6.8 % (2-12); NEUTROPHILS # (AUTO) 4.8 X10'3 (1.8-7.7); NEUTROPHILS % (AUTO) 64.7 % (42-75); PLATELET COUNT 149 X10'3 (140-440); RED BLOOD COUNT 2.94 X10'6 (4.70-6.10); RED CELL DISTRIBUTION WIDTH 12.4 % (11.5-14.5); WHITE BLOOD COUNT 7.5 X10'3 (4.5-11.0)
[2020-09-02] MEDS: lactobacillus rhamnosus 10,000 MMU CELLS/CAPSULE PO SCH (07:44)
[2020-09-02] MEDS: tamsulosin 0.4mg capsule PO SCH (07:44)
[2020-09-02] MEDS: piperacillin/tazo 3.375gm/50ml 50 ML IV SCH (07:45)
[2020-09-02] MEDS: K and/or MAG REPLACEMENT MC SCH (08:00)
[2020-09-02 08:24] LABS: ALANINE AMINOTRANSFERASE 10 U/L (12-78); ALBUMIN 1.7 G/DL (3.4-5.0); ALBUMIN/GLOBULIN RATIO 0.4 (1.1-1.5); ALKALINE PHOSPHATASE 64 IU/L (46-116); ANION GAP 8 (8-16); ASPARTATE AMINO TRANSFERASE 11 U/L (10-37); BILIRUBIN,TOTAL 0.1 MG/DL (0.1-1.0); BLOOD UREA NITROGEN 48 MG/DL (7-18); BUN/CREATININE RATIO 13.3 (5.4-32.0); CHLORIDE 102 MMOL/L (99-107); CREATININE 3.61 MG/DL (0.60-1.10); GLUCOSE 279 MG/DL (70-104); MAGNESIUM 1.3 MG/DL (1.5-2.4); PHOSPHORUS 4.8 MG/DL (2.3-4.5); POTASSIUM 4.1 MMOL/L (3.5-5.1); SODIUM 137 MMOL/L (135-145); TOTAL CARBON DIOXIDE 26.7 MMOL/L (24-32); TOTAL PROTEIN 6.4 G/DL (6.4-8.2); eGFR 18 ML/MIN
[2020-09-02 08:47] LABS: TOTAL CELLS COUNTED 100
[2020-09-02 08:48] LABS: PLATELET ESTIMATE NORMAL; POLYCHROMASIA FEW; TOXIC GRANULATION 1+
[2020-09-02] MEDS: insulin Lispro (HumaLOG) vial - multi-dose SQ SCH ×2 (10:13→13:39)
[2020-09-02 11:38] VITALS: BP 116/59
[2020-09-02] MEDS ORDERED: NUT.TX.GLUC.INTOLER,LAC-FR,SOY (GLUCERNA) 237 ML PO SCH (13:00)
--- NOTE | 2020-09-02 13:08 | NUR ---
Initial: Pt presented with metabolic acidosis d/t obstructive uropathy, anemia and acute renal failure. Pt has colostomy bag per EMR. Pt reports last time colostomy bag was changed . Pt last BM 08/31, pt may benefit from routine bowel care. Pt PO intake is 25-49% average of meals. Pt reports having good appetite with no GI symptoms, but not meeting nutrient needs. Pt may benefit from Justyn BAINS MD notified. Pt is receiving carb-controlled diet per physician's recs. Will continue to monitor. Recommend: 1.Continue Carb-controlled diet 2.Glucerna MARLENI BAINS MD notified. 3.Routine bowl care 4.Weight per rx Addendum: 09/02/20 at 1310 by Abraham [address]ETIC INTERN RD Amended: Links added. Addendum: 09/02/20 at [address] RD agree with leadership program intern note
[2020-09-02 15:00] VITALS: BP 112/70
[2020-09-02] MEDS ORDERED: hydrOXYzine 25 MG tablet PO ONE (15:00)
[2020-09-02] MEDS ORDERED: LACT1CAP26 PO (15:43)
[2020-09-02] MEDS ORDERED: LEVO500T89 PO (15:43)
--- NOTE | 2020-09-02 17:30 | NUR ---
Patient discharge to go home with family. Patient was educated on emptying his urostomy bags. Patient left with two new medications that were hand delivered to patient. Patient IV taken out at discharge canula was whole and intact upon discharge and IV site showed minimal bleeding. Patient was transported home via private vehicle and patient expressed verbal understanding of all follow up instructions at discharge.
== END 2020-09-02 17:56 | disposition home or self-care (01) | DRG 720 ==
LOC: ER 17:32 → ED HOLD 20:20 → PCU 3S 22:45
PROVIDERS: ADMIT Internal Medicine Critical Care Medicine; ATTEND Internal Medicine Critical Care Medicine
PROC: 0T25X0Z Change Drainage Device in Kidney, External Approach (ICD-10-PCS; principal; 2020-08-29)
DX: A41.9 Sepsis, unspecified organism (principal); E11.22 Type 2 diabetes mellitus with diabetic chronic kidney disease; E11.65 Type 2 diabetes mellitus with hyperglycemia; E87.1 Hypo-osmolality and hyponatremia; E87.4 Mixed disorder of acid-base balance; N13.5 Crossing vessel and stricture of ureter without hydronephrosis; D64.9 Anemia, unspecified; N17.9 Acute kidney failure, unspecified; N18.9 Chronic kidney disease, unspecified; Z79.4 Long term (current) use of insulin; Z83.3 Family history of diabetes mellitus; Z85.038 Personal history of other malignant neoplasm of large intestine; Z87.440 Personal history of urinary (tract) infections; Z93.3 Colostomy status; Z79.899 Other long term (current) drug therapy
CPT/HCPCS: 36415; 36600; 50387; 71045; 74176; 80048; 80053; 81001; 82803; 82948; 83036; 83605; 83735; 84100; 84145; 85007; 85018; 85025; 87040; 87077; 87081; 87088; 87186; 93005; 96365; 96375; 99152; 99153; 99291; C1729; C1769; G0378; J1815; J2250; J2405; J2543; J3010; J3370; J7030; Q9967

== ENCOUNTER 2020-11-07 06:36 | Day surgery (SDC) | payer MEDICAID ==
[~2020-11-07] VITALS: Ht 177.8 cm; Wt 78.3 kg
[~2020-11-07 06:36] MED LIST changes: +LACT1CAP26 PO
[2020-11-07] MEDS ORDERED: cefazolin/dext.iso 2gm/100ml 100 ML IV ONE (06:59)
[2020-11-07] MEDS ORDERED: normal saline 1000ml 1,000 ML IV PRN (07:00)
[2020-11-07 07:14] VITALS: BP 107/65
[2020-11-07] MEDS ORDERED: LIDOcaine 1%/PF 5ML 10 MG/ML VIAL ONE ×2 (08:49→09:35)
[2020-11-07] MEDS ORDERED: fentaNYL/PF 50MCG/1 ML 2ML syringe ONE ×3 (08:53→10:22)
[2020-11-07] MEDS ORDERED: iohexol 300 MG/1 ML 50ml polymer ONE (09:05)
[2020-11-07] MEDS ORDERED: midazolam 1 mg/ML 2ml injection ONE ×2 (09:21→09:55)
[2020-11-07 10:50] VITALS: BP 104/66
[2020-11-07 11:05] VITALS: BP 94/71
--- NOTE | 2020-11-07 11:13 | NUR ---
Pt vs stable as charted. Pt sitting up in bed, eating breakfast tray. Pt denies pain at this time.
[2020-11-07 11:20] VITALS: BP 100/79
[2020-11-07 11:35] VITALS: BP 104/79
== END 2020-11-07 12:00 | disposition home or self-care (01) ==
LOC: SSTAY O 06:36
PROVIDERS: ATTEND Radiology Vascular & Interventional Radiology
DX: Z46.6 Encounter for fitting and adjustment of urinary device (principal); N13.30 Unspecified hydronephrosis; N13.4 Hydroureter
CPT/HCPCS: 50387; 50693; 76937; 87070; 87077; 87186; 87635; C1729; C1769; C9803; J2250; J3010; J7030; Q9967; 99152; 99153

== ENCOUNTER 2020-11-14 03:42 | Inpatient (IN) | payer MEDICAID ==
[2020-11-14] VITALS (22 sets, daily range): BP systolic 85–133; BP diastolic 50–83
[~2020-11-14] VITALS: Ht 175.3 cm; Wt 76.5 kg
[~2020-11-14 03:42] MED LIST changes: -LACT1CAP26 PO
[2020-11-14] MEDS ORDERED: normal saline 1000ml 1,000 ML IV ONE ×2 (04:00→04:25)
[2020-11-14 05:12] LABS: CLARITY,URINE TURBID (Clear); COLOR,URINE YELLOW (Yellow); GLUCOSE, URINE NEGATIVE (Neg); KETONES,URINE TRACE mg/dl (Neg); LEUKOCYTE ESTERASE ,URINE MODERATE (Neg); NITRITES, URINE NEGATIVE (Neg); OCCULT BLOOD,URINE LARGE (Neg); PROTEIN,URINE >=300 mg/dl (Neg); UROBILINOGEN,URINE 0.2 E.U/dL (0.2-1.0)
[2020-11-14 05:15] LABS: UA COLLECTION TYPE OTHER
[2020-11-14 05:29] LABS: BACTERIA,URINE 3+ /HPF (Neg); MUCUS STRANDS NONE SEEN /LPF (Neg); RBC,URINE 0-2 /HPF (0-2); SQUAMOUS EPITHELIAL CELL,UR NONE SEEN /LPF (FEW); WBC,URINE TNTC /HPF (0-4)
[2020-11-14] MEDS ORDERED: morphine 10mg/ml inj. IV ONE (05:30)
[2020-11-14] MEDS ORDERED: piperacillin/tazo 4.5gm/100ml 100 ML IV SCH (05:41)
[2020-11-14 05:46] LABS: BASOPHILS # (AUTO) 0.1 X10'3 (0-0.2); BASOPHILS % (AUTO) 0.2 % (0-1); EOSINOPHILS # (AUTO) 0.1 X10'3 (0-0.9); EOSINOPHILS % (AUTO) 0.3 % (0-6); HEMATOCRIT 36.4 % (42.0-52.0); HEMOGLOBIN 11.7 g/dl (14.0-17.9); LYMPHOCYTES # (AUTO) 1.9 X10'3 (1.1-4.8); LYMPHOCYTES % (AUTO) 7.2 % (21-51); MEAN CORPUSCULAR HEMOGLOBIN 25.9 PG (27.0-31.0); MEAN CORPUSCULAR HGB CONC 32.1 g/dL (33.0-36.5); MEAN CORPUSCULAR VOLUME 80.5 FL (78-98); MEAN PLATELET VOLUME 7.6 FL (7.4-10.4); MONOCYTES # (AUTO) 1.1 X10'3 (0-0.9); MONOCYTES % (AUTO) 3.9 % (2-12); NEUTROPHILS # (AUTO) 23.9 X10'3 (1.8-7.7); NEUTROPHILS % (AUTO) 88.4 % (42-75); PLATELET COUNT 369 X10'3 (140-440); RED BLOOD COUNT 4.52 X10'6 (4.70-6.10); RED CELL DISTRIBUTION WIDTH 14.8 % (11.5-14.5)
[2020-11-14 06:06] LABS: ALBUMIN 2.8 G/DL (3.4-5.0); ALBUMIN/GLOBULIN RATIO 0.4 (1.1-1.5); ALKALINE PHOSPHATASE 117 IU/L (46-116); ANION GAP 25 (8-16); ASPARTATE AMINO TRANSFERASE 5 U/L (10-37); BILIRUBIN,TOTAL 0.3 MG/DL (0.1-1.0); CALCIUM 9.3 MG/DL (8.5-10.1); CHLORIDE 92 MMOL/L (99-107); CREATININE 7.47 MG/DL (0.60-1.10); POTASSIUM 5.2 MMOL/L (3.5-5.1); SODIUM 124 MMOL/L (135-145); eGFR 8 ML/MIN
[2020-11-14 06:16] LABS: ALANINE AMINOTRANSFERASE < 6 U/L (12-78); BLOOD UREA NITROGEN 174 MG/DL (7-18); BUN/CREATININE RATIO 23.3 (5.4-32.0); GLUCOSE 226 MG/DL (70-104)
[2020-11-14 06:20] LABS: TOTAL CARBON DIOXIDE 7.2 MMOL/L (24-32)
--- NOTE | 2020-11-14 06:26 | NUR ---
Dr. Garza at bedside to draw blood from left femoral. Blood transferred to anaerobic but blood was already clotting and no further blood could be transferred to vials.
[2020-11-14 06:57] LABS: C-REACTIVE PROTEIN 4.92 MG/DL (0.0-0.5)
[2020-11-14 06:59] LABS: ABG BASE EXCESS -21.9 mmol/L (-2.0-2.0); ABG HCO3 5.8 mmol/L (22.0-26.0); ABG OXYGEN SATURATION 97.8 % (94-97); ABG PCO2 (T) 18.4 mmHg (35.0-48.0); ABG PO2 (T) 126.8 mmHg (75.0-100.0); ALLEN'S TEST Yes; FCOHb 0.3 % (0.0-3.9); FMetHb 0.4 % (0.0-1.5); FO2Hb 97.1 % (94-97); PATIENT TEMPERATURE 36.5; TOTAL HEMOGLOBIN 10.7 G/dl (14.0-18.0)
[2020-11-14 07:09] LABS: LARGE PLATELETS FEW; PLATELET ESTIMATE NORMAL; TOTAL CELLS COUNTED 100
[2020-11-14] MEDS ORDERED: normal saline 1000ML IV soln IVB ONE (07:35)
--- NOTE | 2020-11-14 07:46 | NUR ---
cleaned up pt's groin. had pink/ooz from his anus. has red wounds that are not open on his left flank. nephrostomy tubes intact.
[2020-11-14] MEDS ORDERED: vancomycin/NS 1 GM ADD-VANTAGE 250 ML IV PRN (09:05)
--- NOTE | 2020-11-14 09:11 | NUR ---
pt has wound to the left arcos that has bandages on. pt has bilateral nephrostomy tubes and was cold to touch at the beginning of my shift at 6am. started the pt on the bar hugger and he is feeling much better on that. attempted to get his temp orally at the time but it would not read. MD Silverman with IR came by, MD Tapia.. and MD Maddox all came by to see and assess the pt.
[2020-11-14] MEDS ORDERED: fentaNYL/PF 50MCG/1 ML 2ML syringe IV ONE (09:20)
[2020-11-14] MEDS: meropenem inj 500 MG in normal saline 100ml IV soln 100 ML IV SCH (09:33)
[2020-11-14] MEDS ORDERED: DEXTROSE 5% IV SCH (09:40)
[2020-11-14] MEDS ORDERED: SODIUM BICARBONATE IV SCH (09:40)
[2020-11-14] MEDS ORDERED: WATER IV SCH (09:40)
[2020-11-14] MEDS ORDERED: midazolam 1 mg/ML 2ml injection ONE (09:41)
[2020-11-14] MEDS ORDERED: fentaNYL/PF 50MCG/1 ML 2ML syringe ONE (09:41)
[2020-11-14] MEDS ORDERED: Insulin Reg/NS 100units/100mL 100 ML IV SCH (09:50)
[2020-11-14] MEDS ORDERED: potassium Cl 20 mEq SR tablet PO PRN ×2 (09:50)
[2020-11-14] MEDS ORDERED: ondansetron/PF 4mg/2ml inj IV PRN (09:50)
[2020-11-14] MEDS ORDERED: sodium phosphate inj. 30 MMOL in dextrose 5%-water 250 ML IV PRN (09:50)
[2020-11-14] MEDS ORDERED: acetaminophen 325mg tablet PO PRN ×2 (09:50)
[2020-11-14] MEDS ORDERED: sodium phosphate inj. 15 MMOL in dextrose 5%-water 250 ML IV PRN (09:50)
[2020-11-14] MEDS ORDERED: magnesium 2GM in 50ml NS 50 ML IV PRN (09:50)
[2020-11-14] MEDS ORDERED: ipratropium/albuterol 3ml nebule NEB PRN (09:50)
[2020-11-14] MEDS ORDERED: magnesium Cl slow-release 64mg tablet PO PRN (09:50)
[2020-11-14] MEDS ORDERED: Neutra Phos packet PO PRN (09:50)
[2020-11-14] MEDS ORDERED: dextrose 50%-water 50ml dispensing syringe IV PRN (09:50)
[2020-11-14] MEDS ORDERED: magnesium 4gm in 100ml NS 100 ML IV PRN (09:50)
--- NOTE | 2020-11-14 09:52 | NUR ---
called pharmacy twice sodium bicarb not ready at this time.IR staff at bedside.
[2020-11-14 09:53] LABS: PARTIAL THROMBOPLASTIN TIME 31 SECONDS (22-32)
--- NOTE | 2020-11-14 09:55 | NUR ---
patient to IR,cardiovascular technologist in the hallway with sodium bicarb,IR staff said they will hang it when patient gets to IR.
--- NOTE | 2020-11-14 10:06 | NUR ---
pt in IR for draining of infection for nephrostomy tubes.
[2020-11-14 10:12] LABS: CLARITY,URINE TURBID (Clear); COLOR,URINE STRAW (Yellow); GLUCOSE, URINE NEGATIVE (Neg); KETONES,URINE NEGATIVE (Neg); LEUKOCYTE ESTERASE ,URINE LARGE (Neg); NITRITES, URINE POSITIVE (Neg); OCCULT BLOOD,URINE LARGE (Neg); PH,URINE 5.5 (4.8-8.0); PROTEIN,URINE 100 mg/dl (Neg); UROBILINOGEN,URINE 0.2 E.U/dL (0.2-1.0)
[2020-11-14 10:13] LABS: UA COLLECTION TYPE OTHER
[2020-11-14 10:14] LABS: AMYLASE 47 U/L (25-115); LIPASE 247 U/L (73-393)
[2020-11-14 10:18] LABS: BACTERIA,URINE 2+ /HPF (Neg); SQUAMOUS EPITHELIAL CELL,UR FEW /LPF (FEW); WBC,URINE TNTC /HPF (0-4)
[2020-11-14] MEDS: sodium bicarbonate (8.4%) inj. 75 MEQ in dextrose 5%-water 500 ML IV SCH ×3 (11:50→20:52)
[2020-11-14] MEDS ORDERED: NORepinephrine inj. 8 MG in dextrose 5%-water 242 ML IV SCH (12:20)
[2020-11-14] MEDS: NORepinephrine 8mg/ 250ml NS 250 ML IV SCH (12:41)
[2020-11-14] MEDS: pantoprazole 40 MG vial IV SCH (12:41)
--- NOTE | 2020-11-14 12:58 | NUR ---
pt has two BRYAN drains placed from IR. draining bloody/purulent fluid, small amount bilaterally. pt is much less restless than prior to procedure. still using the juanis Hugger. still no fever. spoke with Greg about the pt's BP and he ordered a Levophed drip and MD Tapia was called and made aware and he agreed with order. all drips labeled and running. Left nephrostomy emptied and output documented. On insulin drip and getting D5 drip with sodium bicarb.
[2020-11-14] MEDS ORDERED: insulin Lispro (HumaLOG) vial - multi-dose SQ SCH (13:00)
--- NOTE | 2020-11-14 13:35 | NUR ---
CHIRAG CAMILO AT BEDSIDE.
--- NOTE | 2020-11-14 13:35 | NUR ---
LEVOPHED INCREASED TO 0.15MCG/HOUR.
--- NOTE | 2020-11-14 14:14 | NUR ---
patient requesting pain med for abdominal pain and general pain,called Dr. Tapia-received an order for Dilaudid 1mg iv prn q4 hours.
[2020-11-14] MEDS: HYDROmorphone 1 mg/ml syringe IV PRN (14:30)
--- NOTE | 2020-11-14 15:36 | NUR ---
Received pt report from ER nurse Alisa CAMILO. Pt coming to room 2012.
[2020-11-14] MEDS ORDERED: insulin Lispro (HumaLOG) vial - multi-dose SQ PRN (17:45)
--- NOTE | 2020-11-14 18:36 | NUR ---
Problems reprioritized. Patient report given, questions answered & plan of care reviewed with Krystian CAMILO.
[2020-11-14] MEDS: heparin, porcine 5000 units/ml vial SQ SCH (20:51)
[2020-11-14] MEDS: lactobacillus rhamnosus 10,000 MMU CELLS/CAPSULE PO SCH (20:52)
[2020-11-15] VITALS (23 sets, daily range): BP systolic 82–134; BP diastolic 46–71
[2020-11-15] MEDS: HYDROmorphone 1 mg/ml syringe IV PRN ×3 (00:40→19:25)
[2020-11-15] MEDS: sodium bicarbonate (8.4%) inj. 75 MEQ in dextrose 5%-water 500 ML IV SCH ×2 (01:00→07:59)
[2020-11-15] MEDS: VANCOMYCIN LEVEL IV SCH (02:26)
[2020-11-15 02:33] LABS: BASOPHILS % (AUTO) 0.1 % (0-1); EOSINOPHILS # (AUTO) 0.1 X10'3 (0-0.9); EOSINOPHILS % (AUTO) 0.6 % (0-6); HEMATOCRIT 25.6 % (42.0-52.0); HEMOGLOBIN 8.4 g/dl (14.0-17.9); LYMPHOCYTES # (AUTO) 2.1 X10'3 (1.1-4.8); LYMPHOCYTES % (AUTO) 8.7 % (21-51); MEAN CORPUSCULAR HEMOGLOBIN 25.6 PG (27.0-31.0); MEAN CORPUSCULAR HGB CONC 32.6 g/dL (33.0-36.5); MEAN CORPUSCULAR VOLUME 78.4 FL (78-98); MEAN PLATELET VOLUME 7.4 FL (7.4-10.4); MONOCYTES # (AUTO) 1.1 X10'3 (0-0.9); MONOCYTES % (AUTO) 4.7 % (2-12); NEUTROPHILS # (AUTO) 20.7 X10'3 (1.8-7.7); NEUTROPHILS % (AUTO) 85.9 % (42-75); PLATELET COUNT 242 X10'3 (140-440); RED BLOOD COUNT 3.27 X10'6 (4.70-6.10); RED CELL DISTRIBUTION WIDTH 14.4 % (11.5-14.5); WHITE BLOOD COUNT 24.1 X10'3 (4.5-11.0)
[2020-11-15 02:35] LABS: ALANINE AMINOTRANSFERASE 8 U/L (12-78); ALBUMIN 1.9 G/DL (3.4-5.0); ALBUMIN/GLOBULIN RATIO 0.4 (1.1-1.5); ALKALINE PHOSPHATASE 78 IU/L (46-116); ANION GAP 18 (8-16); ASPARTATE AMINO TRANSFERASE 7 U/L (10-37); BILIRUBIN,TOTAL 0.2 MG/DL (0.1-1.0); BLOOD UREA NITROGEN 138 MG/DL (7-18); CALCIUM 7.8 MG/DL (8.5-10.1); CHLORIDE 101 MMOL/L (99-107); GLUCOSE 123 MG/DL (70-104); PHOSPHORUS 6.3 MG/DL (2.3-4.5); POTASSIUM 3.3 MMOL/L (3.5-5.1); SODIUM 136 MMOL/L (135-145); TOTAL CARBON DIOXIDE 17.4 MMOL/L (24-32); TOTAL PROTEIN 7.2 G/DL (6.4-8.2); TROPONIN I < 0.04 NG/ML (0.0-0.05); VANCOMYCIN,RANDOM 25.6 UG/ML; eGFR 11 ML/MIN
[2020-11-15] MEDS: NORepinephrine 8mg/ 250ml NS 250 ML IV SCH ×2 (04:00→15:43)
[2020-11-15] MEDS: lactobacillus rhamnosus 10,000 MMU CELLS/CAPSULE PO SCH ×2 (07:59→19:24)
[2020-11-15] MEDS: heparin, porcine 5000 units/ml vial SQ SCH ×2 (07:59→19:24)
[2020-11-15] MEDS: meropenem inj 500 MG in normal saline 100ml IV soln 100 ML IV SCH (07:59)
[2020-11-15] MEDS: pantoprazole 40 MG vial IV SCH (07:59)
[2020-11-15] MEDS ORDERED: meropenem inj 500 MG in normal saline 100ml IV soln 100 ML IV SCH (08:00)
[2020-11-15] MEDS ORDERED: glucagon, human recombinant 1mg kit SUBCUT PRN (09:55)
[2020-11-15] MEDS ORDERED: MESSAGE TO PHARMACY PO ONE (09:55)
[2020-11-15] MEDS ORDERED: dextrose ORAL solution 15 GM/59 ML bottle PO PRN (09:55)
[2020-11-15] MEDS ORDERED: dextrose 50%-water 50ml dispensing syringe IV PRN ×2 (09:55)
[2020-11-15] MEDS: sodium bicarbonate (8.4%) inj. 75 MEQ in sodium chloride 0.45% 500ml 500 ML IV SCH ×3 (11:48→21:58)
[2020-11-15] MEDS: insulin Lispro (HumaLOG) vial - multi-dose SQ SCH ×2 (13:05→19:27)
[2020-11-15] MEDS ORDERED: normal saline 1000ml 1,000 ML IV ONE (13:35)
--- NOTE | 2020-11-15 14:37 | NUR ---
Initial: Pt presented to ER with "decreased appetite and generalized weakness that has progressively worsened over the last couple of weeks". Pt admit with sepsis, severe metabolic acidosis and BOB per EMR. Noted hx T2DM, at prior admit August [address] financial internship met with pt at bedside for written/verbal DM education, A1c 12.9 at that time. Per EMR, pt has colostomy and nephrostomy tubes in place. Per [facility] assessment, pt has full thickness wounds on on left lower leg, posterior lower back, and left posterior upper gluteal. Pt PO intake 100% on renal diet this morning and 25% protein intake on renal/carb control this lunch. Last BM 11/14. Will continue to monitor for additional nutrition protein needs. Recommendations: 1) Continue renal/carb controlled diet per MD 2) Routine bowel care 3) Scaled wt per Rx Addendum: 11/15/20 at [address] Amended: Links added. Addendum: 11/15/20 at [address] I have reviewed and agree with note by Soil Sampler. Lacy Baig, CLAUDIA
--- NOTE | 2020-11-15 18:25 | NUR ---
Problems reprioritized. Patient report given, questions answered & plan of care reviewed with Gisselle CAMILO.
[2020-11-15] MEDS: insulin glargine (Lantus) pen - multi-dose SQ SCH (22:02)
[2020-11-16] VITALS (16 sets, daily range): BP systolic 91–118; BP diastolic 49–67
[2020-11-16] MEDS: VANCOMYCIN LEVEL IV SCH (02:55)
[2020-11-16 03:24] LABS: BASOPHILS % (AUTO) 0.1 % (0-1); EOSINOPHILS # (AUTO) 0.1 X10'3 (0-0.9); EOSINOPHILS % (AUTO) 0.8 % (0-6); HEMOGLOBIN 7.6 g/dl (14.0-17.9); LYMPHOCYTES # (AUTO) 1.4 X10'3 (1.1-4.8); LYMPHOCYTES % (AUTO) 11.2 % (21-51); MEAN CORPUSCULAR HEMOGLOBIN 25.7 PG (27.0-31.0); MEAN CORPUSCULAR HGB CONC 32.9 g/dL (33.0-36.5); MEAN CORPUSCULAR VOLUME 78.2 FL (78-98); MEAN PLATELET VOLUME 7.3 FL (7.4-10.4); MONOCYTES # (AUTO) 0.6 X10'3 (0-0.9); NEUTROPHILS # (AUTO) 10.1 X10'3 (1.8-7.7); NEUTROPHILS % (AUTO) 82.9 % (42-75); PLATELET COUNT 127 X10'3 (140-440); RED BLOOD COUNT 2.93 X10'6 (4.70-6.10); RED CELL DISTRIBUTION WIDTH 14.5 % (11.5-14.5); WHITE BLOOD COUNT 12.2 X10'3 (4.5-11.0)
[2020-11-16 03:36] LABS: ALBUMIN 1.6 G/DL (3.4-5.0); ALBUMIN/GLOBULIN RATIO 0.3 (1.1-1.5); ALKALINE PHOSPHATASE 71 IU/L (46-116); ANION GAP 12 (8-16); ASPARTATE AMINO TRANSFERASE 11 U/L (10-37); BILIRUBIN,TOTAL 0.2 MG/DL (0.1-1.0); BLOOD UREA NITROGEN 99 MG/DL (7-18); BUN/CREATININE RATIO 24.9 (5.4-32.0); CALCIUM 6.9 MG/DL (8.5-10.1); CHLORIDE 103 MMOL/L (99-107); CREATININE 3.97 MG/DL (0.60-1.10); GLUCOSE 175 MG/DL (70-104); MAGNESIUM 1.5 MG/DL (1.5-2.4); PHOSPHORUS 5.3 MG/DL (2.3-4.5); POTASSIUM 3.1 MMOL/L (3.5-5.1); SODIUM 139 MMOL/L (135-145); TOTAL CARBON DIOXIDE 23.9 MMOL/L (24-32); TOTAL PROTEIN 6.5 G/DL (6.4-8.2); VANCOMYCIN,RANDOM 16.5 UG/ML; eGFR 16 ML/MIN
[2020-11-16 03:53] LABS: ALANINE AMINOTRANSFERASE < 6 U/L (12-78)
[2020-11-16] MEDS: sodium bicarbonate (8.4%) inj. 75 MEQ in sodium chloride 0.45% 500ml 500 ML IV SCH (04:41)
[2020-11-16] MEDS ORDERED: potassium Cl 40MEQ/250ML bag 270 ML IV PRN (04:50)
[2020-11-16] MEDS: potassium Cl 20mEq/100mL bag 100 ML IV SCH ×2 (05:54→07:51)
[2020-11-16] MEDS: HYDROmorphone 1 mg/ml syringe IV PRN (05:59)
[2020-11-16] MEDS: pantoprazole 40 MG vial IV SCH (07:51)
[2020-11-16] MEDS: meropenem inj 500 MG in normal saline 100ml IV soln 100 ML IV SCH (07:51)
[2020-11-16] MEDS: lactobacillus rhamnosus 10,000 MMU CELLS/CAPSULE PO SCH ×2 (07:51→20:58)
[2020-11-16] MEDS: heparin, porcine 5000 units/ml vial SQ SCH ×2 (07:52→20:58)
[2020-11-16] MEDS ORDERED: tamsulosin 0.4mg capsule PO SCH (08:00)
[2020-11-16] MEDS: K and/or MAG REPLACEMENT MC SCH (08:00)
[2020-11-16] MEDS: NORepinephrine 8mg/ 250ml NS 250 ML IV SCH (08:46)
[2020-11-16] MEDS: insulin Lispro (HumaLOG) vial - multi-dose SQ SCH ×2 (09:05→13:54)
[2020-11-16] MEDS: vancomycin inj 500 MG in normal saline 100ml IV soln 100 ML IV SCH (09:05)
[2020-11-16] MEDS ORDERED: lactulose 20gm/30ml cup PO PRN (09:50)
[2020-11-16] MEDS ORDERED: bisacodyl 10mg suppository rectal RC PRN (09:50)
[2020-11-16] MEDS ORDERED: albumin (human) 25% 100 ML IV solution IV ONE (14:10)
[2020-11-16] MEDS: sodium chloride 0.45% 1,000 ML IV SCH ×2 (14:22→20:58)
--- NOTE | 2020-11-16 15:35 | NUR ---
Patient transported via wheel chair to room 353. TON Mancera notified of patients arrival. All questions and concerns addressed
--- NOTE | 2020-11-16 18:03 | NUR ---
Patient's blood sugar this afternoon was 90mg/dl, patient however complaining of feeling like low blood sugar. Patient given orange juice, mercy crackers, and cheese stick as per his request
--- NOTE | 2020-11-16 18:37 | NUR ---
Patient in room [facility] 353. I have received report from Tuyet CAMILO and had the opportunity to ask questions and assume patient care.
--- NOTE | 2020-11-16 18:46 | NUR ---
Problems reprioritized. Patient report given, questions answered & plan of care reviewed with Joy CAMILO.
[2020-11-16] MEDS: insulin glargine (Lantus) pen - multi-dose SQ SCH (21:04)
[2020-11-17] VITALS (13 sets, daily range): BP systolic 103–129; BP diastolic 56–83
[2020-11-17] MEDS: HYDROmorphone 1 mg/ml syringe IV PRN ×3 (01:28→14:09)
[2020-11-17 05:26] LABS: BASOPHILS % (AUTO) 0.3 % (0-1); EOSINOPHILS # (AUTO) 0.1 X10'3 (0-0.9); EOSINOPHILS % (AUTO) 1.2 % (0-6); LYMPHOCYTES # (AUTO) 1.1 X10'3 (1.1-4.8); MEAN CORPUSCULAR HEMOGLOBIN 26.2 PG (27.0-31.0); MEAN CORPUSCULAR HGB CONC 32.7 g/dL (33.0-36.5); MEAN PLATELET VOLUME 7.6 FL (7.4-10.4); MONOCYTES # (AUTO) 0.6 X10'3 (0-0.9); MONOCYTES % (AUTO) 6.6 % (2-12); NEUTROPHILS % (AUTO) 78.9 % (42-75); PLATELET COUNT 105 X10'3 (140-440); RED BLOOD COUNT 2.51 X10'6 (4.70-6.10); RED CELL DISTRIBUTION WIDTH 14.4 % (11.5-14.5); WHITE BLOOD COUNT 8.8 X10'3 (4.5-11.0)
[2020-11-17 05:28] LABS: PARTIAL THROMBOPLASTIN TIME 29 SECONDS (22-32)
[2020-11-17 05:30] LABS: ALBUMIN 1.7 G/DL (3.4-5.0); ALBUMIN/GLOBULIN RATIO 0.4 (1.1-1.5); ALKALINE PHOSPHATASE 60 IU/L (46-116); ANION GAP 6 (8-16); ASPARTATE AMINO TRANSFERASE 6 U/L (10-37); BILIRUBIN,TOTAL 0.2 MG/DL (0.1-1.0); BLOOD UREA NITROGEN 61 MG/DL (7-18); BUN/CREATININE RATIO 19.5 (5.4-32.0); CALCIUM 6.8 MG/DL (8.5-10.1); CHLORIDE 105 MMOL/L (99-107); CREATININE 3.13 MG/DL (0.60-1.10); GLUCOSE 175 MG/DL (70-104); MAGNESIUM 1.1 MG/DL (1.5-2.4); PHOSPHORUS 3.5 MG/DL (2.3-4.5); POTASSIUM 3.5 MMOL/L (3.5-5.1); SODIUM 139 MMOL/L (135-145); TOTAL CARBON DIOXIDE 28.2 MMOL/L (24-32); TOTAL PROTEIN 6.1 G/DL (6.4-8.2); eGFR 21 ML/MIN
[2020-11-17 05:31] LABS: HEMOGLOBIN 6.6 g/dl (14.0-17.9)
[2020-11-17 05:32] LABS: HEMATOCRIT 20.1 % (42.0-52.0)
[2020-11-17 05:43] LABS: ALANINE AMINOTRANSFERASE < 6 U/L (12-78)
[2020-11-17] MEDS: sodium chloride 0.45% 1,000 ML IV SCH ×2 (05:55→13:47)
[2020-11-17] MEDS ORDERED: CALCIUM GLUC 1gm/50ml NACL,iso 50 ML IV ONE ×2 (06:10→06:35)
--- NOTE | 2020-11-17 07:01 | NUR ---
Problems reprioritized. Patient report given, questions answered & plan of care reviewed with Elyse CAMILO.
--- NOTE | 2020-11-17 07:05 | NUR ---
Patient in room [facility] 353. I have received report from evin CAMILO and had the opportunity to ask questions and assume patient care.
[2020-11-17] MEDS: heparin, porcine 5000 units/ml vial SQ SCH ×2 (08:00→19:54)
[2020-11-17] MEDS: tamsulosin 0.4mg capsule PO SCH (08:00)
[2020-11-17] MEDS: K and/or MAG REPLACEMENT MC SCH (08:00)
[2020-11-17] MEDS: meropenem inj 500 MG in normal saline 100ml IV soln 100 ML IV SCH ×2 (08:18→19:02)
[2020-11-17] MEDS: vancomycin inj 500 MG in normal saline 100ml IV soln 100 ML IV SCH (09:44)
[2020-11-17] MEDS: pantoprazole 40mg Tablet.DR PO SCH (09:44)
[2020-11-17] MEDS: lactobacillus rhamnosus 10,000 MMU CELLS/CAPSULE PO SCH ×2 (09:44→19:02)
[2020-11-17] MEDS ORDERED: magnesium 2GM in 50ml NS 50 ML IV PRN (12:20)
[2020-11-17] MEDS ORDERED: magnesium 4gm in 100ml NS 100 ML IV PRN (12:20)
[2020-11-17] MEDS ORDERED: magnesium Cl slow-release 64mg tablet PO PRN (12:20)
--- NOTE | 2020-11-17 14:03 | NUR ---
CONFIRMED WITH IR TEAM THAT PT NEEDS A GROSHONG VS PICC PLACEMENT. PER PATTI GUNDERSON RN REQUESTING GROSHONG. Jak SIMEON PICC RN
[2020-11-17] MEDS ORDERED: fentaNYL/PF 50MCG/1 ML 2ML syringe ONE (14:57)
[2020-11-17] MEDS ORDERED: LIDOcaine 1%/PF 5ML 10 MG/ML VIAL ONE (14:58)
[2020-11-17] MEDS ORDERED: heparin 1,000unit/ml 10ml vial 10 ML ONE (15:00)
[2020-11-17 18:15] LABS: BASOPHILS % (AUTO) 0.2 % (0-1); EOSINOPHILS # (AUTO) 0.1 X10'3 (0-0.9); EOSINOPHILS % (AUTO) 1.6 % (0-6); HEMATOCRIT 24.5 % (42.0-52.0); LYMPHOCYTES # (AUTO) 1.3 X10'3 (1.1-4.8); LYMPHOCYTES % (AUTO) 13.7 % (21-51); MEAN CORPUSCULAR HEMOGLOBIN 26.5 PG (27.0-31.0); MEAN CORPUSCULAR HGB CONC 32.5 g/dL (33.0-36.5); MEAN CORPUSCULAR VOLUME 81.6 FL (78-98); MEAN PLATELET VOLUME 7.8 FL (7.4-10.4); MONOCYTES # (AUTO) 0.6 X10'3 (0-0.9); MONOCYTES % (AUTO) 6.3 % (2-12); NEUTROPHILS # (AUTO) 7.3 X10'3 (1.8-7.7); NEUTROPHILS % (AUTO) 78.2 % (42-75); PLATELET COUNT 108 X10'3 (140-440); RED CELL DISTRIBUTION WIDTH 14.6 % (11.5-14.5); WHITE BLOOD COUNT 9.3 X10'3 (4.5-11.0)
--- NOTE | 2020-11-17 18:30 | NUR ---
Patient in room [facility]. I have received report from Elyse CAMILO and had the opportunity to ask questions and assume patient care.
[2020-11-17] MEDS: insulin Lispro (HumaLOG) vial - multi-dose SQ SCH (19:00)
--- NOTE | 2020-11-17 19:09 | NUR ---
much time spent with patient. Critical resu;t of H&H 6.6, 20.1 one unit of Red blood cells given. mg 1.1 mg replaced. IJ removed to right neck following placement of left chest groshong in IR. seen by Dr Garcia. commenced on CArb count diet tolerating well. dilaudid given x2 for pain in abdomen.with effect. IV antibiotics administered as per EMAR. . report given to wes. patient appears resting at time of report.
[2020-11-17] MEDS: insulin glargine (Lantus) pen - multi-dose SQ SCH (21:13)
[2020-11-18] MEDS: HYDROmorphone 1 mg/ml syringe IV PRN ×4 (03:19→19:46)
--- NOTE | 2020-11-18 06:38 | NUR ---
Problems reprioritized. Patient report given, questions answered & plan of care reviewed with Sheeba CAMILO and Jg CAMILO.
--- NOTE | 2020-11-18 06:50 | NUR ---
Patient in room [facility] 353. I have received report from TON Alonzo and had the opportunity to ask questions and assume patient care.
[2020-11-18 06:59] LABS: BASOPHILS % (AUTO) 0.2 % (0-1); EOSINOPHILS # (AUTO) 0.2 X10'3 (0-0.9); EOSINOPHILS % (AUTO) 1.4 % (0-6); HEMATOCRIT 27.5 % (42.0-52.0); HEMOGLOBIN 8.8 g/dl (14.0-17.9); LYMPHOCYTES # (AUTO) 1.3 X10'3 (1.1-4.8); MEAN CORPUSCULAR HEMOGLOBIN 26.1 PG (27.0-31.0); MEAN CORPUSCULAR VOLUME 81.5 FL (78-98); MEAN PLATELET VOLUME 8.6 FL (7.4-10.4); MONOCYTES # (AUTO) 0.7 X10'3 (0-0.9); MONOCYTES % (AUTO) 5.6 % (2-12); NEUTROPHILS % (AUTO) 81.8 % (42-75); PLATELET COUNT 119 X10'3 (140-440); RED BLOOD COUNT 3.37 X10'6 (4.70-6.10); RED CELL DISTRIBUTION WIDTH 14.5 % (11.5-14.5); WHITE BLOOD COUNT 12.2 X10'3 (4.5-11.0)
[2020-11-18 08:00] VITALS: BP 129/77
[2020-11-18] MEDS: K and/or MAG REPLACEMENT MC SCH (08:00)
[2020-11-18 08:10] LABS: ALBUMIN 1.9 G/DL (3.4-5.0); ALBUMIN/GLOBULIN RATIO 0.4 (1.1-1.5); ALKALINE PHOSPHATASE 73 IU/L (46-116); ANION GAP 13 (8-16); ASPARTATE AMINO TRANSFERASE 14 U/L (10-37); BILIRUBIN,TOTAL 0.2 MG/DL (0.1-1.0); BLOOD UREA NITROGEN 48 MG/DL (7-18); BUN/CREATININE RATIO 15.4 (5.4-32.0); CALCIUM 7.7 MG/DL (8.5-10.1); CHLORIDE 102 MMOL/L (99-107); CREATININE 3.12 MG/DL (0.60-1.10); GLUCOSE 158 MG/DL (70-104); MAGNESIUM 2.2 MG/DL (1.5-2.4); PHOSPHORUS 4.1 MG/DL (2.3-4.5); POTASSIUM 4.4 MMOL/L (3.5-5.1); SODIUM 137 MMOL/L (135-145); TOTAL CARBON DIOXIDE 21.8 MMOL/L (24-32); TOTAL PROTEIN 7.2 G/DL (6.4-8.2); eGFR 21 ML/MIN
[2020-11-18 08:31] LABS: ALANINE AMINOTRANSFERASE < 6 U/L (12-78)
[2020-11-18] MEDS: pantoprazole 40mg Tablet.DR PO SCH (08:46)
[2020-11-18] MEDS: meropenem inj 500 MG in normal saline 100ml IV soln 100 ML IV SCH ×2 (08:46→19:45)
[2020-11-18] MEDS: tamsulosin 0.4mg capsule PO SCH (08:46)
[2020-11-18] MEDS: lactobacillus rhamnosus 10,000 MMU CELLS/CAPSULE PO SCH ×2 (08:46→19:45)
[2020-11-18] MEDS: heparin, porcine 5000 units/ml vial SQ SCH ×2 (08:47→19:45)
[2020-11-18] MEDS: vancomycin inj 500 MG in normal saline 100ml IV soln 100 ML IV SCH (08:49)
[2020-11-18] MEDS: insulin Lispro (HumaLOG) vial - multi-dose SQ SCH ×3 (09:21→19:45)
[2020-11-18 11:00] VITALS: BP 118/72
--- NOTE | 2020-11-18 16:19 | NUR ---
Orientee documentation: I have reviewed and agree with all interventions, assessments performed and documented by TON Dunn. Orientee Medication Administration: For this medication-pass time frame, all medication were reviewed, dispensed, administered and documented per hospital policy by TON Dunn .
--- NOTE | 2020-11-18 16:30 | NUR ---
Reassessment: Pt s/p IR catheter placement and nephrostomy tube exchange 11/17 per EMR. Pt PO intake average 100% on carb controlled diet, pt meeting estimated nutrient needs. Last BM 11/17. Will continue to monitor. Recommendations: 1) Continue carb controlled diet 2) Routine bowel care 3) Scaled wt per Rx Addendum: 11/18/20 at [address] Amended: Links added. Addendum: 11/18/20 at [address] I have reviewed and agree with note by Loss Prevention And Safety Manager. Lacy Biag RD
[2020-11-18 18:00] VITALS: BP 119/77
--- NOTE | 2020-11-18 18:22 | NUR ---
Problems reprioritized. Patient report given, questions answered & plan of care reviewed with TON Lazar.
[2020-11-18] MEDS: insulin glargine (Lantus) pen - multi-dose SQ SCH (22:29)
--- NOTE | 2020-11-18 22:51 | NUR ---
Colostomy bag leaking; changed.
[2020-11-18 23:29] VITALS: BP 98/60
[2020-11-19] MEDS: HYDROmorphone 1 mg/ml syringe IV PRN ×5 (00:41→21:14)
--- NOTE | 2020-11-19 06:30 | NUR ---
Problems reprioritized. Patient report given, questions answered & plan of care reviewed with Jenna RN's.
--- NOTE | 2020-11-19 06:47 | NUR ---
Patient in room [facility] 353. I have received report from TON Lazar and had the opportunity to ask questions and assume patient care.
[2020-11-19] MEDS ORDERED: VANCOMYCIN LEVEL IV ONE (07:30)
[2020-11-19 08:00] VITALS: BP 118/67
[2020-11-19 08:21] LABS: BASOPHILS % (AUTO) 0.3 % (0-1); EOSINOPHILS # (AUTO) 0.2 X10'3 (0-0.9); EOSINOPHILS % (AUTO) 2.2 % (0-6); HEMATOCRIT 26.5 % (42.0-52.0); HEMOGLOBIN 8.5 g/dl (14.0-17.9); LYMPHOCYTES # (AUTO) 1.1 X10'3 (1.1-4.8); LYMPHOCYTES % (AUTO) 13.3 % (21-51); MEAN CORPUSCULAR HEMOGLOBIN 26.6 PG (27.0-31.0); MEAN CORPUSCULAR HGB CONC 32.1 g/dL (33.0-36.5); MEAN CORPUSCULAR VOLUME 82.6 FL (78-98); MEAN PLATELET VOLUME 8.3 FL (7.4-10.4); MONOCYTES # (AUTO) 0.5 X10'3 (0-0.9); MONOCYTES % (AUTO) 6.7 % (2-12); NEUTROPHILS # (AUTO) 6.1 X10'3 (1.8-7.7); NEUTROPHILS % (AUTO) 77.5 % (42-75); PLATELET COUNT 119 X10'3 (140-440); RED CELL DISTRIBUTION WIDTH 14.4 % (11.5-14.5); WHITE BLOOD COUNT 7.9 X10'3 (4.5-11.0)
[2020-11-19 08:23] LABS: ALANINE AMINOTRANSFERASE < 6 U/L (12-78); ALBUMIN 1.8 G/DL (3.4-5.0); ALBUMIN/GLOBULIN RATIO 0.3 (1.1-1.5); ALKALINE PHOSPHATASE 66 IU/L (46-116); ANION GAP 8 (8-16); ASPARTATE AMINO TRANSFERASE 11 U/L (10-37); BILIRUBIN,TOTAL 0.1 MG/DL (0.1-1.0); BLOOD UREA NITROGEN 49 MG/DL (7-18); BUN/CREATININE RATIO 16.6 (5.4-32.0); CALCIUM 7.9 MG/DL (8.5-10.1); CHLORIDE 104 MMOL/L (99-107); CREATININE 2.96 MG/DL (0.60-1.10); GLUCOSE 186 MG/DL (70-104); MAGNESIUM 1.8 MG/DL (1.5-2.4); PHOSPHORUS 3.8 MG/DL (2.3-4.5); POTASSIUM 4.4 MMOL/L (3.5-5.1); SODIUM 136 MMOL/L (135-145); TOTAL CARBON DIOXIDE 23.9 MMOL/L (24-32); TOTAL PROTEIN 7.1 G/DL (6.4-8.2); VANCOMYCIN,TROUGH 17.3 UG/ML (6.0-14.0); eGFR 22 ML/MIN
[2020-11-19] MEDS: lactobacillus rhamnosus 10,000 MMU CELLS/CAPSULE PO SCH ×2 (08:30→19:35)
[2020-11-19] MEDS: meropenem inj 500 MG in normal saline 100ml IV soln 100 ML IV SCH ×2 (08:30→19:34)
[2020-11-19] MEDS: pantoprazole 40mg Tablet.DR PO SCH (08:32)
[2020-11-19] MEDS: tamsulosin 0.4mg capsule PO SCH (08:32)
[2020-11-19] MEDS: heparin, porcine 5000 units/ml vial SQ SCH ×2 (08:33→19:35)
[2020-11-19] MEDS: vancomycin inj 500 MG in normal saline 100ml IV soln 100 ML IV SCH (09:01)
[2020-11-19] MEDS: insulin Lispro (HumaLOG) vial - multi-dose SQ SCH ×3 (09:39→21:02)
[2020-11-19 11:00] VITALS: BP 106/61
--- NOTE | 2020-11-19 13:00 | NUR ---
Dr Batres called regarding the output of patient BRYAN drainage and I let him know that the dressings on the nephrostomy tubes need changing. He stated that he will advise the IR nurses and if they cant get here this then they can be changed saturday.
--- NOTE | 2020-11-19 18:24 | NUR ---
Patient in room [facility] 344. I have received report from Sheeba/TON Gregorio'S and had the opportunity to ask questions and assume patient care.
[2020-11-19 18:31] VITALS: BP 99/64
--- NOTE | 2020-11-19 19:05 | NUR ---
Problems reprioritized. Patient report given, questions answered & plan of care reviewed with TON Lazar.
--- NOTE | 2020-11-19 19:30 | NUR ---
Patient refusing insulin at this time. Will recheck levels at 2100.
[2020-11-19] MEDS: insulin glargine (Lantus) pen - multi-dose SQ SCH (21:03)
[2020-11-19 23:34] VITALS: BP 101/63
--- NOTE | 2020-11-20 00:15 | NUR ---
aSSUMED CARE OF PATIENT RESTING COMFORTABLY.
[2020-11-20] MEDS: HYDROmorphone 1 mg/ml syringe IV PRN ×6 (01:44→22:50)
--- NOTE | 2020-11-20 02:31 | NUR ---
RESTING COMFORTABLY HAD COMPLAINED OF PAIN 03/21 MID-ABD. GIVEN DILAUDID PER REQUEST. NOW SLEEPING.
--- NOTE | 2020-11-20 05:50 | NUR ---
appliance filled up and popped off. skin care done gown changed and new appliance applied for pt. pt tolerated well.
[2020-11-20 06:18] LABS: BASOPHILS % (AUTO) 0.5 % (0-1); EOSINOPHILS # (AUTO) 0.1 X10'3 (0-0.9); HEMATOCRIT 27.2 % (42.0-52.0); HEMOGLOBIN 8.6 g/dl (14.0-17.9); LYMPHOCYTES # (AUTO) 0.9 X10'3 (1.1-4.8); LYMPHOCYTES % (AUTO) 13.4 % (21-51); MEAN CORPUSCULAR HEMOGLOBIN 26.8 PG (27.0-31.0); MEAN CORPUSCULAR HGB CONC 31.6 g/dL (33.0-36.5); MEAN CORPUSCULAR VOLUME 84.7 FL (78-98); MEAN PLATELET VOLUME 9.1 FL (7.4-10.4); MONOCYTES # (AUTO) 0.5 X10'3 (0-0.9); MONOCYTES % (AUTO) 7.5 % (2-12); NEUTROPHILS # (AUTO) 5.1 X10'3 (1.8-7.7); NEUTROPHILS % (AUTO) 76.6 % (42-75); PLATELET COUNT 127 X10'3 (140-440); RED BLOOD COUNT 3.21 X10'6 (4.70-6.10); RED CELL DISTRIBUTION WIDTH 14.6 % (11.5-14.5); WHITE BLOOD COUNT 6.6 X10'3 (4.5-11.0)
[2020-11-20 06:35] LABS: ALANINE AMINOTRANSFERASE < 6 U/L (12-78); ALBUMIN 1.8 G/DL (3.4-5.0); ALBUMIN/GLOBULIN RATIO 0.3 (1.1-1.5); ALKALINE PHOSPHATASE 65 IU/L (46-116); ANION GAP 8 (8-16); ASPARTATE AMINO TRANSFERASE 15 U/L (10-37); BILIRUBIN,TOTAL 0.2 MG/DL (0.1-1.0); BLOOD UREA NITROGEN 53 MG/DL (7-18); BUN/CREATININE RATIO 17.7 (5.4-32.0); CALCIUM 8.4 MG/DL (8.5-10.1); CHLORIDE 106 MMOL/L (99-107); GLUCOSE 242 MG/DL (70-104); MAGNESIUM 1.7 MG/DL (1.5-2.4); PHOSPHORUS 3.9 MG/DL (2.3-4.5); POTASSIUM 5.3 MMOL/L (3.5-5.1); SODIUM 134 MMOL/L (135-145); TOTAL CARBON DIOXIDE 19.6 MMOL/L (24-32); TOTAL PROTEIN 7.3 G/DL (6.4-8.2); eGFR 22 ML/MIN
--- NOTE | 2020-11-20 06:42 | NUR ---
Patient in room [facility] 353. I have received report from TON Castro and had the opportunity to ask questions and assume patient care.
[2020-11-20 08:00] VITALS: BP 123/66
[2020-11-20] MEDS: heparin, porcine 5000 units/ml vial SQ SCH ×2 (08:25→20:09)
[2020-11-20] MEDS: lactobacillus rhamnosus 10,000 MMU CELLS/CAPSULE PO SCH ×2 (08:25→20:09)
[2020-11-20] MEDS: tamsulosin 0.4mg capsule PO SCH (08:25)
[2020-11-20] MEDS: pantoprazole 40mg Tablet.DR PO SCH (08:25)
[2020-11-20] MEDS: meropenem inj 500 MG in normal saline 100ml IV soln 100 ML IV SCH ×2 (08:26→20:10)
[2020-11-20] MEDS: vancomycin inj 500 MG in normal saline 100ml IV soln 100 ML IV SCH (08:57)
[2020-11-20] MEDS: insulin Lispro (HumaLOG) vial - multi-dose SQ SCH ×2 (10:03→19:58)
[2020-11-20 11:00] VITALS: BP 113/68
--- NOTE | 2020-11-20 13:27 | NUR ---
Reported by health unit clerk that patient feels like his blood sugar is low. Went to assess patient and he is alert and oriented and he stated he felt mild tremulous and appeared to be nauseated. Patient had lunch tray in front of him and confirmed he had eaten lunch. Patient BG level was checked and showed 71. x2 120ml orange juice and turkey sandwich was given to patient. Will continue to monitor.
--- NOTE | 2020-11-20 18:30 | NUR ---
Patient in room [facility] 353. I have received report from Shaun CAMILO and had the opportunity to ask questions and assume patient care.
[2020-11-20 19:30] VITALS: BP 126/66
--- NOTE | 2020-11-20 19:41 | NUR ---
Problems reprioritized. Patient report given, questions answered & plan of care reviewed with TON Robbins.
[2020-11-20] MEDS: insulin glargine (Lantus) pen - multi-dose SQ SCH (22:47)
[2020-11-20 23:45] VITALS: BP 111/71
[2020-11-21] VITALS: BP 111/71
[2020-11-21 06:49] LABS: BASOPHILS % (AUTO) 0.5 % (0-1); EOSINOPHILS # (AUTO) 0.2 X10'3 (0-0.9); EOSINOPHILS % (AUTO) 2.5 % (0-6); HEMATOCRIT 25.8 % (42.0-52.0); HEMOGLOBIN 8.3 g/dl (14.0-17.9); LYMPHOCYTES # (AUTO) 1.1 X10'3 (1.1-4.8); MEAN CORPUSCULAR HEMOGLOBIN 26.8 PG (27.0-31.0); MEAN CORPUSCULAR HGB CONC 32.4 g/dL (33.0-36.5); MEAN PLATELET VOLUME 8.4 FL (7.4-10.4); MONOCYTES # (AUTO) 0.5 X10'3 (0-0.9); MONOCYTES % (AUTO) 7.2 % (2-12); NEUTROPHILS # (AUTO) 4.8 X10'3 (1.8-7.7); NEUTROPHILS % (AUTO) 72.8 % (42-75); PLATELET COUNT 147 X10'3 (140-440); RED BLOOD COUNT 3.11 X10'6 (4.70-6.10); RED CELL DISTRIBUTION WIDTH 14.4 % (11.5-14.5); WHITE BLOOD COUNT 6.6 X10'3 (4.5-11.0)
--- NOTE | 2020-11-21 06:50 | NUR ---
Problems reprioritized. Patient report given, questions answered & plan of care reviewed with Tuyet Watson.
--- NOTE | 2020-11-21 06:55 | NUR ---
Patient in room [facility] 353. I have received report from Itzel CAMILO and had the opportunity to ask questions and assume patient care.
[2020-11-21 07:00] VITALS: BP 107/69
[2020-11-21 07:00] LABS: ALANINE AMINOTRANSFERASE 10 U/L (12-78); ALBUMIN 1.8 G/DL (3.4-5.0); ALBUMIN/GLOBULIN RATIO 0.3 (1.1-1.5); ALKALINE PHOSPHATASE 62 IU/L (46-116); ANION GAP 11 (8-16); ASPARTATE AMINO TRANSFERASE 9 U/L (10-37); BILIRUBIN,TOTAL 0.1 MG/DL (0.1-1.0); BLOOD UREA NITROGEN 51 MG/DL (7-18); CALCIUM 8.5 MG/DL (8.5-10.1); CHLORIDE 105 MMOL/L (99-107); CREATININE 2.83 MG/DL (0.60-1.10); GLUCOSE 210 MG/DL (70-104); MAGNESIUM 1.5 MG/DL (1.5-2.4); PHOSPHORUS 4.5 MG/DL (2.3-4.5); POTASSIUM 5.3 MMOL/L (3.5-5.1); SODIUM 138 MMOL/L (135-145); TOTAL CARBON DIOXIDE 22.1 MMOL/L (24-32); TOTAL PROTEIN 7.1 G/DL (6.4-8.2); eGFR 24 ML/MIN
[2020-11-21] MEDS: meropenem inj 500 MG in normal saline 100ml IV soln 100 ML IV SCH ×2 (07:52→19:11)
[2020-11-21] MEDS: HYDROmorphone 1 mg/ml syringe IV PRN ×3 (07:52→18:58)
[2020-11-21] MEDS: pantoprazole 40mg Tablet.DR PO SCH (07:52)
[2020-11-21] MEDS: lactobacillus rhamnosus 10,000 MMU CELLS/CAPSULE PO SCH ×2 (07:52→19:11)
[2020-11-21] MEDS: tamsulosin 0.4mg capsule PO SCH (07:52)
[2020-11-21] MEDS: vancomycin inj 500 MG in normal saline 100ml IV soln 100 ML IV SCH (09:00)
[2020-11-21] MEDS: heparin, porcine 5000 units/ml vial SQ SCH ×2 (10:57→19:11)
[2020-11-21 11:00] VITALS: BP 129/73
--- NOTE | 2020-11-21 11:26 | NUR ---
Blood sugar this am was 190mg/dl, were not able to get a chance to give the insulin coverage. At this time it is too late to catch up as the next check will be around 12 noon, I will reevaluate his blood sugar.
[2020-11-21] MEDS: insulin Lispro (HumaLOG) vial - multi-dose SQ SCH ×2 (14:17→19:09)
--- NOTE | 2020-11-21 17:00 | NUR ---
Colostomy bag on the left upper abdomen changed today. Skin surrounding the stoma slightly reddened from irritation. Medium semiformed brown stool noted.
--- NOTE | 2020-11-21 18:28 | NUR ---
Problems reprioritized. Patient report given, questions answered & plan of care reviewed with Jovana CAMILO.
--- NOTE | 2020-11-21 18:40 | NUR ---
Patient in room [facility] 348. I have received report from Tuyet CAMILO and had the opportunity to ask questions and assume patient care. Patient resting comfortably.
[2020-11-21 20:00] VITALS: BP 126/95
[2020-11-21] MEDS: insulin glargine (Lantus) pen - multi-dose SQ SCH (21:00)
[2020-11-22] MEDS: HYDROmorphone 1 mg/ml syringe IV PRN ×5 (00:09→19:51)
[2020-11-22 05:18] VITALS: BP 121/74
--- NOTE | 2020-11-22 06:18 | NUR ---
Student documentation: I have reviewed and agree with all interventions, assessments performed and documented by Willie Mack Student Nurse. Problems reprioritized. Patient report given, questions answered & plan of care reviewed with TON Farris
--- NOTE | 2020-11-22 06:43 | NUR ---
Problems reprioritized. Patient report given, questions answered & plan of care reviewed with Kaleigh CAMILO.
[2020-11-22 07:00] VITALS: BP 115/67
[2020-11-22 07:04] LABS: BASOPHILS % (AUTO) 0.6 % (0-1); EOSINOPHILS # (AUTO) 0.2 X10'3 (0-0.9); EOSINOPHILS % (AUTO) 2.6 % (0-6); HEMATOCRIT 26.4 % (42.0-52.0); HEMOGLOBIN 8.5 g/dl (14.0-17.9); LYMPHOCYTES # (AUTO) 1.3 X10'3 (1.1-4.8); LYMPHOCYTES % (AUTO) 19.9 % (21-51); MEAN CORPUSCULAR HGB CONC 32.2 g/dL (33.0-36.5); MEAN PLATELET VOLUME 8.1 FL (7.4-10.4); MONOCYTES # (AUTO) 0.5 X10'3 (0-0.9); MONOCYTES % (AUTO) 7.8 % (2-12); NEUTROPHILS # (AUTO) 4.4 X10'3 (1.8-7.7); NEUTROPHILS % (AUTO) 69.1 % (42-75); PLATELET COUNT 177 X10'3 (140-440); RED BLOOD COUNT 3.15 X10'6 (4.70-6.10); RED CELL DISTRIBUTION WIDTH 14.3 % (11.5-14.5); WHITE BLOOD COUNT 6.4 X10'3 (4.5-11.0)
[2020-11-22 07:14] LABS: ALANINE AMINOTRANSFERASE 10 U/L (12-78); ALBUMIN 1.9 G/DL (3.4-5.0); ALBUMIN/GLOBULIN RATIO 0.4 (1.1-1.5); ALKALINE PHOSPHATASE 60 IU/L (46-116); ANION GAP 9 (8-16); ASPARTATE AMINO TRANSFERASE 13 U/L (10-37); BILIRUBIN,TOTAL 0.2 MG/DL (0.1-1.0); BLOOD UREA NITROGEN 56 MG/DL (7-18); BUN/CREATININE RATIO 19.1 (5.4-32.0); CALCIUM 8.6 MG/DL (8.5-10.1); CHLORIDE 106 MMOL/L (99-107); CREATININE 2.93 MG/DL (0.60-1.10); GLUCOSE 189 MG/DL (70-104); MAGNESIUM 1.5 MG/DL (1.5-2.4); PHOSPHORUS 5.2 MG/DL (2.3-4.5); POTASSIUM 5.5 MMOL/L (3.5-5.1); SODIUM 138 MMOL/L (135-145); TOTAL PROTEIN 7.2 G/DL (6.4-8.2); eGFR 23 ML/MIN
[2020-11-22] MEDS: insulin Lispro (HumaLOG) vial - multi-dose SQ SCH ×2 (09:12→19:27)
[2020-11-22] MEDS: heparin, porcine 5000 units/ml vial SQ SCH ×2 (09:15→19:25)
[2020-11-22] MEDS: meropenem inj 500 MG in normal saline 100ml IV soln 100 ML IV SCH ×2 (09:15→19:24)
[2020-11-22] MEDS: lactobacillus rhamnosus 10,000 MMU CELLS/CAPSULE PO SCH ×2 (09:15→19:25)
[2020-11-22] MEDS: vancomycin inj 500 MG in normal saline 100ml IV soln 100 ML IV SCH (09:15)
[2020-11-22] MEDS: pantoprazole 40mg Tablet.DR PO SCH (09:16)
[2020-11-22] MEDS: tamsulosin 0.4mg capsule PO SCH (09:16)
[2020-11-22 11:00] VITALS: BP 119/76
--- NOTE | 2020-11-22 18:10 | NUR ---
Patient in room FRANKI 353. I have received report from TON Farris and had the opportunity to ask questions and assume patient care.
--- NOTE | 2020-11-22 18:23 | NUR ---
Patient in room [facility] 353. I have received report from TON Whaley and had the opportunity to ask questions and assume patient care.
--- NOTE | 2020-11-22 18:32 | NUR ---
Problems reprioritized. Patient report given, questions answered & plan of care reviewed with TON Whaley.
[2020-11-22 20:00] VITALS: BP 100/74
[2020-11-22] MEDS ORDERED: sodium polystyrene sulfonate 15gm/60ml oral suspension PO ONE (20:50)
[2020-11-22] MEDS: insulin glargine (Lantus) pen - multi-dose SQ SCH (21:39)
[2020-11-23] VITALS: BP 100/74
[2020-11-23] MEDS: HYDROmorphone 1 mg/ml syringe IV PRN ×3 (02:14→18:56)
[2020-11-23 06:11] LABS: BASOPHILS % (AUTO) 0.6 % (0-1); EOSINOPHILS # (AUTO) 0.1 X10'3 (0-0.9); EOSINOPHILS % (AUTO) 2.6 % (0-6); HEMATOCRIT 25.8 % (42.0-52.0); HEMOGLOBIN 8.1 g/dl (14.0-17.9); LYMPHOCYTES # (AUTO) 1.1 X10'3 (1.1-4.8); LYMPHOCYTES % (AUTO) 19.5 % (21-51); MEAN CORPUSCULAR HEMOGLOBIN 26.7 PG (27.0-31.0); MEAN CORPUSCULAR HGB CONC 31.3 g/dL (33.0-36.5); MEAN CORPUSCULAR VOLUME 85.3 FL (78-98); MONOCYTES # (AUTO) 0.5 X10'3 (0-0.9); NEUTROPHILS % (AUTO) 69.3 % (42-75); PLATELET COUNT 182 X10'3 (140-440); RED BLOOD COUNT 3.02 X10'6 (4.70-6.10); RED CELL DISTRIBUTION WIDTH 14.9 % (11.5-14.5); WHITE BLOOD COUNT 5.8 X10'3 (4.5-11.0)
--- NOTE | 2020-11-23 06:30 | NUR ---
Patient in room [facility] 353. I have received report from TON Whaley and had the opportunity to ask questions and assume patient care.
--- NOTE | 2020-11-23 06:31 | NUR ---
Problems reprioritized. Patient report given, questions answered & plan of care reviewed with TON Farris.
--- NOTE | 2020-11-23 06:35 | NUR ---
Patient in room FRANKI 353. I have received report from TON Farris and had the opportunity to ask questions and assume patient care.
[2020-11-23 06:39] LABS: ALANINE AMINOTRANSFERASE 11 U/L (12-78); ALBUMIN/GLOBULIN RATIO 0.4 (1.1-1.5); ALKALINE PHOSPHATASE 58 IU/L (46-116); ANION GAP 16 (8-16); ASPARTATE AMINO TRANSFERASE 12 U/L (10-37); BILIRUBIN,TOTAL 0.2 MG/DL (0.1-1.0); BLOOD UREA NITROGEN 62 MG/DL (7-18); BUN/CREATININE RATIO 20.3 (5.4-32.0); CALCIUM 8.4 MG/DL (8.5-10.1); CHLORIDE 105 MMOL/L (99-107); CREATININE 3.06 MG/DL (0.60-1.10); GLUCOSE 214 MG/DL (70-104); MAGNESIUM 1.4 MG/DL (1.5-2.4); PHOSPHORUS 5.2 MG/DL (2.3-4.5); POTASSIUM 5.1 MMOL/L (3.5-5.1); SODIUM 137 MMOL/L (135-145); TOTAL CARBON DIOXIDE 16.2 MMOL/L (24-32); TOTAL PROTEIN 7.3 G/DL (6.4-8.2); eGFR 22 ML/MIN
[2020-11-23 07:00] VITALS: BP 114/72
[2020-11-23] MEDS: meropenem inj 500 MG in normal saline 100ml IV soln 100 ML IV SCH ×2 (08:52→20:52)
[2020-11-23] MEDS: lactobacillus rhamnosus 10,000 MMU CELLS/CAPSULE PO SCH ×2 (08:52→20:52)
[2020-11-23] MEDS: heparin, porcine 5000 units/ml vial SQ SCH ×2 (08:52→20:51)
[2020-11-23] MEDS: tamsulosin 0.4mg capsule PO SCH (08:52)
[2020-11-23] MEDS: vancomycin inj 500 MG in normal saline 100ml IV soln 100 ML IV SCH (08:52)
[2020-11-23] MEDS: pantoprazole 40mg Tablet.DR PO SCH (09:41)
[2020-11-23] MEDS: insulin Lispro (HumaLOG) vial - multi-dose SQ SCH ×2 (09:43→19:10)
--- NOTE | 2020-11-23 12:00 | NUR ---
Student documentation: I have reviewed and agree with all interventions, assessments performed and documented by Elizabeth GARCIA.
[2020-11-23 14:00] VITALS: BP 108/59
--- NOTE | 2020-11-23 14:13 | NUR ---
Reassessment: Pt PO intake continues to be 75-100% on a carb controlled/renal diet. Pt meeting estimated nutrient needs. Colostomy output 500 ml 11/22 WNL, with PRN bowel care available. Per [facility] low back gluteal abscess closed with no drainage. Left lower leg abscess more superficial compared to initial full thickness status.Will continue to monitor. Recommendations: 1) Continue carb controlled diet 2) Routine bowel care 3) Weekly wts Addendum: 11/23/20 at [address] Amended: Links added. Addendum: 11/23/20 at [address] CLUADIA agrees w/ above equine internship note.
--- NOTE | 2020-11-23 16:30 | NUR ---
pt returned from ct after 2 hours prior to receiving lunch insulin. at 1630 too late to treat. will recheck at 1730.
--- NOTE | 2020-11-23 16:49 | NUR ---
Student Medication Administration: For this medication-pass time frame, all medication were reviewed, dispensed, administered and documented per hospital policy by RADHA Johnson.
--- NOTE | 2020-11-23 18:43 | NUR ---
Patient in room FRANKI 353. I have received report from TON Farris and had the opportunity to ask questions and assume patient care.
--- NOTE | 2020-11-23 18:54 | NUR ---
Problems reprioritized. Patient report given, questions answered & plan of care reviewed with TON Lazar.
[2020-11-23 20:00] VITALS: BP 136/76
[2020-11-23] MEDS: insulin glargine (Lantus) pen - multi-dose SQ SCH (21:00)
[2020-11-24] VITALS: BP 100/67
[2020-11-24] MEDS: HYDROmorphone 1 mg/ml syringe IV PRN ×6 (00:16→22:09)
[2020-11-24 04:41] LABS: BASOPHILS % (AUTO) 0.6 % (0-1); EOSINOPHILS # (AUTO) 0.1 X10'3 (0-0.9); EOSINOPHILS % (AUTO) 2.3 % (0-6); HEMATOCRIT 24.3 % (42.0-52.0); HEMOGLOBIN 7.8 g/dl (14.0-17.9); LYMPHOCYTES # (AUTO) 1.2 X10'3 (1.1-4.8); LYMPHOCYTES % (AUTO) 23.1 % (21-51); MEAN CORPUSCULAR HEMOGLOBIN 26.8 PG (27.0-31.0); MEAN CORPUSCULAR VOLUME 83.7 FL (78-98); MEAN PLATELET VOLUME 7.6 FL (7.4-10.4); MONOCYTES # (AUTO) 0.4 X10'3 (0-0.9); MONOCYTES % (AUTO) 8.6 % (2-12); NEUTROPHILS # (AUTO) 3.4 X10'3 (1.8-7.7); NEUTROPHILS % (AUTO) 65.4 % (42-75); PLATELET COUNT 194 X10'3 (140-440); WHITE BLOOD COUNT 5.2 X10'3 (4.5-11.0)
[2020-11-24 04:54] LABS: ALANINE AMINOTRANSFERASE 12 U/L (12-78); ALBUMIN 2.1 G/DL (3.4-5.0); ALBUMIN/GLOBULIN RATIO 0.4 (1.1-1.5); ALKALINE PHOSPHATASE 63 IU/L (46-116); ANION GAP 13 (8-16); ASPARTATE AMINO TRANSFERASE 11 U/L (10-37); BILIRUBIN,TOTAL 0.1 MG/DL (0.1-1.0); BLOOD UREA NITROGEN 70 MG/DL (7-18); BUN/CREATININE RATIO 22.4 (5.4-32.0); CHLORIDE 104 MMOL/L (99-107); CREATININE 3.13 MG/DL (0.60-1.10); GLUCOSE 178 MG/DL (70-104); MAGNESIUM 1.5 MG/DL (1.5-2.4); POTASSIUM 4.6 MMOL/L (3.5-5.1); SODIUM 135 MMOL/L (135-145); TOTAL CARBON DIOXIDE 18.1 MMOL/L (24-32); TOTAL PROTEIN 7.4 G/DL (6.4-8.2); eGFR 21 ML/MIN
--- NOTE | 2020-11-24 06:34 | NUR ---
Problems reprioritized. Patient report given, questions answered & plan of care reviewed with TON Hopkins.
[2020-11-24 07:45] VITALS: BP 97/69
[2020-11-24] MEDS: tamsulosin 0.4mg capsule PO SCH (08:22)
[2020-11-24] MEDS: lactobacillus rhamnosus 10,000 MMU CELLS/CAPSULE PO SCH ×2 (08:22→20:51)
[2020-11-24] MEDS: pantoprazole 40mg Tablet.DR PO SCH (08:22)
[2020-11-24] MEDS: meropenem inj 500 MG in normal saline 100ml IV soln 100 ML IV SCH ×2 (08:24→20:52)
[2020-11-24] MEDS: heparin, porcine 5000 units/ml vial SQ SCH ×2 (08:24→20:53)
[2020-11-24] MEDS: vancomycin inj 500 MG in normal saline 100ml IV soln 100 ML IV SCH (09:54)
[2020-11-24] MEDS: insulin Lispro (HumaLOG) vial - multi-dose SQ SCH ×3 (09:59→19:01)
[2020-11-24 12:16] VITALS: BP 102/75
[2020-11-24 18:00] VITALS: BP 98/60
--- NOTE | 2020-11-24 18:16 | NUR ---
Problems reprioritized. Patient report given, questions answered & plan of care reviewed with pieter sotomayor RN.
--- NOTE | 2020-11-24 18:19 | NUR ---
Patient in room [facility] 353. I have received report from TON Hopkins and had the opportunity to ask questions and assume patient care.
[2020-11-24] MEDS: insulin glargine (Lantus) pen - multi-dose SQ SCH (21:24)
[2020-11-25] VITALS: BP 87/50
--- NOTE | 2020-11-25 01:17 | NUR ---
Colostomy bag changed.
[2020-11-25] MEDS: HYDROmorphone 1 mg/ml syringe IV PRN ×5 (03:03→22:49)
--- NOTE | 2020-11-25 06:14 | NUR ---
Problems reprioritized. Patient report given, questions answered & plan of care reviewed with TON Hopkins.
[2020-11-25 07:30] VITALS: BP 115/81
[2020-11-25] MEDS ORDERED: VANCOMYCIN LEVEL IV ONE (07:30)
[2020-11-25] MEDS: meropenem inj 500 MG in normal saline 100ml IV soln 100 ML IV SCH ×2 (07:51→19:45)
[2020-11-25] MEDS: tamsulosin 0.4mg capsule PO SCH (07:54)
[2020-11-25] MEDS: vancomycin inj 500 MG in normal saline 100ml IV soln 100 ML IV SCH (07:54)
[2020-11-25] MEDS: pantoprazole 40mg Tablet.DR PO SCH (07:54)
[2020-11-25] MEDS: lactobacillus rhamnosus 10,000 MMU CELLS/CAPSULE PO SCH (07:54)
[2020-11-25] MEDS: heparin, porcine 5000 units/ml vial SQ SCH ×2 (07:56→19:45)
[2020-11-25] MEDS: insulin Lispro (HumaLOG) vial - multi-dose SQ SCH ×2 (09:24→18:52)
[2020-11-25 09:41] LABS: BASOPHILS % (AUTO) 0.8 % (0-1); EOSINOPHILS # (AUTO) 0.1 X10'3 (0-0.9); EOSINOPHILS % (AUTO) 2.2 % (0-6); HEMATOCRIT 24.6 % (42.0-52.0); HEMOGLOBIN 7.9 g/dl (14.0-17.9); LYMPHOCYTES # (AUTO) 1.1 X10'3 (1.1-4.8); MEAN CORPUSCULAR HGB CONC 32.2 g/dL (33.0-36.5); MEAN CORPUSCULAR VOLUME 83.8 FL (78-98); MEAN PLATELET VOLUME 7.9 FL (7.4-10.4); MONOCYTES # (AUTO) 0.4 X10'3 (0-0.9); MONOCYTES % (AUTO) 9.6 % (2-12); NEUTROPHILS # (AUTO) 2.9 X10'3 (1.8-7.7); NEUTROPHILS % (AUTO) 63.4 % (42-75); PLATELET COUNT 190 X10'3 (140-440); RED BLOOD COUNT 2.93 X10'6 (4.70-6.10); RED CELL DISTRIBUTION WIDTH 15.1 % (11.5-14.5); WHITE BLOOD COUNT 4.6 X10'3 (4.5-11.0)
[2020-11-25 09:58] LABS: ALANINE AMINOTRANSFERASE 12 U/L (12-78); ALBUMIN 2.1 G/DL (3.4-5.0); ALBUMIN/GLOBULIN RATIO 0.4 (1.1-1.5); ALKALINE PHOSPHATASE 61 IU/L (46-116); ANION GAP 14 (8-16); ASPARTATE AMINO TRANSFERASE 15 U/L (10-37); BILIRUBIN,TOTAL 0.2 MG/DL (0.1-1.0); BLOOD UREA NITROGEN 79 MG/DL (7-18); BUN/CREATININE RATIO 23.4 (5.4-32.0); CALCIUM 8.3 MG/DL (8.5-10.1); CHLORIDE 103 MMOL/L (99-107); CREATININE 3.38 MG/DL (0.60-1.10); GLUCOSE 151 MG/DL (70-104); MAGNESIUM 1.4 MG/DL (1.5-2.4); PHOSPHORUS 5.9 MG/DL (2.3-4.5); POTASSIUM 4.9 MMOL/L (3.5-5.1); SODIUM 134 MMOL/L (135-145); TOTAL CARBON DIOXIDE 17.5 MMOL/L (24-32); TOTAL PROTEIN 7.5 G/DL (6.4-8.2); eGFR 19 ML/MIN
[2020-11-25 10:00] LABS: VANCOMYCIN,TROUGH 20.2 UG/ML (6.0-14.0)
[2020-11-25 11:00] VITALS: BP 118/54
[2020-11-25 18:00] VITALS: BP 103/69
--- NOTE | 2020-11-25 18:07 | NUR ---
Problems reprioritized. Patient report given, questions answered & plan of care reviewed with TON VALENCIA.
--- NOTE | 2020-11-25 18:15 | NUR ---
Patient in room [facility] 353. I have received report from TON Hopkins and had the opportunity to ask questions and assume patient care.
[2020-11-25] MEDS: insulin glargine (Lantus) pen - multi-dose SQ SCH (21:00)
[2020-11-25] MEDS: dextrose ORAL solution 15 GM/59 ML bottle PO PRN ×2 (21:11→21:28)
[2020-11-25 23:30] VITALS: BP 91/51
[2020-11-26] MEDS: HYDROmorphone 1 mg/ml syringe IV PRN ×4 (04:56→17:15)
[2020-11-26 05:44] LABS: BASOPHILS % (AUTO) 0.5 % (0-1); EOSINOPHILS # (AUTO) 0.1 X10'3 (0-0.9); EOSINOPHILS % (AUTO) 2.3 % (0-6); HEMATOCRIT 23.5 % (42.0-52.0); HEMOGLOBIN 7.5 g/dl (14.0-17.9); LYMPHOCYTES % (AUTO) 26.8 % (21-51); MEAN CORPUSCULAR HEMOGLOBIN 26.9 PG (27.0-31.0); MEAN CORPUSCULAR VOLUME 84.2 FL (78-98); MEAN PLATELET VOLUME 7.7 FL (7.4-10.4); MONOCYTES # (AUTO) 0.3 X10'3 (0-0.9); MONOCYTES % (AUTO) 9.1 % (2-12); NEUTROPHILS # (AUTO) 2.2 X10'3 (1.8-7.7); NEUTROPHILS % (AUTO) 61.3 % (42-75); PLATELET COUNT 163 X10'3 (140-440); RED BLOOD COUNT 2.79 X10'6 (4.70-6.10); RED CELL DISTRIBUTION WIDTH 14.9 % (11.5-14.5); WHITE BLOOD COUNT 3.6 X10'3 (4.5-11.0)
[2020-11-26 05:47] LABS: ALANINE AMINOTRANSFERASE 10 U/L (12-78); ALBUMIN 2.1 G/DL (3.4-5.0); ALBUMIN/GLOBULIN RATIO 0.4 (1.1-1.5); ALKALINE PHOSPHATASE 60 IU/L (46-116); ANION GAP 13 (8-16); ASPARTATE AMINO TRANSFERASE 11 U/L (10-37); BILIRUBIN,TOTAL 0.2 MG/DL (0.1-1.0); BLOOD UREA NITROGEN 79 MG/DL (7-18); BUN/CREATININE RATIO 23.4 (5.4-32.0); CALCIUM 8.2 MG/DL (8.5-10.1); CHLORIDE 104 MMOL/L (99-107); CREATININE 3.38 MG/DL (0.60-1.10); GLUCOSE 231 MG/DL (70-104); MAGNESIUM 1.6 MG/DL (1.5-2.4); PHOSPHORUS 5.8 MG/DL (2.3-4.5); POTASSIUM 5.1 MMOL/L (3.5-5.1); SODIUM 135 MMOL/L (135-145); TOTAL CARBON DIOXIDE 17.9 MMOL/L (24-32); TOTAL PROTEIN 7.4 G/DL (6.4-8.2); eGFR 19 ML/MIN
--- NOTE | 2020-11-26 06:12 | NUR ---
Problems reprioritized. Patient report given, questions answered & plan of care reviewed with TON Rodriguez.
--- NOTE | 2020-11-26 06:39 | NUR ---
Patient in room [facility] 353. I have received report from Sheryl Benavides RN and had the opportunity to ask questions and assume patient care.
[2020-11-26 06:55] VITALS: BP 112/69
[2020-11-26] MEDS: heparin, porcine 5000 units/ml vial SQ SCH ×2 (07:08→19:46)
[2020-11-26] MEDS: meropenem inj 500 MG in normal saline 100ml IV soln 100 ML IV SCH ×2 (07:08→19:40)
[2020-11-26] MEDS: pantoprazole 40mg Tablet.DR PO SCH (07:09)
[2020-11-26] MEDS: tamsulosin 0.4mg capsule PO SCH (07:09)
[2020-11-26] MEDS: insulin Lispro (HumaLOG) vial - multi-dose SQ SCH ×3 (08:24→19:06)
[2020-11-26] MEDS: vancomycin inj 500 MG in normal saline 100ml IV soln 100 ML IV SCH (08:30)
[2020-11-26 10:13] LABS: % IRON SATURATION 29 % (11-46); IRON 50 UG/DL (53-167); TOTAL IRON BINDING CAPACITY 175 UG/DL (259-388)
[2020-11-26 11:00] VITALS: BP 112/73
--- NOTE | 2020-11-26 13:56 | NUR ---
Dr Hernandez at patients bedside to discontinue BRYAN drains. Patient tolerated well 4x4 gauze and tegaderm no bleeding noted.
--- NOTE | 2020-11-26 17:00 | NUR ---
PAGER ID: [phone] MESSAGE: Jennifer-Surg [phone] Re: Doreen is there anything he can take PO for pain to get ready for home
--- NOTE | 2020-11-26 18:23 | NUR ---
Problems reprioritized. Patient report given, questions answered & plan of care reviewed with Sara Ruiz RN.
--- NOTE | 2020-11-26 18:23 | NUR ---
PAGER ID: [phone] MESSAGE: MESSAGE: Jennifer-Liang [phone] Re: Doreen is there anything he can take PO for pain to get ready for home Addendum: 11/26/20 at 1831 by Jennifer Barone RN Received orders for Oxycodone 5mg PO mod / severe pain Q4h prn, and 10mg po Severe pain Q4h prn
[2020-11-26 18:30] VITALS: BP 105/66
[2020-11-26] MEDS ORDERED: oxyCODONE IR 5mg (immed. release) tablet PO PRN (18:30)
--- NOTE | 2020-11-26 18:30 | NUR ---
Patient in room [facility] 353. I have received report from ELISHA CAMILO and had the opportunity to ask questions and assume patient care.
[2020-11-26] MEDS: insulin glargine (Lantus) pen - multi-dose SQ SCH (21:26)
[2020-11-26] MEDS: oxyCODONE IR 5mg (immed. release) tablet PO PRN (21:28)
[2020-11-27] VITALS: BP 112/70
[2020-11-27] MEDS: HYDROmorphone 1 mg/ml syringe IV PRN ×2 (00:20→11:44)
[2020-11-27 06:22] LABS: BASOPHILS % (AUTO) 0.6 % (0-1); EOSINOPHILS # (AUTO) 0.1 X10'3 (0-0.9); EOSINOPHILS % (AUTO) 3.3 % (0-6); HEMATOCRIT 23.4 % (42.0-52.0); HEMOGLOBIN 7.6 g/dl (14.0-17.9); LYMPHOCYTES # (AUTO) 1.1 X10'3 (1.1-4.8); MEAN CORPUSCULAR HEMOGLOBIN 27.6 PG (27.0-31.0); MEAN CORPUSCULAR HGB CONC 32.6 g/dL (33.0-36.5); MEAN CORPUSCULAR VOLUME 84.7 FL (78-98); MONOCYTES # (AUTO) 0.3 X10'3 (0-0.9); MONOCYTES % (AUTO) 9.1 % (2-12); NEUTROPHILS # (AUTO) 1.8 X10'3 (1.8-7.7); PLATELET COUNT 179 X10'3 (140-440); RED BLOOD COUNT 2.76 X10'6 (4.70-6.10); RED CELL DISTRIBUTION WIDTH 15.4 % (11.5-14.5); WHITE BLOOD COUNT 3.4 X10'3 (4.5-11.0)
[2020-11-27 06:28] LABS: ALANINE AMINOTRANSFERASE 12 U/L (12-78); ALBUMIN 2.2 G/DL (3.4-5.0); ALBUMIN/GLOBULIN RATIO 0.4 (1.1-1.5); ALKALINE PHOSPHATASE 62 IU/L (46-116); ANION GAP 13 (8-16); ASPARTATE AMINO TRANSFERASE 6 U/L (10-37); BILIRUBIN,TOTAL 0.2 MG/DL (0.1-1.0); BLOOD UREA NITROGEN 80 MG/DL (7-18); CALCIUM 8.2 MG/DL (8.5-10.1); CHLORIDE 106 MMOL/L (99-107); GLUCOSE 172 MG/DL (70-104); MAGNESIUM 1.6 MG/DL (1.5-2.4); PHOSPHORUS 5.6 MG/DL (2.3-4.5); POTASSIUM 4.7 MMOL/L (3.5-5.1); SODIUM 137 MMOL/L (135-145); TOTAL CARBON DIOXIDE 17.8 MMOL/L (24-32); TOTAL PROTEIN 7.6 G/DL (6.4-8.2); eGFR 20 ML/MIN
--- NOTE | 2020-11-27 06:30 | NUR ---
Problems reprioritized. Patient report given, questions answered & plan of care reviewed with SHANEKA CAMILO AND APPLE RN .
--- NOTE | 2020-11-27 06:30 | NUR ---
Patient in room [facility] 353. I have received report from Nydia CAMILO and had the opportunity to ask questions and assume patient care.
[2020-11-27] MEDS: tamsulosin 0.4mg capsule PO SCH (07:53)
[2020-11-27] MEDS: pantoprazole 40mg Tablet.DR PO SCH (07:53)
[2020-11-27] MEDS: meropenem inj 500 MG in normal saline 100ml IV soln 100 ML IV SCH ×2 (07:53→19:20)
[2020-11-27] MEDS: heparin, porcine 5000 units/ml vial SQ SCH ×2 (07:54→19:22)
[2020-11-27 08:00] VITALS: BP 113/68
[2020-11-27] MEDS: oxyCODONE IR 5mg (immed. release) tablet PO PRN (08:05)
[2020-11-27] MEDS: insulin Lispro (HumaLOG) vial - multi-dose SQ SCH ×3 (09:28→19:18)
[2020-11-27] MEDS: vancomycin inj 500 MG in normal saline 100ml IV soln 100 ML IV SCH (09:37)
[2020-11-27] MEDS ORDERED: iohexol 300mg/ml 100ml inj. ONE (11:08)
[2020-11-27 12:00] VITALS: BP 106/68
--- NOTE | 2020-11-27 12:35 | NUR ---
DM Consult: addressed; see prior RD note. Addendum: 11/27/20 at [address] Amended: Links added.
--- NOTE | 2020-11-27 16:11 | NUR ---
Patient requested to have BS taken. BS 65. Patient requested to have juice and not the glucose shots. Will follow the protocol continued.
--- NOTE | 2020-11-27 18:21 | NUR ---
Problems reprioritized. Patient report given, questions answered & plan of care reviewed with Alley CAMILO.
--- NOTE | 2020-11-27 18:36 | NUR ---
I have received report from Montez CAMILO and Jackelyn CAMILO and had the opportunity to ask questions and assume patient care.
[2020-11-27 19:00] VITALS: BP 94/61
[2020-11-27] MEDS: morphine ER 15mg tablet PO SCH (19:21)
[2020-11-27] MEDS: insulin glargine (Lantus) pen - multi-dose SQ SCH (21:28)
[2020-11-28] VITALS: BP 90/53
[2020-11-28 00:30] VITALS: BP 100/53
--- NOTE | 2020-11-28 06:25 | NUR ---
Problems reprioritized. Patient report given, questions answered & plan of care reviewed with Chelsie CAMILO.
[2020-11-28 06:35] LABS: ALANINE AMINOTRANSFERASE 12 U/L (12-78); ALBUMIN 2.2 G/DL (3.4-5.0); ALBUMIN/GLOBULIN RATIO 0.4 (1.1-1.5); ALKALINE PHOSPHATASE 59 IU/L (46-116); ANION GAP 14 (8-16); ASPARTATE AMINO TRANSFERASE 10 U/L (10-37); BILIRUBIN,TOTAL 0.2 MG/DL (0.1-1.0); BLOOD UREA NITROGEN 76 MG/DL (7-18); BUN/CREATININE RATIO 22.6 (5.4-32.0); CALCIUM 8.3 MG/DL (8.5-10.1); CHLORIDE 109 MMOL/L (99-107); CREATININE 3.37 MG/DL (0.60-1.10); GLUCOSE 117 MG/DL (70-104); MAGNESIUM 1.6 MG/DL (1.5-2.4); PHOSPHORUS 5.7 MG/DL (2.3-4.5); POTASSIUM 4.8 MMOL/L (3.5-5.1); SODIUM 139 MMOL/L (135-145); TOTAL CARBON DIOXIDE 15.7 MMOL/L (24-32); TOTAL PROTEIN 7.4 G/DL (6.4-8.2); eGFR 19 ML/MIN
--- NOTE | 2020-11-28 06:57 | NUR ---
Patient in room [facility] 353. I have received report from Alley CAMILO and had the opportunity to ask questions and assume patient care.
[2020-11-28 07:13] LABS: BASOPHILS % (AUTO) 0.7 % (0-1); EOSINOPHILS # (AUTO) 0.1 X10'3 (0-0.9); EOSINOPHILS % (AUTO) 3.4 % (0-6); HEMOGLOBIN 7.3 g/dl (14.0-17.9); LYMPHOCYTES % (AUTO) 29.7 % (21-51); MEAN CORPUSCULAR HEMOGLOBIN 27.9 PG (27.0-31.0); MEAN CORPUSCULAR VOLUME 84.4 FL (78-98); MEAN PLATELET VOLUME 7.8 FL (7.4-10.4); MONOCYTES # (AUTO) 0.3 X10'3 (0-0.9); MONOCYTES % (AUTO) 10.6 % (2-12); NEUTROPHILS # (AUTO) 1.8 X10'3 (1.8-7.7); NEUTROPHILS % (AUTO) 55.6 % (42-75); PLATELET COUNT 172 X10'3 (140-440); RED CELL DISTRIBUTION WIDTH 15.7 % (11.5-14.5); WHITE BLOOD COUNT 3.3 X10'3 (4.5-11.0)
[2020-11-28] MEDS: pantoprazole 40mg Tablet.DR PO SCH (07:23)
[2020-11-28] MEDS: tamsulosin 0.4mg capsule PO SCH (07:23)
[2020-11-28] MEDS: morphine ER 15mg tablet PO SCH (07:27)
[2020-11-28] MEDS: vancomycin inj 500 MG in normal saline 100ml IV soln 100 ML IV SCH (07:28)
[2020-11-28] MEDS: meropenem inj 500 MG in normal saline 100ml IV soln 100 ML IV SCH (07:28)
--- NOTE | 2020-11-28 07:42 | NUR ---
CRITICAL HCT 22.0, DR DAMON AWAITING CALL BACK
[2020-11-28 08:00] VITALS: BP 91/52
[2020-11-28] MEDS: heparin, porcine 5000 units/ml vial SQ SCH (08:11)
[2020-11-28] MEDS: insulin Lispro (HumaLOG) vial - multi-dose SQ SCH (10:25)
[2020-11-28 11:00] VITALS: BP 111/71
[2020-11-28 11:22] LABS: HEMATOCRIT 24.5 % (42.0-52.0); HEMOGLOBIN 7.8 g/dl (14.0-17.9); MEAN CORPUSCULAR HEMOGLOBIN 27.2 PG (27.0-31.0); MEAN CORPUSCULAR HGB CONC 31.9 g/dL (33.0-36.5); MEAN CORPUSCULAR VOLUME 85.1 FL (78-98); MEAN PLATELET VOLUME 7.8 FL (7.4-10.4); PLATELET COUNT 180 X10'3 (140-440); RED BLOOD COUNT 2.88 X10'6 (4.70-6.10); RED CELL DISTRIBUTION WIDTH 15.6 % (11.5-14.5); WHITE BLOOD COUNT 4.3 X10'3 (4.5-11.0)
--- NOTE | 2020-11-28 11:50 | NUR ---
Page Sent PAGER ID: [phone] MESSAGE: Patient Gustavo Whitman Rm 353 Hct has increased from 22.0 to 24.5, and Hgb has increased from 7.3 to 7.8 [place] ext [id number]
[2020-11-28] MEDS ORDERED: MSC15T PO (11:58)
--- NOTE | 2020-11-28 12:05 | NUR ---
LOOKED OVER DINORA MCADAMS RN CHARTING, AGREE WITH ASSESSMENTS
--- NOTE | 2020-11-28 16:10 | NUR ---
Reassessment: Pt PO intake 75-100% on a carb controlled renal diet. Pt meeting estimated nutrient needs. Colostomy output 850 ml on 11/28 WNL with PRN bowel care available. No new [facility] note information but lower leg abscess continues to heal. Will continue to follow. Recommendations: 1) Continue carb controlled, Renal diet 2) Routine bowel care 3) Weekly wts Addendum: 11/28/20 at [address] Amended: Links added. Addendum: 11/28/20 at [address] CLAUDIA mondragon w/ above [employer] internship note.
[2020-11-29] MEDS ORDERED: VANCOMYCIN LEVEL IV ONE (07:30)
== END 2020-11-28 15:28 | disposition home health service (06) | DRG 720 ==
LOC: ER 03:42 → ED HOLD 09:46 → CICU 2S 15:41 → SUR 3N 11-16 15:39
PROVIDERS: ADMIT Internal Medicine Critical Care Medicine; ATTEND Family Medicine
PROC: 0W9J30Z Drainage of Pelvic Cavity with Drainage Device, Percutaneous Approach (ICD-10-PCS; principal; 2020-11-14)
PROC: 30233N1 Transfusion of Nonautologous Red Blood Cells into Peripheral Vein, Percutaneous Approach (ICD-10-PCS; 2020-11-17)
PROC: 0JH63XZ Insertion of Tunneled Vascular Access Device into Chest Subcutaneous Tissue and Fascia, Percutaneous Approach (ICD-10-PCS; 2020-11-17)
PROC: 02H633Z Insertion of Infusion Device into Right Atrium, Percutaneous Approach (ICD-10-PCS; 2020-11-17)
PROC: B5181ZA Fluoroscopy of Superior Vena Cava using Low Osmolar Contrast, Guidance (ICD-10-PCS; 2020-11-17)
PROC: B548ZZA Ultrasonography of Superior Vena Cava, Guidance (ICD-10-PCS; 2020-11-17)
DX: A41.9 Sepsis, unspecified organism (principal); N17.9 Acute kidney failure, unspecified; E11.22 Type 2 diabetes mellitus with diabetic chronic kidney disease; E11.65 Type 2 diabetes mellitus with hyperglycemia; N13.6 Pyonephrosis; E87.1 Hypo-osmolality and hyponatremia; Z93.3 Colostomy status; L03.311 Cellulitis of abdominal wall; B96.20 Unspecified Escherichia coli [E. coli] as the cause of diseases classified elsewhere; Z16.12 Extended spectrum beta lactamase (ESBL) resistance; E83.42 Hypomagnesemia; D64.9 Anemia, unspecified; Z93.6 Other artificial openings of urinary tract status; E86.0 Dehydration; L02.211 Cutaneous abscess of abdominal wall; N18.9 Chronic kidney disease, unspecified; Z83.3 Family history of diabetes mellitus; Z87.440 Personal history of urinary (tract) infections; Z90.49 Acquired absence of other specified parts of digestive tract
CPT/HCPCS: 36415; 36430; 36558; 36600; 49406; 71045; 74176; 76937; 77001; 80053; 80202; 81001; 82150; 82803; 82948; 83540; 83550; 83605; 83690; 83735; 84100; 84145; 84484; 85007; 85018; 85025; 85027; 85610; 85651; 85730; 86140; 86885; 86900; 86901; 86920; 87040; 87070; 87075; 87077; 87081; 87088; 87102; 87186; 93005; 93306; 93308; 94760; 96361; 96365; 96375; 97110; 97116; 97161; 97530; 99291; 99292; A9270; C1751; C1894; C9113; G0378; J1170; J1644; J1815; J2185; J2250; J2270; J2405; J2543; J3010; J3370; J3475; J3480; J7030; P9016; P9047; Q9967

== ENCOUNTER 2020-12-08 08:42 | Day surgery (SDC) | payer MEDICAID ==
[~2020-12-08] VITALS: Ht 177.8 cm; Wt 84.1 kg
[~2020-12-08 08:42] MED LIST changes: +MSC15T PO
[2020-12-08] MEDS ORDERED: cefazolin/dext.iso 2gm/100ml 100 ML IV ONE (09:05)
[2020-12-08] MEDS ORDERED: normal saline 1000ml 1,000 ML IV PRN (09:05)
[2020-12-08] MEDS ORDERED: VANC500F2 (09:06)
[2020-12-08] MEDS ORDERED: MERO500P (09:06)
[2020-12-08] MEDS ORDERED: MSC15T PO (09:06)
[2020-12-08] MEDS ORDERED: glucagon, human recombinant 1mg kit SUBCUT PRN (09:35)
[2020-12-08] MEDS ORDERED: dextrose 50%-water 50ml dispensing syringe IV PRN ×2 (09:35)
[2020-12-08] MEDS ORDERED: dextrose ORAL solution 15 GM/59 ML bottle PO PRN ×2 (09:35)
[2020-12-08 09:46] LABS: BASOPHILS % (AUTO) 0.6 % (0-1); EOSINOPHILS # (AUTO) 0.3 X10'3 (0-0.9); EOSINOPHILS % (AUTO) 4.5 % (0-6); HEMATOCRIT 23.9 % (42.0-52.0); HEMOGLOBIN 7.6 g/dl (14.0-17.9); LYMPHOCYTES # (AUTO) 1.4 X10'3 (1.1-4.8); LYMPHOCYTES % (AUTO) 22.3 % (21-51); MEAN CORPUSCULAR VOLUME 87.4 FL (78-98); MEAN PLATELET VOLUME 7.3 FL (7.4-10.4); MONOCYTES # (AUTO) 0.6 X10'3 (0-0.9); MONOCYTES % (AUTO) 8.7 % (2-12); NEUTROPHILS % (AUTO) 63.9 % (42-75); PLATELET COUNT 183 X10'3 (140-440); RED BLOOD COUNT 2.73 X10'6 (4.70-6.10); RED CELL DISTRIBUTION WIDTH 16.4 % (11.5-14.5); WHITE BLOOD COUNT 6.3 X10'3 (4.5-11.0)
[2020-12-08 09:49] LABS: ALBUMIN 2.5 G/DL (3.4-5.0); ANION GAP 17 (8-16); BLOOD UREA NITROGEN 65 MG/DL (7-18); CALCIUM 7.3 MG/DL (8.5-10.1); CHLORIDE 115 MMOL/L (99-107); CREATININE 3.42 MG/DL (0.60-1.10); GLUCOSE 74 MG/DL (70-104); POTASSIUM 4.5 MMOL/L (3.5-5.1); SODIUM 142 MMOL/L (135-145); eGFR 19 ML/MIN
[2020-12-08 09:52] LABS: TOTAL CARBON DIOXIDE 10.2 MMOL/L (24-32)
--- NOTE | 2020-12-08 10:01 | NUR ---
Notified Dr. Silverman of critical 10.2 co2 on labs. No new orders.
[2020-12-08] MEDS ORDERED: midazolam 1 mg/ML 2ml injection ONE ×2 (10:07→11:27)
[2020-12-08] MEDS ORDERED: fentaNYL/PF 50MCG/1 ML 2ML syringe ONE ×3 (10:07→11:40)
[2020-12-08] MEDS ORDERED: iohexol 300 MG/1 ML 50ml polymer ONE (10:16)
[2020-12-08] MEDS ORDERED: LIDOcaine 1%/PF 5ML 10 MG/ML VIAL ONE (10:16)
[2020-12-08 10:35] VITALS: BP 102/65
[2020-12-08 12:00] VITALS: BP 106/70
[2020-12-08 12:15] VITALS: BP 116/72
[2020-12-08 12:30] VITALS: BP 121/84
[2020-12-08 12:45] VITALS: BP 124/95
[2020-12-08 13:00] VITALS: BP 116/67
== END 2020-12-08 13:15 | disposition home or self-care (01) ==
LOC: SSTAY O 08:42
PROVIDERS: ATTEND Radiology Vascular & Interventional Radiology
DX: N13.2 Hydronephrosis with renal and ureteral calculous obstruction (principal); R33.9 Retention of urine, unspecified
CPT/HCPCS: 36415; 50688; 50693; 80048; 82948; 85025; C1729; C1769; J2250; J3010; Q9967; 99152; 99153

== ENCOUNTER 2021-01-21 17:46 | Emergency (ER) | payer MEDICAID ==
[~2021-01-21] VITALS: Ht 175.3 cm; Wt 66.7 kg
[~2021-01-21 17:46] MED LIST changes: +MERO500P; +VANC500F2
[2021-01-21 18:07] VITALS: BP 157/90
[2021-01-21] MEDS ORDERED: LIDOcaine 1% W/epiNEPHrine 1:200,000 10ml vial IJ ONE (23:20)
== END 2021-01-22 00:16 | disposition home or self-care (01) ==
LOC: ER 17:47
DX: Z48.02 Encounter for removal of sutures (principal); Z85.038 Personal history of other malignant neoplasm of large intestine; Z98.890 Other specified postprocedural states; Z79.4 Long term (current) use of insulin; Z79.899 Other long term (current) drug therapy
CPT/HCPCS: 99282

== ENCOUNTER 2021-01-29 02:51 | Inpatient (IN) | payer MEDICAID ==
[~2021-01-29] VITALS: Ht 175.3 cm; Wt 83.0 kg
[2021-01-29 05:14] LABS: BASOPHILS % (AUTO) 0.4 % (0-1); EOSINOPHILS # (AUTO) 0.1 X10'3 (0-0.9); EOSINOPHILS % (AUTO) 1.4 % (0-6); HEMATOCRIT 31.4 % (42.0-52.0); HEMOGLOBIN 10.3 g/dl (14.0-17.9); LYMPHOCYTES # (AUTO) 1.5 X10'3 (1.1-4.8); LYMPHOCYTES % (AUTO) 14.5 % (21-51); MEAN CORPUSCULAR HEMOGLOBIN 27.3 PG (27.0-31.0); MEAN CORPUSCULAR HGB CONC 32.8 g/dL (33.0-36.5); MEAN CORPUSCULAR VOLUME 83.5 FL (78-98); MEAN PLATELET VOLUME 8.2 FL (7.4-10.4); MONOCYTES # (AUTO) 0.8 X10'3 (0-0.9); MONOCYTES % (AUTO) 7.9 % (2-12); NEUTROPHILS # (AUTO) 7.8 X10'3 (1.8-7.7); NEUTROPHILS % (AUTO) 75.8 % (42-75); PLATELET COUNT 206 X10'3 (140-440); RED BLOOD COUNT 3.76 X10'6 (4.70-6.10); RED CELL DISTRIBUTION WIDTH 15.6 % (11.5-14.5); WHITE BLOOD COUNT 10.2 X10'3 (4.5-11.0)
[2021-01-29 05:29] LABS: ALANINE AMINOTRANSFERASE 13 U/L (12-78); ALBUMIN 2.9 G/DL (3.4-5.0); ALBUMIN/GLOBULIN RATIO 0.5 (1.1-1.5); ALKALINE PHOSPHATASE 117 IU/L (46-116); ANION GAP 12 (8-16); ASPARTATE AMINO TRANSFERASE 6 U/L (10-37); BILIRUBIN,TOTAL 0.2 MG/DL (0.1-1.0); BLOOD UREA NITROGEN 74 MG/DL (7-18); BUN/CREATININE RATIO 15.7 (5.4-32.0); CALCIUM 8.7 MG/DL (8.5-10.1); CHLORIDE 103 MMOL/L (99-107); GLUCOSE 266 MG/DL (70-104); SODIUM 134 MMOL/L (135-145); TOTAL CARBON DIOXIDE 18.8 MMOL/L (24-32); TOTAL PROTEIN 8.4 G/DL (6.4-8.2); eGFR 13 ML/MIN
[2021-01-29] MEDS ORDERED: ondansetron/PF 4mg/2ml inj IV PRN (07:15)
[2021-01-29] MEDS ORDERED: acetaminophen 325mg tablet PO PRN (07:15)
[2021-01-29] MEDS ORDERED: magnesium hydroxide 30ml (MOM) UD suspension PO PRN (07:15)
[2021-01-29] MEDS ORDERED: mag hydrox/Alum hydrox/simeth 30ml oral suspension PO PRN (07:15)
[2021-01-29 09:15] VITALS: BP 126/76
--- NOTE | 2021-01-29 11:00 | NUR ---
Patient in room [facility] 351. I have received report from CHELA CAMILO and had the opportunity to ask questions and assume patient care.
[2021-01-29 18:00] VITALS: BP 138/76
--- NOTE | 2021-01-29 18:49 | NUR ---
Problems reprioritized. Patient report given, questions answered & plan of care reviewed with YAKELIN CAMILO.
--- NOTE | 2021-01-29 18:56 | NUR ---
Patient in room [facility] 351. I have received report from LAUREL CAMILO and had the opportunity to ask questions and assume patient care. Addendum: 01/29/21 at 1856 by Aylin Mejia RN Amended: Links added.
[2021-01-29] MEDS: morphine ER 15mg tablet PO SCH (20:20)
[2021-01-29] MEDS: insulin Lispro (HumaLOG) vial - multi-dose SQ PRN (20:32)
[2021-01-29] MEDS: insulin glargine (Lantus) pen - multi-dose SQ SCH (20:36)
--- NOTE | 2021-01-29 22:40 | NUR ---
pt informed not safe to get up without assistance. found in bathroom had emptied colostomy bag but could not remember how to put the clip back on the bag. cleaned pt up and assisted him in ambulation back to bed and his knees buckled while Rn holding him. eased to floor and hospital administrative assistant called for assistance in getting pt off the floor. with 2 people pt assisted in standing up and ambulating back to bed x2 steps. assisted up in bed for comfort. tabs unit put on him and teaching done on not getting up out of bed. pt denies and pain or injury and skin checked nothing noted. pt did not fall.
[2021-01-30] VITALS (8 sets, daily range): BP systolic 73–103; BP diastolic 50–71
--- NOTE | 2021-01-30 00:25 | NUR ---
resting no changes tabs in place.
--- NOTE | 2021-01-30 02:45 | NUR ---
pt voided 200 cc tea colored urine.
--- NOTE | 2021-01-30 04:19 | NUR ---
resting appears comfortable on left side
--- NOTE | 2021-01-30 05:30 | NUR ---
COMPLETE BED BATH GIVEN KAILEY WIPES DONE TO THE BACK WITH COMPLETE LIEN CHANGE DONE TO HIS BED. PT TOLERATED WELL. BATH DONE SITTING UP IN THE CHAIR AND PT ASSISTED BACK TO BED AND TABS APPLIED ON THE PT.
--- NOTE | 2021-01-30 06:07 | NUR ---
Problems reprioritized. Patient report given, questions answered & plan of care reviewed with LAUREL CAMILO. Addendum: 01/30/21 at 0607 by Aylin Mejia RN Amended: Links added.
[2021-01-30 06:15] LABS: ALBUMIN 2.9 G/DL (3.4-5.0); ANION GAP 18 (8-16); BLOOD UREA NITROGEN 89 MG/DL (7-18); CALCIUM 8.9 MG/DL (8.5-10.1); CHLORIDE 105 MMOL/L (99-107); CREATININE 5.22 MG/DL (0.60-1.10); GLUCOSE 117 MG/DL (70-104); SODIUM 138 MMOL/L (135-145); TOTAL CARBON DIOXIDE 15.4 MMOL/L (24-32); eGFR 12 ML/MIN
[2021-01-30 06:35] LABS: BASOPHILS % (AUTO) 0.3 % (0-1); EOSINOPHILS # (AUTO) 0.2 X10'3 (0-0.9); EOSINOPHILS % (AUTO) 2.2 % (0-6); HEMATOCRIT 33.5 % (42.0-52.0); HEMOGLOBIN 11.2 g/dl (14.0-17.9); LYMPHOCYTES # (AUTO) 1.8 X10'3 (1.1-4.8); LYMPHOCYTES % (AUTO) 21.3 % (21-51); MEAN CORPUSCULAR HEMOGLOBIN 27.9 PG (27.0-31.0); MEAN CORPUSCULAR HGB CONC 33.5 g/dL (33.0-36.5); MEAN CORPUSCULAR VOLUME 83.1 FL (78-98); MEAN PLATELET VOLUME 8.5 FL (7.4-10.4); MONOCYTES # (AUTO) 0.8 X10'3 (0-0.9); MONOCYTES % (AUTO) 9.5 % (2-12); NEUTROPHILS # (AUTO) 5.7 X10'3 (1.8-7.7); NEUTROPHILS % (AUTO) 66.7 % (42-75); PLATELET COUNT 199 X10'3 (140-440); RED BLOOD COUNT 4.03 X10'6 (4.70-6.10); RED CELL DISTRIBUTION WIDTH 15.4 % (11.5-14.5); WHITE BLOOD COUNT 8.6 X10'3 (4.5-11.0)
--- NOTE | 2021-01-30 06:53 | NUR ---
Patient in room [facility] 349. I have received report from YAKELIN CAMILO and had the opportunity to ask questions and assume patient care.
[2021-01-30 07:32] LABS: HEMOGLOBIN A1C 7.6 % (4.5-6.2)
[2021-01-30] MEDS: tamsulosin 0.4mg capsule PO SCH (08:19)
[2021-01-30] MEDS: morphine ER 15mg tablet PO SCH ×2 (08:19→20:33)
--- NOTE | 2021-01-30 09:39 | NUR ---
PATIENT BLOOD SUGAR WAS 120 AND ORDERED TO DOSE WITH 6 UNITS OF INSULIN BUT PATIENT IS NPO WILL HOLD MEDICATION AT THIS TIME.
[2021-01-30] MEDS ORDERED: LIDOcaine 1%/PF 5ML 10 MG/ML VIAL ONE (10:22)
[2021-01-30] MEDS ORDERED: iohexol 300 MG/1 ML 50ml polymer ONE (10:22)
[2021-01-30] MEDS ORDERED: midazolam 1 mg/ML 2ml injection ONE (10:42)
[2021-01-30] MEDS ORDERED: fentaNYL/PF 50MCG/1 ML 2ML syringe ONE (10:42)
--- NOTE | 2021-01-30 15:33 | NUR ---
DM Consult: Pt hx DM A1C 7.6 this admit down from 12.9 August this year using Lantus and sliding scale insulin at home per EMR. Pt NPO at this time would benefit from DM ed this admit. Addendum: 01/30/21 at [address] Amended: Links added.
[2021-01-30] MEDS ORDERED: normal saline 500ml IV soln 500 ML IV ONE (15:35)
--- NOTE | 2021-01-30 18:56 | NUR ---
Problems reprioritized. Patient report given, questions answered & plan of care reviewed with MARY JANE CAMILO.
--- NOTE | 2021-01-30 18:57 | NUR ---
Patient in room [facility] 351. I have received report from LAUREL CAMILO and had the opportunity to ask questions and assume patient care.
[2021-01-30] MEDS: normal saline 1000ml 1,000 ML IV SCH (20:33)
[2021-01-30] MEDS: insulin glargine (Lantus) pen - multi-dose SQ SCH (20:57)
[2021-01-31] VITALS: BP 89/65
[2021-01-31] MEDS: normal saline 1000ml 1,000 ML IV SCH (04:31)
[2021-01-31 06:11] LABS: BASOPHILS % (AUTO) 0.2 % (0-1); EOSINOPHILS # (AUTO) 0.1 X10'3 (0-0.9); EOSINOPHILS % (AUTO) 0.7 % (0-6); HEMATOCRIT 27.1 % (42.0-52.0); HEMOGLOBIN 8.8 g/dl (14.0-17.9); LYMPHOCYTES # (AUTO) 1.9 X10'3 (1.1-4.8); LYMPHOCYTES % (AUTO) 16.3 % (21-51); MEAN CORPUSCULAR HEMOGLOBIN 27.3 PG (27.0-31.0); MEAN CORPUSCULAR HGB CONC 32.6 g/dL (33.0-36.5); MEAN CORPUSCULAR VOLUME 83.8 FL (78-98); MEAN PLATELET VOLUME 8.2 FL (7.4-10.4); MONOCYTES # (AUTO) 0.9 X10'3 (0-0.9); MONOCYTES % (AUTO) 7.4 % (2-12); NEUTROPHILS % (AUTO) 75.4 % (42-75); PLATELET COUNT 148 X10'3 (140-440); RED BLOOD COUNT 3.23 X10'6 (4.70-6.10); RED CELL DISTRIBUTION WIDTH 15.4 % (11.5-14.5); WHITE BLOOD COUNT 11.9 X10'3 (4.5-11.0)
--- NOTE | 2021-01-31 06:23 | NUR ---
Patient in room [facility] 351. I have received report from TON HINTON and had the opportunity to ask questions and assume patient care.
--- NOTE | 2021-01-31 06:30 | NUR ---
Dr Yo PAGER ID: [phone] MESSAGE: 351- Gustavo Whitman- BP 84/50 HR 108. Currently on NS@100, was bolus 500ml yesterday 1547. Alert and oriented. He denies any symptoms. Thank you- Sheeba [phone]
[2021-01-31] MEDS ORDERED: normal saline 500ml IV soln 500 ML IV ONE (06:35)
[2021-01-31 06:36] VITALS: BP 84/50
[2021-01-31 06:38] LABS: ALBUMIN 2.3 G/DL (3.4-5.0); ANION GAP 16 (8-16); BLOOD UREA NITROGEN 90 MG/DL (7-18); BUN/CREATININE RATIO 15.4 (5.4-32.0); CHLORIDE 104 MMOL/L (99-107); CREATININE 5.83 MG/DL (0.60-1.10); GLUCOSE 83 MG/DL (70-104); POTASSIUM 5.3 MMOL/L (3.5-5.1); SODIUM 134 MMOL/L (135-145); eGFR 10 ML/MIN
[2021-01-31 06:40] LABS: TOTAL CARBON DIOXIDE 14.5 MMOL/L (24-32)
--- NOTE | 2021-01-31 06:41 | NUR ---
PAGER ID: [phone] MESSAGE: 351 Gustavo Bowen- Critical Co2 14.5-Thank you- Sheeba [phone]
--- NOTE | 2021-01-31 07:42 | NUR ---
Dr Yo returned call regarding c02 14.5 critical level and ordered for bicarb drip and to not bolus with the normal saline 500ml as it would "make it worse."
--- NOTE | 2021-01-31 07:58 | NUR ---
PAGER ID: [phone] MESSAGE: 351 Gustavo Bowen- this am BP was 84/50. was on NS@100 so 500ML NS bolus ordered but canceled when critical co2 14.5. Bicarb drip @125 ordered. Waiting for pharm to make. BP now 75/44, 65/4., 67/36 HR 107. Manual is 70/50. -Sheeba [phone]
[2021-01-31] MEDS: morphine ER 15mg tablet PO SCH ×2 (08:00→19:24)
[2021-01-31] MEDS: tamsulosin 0.4mg capsule PO SCH (08:00)
[2021-01-31] MEDS: sodium bicarbonate (8.4%) inj. 100 MEQ in dextrose 5%-water 1,000 ML IV SCH ×3 (08:06→17:00)
--- NOTE | 2021-01-31 09:07 | NUR ---
No insulin given per hospitals sliding scale for BG 87 and patient did not eat breakfast.
[2021-01-31 09:26] VITALS: BP 89/90
--- NOTE | 2021-01-31 09:35 | NUR ---
PAGER ID: [phone] MESSAGE: 351- Gustavo Mcgregor- sitting up in bed eating breakfast Bp is now 89/90 map 70 HR 110. Per pharm Flomax can bring down BP. Flomax held. Thank you- Sheeba [phone]
[2021-01-31 11:28] VITALS: BP 87/48
--- NOTE | 2021-01-31 13:01 | NUR ---
Patient colostomy to left upper abd leaking stool. Colostomy drainage bag changed. Patient tolerated well. Good seal. Will continue to monitor.
[2021-01-31] MEDS: insulin Lispro (HumaLOG) vial - multi-dose SQ PRN ×2 (14:12→19:23)
--- NOTE | 2021-01-31 14:36 | NUR ---
F/u: Pt seen at bedside provided with written DM education. Pt denies any recent changes in DM management that would have resulted in significant improvement in A1c from 12.9% to 7.6% and states he takes his medications per rx. Pt denies any questions about DM management at this time. RD contact information provided and pt encouraged to reach out if needed. Pt endorses a good appetite and denies food allergies or difficulty chewing/swallowing. Pt currently on renal diet only though CHO controlled diet may not be indicated as BG levels have been well controlled since admit with the exception of 235 mg/dL at most recent BG check. Will continue to follow. Addendum: 01/31/21 at [address] Amended: Links added.
[2021-01-31 18:00] VITALS: BP 99/56
--- NOTE | 2021-01-31 18:23 | NUR ---
Problems reprioritized. Patient report given, questions answered & plan of care reviewed with TON Hamilton.
--- NOTE | 2021-01-31 18:40 | NUR ---
Patient in room [facility] 351. I have received report from Sheeba CAMILO and had the opportunity to ask questions and assume patient care.
[2021-01-31] MEDS: insulin glargine (Lantus) pen - multi-dose SQ SCH (21:13)
[2021-02-01] VITALS: BP 96/69
[2021-02-01] MEDS: sodium bicarbonate (8.4%) inj. 100 MEQ in dextrose 5%-water 1,000 ML IV SCH (02:38)
--- NOTE | 2021-02-01 06:18 | NUR ---
Problems reprioritized. Patient report given, questions answered & plan of care reviewed with Tuyet CAMILO.
[2021-02-01 06:40] LABS: BASOPHILS % (AUTO) 0.2 % (0-1); EOSINOPHILS # (AUTO) 0.1 X10'3 (0-0.9); EOSINOPHILS % (AUTO) 0.8 % (0-6); HEMATOCRIT 22.6 % (42.0-52.0); HEMOGLOBIN 7.6 g/dl (14.0-17.9); LYMPHOCYTES # (AUTO) 1.5 X10'3 (1.1-4.8); LYMPHOCYTES % (AUTO) 15.2 % (21-51); MEAN CORPUSCULAR HEMOGLOBIN 27.6 PG (27.0-31.0); MEAN CORPUSCULAR HGB CONC 33.4 g/dL (33.0-36.5); MEAN CORPUSCULAR VOLUME 82.4 FL (78-98); MEAN PLATELET VOLUME 8.7 FL (7.4-10.4); MONOCYTES # (AUTO) 0.8 X10'3 (0-0.9); MONOCYTES % (AUTO) 7.8 % (2-12); NEUTROPHILS # (AUTO) 7.5 X10'3 (1.8-7.7); PLATELET COUNT 99 X10'3 (140-440); RED BLOOD COUNT 2.74 X10'6 (4.70-6.10); RED CELL DISTRIBUTION WIDTH 15.2 % (11.5-14.5); WHITE BLOOD COUNT 9.8 X10'3 (4.5-11.0)
[2021-02-01 07:00] VITALS: BP 92/54
[2021-02-01 07:11] LABS: ALBUMIN 1.9 G/DL (3.4-5.0); ANION GAP 14 (8-16); BLOOD UREA NITROGEN 95 MG/DL (7-18); BUN/CREATININE RATIO 16.3 (5.4-32.0); CALCIUM 7.6 MG/DL (8.5-10.1); CHLORIDE 98 MMOL/L (99-107); CREATININE 5.83 MG/DL (0.60-1.10); GLUCOSE 109 MG/DL (70-104); POTASSIUM 4.2 MMOL/L (3.5-5.1); SODIUM 131 MMOL/L (135-145); TOTAL CARBON DIOXIDE 19.1 MMOL/L (24-32); eGFR 10 ML/MIN
--- NOTE | 2021-02-01 07:38 | NUR ---
Blood sugar this am was 99mg/dl, patient requested not to get am dose of Humalog 6 units with this blood sugar reading and would want to see what the next blood sugar will be. He did not want his blood sugar go down too low.
[2021-02-01] MEDS: morphine ER 15mg tablet PO SCH (07:40)
[2021-02-01] MEDS: tamsulosin 0.4mg capsule PO SCH (07:43)
--- NOTE | 2021-02-01 10:00 | NUR ---
Discharge instructions given to patient, patient verbalized understanding of all instructions made. Instructed patient to also follow up with his kidney doctor and to make sure he gets in touch with his PCP for diabetes management. Dr. Moore had also instructed patient to follow up with his Urologist upon discharge. Patient stated that he would have someone to pick him up today upon discharge and he would let me know as soon as he has estimated time for his ride. Addendum: 02/01/21 at 1258 by Tuyet Moran RN Late entry: 1130am - Peripheral IV catheter removed, tip intact.
[2021-02-01 11:00] VITALS: BP 92/46
== END 2021-02-01 11:50 | disposition home health service (06) | DRG 468 ==
LOC: ER 02:53 → ED HOLD 07:11 → OBSVTOIN 07:11 → SUR 3N 08:55
PROVIDERS: ADMIT Family Medicine; ATTEND Family Medicine
PROC: 0T9130Z Drainage of Left Kidney with Drainage Device, Percutaneous Approach (ICD-10-PCS; principal; 2021-01-30)
PROC: 0T9030Z Drainage of Right Kidney with Drainage Device, Percutaneous Approach (ICD-10-PCS; 2021-01-30)
PROC: BT131ZZ Fluoroscopy of Bilateral Kidneys using Low Osmolar Contrast (ICD-10-PCS; 2021-01-30)
DX: Z43.6 Encounter for attention to other artificial openings of urinary tract (principal); E11.22 Type 2 diabetes mellitus with diabetic chronic kidney disease; E87.2 Acidosis; I95.9 Hypotension, unspecified; N18.5 Chronic kidney disease, stage 5; N13.30 Unspecified hydronephrosis; D64.9 Anemia, unspecified; Z20.822 Contact with and (suspected) exposure to COVID-19; Z85.048 Personal history of other malignant neoplasm of rectum, rectosigmoid junction, and anus; Z92.3 Personal history of irradiation; Y92.89 Other specified places as the place of occurrence of the external cause
CPT/HCPCS: 36415; 50693; 80048; 80053; 82948; 83036; 85025; 87081; 87426; 99285; C1729; C1769; G0378; J1815; J2250; J3010; J7030; J7040; Q9967

== ENCOUNTER 2021-04-12 15:06 | Day surgery (SDC) | payer MEDICAID ==
[~2021-04-12] VITALS: Ht 175.3 cm; Wt 78.9 kg
[2021-04-12 08:59] VITALS: BP 143/87
[2021-04-12 09:18] LABS: BASOPHILS % (AUTO) 0.4 % (0-1); EOSINOPHILS # (AUTO) 0.2 X10'3 (0-0.9); EOSINOPHILS % (AUTO) 2.3 % (0-6); HEMATOCRIT 29.6 % (42.0-52.0); HEMOGLOBIN 9.8 g/dl (14.0-17.9); LYMPHOCYTES # (AUTO) 1.6 X10'3 (1.1-4.8); LYMPHOCYTES % (AUTO) 16.4 % (21-51); MEAN CORPUSCULAR HEMOGLOBIN 26.8 PG (27.0-31.0); MEAN CORPUSCULAR HGB CONC 33.1 g/dL (33.0-36.5); MEAN CORPUSCULAR VOLUME 80.7 FL (78-98); MEAN PLATELET VOLUME 7.7 FL (7.4-10.4); MONOCYTES # (AUTO) 0.6 X10'3 (0-0.9); MONOCYTES % (AUTO) 6.2 % (2-12); NEUTROPHILS # (AUTO) 7.3 X10'3 (1.8-7.7); NEUTROPHILS % (AUTO) 74.7 % (42-75); PLATELET COUNT 192 X10'3 (140-440); RED BLOOD COUNT 3.67 X10'6 (4.70-6.10); WHITE BLOOD COUNT 9.7 X10'3 (4.5-11.0)
[2021-04-12 09:34] LABS: ALBUMIN 2.9 G/DL (3.4-5.0); ANION GAP 17 (8-16); BLOOD UREA NITROGEN 70 MG/DL (7-18); BUN/CREATININE RATIO 14.9 (5.4-32.0); CALCIUM 7.8 MG/DL (8.5-10.1); CHLORIDE 109 MMOL/L (99-107); CREATININE 4.69 MG/DL (0.60-1.10); GLUCOSE 152 MG/DL (70-104); POTASSIUM 4.1 MMOL/L (3.5-5.1); SODIUM 141 MMOL/L (135-145); TOTAL CARBON DIOXIDE 15.3 MMOL/L (24-32); eGFR 13 ML/MIN
[2021-04-12 11:01] VITALS: BP 131/85
[2021-04-12 11:15] VITALS: BP 145/87
[2021-04-12 11:30] VITALS: BP 142/96
[~2021-04-12 15:06] MED LIST changes: +LIDOcaine 1%/PF 5ML 10 MG/ML VIAL ONE; -MERO500P; -VANC500F2; +ceFAZolin/D5W- 1GM premix 50 ML IV ONE; +fentaNYL/PF 50MCG/1 ML 2ML syringe ONE; +iohexol 300 MG/1 ML 50ml polymer ONE; +midazolam 1 mg/ML 2ml injection ONE; +normal saline 1000ml 1,000 ML IV PRN
== END 2021-04-12 15:07 | disposition home or self-care (01) ==
LOC: SSTAY O 15:06
PROVIDERS: ATTEND Radiology Vascular & Interventional Radiology
DX: Z46.6 Encounter for fitting and adjustment of urinary device (principal); N13.1 Hydronephrosis with ureteral stricture, not elsewhere classified; Z20.822 Contact with and (suspected) exposure to COVID-19; Z79.899 Other long term (current) drug therapy; Z83.3 Family history of diabetes mellitus
CPT/HCPCS: 36415; 50387; 80048; 82948; 85025; 87635; C1729; C9803; J2250; J3010; Q9967; 99152; 99153

== ENCOUNTER 2021-07-03 15:09 | Inpatient (IN) | payer MEDICAID ==
[~2021-07-03] VITALS: Ht 172.7 cm; Wt 72.7 kg
[~2021-07-03 15:09] MED LIST changes: -FLO0.4C PO; -LIDOcaine 1%/PF 5ML 10 MG/ML VIAL ONE; -MSC15T PO; -ceFAZolin/D5W- 1GM premix 50 ML IV ONE; -fentaNYL/PF 50MCG/1 ML 2ML syringe ONE; -iohexol 300 MG/1 ML 50ml polymer ONE; -midazolam 1 mg/ML 2ml injection ONE; -normal saline 1000ml 1,000 ML IV PRN
[2021-07-03 15:39] LABS: BASOPHILS # (AUTO) 0.1 X10'3 (0-0.2); BASOPHILS % (AUTO) 0.4 % (0-1); EOSINOPHILS # (AUTO) 0.1 X10'3 (0-0.9); EOSINOPHILS % (AUTO) 0.6 % (0-6); HEMATOCRIT 33.1 % (42.0-52.0); HEMOGLOBIN 10.8 g/dl (14.0-17.9); LYMPHOCYTES # (AUTO) 1.3 X10'3 (1.1-4.8); LYMPHOCYTES % (AUTO) 8.6 % (21-51); MEAN CORPUSCULAR HEMOGLOBIN 26.1 PG (27.0-31.0); MEAN CORPUSCULAR HGB CONC 32.6 g/dL (33.0-36.5); MEAN CORPUSCULAR VOLUME 79.9 FL (78-98); MEAN PLATELET VOLUME 8.2 FL (7.4-10.4); MONOCYTES # (AUTO) 0.8 X10'3 (0-0.9); MONOCYTES % (AUTO) 5.4 % (2-12); NEUTROPHILS # (AUTO) 13.2 X10'3 (1.8-7.7); PLATELET COUNT 254 X10'3 (140-440); RED BLOOD COUNT 4.14 X10'6 (4.70-6.10); RED CELL DISTRIBUTION WIDTH 14.5 % (11.5-14.5); WHITE BLOOD COUNT 15.5 X10'3 (4.5-11.0)
[2021-07-03 15:54] LABS: ALANINE AMINOTRANSFERASE 14 U/L (12-78); ALBUMIN 2.9 G/DL (3.4-5.0); ALBUMIN/GLOBULIN RATIO 0.5 (1.1-1.5); ALKALINE PHOSPHATASE 140 IU/L (46-116); ANION GAP 15 (8-16); ASPARTATE AMINO TRANSFERASE 9 U/L (10-37); BILIRUBIN,TOTAL 0.3 MG/DL (0.1-1.0); BLOOD UREA NITROGEN 69 MG/DL (7-18); BUN/CREATININE RATIO 10.4 (5.4-32.0); CALCIUM 8.5 MG/DL (8.5-10.1); CHLORIDE 98 MMOL/L (99-107); CREATININE 6.65 MG/DL (0.60-1.10); GLUCOSE 317 MG/DL (70-104); POTASSIUM 3.9 MMOL/L (3.5-5.1); SODIUM 132 MMOL/L (135-145); eGFR 9 ML/MIN
[2021-07-03] MEDS ORDERED: levetiracetam 250mg tablet PO ONE (16:30)
[2021-07-03] MEDS ORDERED: LORazepam 2 mg/ml vial IV ONE (17:25)
[2021-07-03] MEDS ORDERED: magnesium 2GM in 50ml NS 50 ML IV PRN (18:25)
[2021-07-03] MEDS ORDERED: potassium CL 10mEq/100ml bag 100 ML IV PRN (18:25)
[2021-07-03] MEDS ORDERED: potassium Cl 20 mEq SR tablet PO PRN (18:25)
[2021-07-03 19:45] LABS: MAGNESIUM 2.1 MG/DL (1.5-2.4); POTASSIUM 3.9 MMOL/L (3.5-5.1)
[2021-07-03] MEDS: K and/or MAG REPLACEMENT MC SCH (19:59)
[2021-07-03] MEDS: normal saline 1000ml 1,000 ML IV SCH (20:05)
[2021-07-04] MEDS ORDERED: LORazepam 2 mg/ml vial IV ONE
--- NOTE | 2021-07-04 00:15 | NUR ---
Walked into room to check on patient. Patient was found half-sitting up in bed and appeared to be experiencing seizure-like activity for an observable 5-7 seconds. Nearby ED doctor was notified and took a look at patient, and referred to speak with hospitalist. Hospitalist gave order for one time dose of Ativan 1mg IV. Medication given. Vital signs stable.
[2021-07-04 03:10] LABS: BASOPHILS % (AUTO) 0.4 % (0-1); EOSINOPHILS # (AUTO) 0.1 X10'3 (0-0.9); EOSINOPHILS % (AUTO) 1.1 % (0-6); HEMATOCRIT 32.6 % (42.0-52.0); HEMOGLOBIN 10.8 g/dl (14.0-17.9); LYMPHOCYTES % (AUTO) 10.4 % (21-51); MEAN CORPUSCULAR HEMOGLOBIN 26.2 PG (27.0-31.0); MEAN CORPUSCULAR HGB CONC 33.1 g/dL (33.0-36.5); MEAN CORPUSCULAR VOLUME 79.3 FL (78-98); MEAN PLATELET VOLUME 8.1 FL (7.4-10.4); MONOCYTES # (AUTO) 0.7 X10'3 (0-0.9); MONOCYTES % (AUTO) 7.4 % (2-12); NEUTROPHILS % (AUTO) 80.7 % (42-75); PLATELET COUNT 176 X10'3 (140-440); RED BLOOD COUNT 4.11 X10'6 (4.70-6.10); RED CELL DISTRIBUTION WIDTH 14.4 % (11.5-14.5)
[2021-07-04 03:30] LABS: ALBUMIN 2.4 G/DL (3.4-5.0); ANION GAP 15 (8-16); BLOOD UREA NITROGEN 72 MG/DL (7-18); BUN/CREATININE RATIO 10.9 (5.4-32.0); CALCIUM 8.2 MG/DL (8.5-10.1); CHLORIDE 102 MMOL/L (99-107); CREATININE 6.62 MG/DL (0.60-1.10); GLUCOSE 369 MG/DL (70-104); MAGNESIUM 2.1 MG/DL (1.5-2.4); SODIUM 135 MMOL/L (135-145); TOTAL CARBON DIOXIDE 17.7 MMOL/L (24-32); eGFR 9 ML/MIN
[2021-07-04] MEDS: normal saline 1000ml 1,000 ML IV SCH ×2 (04:40→18:05)
--- NOTE | 2021-07-04 06:44 | NUR ---
Report given to Erin CAMILO.
[2021-07-04 07:00] VITALS: BP 109/79
[2021-07-04] MEDS ORDERED: dextrose 50%-water 50ml dispensing syringe IV PRN ×2 (07:30)
[2021-07-04] MEDS ORDERED: glucagon, human recombinant 1mg kit SUBCUT PRN (07:30)
[2021-07-04] MEDS ORDERED: dextrose ORAL solution 15 GM/59 ML bottle PO PRN ×2 (07:30)
[2021-07-04] MEDS ORDERED: MESSAGE TO PHARMACY PO ONE (07:30)
[2021-07-04] MEDS: K and/or MAG REPLACEMENT MC SCH ×2 (08:00→20:00)
[2021-07-04 08:28] LABS: HEMOGLOBIN A1C 13.5 % (4.5-6.2)
[2021-07-04 11:00] VITALS: BP 114/74
--- NOTE | 2021-07-04 12:41 | NUR ---
Spoke with Erin CAMILO for patient, she states the patient's neph tubes are producing appropriately, the patient is no longer confused, WBCs trending down. Patient is not due for Neph Tube changes until July. We will hold off changing the tubes for now per Dr. Vora.
[2021-07-04] MEDS: insulin Lispro (HumaLOG) vial - multi-dose SQ SCH ×3 (12:58→21:49)
[2021-07-04] MEDS: levetiracetam 250mg tablet PO SCH ×2 (13:00→19:23)
[2021-07-04 15:00] VITALS: BP 103/67
[2021-07-04 18:00] VITALS: BP 112/70
--- NOTE | 2021-07-04 18:41 | NUR ---
Patient in room PCU 3009. I have received report from Chelsei CAMILO and had the opportunity to ask questions and assume patient care.
[2021-07-04] MEDS: insulin glargine (Lantus) pen - multi-dose SQ SCH (21:48)
[2021-07-04 22:00] VITALS: BP 119/82
[2021-07-05] MEDS: normal saline 1000ml 1,000 ML IV SCH ×3 (00:25→19:26)
[2021-07-05 02:00] VITALS: BP 98/59
[2021-07-05 06:30] VITALS: BP 104/62
--- NOTE | 2021-07-05 06:41 | NUR ---
Problems reprioritized. Patient report given, questions answered & plan of care reviewed with Bonny CAMILO.
[2021-07-05 07:47] LABS: BASOPHILS % (AUTO) 0.2 % (0-1); EOSINOPHILS # (AUTO) 0.1 X10'3 (0-0.9); EOSINOPHILS % (AUTO) 1.1 % (0-6); HEMATOCRIT 29.1 % (42.0-52.0); HEMOGLOBIN 9.5 g/dl (14.0-17.9); LYMPHOCYTES # (AUTO) 1.2 X10'3 (1.1-4.8); LYMPHOCYTES % (AUTO) 10.9 % (21-51); MEAN CORPUSCULAR HEMOGLOBIN 26.3 PG (27.0-31.0); MEAN CORPUSCULAR HGB CONC 32.8 g/dL (33.0-36.5); MEAN CORPUSCULAR VOLUME 80.4 FL (78-98); MEAN PLATELET VOLUME 8.5 FL (7.4-10.4); MONOCYTES # (AUTO) 0.8 X10'3 (0-0.9); MONOCYTES % (AUTO) 7.4 % (2-12); NEUTROPHILS % (AUTO) 80.4 % (42-75); PLATELET COUNT 160 X10'3 (140-440); RED BLOOD COUNT 3.62 X10'6 (4.70-6.10); RED CELL DISTRIBUTION WIDTH 14.6 % (11.5-14.5); WHITE BLOOD COUNT 11.2 X10'3 (4.5-11.0)
[2021-07-05] MEDS: K and/or MAG REPLACEMENT MC SCH ×2 (08:00→19:26)
[2021-07-05 08:03] LABS: ALBUMIN 2.1 G/DL (3.4-5.0); ANION GAP 18 (8-16); BLOOD UREA NITROGEN 68 MG/DL (7-18); BUN/CREATININE RATIO 11.5 (5.4-32.0); CALCIUM 7.9 MG/DL (8.5-10.1); CHLORIDE 104 MMOL/L (99-107); CREATININE 5.92 MG/DL (0.60-1.10); GLUCOSE 236 MG/DL (70-104); MAGNESIUM 1.9 MG/DL (1.5-2.4); POTASSIUM 3.8 MMOL/L (3.5-5.1); SODIUM 136 MMOL/L (135-145); eGFR 10 ML/MIN
[2021-07-05 08:16] LABS: TOTAL CARBON DIOXIDE 13.9 MMOL/L (24-32)
--- NOTE | 2021-07-05 08:47 | NUR ---
PAGER ID: [phone] MESSAGE: Gustavo Whitman 3009 CRITICAL VALUE co2 13.9 Bonny [id number]
[2021-07-05] MEDS: levetiracetam 250mg tablet PO SCH ×2 (10:02→20:01)
[2021-07-05] MEDS: insulin Lispro (HumaLOG) vial - multi-dose SQ SCH ×4 (10:10→22:23)
[2021-07-05 11:00] VITALS: BP 99/61
[2021-07-05] MEDS: sodium bicarbonate (8.4%) inj. 150 MEQ in dextrose 5%-water 1,000 ML IV SCH ×2 (13:15→22:55)
--- NOTE | 2021-07-05 15:18 | NUR ---
DM Consult: Pt admit DX acute on chronic renal failure hx bilateral nephrostomy tubes unable to make own urine following colon CA radiation and insulin dependent DM per EMR. Pt A1C 13.5 this admit up from 7.9 January this year which had been down from prior 12.20 August 2020 per EMR. Pt seen by RD for written/verbal DM ed w/ RD contact information provided. Pt reports takes insulin per Rx, checks Glu BID though aims for TID, and has been "battling infection" [employer] w/ Glu 300's recently. RD encouraged pt to f/u w/ PCP regarding insulin dosage and administration to optimize Glu coverage at home. RD reviewed sources of carbs, carb portion sizing, hydration, protein sources, and encourage pt to contact dietitian's office if further questions/concerns. Addendum: 07/05/21 at [address] Amended: Links added.
[2021-07-05 16:45] VITALS: BP 104/74
[2021-07-05 18:00] VITALS: BP 138/84
--- NOTE | 2021-07-05 18:27 | NUR ---
Report given to Ginger CAMILO.
--- NOTE | 2021-07-05 18:42 | NUR ---
PAGER ID: [phone] MESSAGE: Gustavo Antonette [phone] The tele neuro notes say this pt. is supposed to have head MRI? Are we going to do that? PT order? EEG for seizures? What is the plan for this pt? Bonny molina RN Prud[facility] [phone]
--- NOTE | 2021-07-05 18:59 | NUR ---
Patient in room PCU 3009. I have received report from CHRISTIAN CAMILO and had the opportunity to ask questions and assume patient care.
[2021-07-05 22:00] VITALS: BP 146/86
[2021-07-05] MEDS: insulin glargine (Lantus) pen - multi-dose SQ SCH (22:25)
[2021-07-06] MEDS: sodium bicarbonate (8.4%) inj. 150 MEQ in dextrose 5%-water 1,000 ML IV SCH ×2 (01:33→17:03)
[2021-07-06 02:00] VITALS: BP 107/64
[2021-07-06 06:00] VITALS: BP 95/51
[2021-07-06] MEDS: normal saline 1000ml 1,000 ML IV SCH ×2 (06:25→16:25)
--- NOTE | 2021-07-06 06:27 | NUR ---
Problems reprioritized. Patient report given, questions answered & plan of care reviewed with CANDY CAMILO.
[2021-07-06 06:34] LABS: BASOPHILS % (AUTO) 0.2 % (0-1); EOSINOPHILS # (AUTO) 0.1 X10'3 (0-0.9); EOSINOPHILS % (AUTO) 0.7 % (0-6); HEMATOCRIT 25.9 % (42.0-52.0); HEMOGLOBIN 8.5 g/dl (14.0-17.9); LYMPHOCYTES # (AUTO) 1.3 X10'3 (1.1-4.8); LYMPHOCYTES % (AUTO) 10.9 % (21-51); MEAN CORPUSCULAR HEMOGLOBIN 26.1 PG (27.0-31.0); MEAN CORPUSCULAR HGB CONC 32.9 g/dL (33.0-36.5); MEAN CORPUSCULAR VOLUME 79.3 FL (78-98); MEAN PLATELET VOLUME 8.6 FL (7.4-10.4); MONOCYTES # (AUTO) 0.9 X10'3 (0-0.9); MONOCYTES % (AUTO) 7.4 % (2-12); NEUTROPHILS # (AUTO) 9.8 X10'3 (1.8-7.7); NEUTROPHILS % (AUTO) 80.8 % (42-75); PLATELET COUNT 172 X10'3 (140-440); RED BLOOD COUNT 3.26 X10'6 (4.70-6.10); RED CELL DISTRIBUTION WIDTH 14.3 % (11.5-14.5); WHITE BLOOD COUNT 12.1 X10'3 (4.5-11.0)
--- NOTE | 2021-07-06 06:37 | NUR ---
Patient in room PCU 3009. I have received report from TON Miles and had the opportunity to ask questions and assume patient care.
[2021-07-06 06:49] LABS: ANION GAP 17 (8-16); BLOOD UREA NITROGEN 64 MG/DL (7-18); BUN/CREATININE RATIO 11.9 (5.4-32.0); CALCIUM 7.8 MG/DL (8.5-10.1); CHLORIDE 100 MMOL/L (99-107); CREATININE 5.36 MG/DL (0.60-1.10); GLUCOSE 167 MG/DL (70-104); MAGNESIUM 1.5 MG/DL (1.5-2.4); POTASSIUM 3.4 MMOL/L (3.5-5.1); SODIUM 137 MMOL/L (135-145); TOTAL CARBON DIOXIDE 20.3 MMOL/L (24-32); eGFR 11 ML/MIN
[2021-07-06] MEDS: K and/or MAG REPLACEMENT MC SCH ×2 (08:00→20:00)
[2021-07-06] MEDS: levetiracetam 250mg tablet PO SCH ×2 (09:00→20:20)
[2021-07-06] MEDS: potassium Cl 20 mEq SR tablet PO PRN ×3 (09:01→17:03)
[2021-07-06] MEDS: insulin Lispro (HumaLOG) vial - multi-dose SQ SCH ×3 (09:05→20:20)
[2021-07-06 11:00] VITALS: BP 101/61
[2021-07-06 15:00] VITALS: BP 117/72
[2021-07-06 18:00] VITALS: BP 108/71
--- NOTE | 2021-07-06 18:28 | NUR ---
Problems reprioritized. Patient report given, questions answered & plan of care reviewed with TON Conteh.
[2021-07-06] MEDS: insulin glargine (Lantus) pen - multi-dose SQ SCH (22:17)
[2021-07-07] MEDS: normal saline 1000ml 1,000 ML IV SCH ×2 (02:13→12:25)
[2021-07-07 06:26] LABS: BASOPHILS % (AUTO) 0.3 % (0-1); EOSINOPHILS # (AUTO) 0.1 X10'3 (0-0.9); EOSINOPHILS % (AUTO) 0.9 % (0-6); HEMATOCRIT 24.1 % (42.0-52.0); HEMOGLOBIN 8.3 g/dl (14.0-17.9); LYMPHOCYTES # (AUTO) 1.3 X10'3 (1.1-4.8); LYMPHOCYTES % (AUTO) 13.3 % (21-51); MEAN CORPUSCULAR HEMOGLOBIN 27.1 PG (27.0-31.0); MEAN CORPUSCULAR HGB CONC 34.5 g/dL (33.0-36.5); MEAN CORPUSCULAR VOLUME 78.6 FL (78-98); MONOCYTES # (AUTO) 0.7 X10'3 (0-0.9); MONOCYTES % (AUTO) 7.1 % (2-12); NEUTROPHILS # (AUTO) 7.7 X10'3 (1.8-7.7); NEUTROPHILS % (AUTO) 78.4 % (42-75); PLATELET COUNT 143 X10'3 (140-440); RED BLOOD COUNT 3.07 X10'6 (4.70-6.10); RED CELL DISTRIBUTION WIDTH 14.1 % (11.5-14.5); WHITE BLOOD COUNT 9.8 X10'3 (4.5-11.0)
[2021-07-07 06:36] LABS: ALBUMIN 1.9 G/DL (3.4-5.0); ANION GAP 9 (8-16); BLOOD UREA NITROGEN 54 MG/DL (7-18); BUN/CREATININE RATIO 10.2 (5.4-32.0); CALCIUM 7.8 MG/DL (8.5-10.1); CHLORIDE 103 MMOL/L (99-107); CREATININE 5.28 MG/DL (0.60-1.10); GLUCOSE 191 MG/DL (70-104); MAGNESIUM 1.5 MG/DL (1.5-2.4); POTASSIUM 3.8 MMOL/L (3.5-5.1); SODIUM 136 MMOL/L (135-145); TOTAL CARBON DIOXIDE 24.1 MMOL/L (24-32); eGFR 11 ML/MIN
[2021-07-07 07:00] VITALS: BP 108/67
--- NOTE | 2021-07-07 07:02 | NUR ---
Patient in room PCU 3009. I have received report from rommel ponce and had the opportunity to ask questions and assume patient care.
[2021-07-07] MEDS: K and/or MAG REPLACEMENT MC SCH (07:09)
[2021-07-07] MEDS: levetiracetam 250mg tablet PO SCH (07:52)
[2021-07-07] MEDS ORDERED: LEVE250T PO (07:57)
[2021-07-07 08:00] VITALS: BP 132/80
[2021-07-07] MEDS: sodium bicarbonate (8.4%) inj. 150 MEQ in dextrose 5%-water 1,000 ML IV SCH (09:25)
[2021-07-07] MEDS ORDERED: fentaNYL/PF 50MCG/1 ML 2ML syringe ONE (09:49)
[2021-07-07] MEDS: insulin Lispro (HumaLOG) vial - multi-dose SQ SCH (09:58)
[2021-07-07] MEDS ORDERED: iohexol 300 MG/1 ML 50ml polymer ONE (10:00)
[2021-07-07] MEDS ORDERED: LIDOcaine 1% (10mg/ml) 2ml vial ONE (10:51)
--- NOTE | 2021-07-07 14:00 | NUR ---
PAGED ELMER RE: PAGER ID: [phone] MESSAGE: LEONID SOTO. MRI HEAD RESULTED. PT WAITING FOR DC . [facility] [phone]
[2021-07-07] MEDS ORDERED: CLOP75TA15 PO (14:07)
[2021-07-07] MEDS ORDERED: ASPI-611 PO (14:07)
[2021-07-07] MEDS ORDERED: ATOR-2 PO (14:07)
[2021-07-07 16:05] VITALS: BP 98/64
--- NOTE | 2021-07-07 17:07 | NUR ---
PT DISCHARGED IN STABLE CONDITION. EDUCATED PT ON NEW MEDS AND FOLLOW UP INSTRUCTIONS. IV DC CANULA INTACT. ALL BELONGINGS IN HAND. ALL QUESTIONS ANSWERED. Addendum: 07/07/21 at 1708 by Marcie Loving RN Amended: Links added.
== END 2021-07-07 16:14 | disposition home or self-care (01) | DRG 53 ==
LOC: ER 15:10 → ED HOLD 18:26 → UNDOADMIN 20:26 → ED HOLD 21:27 → PCU 3S 07-04 07:05 → ED HOLD 07-04 07:05
PROVIDERS: ADMIT Internal Medicine; ATTEND Internal Medicine
PROC: BT131ZZ Fluoroscopy of Bilateral Kidneys using Low Osmolar Contrast (ICD-10-PCS; principal; 2021-07-07)
PROC: 0T787DZ Dilation of Bilateral Ureters with Intraluminal Device, Via Natural or Artificial Opening (ICD-10-PCS; 2021-07-07)
PROC: 0TP97DZ Removal of Intraluminal Device from Ureter, Via Natural or Artificial Opening (ICD-10-PCS; 2021-07-07)
DX: R56.9 Unspecified convulsions (principal); E87.2 Acidosis; N17.9 Acute kidney failure, unspecified; E11.22 Type 2 diabetes mellitus with diabetic chronic kidney disease; I12.0 Hypertensive chronic kidney disease with stage 5 chronic kidney disease or end stage renal disease; N13.30 Unspecified hydronephrosis; D64.9 Anemia, unspecified; N13.9 Obstructive and reflux uropathy, unspecified; N18.5 Chronic kidney disease, stage 5; R13.10 Dysphagia, unspecified; Z79.4 Long term (current) use of insulin; Z83.3 Family history of diabetes mellitus; Z85.038 Personal history of other malignant neoplasm of large intestine; Z93.3 Colostomy status; Z79.899 Other long term (current) drug therapy
CPT/HCPCS: 36415; 36569; 50387; 70450; 70551; 71045; 74176; 76937; 80048; 80053; 82948; 83036; 83735; 84132; 85025; 85610; 87081; 93005; 96374; 99285; C1729; C1769; G0378; J1815; J2001; J2060; J3010; J7030; Q9967

== ENCOUNTER 2021-09-20 10:52 | Day surgery (SDC) | payer MEDICAID ==
[~2021-09-20] VITALS: Ht 175.3 cm; Wt 80.6 kg
[~2021-09-20 10:52] MED LIST changes: +ATOR-2 PO; +CLOP75TA15 PO; +LEVE250T PO
[2021-09-20] MEDS ORDERED: ceFAZolin inj. 2,000 MG in normal saline soln 50 ML IV ONE (11:20)
[2021-09-20] MEDS ORDERED: normal saline 1000ml 1,000 ML IV PRN (11:20)
[2021-09-20] MEDS ORDERED: ceFAZolin 2gm in dextrose, iso 50 ML IV ONE (11:21)
[2021-09-20] MEDS ORDERED: CLOP75TA15 PO (11:23)
[2021-09-20] MEDS ORDERED: LEVE250T4 PO (11:23)
[2021-09-20] MEDS ORDERED: ATOR40TA72 PO (11:23)
[2021-09-20 11:30] VITALS: BP 152/82
[2021-09-20] MEDS ORDERED: fentaNYL/PF 50MCG/1 ML 2ML syringe ONE ×2 (13:29→14:09)
[2021-09-20] MEDS ORDERED: iohexol 300 MG/1 ML 50ml polymer ONE (13:33)
[2021-09-20 14:30] VITALS: BP 117/73
[2021-09-20 14:47] VITALS: BP 181/69
== END 2021-09-20 15:30 | disposition home or self-care (01) ==
LOC: SSTAY O 10:52
PROVIDERS: ATTEND Radiology Diagnostic Radiology
DX: Z46.6 Encounter for fitting and adjustment of urinary device (principal); E11.9 Type 2 diabetes mellitus without complications; Z79.4 Long term (current) use of insulin; Z79.899 Other long term (current) drug therapy; Z85.038 Personal history of other malignant neoplasm of large intestine; Z83.3 Family history of diabetes mellitus
CPT/HCPCS: 50387; 99152; 99153; C1729; C1769; J3010; Q9967

== ENCOUNTER 2022-04-06 06:41 | Day surgery (SDC) | payer MEDICAID ==
[~2022-04-06] VITALS: Ht 175.3 cm; Wt 67.3 kg
[~2022-04-06 06:41] MED LIST changes: +AMLO5TAB16 PO; -ATOR-2 PO; +ATOR40TA72 PO; -CLOP75TA15 PO; -LEVE250T PO; +LEVE250T4 PO
[2022-04-06] MEDS ORDERED: ceFAZolin inj. 2,000 MG in normal saline soln 50 ML IV ONE (07:05)
[2022-04-06] MEDS ORDERED: normal saline 1000ml 1,000 ML IV PRN (07:05)
[2022-04-06] MEDS ORDERED: ceFAZolin inj. 2,000 MG in dextrose 5%-water 50 ML IV ONE (07:14)
[2022-04-06] MEDS ORDERED: ceFAZolin inj. 2,000 MG in dextrose 5%-water 100 ML IV ONE (07:18)
[2022-04-06 07:36] VITALS: BP 92/64
[2022-04-06 09:45] VITALS: BP 104/73
[2022-04-06 10:00] VITALS: BP 104/65
[2022-04-06 10:15] VITALS: BP 116/55
[2022-04-06 10:30] VITALS: BP 106/70
== END 2022-04-06 11:15 | disposition home or self-care (01) ==
LOC: SSTAY O 06:41
PROVIDERS: ATTEND Preventive Medicine Aerospace Medicine
DX: Z46.6 Encounter for fitting and adjustment of urinary device (principal); N13.2 Hydronephrosis with renal and ureteral calculous obstruction; Z79.899 Other long term (current) drug therapy
CPT/HCPCS: 50387; 82948; 87811; C1729; C1769; J7030; A4421; A6258